=== PATIENT | female | born 1940 | race Caucasian/White ===

== ENCOUNTER 2022-12-22 11:40 | Emergency (ER) | payer OTHER, SELFPAY ==
[2022-12-22 11:42] VITALS: BP 141/76; PULSE 95; RESP 18; TEMP 36.3; O2SAT 96; BMI 25.8
[2022-12-22 12:19] LABS: Appearance Urine Clear (Clear); Bilirubin Urine Negative (Negative); Blood Urine 3+ (Negative); Color Urine Yellow (Yellow); Glucose Urine Negative (Negative); Ketones Urine Negative (Negative); Leukocyte Esterase Urine 1+ (Negative); Nitrite Urine Negative (Negative); Protein Urine 2+ (Negative); Specific Gravity Urine >= 1.030 (1.000-1.030); Urobilinogen Urine 0.2 (0.2-1.0); pH Urine 5.5 (5.0-8.5)
--- NOTE | 2022-12-22 12:20 | ED_ITS ---
HPI - General Adult General Chief complaint: Urogenital Problems, Female Stated complaint: Possible UTI Time Seen by Provider: 12/22/22 11:54 Source: patient Mode of arrival: ambulatory Limitations: no limitations History of Present Illness HPI narrative: 82-year-old female coming in today complaining of blood in her urine, feeling the need to urinate more often throughout the day and suprapubic pressure. She denies any fevers, chills, nausea or vomiting. No diarrhea or constipation. No dysuria. She states that she has had a UTI before and has felt very similar. Related Data Home Medications Medication Instructions Recorded Confirmed gabapentin 300 mg capsule mg 12/22/22 metoprolol tartrate 50 mg tablet mg 12/22/22 omeprazole 20 mg capsule,delayed mg 12/22/22 release pravastatin 20 mg tablet mg 12/22/22 Previous Rx's Medication Instructions Recorded cephalexin 500 mg capsule 500 mg PO TID 5 days #15 caps 12/22/22 Allergies Allergy/AdvReac Type Severity Reaction Status Date / Time morphine Allergy Intermediate Verified 12/22/22 11:47 Review of Systems Status of ROS: Reports: 6 or more systems reviewed and unremarkable except as noted in History and below Exam Narrative: Exam Narrative: Well-nourished well-developed patient in no acute distress. Alert and oriented. Answers questions appropriately. Mood and affect are appropriate. Thoughts are goal oriented and rational. No tangential or magical thinking noted. Patient speaks in full sentences without needing to catch their breath. HEENT: Normocephalic atraumatic. Pupils are equally round reactive to light. Extraocular muscles are intact. Conjunctivae are moist without any icterus noted. Cardiovascular: Heart is regular rate and rhythm S1 and S2 are present without any murmurs. Lungs: Clear to auscultation bilaterally no wheezes rhonchi or rales are appreciated. Patient takes deep breaths without any discomfort. Abdomen: Soft and nontender nondistended with normal bowel sounds. Const: Vital Signs, click to edit/add: Vital Signs - 24 hr 12/22/22 11:42 Temperature 97.4 F L Pulse Rate [Pulse Oximeter] 95 Respiratory Rate 18 Blood Pressure [Ri ght Upper Arm] 141/76 H Pulse Oximetry 96 Oxygen Delivery Me thod Room Air Course Course Hospital Course: UA is grossly positive for signs of infection. Vital Signs Vital signs: Initial Vital Signs Temperature 97.4 F L 12/22/22 11:42 Temperature Source Temporal Artery Scan 12/22/22 11:42 Pulse Rate 95 12/22/22 11:42 Respiratory Rate 18 12/22/22 11:42 Blood Pressure 141/76 H 12/22/22 11:42 Blood Pressure Mean 97 12/22/22 11:42 Blood Pressure Position Supine 12/22/22 11:42 Pulse Oximetry 96 12/22/22 11:42 Oxygen Delivery Method 12/22/22 11:42 Vital Signs Temperature 97.4 F L 12/22/22 11:42 Pulse Rate 95 12/22/22 11:42 Respiratory Rate 18 12/22/22 11:42 Blood Pressure 141/76 H 12/22/22 11:42 Pulse Oximetry 96 12/22/22 11:42 Oxygen Delivery Method 12/22/22 11:42 Temperature 97.4 F L 12/22/22 11:42 Pulse Rate 95 12/22/22 11:42 Respiratory Rate 18 12/22/22 11:42 Blood Pressure 141/76 H 12/22/22 11:42 Pulse Oximetry 96 12/22/22 11:42 Oxygen Delivery Method 12/22/22 11:42 Medical Decision Making MDM Narrative Medical decision making narrative: 82-year-old female with UTI. Will treat with Keflex. Lab Data Lab results reviewed: Yes I reviewed the patient's lab results Labs: Lab Results 12/22/22 Range/Units 11:55 Urine Color Yellow (Yellow) Urine Appearance Clear (Clear) Urine pH 5.5 (5.0-8.5) Ur Specific [place] >= 1.030 (1.000-1.030) Urine Protein 2+ A (Negative) Urine Glucose (UA) Negative (Negative) Urine Ketones Negative (Negative) Urine Blood 3+ A (Negative) Urine Nitrite Negative (Negative) Urine Bilirubin Negative (Negative) Urine Urobilinogen 0.2 (0.2-1.0) Ur Leukocyte Esterase 1+ A (Negative) Urine RBC 50-100 A (0-2) Urine WBC 25-50 A (0-5) Ur Squamous Epith Cells Moderate A (None-Few) Urine Bacteria None (None) Discharge Plan Discharge Clinical Impression: Urinary tract infection Patient Disposition: Home, Self-Care Condition: Stable Additional Instructions: Increase your water intake, take all antibiotics as prescribed. Return to the ER if you are getting worse instead of better over the next 48 hours. Prescriptions: New cephalexin 500 mg capsule 500 mg PO TID 5 Days Qty: 15 0RF No Action metoprolol tartrate 50 mg tablet gabapentin 300 mg capsule omeprazole 20 mg capsule,delayed release(DR/EC) pravastatin 20 mg tablet Follow Up/Referrals: Valeria Canela V [employer]ER [Primary Care Provider] - Stand Alone Forms: [facility] Info Instructions
[2022-12-22 12:29] LABS: RBC Urine 50-100 (0-2); Squamous Epithelial Cell Urine Moderate (None-Few); WBC Urine 25-50 (0-5)
== END 2022-12-22 12:50 | disposition home or self-care (01) ==
PROVIDERS: Emergency Provider Family Medicine; PCP Nurse Practitioner Family
DX: N39.0 Urinary tract infection, site not specified (principal)
CPT/HCPCS: 81001; 87086; 87186; 99282; 99283

== ENCOUNTER 2023-09-05 11:46 | Outpatient (CLI) | payer OTHER, SELFPAY | END 2023-09-05 11:47 | disposition home or self-care (01) | LOC: AMB 09-07 17:27 | PROVIDERS: PCP Nurse Practitioner Family; Visit Provider Emergency Medicine Emergency Medical Services | DX: R42 Dizziness and giddiness (principal); R10.9 Unspecified abdominal pain; R30.0 Dysuria | CPT/HCPCS: A0425; A0427 ==

== ENCOUNTER 2023-09-05 12:12 | Emergency (ER) | payer OTHER, SELFPAY ==
[2023-09-05 12:17] VITALS: BP 151/83; PULSE 77; RESP 20; TEMP 36.7; O2SAT 94; BMI 26.6
--- NOTE | 2023-09-05 12:32 | ED_ITS ---
HPI - General Adult General Time Seen by Provider: 12:32 Date Seen: 09/05/23 Chief complaint: Urogenital Problems, Female Stated complaint: Dizziness Time Seen by Provider: 09/05/23 12:30 History of Present Illness HPI narrative: This is a pleasant 83-year-old female with a history of urinary tract infections who [facility] Review of medical record in indicates that she was seen in the ER in [place] last December for UTI. Urinalysis was abnormal. She was prescribed cephalexin. Culture grew Citrobacter koseri, pansensitive. Patient reports that last night she did develop urinary tract infection symptoms including a vaguely odd feeling in her abdomen, dysuria and urgency. She had visible hematuria with red stain urine and a few small clots. She says the urine was dark red, but not frankly bloody. No flank pain. No fevers. She is mildly nauseous but not vomiting. She had some leftover antibiotics from her previous UTI so took 1 of those but has not bee n feeling better. She had trouble sleeping last night due to her symptoms. She tried to sleep and this morning so did not get up until about 10:00 a.m. she had to roque out the door to get to her occupational therapy appointment, so she did not eat much for breakfast. She had kind of a poor appetite any way. No fevers. No chest pain. No recent cough. No shortness of breath. No swelling in her legs.. She went to the occupational therapy rehab center this morning. While there, she was sitting in a chair and talking with her therapist. She began to feel dizzy, somewhat spinae, and the lights began did go dark. She did not black out but she became lightheaded and dizzy. She was so dizzy she relates having trouble standing up. Her rehab staff call the ambulance and had her transported here to the ER. Now that she is here in the ER she is feeling better. No ongoing dizziness or lightheadedness. Related Data Home Medications Medication Instructions Recorded Confirmed gabapentin 300 mg capsule mg 12/22/22 metoprolol tartrate 50 mg tablet mg 12/22/22 omeprazole 20 mg capsule,delayed mg 12/22/22 release pravastatin 20 mg tablet mg 12/22/22 escitalopram oxalate 10 mg tablet 10 mg PO DAILY 09/05/23 09/05/23 (Lexapro) Previous Rx's Medication Instructions Recorded cephalexin 500 mg capsule 500 mg PO BID #14 caps 09/05/23 Allergies Allergy/AdvReac Type Severity Reaction Status Date / Time morphine Allergy Intermediate Verified 12/22/22 11:47 latex AdvReac Intermediate Verified 09/05/23 12:25 [facility] Social History Smoking Status: Never smoker Do you use any of these nicotine containing products: None How often do you have a drink containing alcohol: never AUDIT-C Alcohol total score: 0 Non-prescribed substance use: denies use Exam Narrative: Exam Narrative: Constitutional: Appears well-developed and well-nourished. Alert. Conversant. Non toxic. to tentatively at her side. HENT: Head: Atraumatic. Nose: Nose normal. Mouth/Throat: Oral mucosa is clear and moist. no trismus. Pharynx normal. Tonsils symmetric. No tonsillar enlargement, erythema, or exudate. Eyes: Conjunctivae normal. EOM normal. Pupils equal, round, and reactive to light. No scleral icterus. Neck: Normal range of motion. Neck supple. No tracheal deviation present. No JVD Cardiovascular: Normal rate, regular rhythm. No gallop. No friction rub. No murmur heard. Symmetric radial artery pulses Pulmonary/Chest: Effort normal. No stridor. No respiratory distress. No wheezes. No rales. No rhonchi . No tenderness. Abdominal: Soft. Bowel sounds normal. No distension. No mass. Suprapubic tenderness. No CVA tenderness. No rebound. No guarding. Musculoskeletal: RUE: Normal range of motion. No tenderness. No deformity LUE: Normal range of motion. No tenderness. No deformity RLE: Normal range of motion. No edema. No tenderness. No deformity LLE: Normal range of motion. No edema. No tenderness. No deformity Neurological: Alert and oriented to person, place, and time. Normal strength. CN II-VII intact. No sensory deficit. GCS eye subscore is 4. GCS verbal subscore is 5. GCS motor subscore is 6. Normal coordination Skin: Skin is warm and dry. No rash noted. No pallor. Normal capillary refill. Psychiatric: Normal mood. Normal affect. Const: Vital Signs, click to edit/add: Vital Signs - 24 hr 09/05/23 12:17 09/05/23 13:54 Temperature 98.1 F Pulse Rate [Right Pulse Oximeter] 77 74 Respiratory Rate 20 14 Blood Pressure [Ri ght Upper Arm] 151/83 H 133/68 Pulse Oximetry 94 93 Oxygen Delivery Me thod Room Air Room Air Course Course ED Course: Recheck-feeling even better after IV fluids. Ambulatory in the hallway without dizziness. Blood pressure stable. Reevaluation(s) Reevaluation #1: Recheck-Rocephin infusing. Doing well. Discussed findings and plan of care with the patient and her . Vital Signs Vital signs: Initial Vital Signs Temperature 98.1 F 09/05/23 12:17 Temperature Source Temporal Artery Scan 09/05/23 12:17 Pulse Rate 77 09/05/23 12:17 Pulse Rhythm Regular 09/05/23 12:17 Respiratory Rate 20 09/05/23 12:17 Blood Pressure 151/83 H 09/05/23 12:17 Blood Pressure Mean 105 09/05/23 12:17 Blood Pressure Position Semi-Fowlers 09/05/23 12:17 Pulse Oximetry 94 09/05/23 12:17 Oxygen Delivery Method Room Air 09/05/23 12:17 Vital Signs Temperature 98.1 F 09/05/23 12:17 Pulse Rate 77 09/05/23 12:17 Respiratory Rate 20 09/05/23 12:17 Blood Pressure 151/83 H 09/05/23 12:17 Pulse Oximetry 94 09/05/23 12:17 Oxygen Delivery Method Room Air 09/05/23 12:17 Temperature 98.1 F 09/05/23 12:17 Pulse Rate 74 09/05/23 13:54 Respiratory Rate 14 09/05/23 13:54 Blood Pressure 133/68 09/05/23 13:54 Pulse Oximetry 93 09/05/23 13:54 Oxygen Delivery Method Room Air 09/05/23 13:54 Medical Decision Making MDM Narrative Medical decision making narrative: This patient presents for evaluation of UTI symptoms and visible hematuria that began overnight last night, leading into an episode of near-syncope and dizziness that occurred this morning when she was at her outpatient occupational therapy. Differential for her near syncopal than his broad. At this point EKG shows sinus rhythm and she is not having any chest pain or other symptoms of cardiac ischemia or arrhythmia. Screening troponin is normal. She is not anemic. No symptoms of GI bleeding. Where clinically more concerned that this evidence of dizziness was probably related to her urinary tract infection. She felt like she might have been dehydrated this morning because she did not eat much for breakfast before appointment. Upon arrival here in the ER she is already feeling better and feels even better After fluids symptoms and urinalysis are consistent with urinary tract infection. Culture from 8 months ago grew is pansensitive Citrobacter. She started on Rocephin here in the ER. She does have leukocytosis but is not febrile, tachycardic, hypotensive. Lactic acid is normal. She is not having any flank pain to suggest associated kidney stone or pyelonephritis. With her lightheadedness concern would be possible early/evolving urosepsis. However clinically she is quite alert, pleasant, nontoxic. In discussing the whole picture, we decided it would be reasonable to start her on IV antibiotics here, and have her continue oral antibiotics at home. She feels confident that she will be able to stay hydrated. Her will be able to help monitor her condition. We discussed the risk of worsening infection or recurrent dizziness and precautions for return to the ER. Return if increasing dizziness, fever, abdominal or flank pain, vomiting, fever, or inability to tolerate the oral antibiotic. Follow up with primary physician is indicated if not improving in 2-3 days. We discussed the urine culture will result in a few days and if necessary will contact her to change antibiotic therapy. Suspect that her visible hematuria is probably a symptom of her urinary tract infection but recommend follow-up with primary care in the next 1-2 weeks for repeat urinalysis when she is asymptomatic to make sure there is no ongoing occult hematuria that might suggest urinary tract malignancy. Questions answered. Lab Data Labs: Lab Results 09/05/23 09/05/23 Range/Units 12:46 13:04 WBC 18.25 H (4.50-11.00) K/uL RBC 4.95 (4.00-5.20) m/uL Hgb 13.4 (12.0-16.0) gm/dL Hct 43.3 (33.0-51.0) % MCV 88 (80-100) fL MCH 27 (26-34) pg MCHC 31 L (32-36) gm/dL RDW Coeff of Jocelin 12.8 (11.5-15.5) % Plt Count 278 (140-440) K/uL Neut % (Auto) 83.3 H (42.0-72.0) % Lymph % (Auto) 7.9 L (20-44) % [place] % (Auto) 7.7 (0.0-11.0) % Eos % (Auto) 0.8 (0.0-7.0) % Baso % (Auto) 0.1 (0.0-3.0) % Neut # (Auto) 15.20 H (1.7-7.0) K/uL Lymph # (Auto) 1.40 (0.90-2.90) K/uL [place] # (Auto) 1.40 H (0.00-0.90) K/UL Eos # (Auto) 0.10 (0.00-0.50) K/uL Baso # (Auto) 0.00 (0.00-0.30) K/uL Abs Immat Gran (auto) 0.00 (0.00-0.30) K/uL Imm/Tot Granulo (auto) 0.2 % Sodium 139 (135-149) mmol/L Potassium 4.2 (3.6-5.1) mmol/L Chloride 102 (96-114) mmol/L Carbon Dioxide 28 (20-32) mmol/L Anion Gap 9 (7-15) mEq/L BUN 15 (7-30) mg/dL Creatinine 0.6 (0.5-1.5) mg/dL Estimated Creat Clear 41.45 Estimated GFR 89 ml/min Glucose 85 (60-115) mg/dL Lactate 1.0 (0.5-1.9) mmol/L Calcium 9.2 (8.4-10.6) mg/dL Troponin I < 0.01 L (0.01-0.04) ng/mL Urine Color Red A (Yellow) Urine Appearance Cloudy A (Clear) Urine pH 7.0 (5.0-8.5) Ur Specific [place] 1.020 (1.000-1.030) Urine Protein 3+ A (Negative) Urine Glucose (UA) Negative (Negative) Urine Ketones Negative (Negative) Urine Blood 3+ A (Negative) Urine Nitrite Negative (Negative) Urine Bilirubin Negative (Negative) Urine Urobilinogen 0.2 (0.2-1.0) Ur Leukocyte Esterase 3+ A (Negative) Urine RBC >100 A (0-2) Urine WBC >100 A (0-5) Ur Squamous Epith Cells None (None-Few) Urine Bacteria Few A (None) ECG Data Attestation: I personally reviewed and interpreted this ECG as follows: Interpretation: Normal sinus rhythm rate 79 MT 170 QRS axis normal axis. Low voltage QRS ST segment/T wave: No ST segment elevation or depression. QTc: 458 Discharge Plan Discharge Clinical Impression: Urinary tract infection Patient Disposition: Home, Self-Care Condition: Stable Instructions: Urinary Tract Infection in Older Adults (ED) Additional Instructions: As we discussed, you have a urinary tract infection-an infection in your bladder. The antibiotics we gave you here in the ER will treat this infection for the 1st 24 hours. Please start your oral antibiotics at home tomorrow morning. Take antibiotic twice a day for 7 days. If you have any worsening symptoms especially fever, vomiting, pain in your back or in your kidneys, weakness, dizziness, confusion, worsening blood in your urine, please come back to the ER right away. Even if your infection gets better, please schedule a recheck with your regular doctor within the next 2 weeks. They can recheck you and repeat urine sample to make sure all the blood is gone. Prescriptions: New cephalexin 500 mg capsule 500 mg PO BID Qty: 14 0RF No Action metoprolol tartrate 50 mg tablet gabapentin 300 mg capsule omeprazole 20 mg capsule,delayed release(DR/EC) pravastatin 20 mg tablet escitalopram oxalate [Lexapro] 10 mg tablet 10 mg PO DAILY Follow Up/Referrals: Valeria Canela V TECHNICAL ANALYST [Primary Care Provider] - Stand Alone Forms: [employer] [facility] [employer] Info Instructions
[2023-09-05 13:05] LABS: Appearance Urine Cloudy (Clear); Bilirubin Urine Negative (Negative); Blood Urine 3+ (Negative); Color Urine Red (Yellow); Glucose Urine Negative (Negative); Ketones Urine Negative (Negative); Leukocyte Esterase Urine 3+ (Negative); Nitrite Urine Negative (Negative); Protein Urine 3+ (Negative); Urobilinogen Urine 0.2 (0.2-1.0)
[2023-09-05 13:13] LABS: Basophils Percent Auto 0.1 % (0.0-3.0); Eosinophils Percent Auto 0.8 % (0.0-7.0); Hematocrit 43.3 % (33.0-51.0); Hemoglobin* 13.4 gm/dL (12.0-16.0); Immature Granulocytes Pct Auto 0.2 %; Lymphocytes Percent Auto 7.9 % (20-44); Mean Corpuscular HGB Conc 31 gm/dL (32-36); Mean Corpuscular Hemoglobin 27 pg (26-34); Mean Corpuscular Volume 88 fL (80-100); Monocytes Percent Auto 7.7 % (0.0-11.0); Neutrophils Percent Auto 83.3 % (42.0-72.0); Platelet Count* 278 K/uL (140-440); RDW Coefficient of Variation % 12.8 % (11.5-15.5); Red Blood Count 4.95 m/uL (4.00-5.20); White Blood Count* 18.25 K/uL (4.50-11.00)
[2023-09-05] MEDS: 0.9 % SODIUM CHLORIDE 1000 ml 1,000 ML IV (13:15)
[2023-09-05 13:17] LABS: Slide Review Reflex No
[2023-09-05] MEDS: ONDANSETRON 2 MG/ML inj 4 MG IVP (13:19)
[2023-09-05 13:32] LABS: Chloride* 102 mmol/L (96-114); Potassium* 4.2 mmol/L (3.6-5.1); Sodium* 139 mmol/L (135-149)
[2023-09-05 13:35] LABS: Blood Urea Nitrogen* 15 mg/dL (7-30); Creatinine* 0.6 mg/dL (0.5-1.5); Est. Creatinine Clearance* 41.45; Estimated Glomerular Filt Rate 89 ml/min
[2023-09-05 13:36] LABS: Calcium* 9.2 mg/dL (8.4-10.6); Glucose* 85 mg/dL (60-115)
[2023-09-05 13:37] LABS: Anion Gap 9 mEq/L (7-15); Carbon Dioxide* 28 mmol/L (20-32)
[2023-09-05 13:45] LABS: Bacteria Urine Few; RBC Urine >100 (0-2); WBC Urine >100 (0-5)
[2023-09-05 13:50] LABS: Troponin I* < 0.01 ng/mL (0.01-0.04)
[2023-09-05 13:54] VITALS: BP 133/68; PULSE 74; RESP 14; O2SAT 93
[2023-09-05] MEDS: cefTRIAXone 1 GM in 0.9 % SODIUM CHLORIDE Mini-bag 100 ML IVPB (14:44)
== END 2023-09-05 15:38 | disposition home or self-care (01) ==
PROVIDERS: Emergency Provider Emergency Medicine; PCP Nurse Practitioner Family
DX: N39.0 Urinary tract infection, site not specified (principal)
CPT/HCPCS: 36415; 80048; 81001; 83605; 84484; 85025; 87086; 93005; 96365; 96375; 99283; 99284; J0696; J2405; J7030

== ENCOUNTER 2023-09-12 10:00 | Outpatient (RCR) | payer OTHER, SELFPAY | END 2023-09-12 13:44 | disposition home or self-care (01) | PROVIDERS: PCP Nurse Practitioner Family; Visit Provider Nurse Practitioner Family | DX: M12.9 Arthropathy, unspecified (principal); M79.641 Pain in right hand; R53.1 Weakness; Z51.89 Encounter for other specified aftercare | CPT/HCPCS: 97035; 97110; 97140; 97165; 97535; L3913; X5282 ==

== ENCOUNTER 2024-03-03 08:30 | Outpatient (RCR) | payer OTHER, SELFPAY | END 2024-05-14 08:05 | disposition home or self-care (01) | PROVIDERS: PCP Nurse Practitioner Family; Visit Provider Nurse Practitioner Family | DX: N39.41 Urge incontinence (principal); Z51.89 Encounter for other specified aftercare | CPT/HCPCS: 97110; 97112; 97162; 97535 ==

== ENCOUNTER 2024-08-11 15:51 | Outpatient (CLI) | payer OTHER, SELFPAY ==
--- OUTSIDE RECORDS SUMMARY | 2024-08-15 01:21 | XMS_ITS | Encounter Summary ---
Author Organization [facility] Address [address] [place] [id number] Care Team Providers Care Leather Novelty Parts Cutter Name Role Phone Cheyanne Head M.D. Primary Care Provider Reason for Referral * Outpatient (Routine) - Authorized Specialty Diagnoses / Procedures Referred By Tong gates Referred To Contact Devin Mcnair D.C. [address] [place] [address] [facility] Referral ID Status Reason Start Date Expiration Date V isits Requested Visits Authorized [id number] Authorized 07/27/2024 01/26/2026 1 1 Reason for Visit * Outpatient (Routine) - Closed Specialty Diagnoses / Procedures Referred By Tong gates Referred To Contact Devin Mcnair D.C. [address] [place] [address] [facility] Referral ID Status Reason Start Date Expiration Date Visits Re quested Visits Authorized [id number] Closed 06/08/2024 12/08/2025 1 1 Encounter Details Date Type Department Care Team (Late st Contact Info) Description 07/27/2024 11:00 AM CDT Office Visit Department of Spine in [place], [place] [address] [place] [phone] Devin Mccormack D.C. [address] [place] [address] Dysfunction Somatic Pelvic Region (Primary Dx); Dysfunction Somatic Thoracic Region; Dysfunction Somatic Lumbar Region; Pain Low Back Mechanical; Pain Myofascial Social History Tobacco Use Types Packs/Day Years Used Date Smoking Tobacco: Never Passive Smoke Exposure: Past Smokeless Tobacco: Never Alcohol Use Standard Drinks/Week Comments Yes 0 (1 standard drink = 0.6 oz pur e alcohol) occasionally has a drink [facility] Eduoraities Answer Date Recorded In the past 12 months has th e electric, gas, oil, or water [email or web address] threatened to shut off services in your home? No 05/29/2024 Humiliation, Afraid, Rape, and Kick questionnair e Answer Date Recorded Within the last year, have y ou been afraid of your partner or ex-partner? No 02/05/2023 Within the last year, have y ou been humiliated or emotionally abused in other ways by your partner or ex-partner? No Within the last year, have y ou been kicked, hit, slapped, or otherwise physically hurt by your partner or ex-partner? No 02/05/2023 Within the last year, have y ou been raped or forced to have any kind of sexual activity by your partner or ex-partner? No 02/05/2023 Social Connection and Isolat ion Panel [NHANES] Answer Date Recorded In a typical week, how many times do you talk on the phone with family, friends, or neighbors? Three times a week 02/05/2023 How often do you get togethe r with friends or relatives? Patient declined 02/05/2023 How often do you attend chur or mandaeism services? More than 4 times per year 02/05/2023 Do you belong to any clubs o r organizations such as anabaptist groups, unions, fraternal or athletic groups, or school groups? Yes 02/05/2023 How often do you attend meet ings of the clubs or organizations you belong to? More than 4 times per year 02/05/2023 Are you , , di vorced, , never , or living with a partner? 02/05/2023 AUDIT-C Answer Date Recorded Q1: How often do you have a drink containing alc ohol? 2-4 times a month 02/05/2023 Q2: How many drinks containi ng alcohol do you have on a typical day when you are drinking? 1 or 2 02/05/2023 Q3: How often do you have si x or more drinks on one occasion? Never 02/05/2023 Overall Financial Resource Strain (CARDIA) Answe r Date Recorded How hard is it for you to pa y for the very basics like food, housing, medical care, and heating? Not hard at all 02/05/2023 PHQ-2 Answer Date Recorded PHQ-2 Score 0 07/27/2024 [facility] [place] of Occupat ional [facility] - Occupational Stress Questionnaire Answer Date Recorded Do you feel stress - tense, restless, nervous, or anxious, or unable to sleep at night because your mind is troubled all the time - these days? To some extent 02/05/2023 Exercise Vital Sign Answer Date Recorde d On average, how many days pe r week do you engage in moderate to strenuous exercise (like a brisk walk)? 3 days 05/29/2024 On average, how many minutes do you engage in exercise at this level? 30 min 05/29/2024 Hunger Vital Sign Answer Date Recorded Within the past 12 months, y ou worried that your food would run out before you got the money to buy more. Never true 05/29/20 24 Within the past 12 months, t he food you bought just didn't last and you didn't have money to get more. Never true 05/29/2024 PRAPARE - Transportation Answer Date Re corded In the past 12 months, has l ack of transportation kept you from medical appointments or from getting medications? No 05/18 In the past 12 months, has l ack of transportation kept you from meetings, work, or from getting things needed for daily living? No 05/29/2024 Depression Answer Date Recor ded PHQ-9 Total Score (max 27) 2 07/27 Nutrition Answer Date Recorded On average, how many serving s of fruits and vegetables do you eat per day (serving size is equal to 1 cup or approximately the size of a tennis ball)? 0-2 05/29/2024 Dental Answer Date Recorded Dental: Regular Dentist Yes 05/23/20 Employment Answer Date Recorded Employment status Retired 05/29/2024 Housing Stability Answer Date Recorded What is your living situation today? I have a [facility] place to live 05/29/2024 Education Answer Date Recorded What is the highest level of school you have completed or the highest degree you have received? Master's degree (e.g., MA, MS, Col[place], MEd, DUAL RATE SUPERVISOR, JUAN A) 05/22/2019 Sex and Gender Information Value Date Recorded Sex Assigned at Female 09/14/2021 5:55 PM CDT Gender Identity Female 08/18/2020 9:16 AM CDT Sexual Orientation Straight 08/18/2020 9: 16 AM CDT documented as of this encounter Progress Notes * Devin Mccormack D.C. - 07/27/2024 11:00 AM CDT SUBJECTIVE HISTORY OF PRESENT ILLNESS Janie is a 84 y.o. female who presents today for primary complaints of left-sided low back pain. Shereports this began about a week ago. She has been doing a lot of sewing recently and thinks that this may be a factor in the onset of her symptoms. She denies any radiation of pain to leg. She notes that it does radiate upward towards the lower thoracic and upper lumbar region. No pain associated with coughing or sneezing. No pain with deep inspiration. She denies groin pain. She has not had any recent fevers or chills. She denies any recent changes in bowel or bladder function. She finds transitions from sit to stand are provocative of pain. She notes an after she walks for about 20 ft the [email or web address] lessen. OBJECTIVE PHYSICAL EXAM GENERAL: 84 y.o. female in no acute distress. MUSCULOSKELETAL EXAM: Slump test is negative bilaterally. HEN[place] is provocative of symptoms on the left. Diminished right side bending and right trunk rotation with left back pain noted. Myofascial restriction is noted to the latissimus dorsi at the ninth and tenth intercostal space on the left, theproximal and distal aspects of the thoracolumbar fascia, the left gluteus medius and left gluteus breanne along the inferior aspect of the iliac crest extending toward the left dorsal sacroiliac ligament. Joint restriction is noted thoracolumbar junction and left sacroiliac joint. NEUROLOGICAL EXAM: Gross neurological function is normal in the extremities. Gait and balance are normal. 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 Fascial manipulation was performed to the involved connective tissues as indicated in the physical examination. No complications associated with today's visit. She reports an absence of pain post treatment. We reviewed self mobilization techniques for the areas of involvement. Althe[place]ill continue with frequency of regular exercise as she has very disciplined program. Recommended chiropractic recheck as needed for pain control. documented in this encounter Plan of Treatment Upcoming Encounters Date Type Department Care Team (Late st Contact Info) Description 09/04/2024 2:00 PM CDT Office Visit Department of Spine in [place], [place] [address] [place] [address] Devin Mccormack D.C. [address] [place] [address] Scheduled Referrals Name Type Priority Associated Diagnoses Orde r Schedule Spine office visit (clinic) Outpatient Referral Routine Expected: 08/26/2024 (Approximate), Expires: 10/26/2025 documented as of this encounter Visit Diagnoses Diagnosis Dysfunction Somatic Pelvic Region- Primary Dysfunction Somatic Thoracic Region Dysfunction Somatic Lumbar Region Pain Low Back Mechanical Pain Myofascial documented in this encounter Additional Health Concerns Assessment Noted Time PHQ-9 Depression Total Score: 2 07/27/20 24 12:45 PM CDT documented as of this encounter Care Teams Leather Novelty Parts Cutter Relationship Specialty Start Date End Date Cheyanne Head M.D. [address] [place] [phone] PCP - General 12/29/20 documented as of this encounter
--- OUTSIDE RECORDS SUMMARY | 2024-08-15 01:21 | XMS_ITS | Encounter Summary ---
Author Organization [facility] Address [address] [place] [address] Care Team Providers Care Global Marketing Intern Name Role Phone Cheyanne Head M.D. Primary Care Provider Encounter Details Date Type Department Care Team (Late st Contact Info) Description 06/11/2024 CPAP Download Remote Patient Monitoring [facility] [address] [place] [address] [facility], Provider, M.B., Ph.D. Social History Tobacco Use Types Packs/Day Years Used Date Smoking Tobacco: Never Passive Smoke Exposure: Past Smokeless Tobacco: Never Alcohol Use Standard Drinks/Week Comments Yes 0 (1 standard drink = 0.6 oz pur e alcohol) occasionally has a drink [facility] [employer] Answer Date Recorded In the past 12 months has [employer], gas, oil, or water [employer] threatened to shut off services in your [...] 02/05/2023 How often do you attend chur ch or worship services? More than 4 times per year 02/05/2023 Do you belong to any clubs o r organizations such as anabaptism groups, unions, fraternal or athletic groups, or [...] PHQ-2 Answer Date Recorded PHQ-2 Score 0 07/13/2024 [facility] of Occupat ional [facility] - Occupational Stress Questionnaire Answer Date [...] Recor ded PHQ-9 Total Score (max 27) 3 07/13 Nutrition Answer Date Recorded On average, how [...] your living situation today? I have a [facility] place to live 05/29/2024 Education Answer Date Recorded What is the highest level of school you have completed or the highest degree you have received? Master's degree (e.g., MA, MS, Colby, MEd, PARK LANDSCAPE ARCHITECT, JUAN A) 05/22/2019 Sex and Gender Information Value Date Recorded Sex Assigned at Female 09/14/2021 5:55 PM CDT Gender Identity Female 08/18/2020 9:16 AM CDT Sexual Orientation Straight 08/18/2020 9: 16 AM CDT documented as of this encounter Plan of Treatment Upcoming Encounters Date Type Department Care Team (Late st Contact Info) Description 09/04/2024 2:00 PM CDT Office Visit Department of Spine in [place], [place] [address] [place] [address] Devin Mccormack D.C. [address] [place] [address] documented as of this encounter Visit Diagnoses Not on filedocumented in this encounter Additional Health Concerns Assessment Noted Time PHQ-9 Depression Total Score: 5 06/08/20 24 1:50 PM CDT documented as of this encounter Care Teams Global Marketing Intern Relationship Specialty Start Date End Date Cheyanne Head M.D. [address] [place] [address] [place] [phone] PCP - General 12/29/20 documented as of this encounter
--- OUTSIDE RECORDS SUMMARY | 2024-08-15 01:21 | XMS_ITS | Referral Summary ---
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 caliber retrocecal appendix. Abdominal aorta is normal in course and caliber. Mild aortobiiliac atherosclerotic vascular calcifications. Visceral arterial venous branches are patent. Scattered subcentimeter mesenteric and retroperitoneal lymph nodes. No evidence of abdominal or pelvic adenopathy. Osseous demineralization. Multilevel spondylosis and lower lumbar predominant facet arthropathy. Bilateral hip joint arthrosis. No acute or aggressive appearing skeletal abnormality. T12 vertebral body hemangioma. Procedure Note Elmo Cabrera M.D. - 06/05/2024 EXAM: CT ABDOMEN PELVIS WITH IV CONTRAST COMPARISON: Correlation with CT urogram 09/19/2023. FINDINGS: The lung bases are clear. No consolidation or pleural abnormality. Cardiacsize normal. No pericardial effusion. Uniform hepatic enhancement. Small probable hepatic cysts or hemangiomatato within the left hepatic lobe are unchanged. No worrisome hepatic lesionor biliary ductal dilatation. Cholecystectomy. The spleen, pancreas, and adrenal glands are stable from prior. Renalenhancement is symmetric. There is no hydronephrosis. No nephrolithiasis.Several simple appearing renal cysts. Decompressed urinary bladder. Priorhysterectomy. Small hiatal hernia. No morphology of bowel obstruction or freeintraperitoneal gas. There is a somewhat thick-walled appearance to theproximal portion of the ascending colon which may in part be accentuatedby relative under distention. No discrete abnormality in this location on preceding CT of 09/19/2023. Remaining smalland large bowel are normal in course/caliber. Scattered colonicdiverticula without evidence of diverticulitis. Moderate burden of formedstool throughout the large intestine. Normal caliber retrocecal appendix. Abdominal aorta is normal in course and caliber. Mild aortobiiliacatherosclerotic vascular calcifications. Visceral arterial venous branchesare patent. Scattered subcentimeter mesenteric and retroperitoneal lymphnodes. No evidence of abdominal or pelvic adenopathy. Osseous demineralization. Multilevel spondylosis and lower lumbarpredominant facet arthropathy. Bilateral hip joint arthrosis. No acute oraggressive appearing skeletal abnormality. T12 vertebral bodyhemangioma. IMPRESSION: 1. Somewhat thick-walled appearance of the proximal portion of theascending colon. This is favored to reflect a combination ofunderdistention/focal peristalsis. No discrete abnormality in thislocation noted on CT of 09/19/2023. If persistent symptoms, could consider repeat CT imaging and/or GI consultation. 2. No acute intra-abdominal or pelvic abnormality present. Junie Olmedo P.A.-C. IMG CT PROCEDURES * hand-wrist: R thumb CMC joint (05/29/2024 3:15 PM CDT) Narrative Murphy Jesus M.D. - 05/29/2024 3:15 PM CDT Murphy Jesus M.D. ? 06/02/2024 ??4:05 PM R thumb CMC joint joint injection, : injection only Hand-wrist: R thumb CMC joint Performed by: Murphy Jesus M.D. Authorized by: Murphy Jesus M.D. ?? PROCEDURE DETAILS Procedure performed: injection only Hand-Wrist procedure site: ?? R thumb CMC joint joint injection, PROCEDURE MEDICATIONS Local anesthetics: 3 mL lidocaine 10 mg/mL (1 %) Corticosteroid: 20 mg triamcinolone acetonide 10 mg/mL CONSENT Consent obtained: written (Risks, benefits and alternatives were discussed and a written Informed Consent was obtained. Please see Informed Consent form for further details.) UNIVERSAL PROTOCOL All relevant documentation and testing were reviewed and available. All required blood products, implants, devices and or special equipment were made available as applicable. Pre-procedure verification was conducted and the correct site was marked if required. A fire risk assessment was done as applicable. The procedural time-out to verify correct patient, correct side/site, and procedure was conducted prior to performing the procedure and confirmed in a procedural pause. PRE-PROCEDURE DETAILS Procedure purpose: therapeutic Appropriate hand hygiene, gown, cap, mask, protective eyewear, sterile gloves, skin preparation, sterile drape, and strict aseptic technique were utilized as applicable for the procedure. Site preparation: chlorhexidine SEDATION / ANESTHESIA Anesthesia method: none POST-PROCEDURE DETAILS Procedure outcome: ??successful procedure Complications: no apparent complications Post-procedure instructions: post-procedure activity instructions provided Discharge instruction provided: ice area as needed for comfort, follow-up with ordering provider and medications and side effects Comments The procedure site was marked by the proceduralist and verified with the patient. A time out/final pause was completed with verification of patient identity using two identifiers, confirmation of the site and side(s), agreement on the procedure to be performed. The hand was prepped and draped by the clinic nurse. The joint was identified and injected using a 25 gauge needle. The patient tolerated the procedure well with no complications. A bandaid was placed over the injection site. Murphy Jesus M.D. 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 [address] [place] [address] ABDIEL Arango [id number] PCP - General 12/29/20
--- OUTSIDE RECORDS SUMMARY | 2024-08-15 01:21 | XMS_ITS ---
Author Organization [facility] Address [address] [place] [address] Care Team Providers Care Retail Representative Name Role Phone Unavailable Unavailable Unavailable Surgery Details Not on file Complications Check Surgery Details section. Procedure Estimated Blood Loss Check Surgery Details section. Procedure Findings Check Surgery Details section. Procedure Specimens Taken Check Surgery Details section.
--- OUTSIDE RECORDS SUMMARY | 2024-08-15 01:21 | XMS_ITS | Continuity of Care Document ---
Author Organization [facility] Address [address] [place] [address] Care Team Providers Care Broke Beater Name Role Phone Cheyanne Head M.D. Primary Care Provider [phone] Source Comments Patient records contain information from all sites at [facility]. For routine questions regarding patient records, call [phone] during business hours, M-F 8:00 AM - 5:00 PM Central Time. Record requests for emergency care only can be directed to [phone] at any time.[facility] Encounters Date Type Department Care Team Description 4 CPAP Download Remote Patient Monitoring [facility] 5 [address] [place] [address] [facility], Benny Galvan, Ph.D. 4 11:00 AM CDT Office Visit Department of Spine in [place], [place] [address] [place] [address] Devin Mccormack D.C. Dysfunction Somatic Pelvic Region (Primary Dx); Dysfunction Somatic Thoracic Region; Dysfunction Somatic Lumbar Region; Pain Low Back Mechanical; Pain Myofascial 4 CPAP Download Remote Patient Monitoring [facility] 5 [address] [place] [address] [facility], Benny Galvan, Ph.D. 4 CPAP Download Remote Patient Monitoring [facility] 5 [address] [place] [address] [facility], Benny Galvan, Ph.D. 4 3:00 PM CDT Office Visit Department of Spine in [place], [place] [address] [place] [address] Devin Mccormack D.C. Dysfunction Somatic Lumbar Region (Primary Dx); Pain Low Back Mechanical; Pain Myofascial 4 9:11 AM CDT - 4 11:59 PM CDT Hospital Encounter Department of Radiology in [place], [place] [address] [place] [address] Junie Olmedo P.A.-CReina Pain Generalized Abdominal Discharge Disposition: Home or Self Care 4 4:00 PM CDT Comprehensive Visit Department of Physical Medicine and Rehabilitation in [place], [place] [address] [place] [address] Obi Renee M.D. Hilker, Jamie J, C.H.T., O.T. Pain Thumb Right 4 3:15 PM CDT Comprehensive Visit Department of Orthopedic Surgery in [place], [place] [address] [place] [address] Murphy Jesus M.D. Pain Thumb Right 4 CPAP Download Remote Patient Monitoring [place] [address] [address] [place] [address] [facility], Benny Galvan, Ph.D. 4 9:14 AM CDT - 4 11:59 PM CDT Hospital Encounter Department of Radiology in [address] [address] Junie Olmedo P.A.-C. Pain Thumb Right Discharge Disposition: Home or Self Care 4 9:04 AM CDT - 4 9:13 AM CDT Hospital Encounter Department of Laboratory Medicine in [address] [address] Junie Olmedo P.A.-C. Pain Generalized Abdominal Discharge Disposition: Home or Self Care 4 9:03 AM CDT Hospital Encounter Department of Laboratory Medicine in [address] [place] [address] Junie Olmedo P.A.-C. Pain Generalized Abdominal Discharge Disposition: Home or Self Care 4 8:30 AM CDT Office Visit Department of Family Medicine, [facility], in [place], [place] [address] [place] [address] Junie Olmedo P.A.-C. Pain Generalized Abdominal (Primary Dx); Pain Thumb Right 4 Clinical Communication Department of Otorhinolaryngology in [place], [place] [address], [place] [address] Dease, HERI Rivera Au.D. Return Call Request 4 Refill Department of Family Medicine, [facility], in [place], [place] 300 [place] [phone] Cheyanne Head M.D. Med Refill 4 10:00 AM CDT Office Visit Department of Spine in [place], [place] [address] [place] [address] Devin Mccormack D.C. Dysfunction Somatic Thoracic Region (Primary Dx); Dysfunction Somatic Lumbar Region; Dysfunction Somatic Sacral Region; Pain Low Back Mechanical; Pain Myofascial 4 CPAP Download Remote [facility] [address] [place] [address] [facility], Mandy, M.BReina, Ph.D. 4 1:30 PM CDT Office Visit Department of Ophthalmology in [place], [place] [address], [place] [address] Roberto Jara Jr., M.D. Intraocular Lens Implant Status Post (Primary Dx); Detachment Vitreous Posterior Bilateral; Floater Vitreous Bilateral 4 1:30 PM CDT Office Visit Department of Spine in [place], [place] [address] [place] [address] Devin Mccormack D.C. Dysfunction Somatic Thoracic Region (Primary Dx); Dysfunction Somatic Lumbar Region; Dysfunction Somatic Sacral Region; Strain Of Muscle And Tendon Of Back Wall Of Thorax Initial; Strain Of Muscle Fascia And Tendon Of Lower Back Initial 4 Clinical Communication Department of Family Medicine, [facility], in [address] [phone] Cheyanne Head M.D. 4 CPAP Download Remote Patient Monitoring [facility] 5 [address] [place] [address] [facility], Provider, Benny, Ph.D. 4 11:30 AM CDT Office Visit Department of Orthopedic Surgery in [address] [address] Kayla García M.D. Primary Osteoarthritis Hand Right (Primary Dx) Discharge Disposition: Home or Self Care 4 8:30 AM CDT Office Visit Department of Spine in [place], [place] [address] [place] [address] Devin Mccormack D.C. Dysfunction Somatic Thoracic Region (Primary Dx); Dysfunction Somatic Lumbar Region; Dysfunction Somatic Sacral Region; Strain Of Muscle And Tendon Of Back Wall Of Thorax Initial; Strain Of Muscle Fascia And Tendon Of Lower Back Initial 4 CPAP Download Remote Patient Monitoring [facility] 5 [address] [place] [address] [facility], Benny Galvan, Ph.D. 4 Refill Department of Community Internal Medicine in [address] [phone] Valeria Canela APRN, C.N.P. Med Refill 4 9:30 AM CDT Office Visit Department of Family Medicine, [facility], in [address] [phone] Harry Butt M.B.B.S., M.D. Other Acute Sinusitis (Primary Dx) 4 Nurse Triage Department of Family Medicine, [facility], in [address] [place] [address] [address] Jamia Cedeño R.N. 4 1:00 PM CDT Office Visit Center for Sleep Medicine in [place], [place] [address] [place] [address] Rivka Valentin P.A.-C. Apnea Sleep Obstructive 4 2:00 PM CDT Office Visit Department of Spine in [place], [place] [address] [place] [address] Devin Mccormack D.C. Dysfunction Somatic Lumbar Region (Primary Dx); Dysfunction Somatic Thoracic Region; Dysfunction Somatic Sacral Region; Pain Low Back Mechanical 4 Orders Only [facility] Cheyanne Vázquez M.D. 4 CPAP Download Remote Patient Monitoring [facility] 5 [address] [place] [address] [facility], ProviderBenny, Ph.D. 4 2:30 PM BOX LINER Procedure visit Department of Orthopedic Surgery in [address] [address] Suraj Franklin D.O. Primary Osteoarthritis Hand Right Discharge Disposition: Home or Self Care 4 8:00 AM BOX LINER Office Visit Department of Spine in [place], [place] [address] [place] [address] Devin Mccormack D.C. Dysfunction Somatic Lumbar Region (Primary Dx); Dysfunction Somatic Sacral Region; Dysfunction Somatic Thoracic Region; Pain Low Back Mechanical 4 CPAP Download Remote Patient Monitoring [facility] 5 [address] [place] [address] [facility], ProviderBenny, Ph.D. 4 8:30 AM BOX LINER Office Visit Department of Spine in [place], [place] [address] [place] [address] Devin Mccormack D.C. Dysfunction Somatic Lumbar Region (Primary Dx); Pain Low Back Mechanical 4 1:45 PM BOX LINER Office Visit Department of Orthopedic Surgery in [address] [place] [address] Kayla García M.D. Primary Osteoarthritis Hand Left (Primary Dx); Primary Osteoarthritis Hand Right Discharge Disposition: Home or Self Care 4 10:45 AM BOX LINER Comprehensive Visit Department of Ophthalmology in [place], [place] [address], [place] [address] Roberto Jara Jr., M.D. Intraocular Lens Implant Status Post (Primary Dx); Dry Eye Syndrome Bilateral 3 Refill Department of Family Medicine, [facility], in [place], [place] 300 [place] [address] Cheyanne Head M.D. Med Refill 3 Refill Department of Community Internal Medicine in [address] [phone] Valeria Canela APRN C.N.PReina Med Refill 3 CPAP Download Remote Patient Monitoring [place] [address] [address] [place] [address] [facility] M.B., Ph.D. 3 3:00 PM BOX LINER Office Visit Department of Spine in [place], [place] [address] [place] [address] Devin Mccormack D.C. Dysfunction Somatic Pelvic Region (Primary Dx); Pain Low Back Mechanical 3 1:30 PM BOX LINER Comprehensive Visit Department of Orthopedic Surgery in [place], [place] 300 [place] [address] Markie Murillo M.D. Primary Osteoarthritis Knee Left (Primary Dx); Pain Knee Left 3 1:00 PM BOX LINER Office Visit Department of Spine in [place], [place] [address] [place] [address] Devin Mccormack D.C. Dysfunction Somatic Pelvic Region (Primary Dx); Pain Low Back Mechanical 3 9:00 AM BOX LINER Comprehensive Visit Department of Urology in [address] [place] [address] Ute Lyles APRN, C.N.P. Urinary Urge Incontinence (Primary Dx); Infection Urinary Tract Personal History; Dysuria 3 12:38 PM CDT - 3 11:59 PM CDT Hospital Encounter Department of Radiology in [place] [address] [place] [phone] Valeria Canela APRN, C.N.P. Hematuria Discharge Disposition: Home or Self Care 3 3:38 PM CDT - 3 11:59 PM CDT Hospital Encounter Department of Laboratory Medicine in [address] [address] Valeria Canela APRN, C.N.P. Hematuria Discharge Disposition: Home or Self Care 3 3:30 PM CDT - 3 3:37 PM CDT Hospital Encounter Department of Laboratory Medicine in [address] [address] Valeria Canela APRN, C.N.P. Dysuria Discharge Disposition: Home or Self Care 3 3:20 PM CDT - 3 3:29 PM CDT Hospital Encounter Department of Laboratory Medicine in [address] [address] Valeria Canela APRN, C.N.P. Infection Urinary Tract Personal History; Dysuria; Hematuria Discharge Disposition: Home or Self Care 3 3:00 PM CDT - 3 3:19 PM CDT Hospital Encounter Department of Radiology in [address] [address] Valeria Canela APRN, C.N.P. Pain Knee Left Discharge Disposition: Home or Self Care 3 2:20 PM CDT Office Visit Department of Community Internal Medicine in [address] [place] [address] Valeria Canela APRN, C.N.P. Infection Urinary Tract Personal History (Primary Dx); Dysuria; Hematuria; Pain Knee Left; Aftercare Orthopedic Postoperative Non-Injury 3 9:00 AM CDT Office Visit Department of Spine in [place], [place] [address] [place] [address] Devin Mccormack D.C. Dysfunction Somatic Pelvic Region (Primary Dx); Pain Low Back Mechanical 3 10:00 AM CDT Comprehensive Visit Department of Spine in [place], [place] [address] [place] [address] Cira Hernandes APRN, C.N.P., M.S.N. Devin Mccormack D.C. Dysfunction Somatic Pelvic Region (Primary Dx); Pain Low Back Mechanical 3 Clinical Communication Department of Community Internal Medicine in [place], [place] [address] [place] [address] Valeria Canela APRN, C.N.P. 3 Orders Only Department of Community Internal Medicine in [place], [place] [address] [place] [address] Valeria Canela APRN, C.N.P. Arthritis (Primary Dx) 3 12:00 PM CDT - 3 11:59 PM CDT Hospital Encounter Division of Pain Medicine in [place], [place] [address] [place] [address] Cira Hernandes APRN, C.N.P., M.S.N. Pain Low Back Chronic Discharge Disposition: Home or Self Care 3 2:15 PM CDT Office Visit Department of Orthopedic Surgery in [address] [phone] Ari Mabry P.A.-C., M.S. Kamille Berman, P.A.-C., M.S. Primary Osteoarthritis First Carpometacarpal Joint Right Unilateral (Primary Dx) Discharge Disposition: Home or Self Care 3 Clinical Communication Department of Family Medicine, [facility], in [place], [place] [address] [place] [address] Cheyanne Head M.D. Forms ([facility] - OT eval 06/27/23) 3 1:00 PM CDT Virtual Visit Division of Pain Medicine in [place], [place] [address] [place] [address] Deirdre Estrada APRN, C.N.P., M.S.N. 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 Pain Low Back Chronic (Primary Dx); Radiculopathy Lumbar 3 9:20 AM CDT Office Visit Department of Community Internal Medicine in [place], [place] 300 [place] [address] Valeria Canela APRN, C.N.P. Pain Hand Right (Primary Dx); Aftercare Orthopedic Postoperative Non-Injury; Reaction Stress 3 Clinical Communication Department of Orthopedic Surgery in [address] [address] Farhana Cuba, R.N. 3 Clinical Communication Department of Orthopedic Surgery in [address] [address] Farhana Cuba, R.N. 3 Clinical Communication Department of Orthopedic Surgery in [address] [address] Farhana Cuba, R.N. 3 2:35 PM CDT - 3 4:17 PM CDT Surgery Outpatient Procedure Center in [address] [address] Kayla García M.D. IRRIGATION AND CULTURES OF RIGHT HAND 3 2:10 PM CDT Anesthesia Event Outpatient Procedure Center in [address] [address] French Diaz M.D. Quale, Mackenzie G, M.D. 3 12:25 PM CDT - 3 4:30 PM CDT Hospital Encounter Outpatient Procedure Center in [address] [address] Kayla García M.D. Pain Hand Right Discharge Disposition: Home or Self Care 3 3:00 PM CDT Virtual Visit Department of Orthopedic Surgery in [address] [address] Kayla García M.D. Winning, Kaitlyn D, R.N. Education Need [Z71.9 (ICD-10-CM)] (Primary Dx) Discharge Disposition: Home or Self Care 3 Orders Only Department of Orthopedic Surgery in [address] [address] Kayla García M.D. Pain Hand Right (Primary Dx) 3 Orders Only Department of Orthopedic Surgery in [place], [place] [address] [place] [address] Tanner Coulter D.O., M.S. Pain Hand Right (Primary Dx) 3 Orders Only Department of Family Medicine, [facility] [place] [facility], in [place], [place] [address] [place] [address] uJnie Olmedo, PReinaAOwen 3 8:50 AM CDT - 3 11:59 PM CDT Hospital Encounter Department of Laboratory Medicine in [place], [place] [address] [place] [address], [place] [address] Junie Olmedo P.A.-C. Abnormal Computed Tomography; Pain Hand Right Discharge Disposition: Home or Self Care 3 7:18 AM CDT - 3 8:49 AM CDT Hospital Encounter Department of Radiology in [address] [place] [address] Junie Olmedo P.A.-C. Abnormal Computed Tomography; Pain Hand Right Discharge Disposition: Home or Self Care 3 Orders Only Department of Family Medicine, [facility] [place] [facility], in [address] [place] [address] Junie Olmedo P.A.-C. Abnormal Computed Tomography (Primary Dx); Pain Hand Right 3 Clinical Communication Department of Family Medicine, [facility] [place] [facility], in [place], [place] [address] [place] [address], [place] [address] Junie Olmedo P.A.-Meaghan Blood Pressure Check 3 Clinical Communication Department of Family Medicine, [facility] [place] [facility], in [place], [place] [address] [place] [address], [place] [address] Junie Olmedo P.AReina-CReina Order Request 3 9:00 AM CDT Nurse Only Department of Family Medicine, [facility] [place] [facility], in [place], [place] [address] [place] [address], [place] [address] Shalini Menjivar L.P.N. Blood Pressure Check 3 7:41 AM CDT - 3 11:59 PM CDT Hospital Encounter Department of Radiology in [address] [place] [address] Honorio, Junie K, P.A.-C. Pain Hand Right Discharge Disposition: Home or Self Care 3 11:24 AM CDT - 3 11:59 PM CDT Hospital Encounter Department of Radiology in [place], [place] [address] [place] [address] Cristiane King MPAS, P.A.-C. Screening Mammogram Breast Cancer Discharge Disposition: Home or Self Care 3 2:41 PM CDT - 3 11:59 PM CDT Hospital Encounter Department of Radiology in [place], [place] [address] [place] [address] Junie Olmedo P.A.-C. Pain Hand Right Discharge Disposition: Home or Self Care 3 2:30 PM CDT Office Visit Department of Family Medicine, [facility], in [place], [place] [address] [place] [address] Junie Olmedo P.A.-C. Pain Hand Right (Primary Dx) 3 Nurse Triage Department of Family [facility], [facility], in [place], [place] [address] [place] [phone] Mamie Husain R.N. Hand Pain 3 9:20 AM CDT Office Visit Department of Community Internal Medicine in [place], [place] [address] [place] [address] Cristiane King MPAS, P.A.-C. Screening Mammogram Breast Cancer (Primary Dx) 3 2:00 PM CDT Clinical Communication Virtual Review in [address] [address] Pre-visit Intake 3 Refill Department of Community Internal Medicine in [place], [place] [address] [place] [address] Cristiane King MPAS, P.A.-C. Med Refill 3 Clinical Communication Department of Community Internal Medicine in [place], [place] [address] [place] [address] Valeria Canela APRN, C.N.P. 3 9:00 AM CDT Nurse Only Department of Family Medicine, [facility], in [place], [place] [address] [place] [address] Valeria Canela APRN, C.N.P. Gisela Bonner L.P.N. Nurse Visit (BP Check ) 3 9:00 AM CDT Office Visit Center for Sleep Medicine in [place], [place] [address] [place] [address] Daniella Devreis M.D., M.P.H. Apnea Sleep Obstructive (Primary Dx) 3 9:00 AM CDT Office Visit Department of Community Internal Medicine in [address] [phone] Valeria Canela APRN, C.N.P. Radiculopathy Lumbar (Primary Dx); Reaction Stress; Insomnia; Nevus Atypical 3 9:15 AM CDT Clinical Communication Virtual Review in [place], [place] [address] [place] [address] 3 11:00 AM CDT Office Visit Department of Ophthalmology in [place], [place] [address] [place] [address] Roberto Jara Jr., M.D. Dry Eye Syndrome Bilateral (Primary Dx); Intraocular Lens Implant Status Post 3 Clinical Communication Department of Community Internal Medicine in [place], [place] [address] [place] [address] Valeria Canela APRN, C.N.P. Results (Left message for CT results.); Return Call Request 3 9:01 AM CDT - 3 11:59 PM CDT Hospital Encounter Department of Radiology in [place], [place] [address], [place] [address] Valeria Canela APRN, C.N.P. Headache Daily Persistent New Discharge Disposition: Home or Self Care 3 Clinical Communication Department of [facility], [facility], in [address] [phone] Cheyanne Head M.D. Results 3 10:00 AM CDT Comprehensive Visit Department of Orthopedic Surgery in [address] [phone] Gilda Borges P.A.-C., P.A. Primary Osteoarthritis Knee Left (Primary Dx); Pain Knee Left; Pain Hip Left 3 4:55 PM CDT - 3 11:59 PM CDT Hospital Encounter Department of Laboratory Medicine in [address] [phone] Valeria Canela APRN, C.N.P. Hypertension Essential Primary; Screening Examination Diabetes Mellitus Discharge Disposition: Home or Self Care 3 4:50 PM CDT - 3 4:54 PM CDT Hospital Encounter Department of Laboratory Medicine in [address] [phone] Valeria Canela APRN, C.N.P. Infection Urinary Tract Personal History Discharge Disposition: Home or Self Care 3 4:24 PM CDT - 3 4:49 PM CDT Hospital Encounter Department of Radiology in [address] [address] Valeria Canela APRN, C.N.P. Pain Knee Left; Pain Hip Left Discharge Disposition: Home or Self Care 3 4:00 PM CDT Office Visit Department of [facility], [facility], in [address] [phone] Hilton, Valeria, ADJUNCT FACULTY INSTRUCTORCorry Singh Keri J, R.N. Annual Medicare Examination Return (Primary Dx) 3 3:30 PM CDT Office Visit Department of Community Internal Medicine in [address] [address] Valeria Canela APRN, C.N.P. Hypertension Essential Primary (Primary Dx); Screening Examination Diabetes Mellitus; Headache Daily Persistent New; Reaction Stress; Infection Urinary Tract Personal History; Pain Knee Left; Pain Hip Left; Nevus Atypical 3 Clinical Communication Department of Family Medicine, [facility], in [address] [phone] Cheyanne Head M.D. Form Review ([facility] (PAP Order) 3 10:00 AM BOX LINER Comprehensive Visit Department of Ophthalmology in [address] [phone] Roberto Jara Jr., M.D. Dry Eye Syndrome Bilateral (Primary Dx); Intraocular Lens Implant Status Post 3 5:49 PM BOX LINER - 3 11:59 PM BOX LINER Hospital Encounter Center for Sleep Medicine in [address] [address] Daniella Devries M.D., M.P.H. Apnea Sleep Obstructive Discharge Disposition: Home or Self Care 3 9:00 AM BOX LINER Office Visit Center for Sleep Medicine in [place], [place] [address] [place] [address] Daniella Devries M.D., M.P.H. Apnea Sleep Obstructive (Primary Dx); Hypertension Essential Primary 3 Nurse Triage Department of Family Medicine, [facility], in [address] [phone] Justyna Shah R.N. Blood in Urine 3 3:00 PM BOX LINER Comprehensive Visit Department of Family Medicine, [facility] [place] [facility], in [place], [place] [address] [place] [address] Demario Devries M.D. Dermatitis Eyelid Left (Primary Dx); Dermatitis Eyelid Right; Keratosis Seborrheic Inflamed 3 9:46 AM BOX LINER - 3 11:59 PM BOX LINER Hospital Encounter Division of Pain Medicine in [place], [place] [address] [place] [address] Gunner Jewell P.A.-C., D.Sc. Pain Neck Mechanical; Spondylosis Cervical Without Myelopathy Discharge Disposition: Home or Self Care 3 3:30 PM BOX LINER Clinical Communication Division of Pain Medicine in [place], [place] [address] [place] [address] 3 10:24 AM BOX LINER - 3 11:59 PM BOX LINER Hospital Encounter Division of Pain Medicine in [place], [place] [address] [place] [address] Gunner Jewell P.AReina-Meaghan, D.Sc. Pain Neck Mechanical; Spondylosis Cervical Without Myelopathy Discharge Disposition: Home or Self Care 3 2:30 PM BOX LINER Comprehensive Visit Department of Neurology in [place], [place] [address] [place] [phone] Daniella Devries M.D., M.P.H. Insomnia (Primary Dx); Apnea Sleep Obstructive 3 1:30 PM BOX LINER Clinical Communication Division of Pain Medicine in [place], [place] [address] [place] [address] 3 7:18 AM BOX LINER - 3 11:59 PM BOX LINER Hospital Encounter Division of Pain Medicine in [place], [place] [address] [place] [address] Gunner Jewell P.A.D[employer], D.Sc. Pain Neck Mechanical; Spondylosis Cervical Without Myelopathy Discharge Disposition: Home or Self Care 3 Orders Only Department of Community Internal Medicine in [place], [place] [address] [place] [phone] Valeria Canela APRN, C.N.P. Lesion Scalp (Primary Dx) 3 10:30 AM BOX LINER Virtual Visit Division of Pain Medicine in [place], [place] [address] [place] [address] Baldo Hightower P.A.-C., M.S. 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 Loss Hearing Sensorineural Bilateral (Primary Dx) 2 11:30 AM BOX LINER Office Visit Department of Spine in [place], [place] [address] [place] [address] Gunner Jewell P.A.-C., D.Sc. Pain Neck Mechanical (Primary Dx); Spondylosis Cervical Without Myelopathy 2 Refill Department of Family Medicine, [facility], in [place], [place] [address] [place] [address] Cheyanne Head M.D. Med Refill 2 Clinical Communication Department of Family [facility], [facility], in [place], [place] [address] [place] [address] Cristiane King MPAS P.A.-C. 2 1:00 PM BOX LINER Nurse Only Department of Family [facility], [facility], in [place], [place] [address] [place] [address] Cristiane King MPAS, P.A.-C. Gisela Bonner L.P.N. Nurse Visit 2 11:15 AM BOX LINER Office Visit Department of [facility], [facility], in [place], [place] [address] [place] [address] Cheyanne Head M.D. Procedure And Treatment Not Carried Out Due To Patient Leaving Prior To Being Seen By Health Care Provider (Primary Dx) 2 11:00 AM BOX LINER Office Visit Department of Community Internal Medicine in [address] [phone] Cristiane King MPAS PReinaA.-C. Neuropathy (Primary Dx); Hypertension Essential Primary; Hyperlipidemia Mixed; Lesion Scalp; Radiculopathy Lumbar 2 8:00 AM BOX LINER Diagnostic Department of Sleep Medicine in [place], [place] [address] [place] [phone] Valeria Canela APRN, C.N.P. Apnea Sleep Obstructive 2 8:30 AM BOX LINER Clinical Communication Virtual Review in [place], [place] [address] [place] [address] Pre-visit Intake 2 Orders Only Department of Spine in [place], [place] [address] [place] [address] Gunner Jewell P.A.-CReina, D.Sc. 2 9:30 AM BOX LINER Office Visit Department of Community Internal Medicine in [address] [phone] Valeria Canela APRN, C.N.P. Hypertension Essential Primary (Primary Dx); Apnea Sleep Obstructive; Neuropathy 2 Clinical Communication Department of Spine in [place], [place] [address] [place] [address] Gunner Jewell P.A.-C., D.Sc. 2 10:00 AM BOX LINER Nurse Only Department of Family Medicine, [facility], in [address] [phone] Cheyanne Head M.D. Erichsen, Dwyn E LReinaP.NReina Nurse Visit (B/P check.) 2 Clinical Communication Department of Family Medicine, [address] in [address] [place] [address] Leda Galarza R.N. COVID Treatment Review 2 Nurse Triage Department of Family [facility], [facility], in [address] [phone] Diane Lazo R.N. COVID Nurse Line 2 Clinical Communication Department of Spine in [place], [place] [address] [place] [address] Sophia Arzola Follow-up (Patient called to complete 3-month follow-up PROMIS-CAT questionnaires to collect Spine PROs. ) 2 Clinical Communication Department of Family [facility], [facility], in [address] [phone] Martha Castano R.N. 2 Clinical Communication Department of Family [facility], [facility], in [place], [place] [address] [place] [phone] Martha Castano R.N. 2 9:12 AM CDT - 2 11:59 PM CDT Hospital Encounter Department of Laboratory Medicine in [place], [place] [address], [place] [address] Balwinder Bess P.A.-C., P.A. Fatigue Discharge Disposition: Home or Self Care 2 11:00 AM CDT Office Visit Department of Family Medicine, [facility] [place] [facility], in [place], [place] [address], [place] [address] Balwinder Bess P.A.-C., P.A. Fatigue (Primary Dx); Myalgia; Diarrhea; Dermatitis Eyelid Left 2 Nurse Triage Department of Family [facility], [facility], in [place], [place] [address] [place] [address] Gege Bernal RGuevara Fatigue; Diarrhea 09/20/202 2 Clinical Communication Department of [facility], [facility], in [place], [place] [address] [place] [phone] Cheyanne Head M.D. Form Review ([facility] CPAP supplies Order ) 2 Clinical Communication Department of [facility], [facility], in [place], [place] [address] [place] [phone] Cheyanne Head M.D. Form Review ([facility] - CPAP Supplies) 2 8:30 AM CDT Office Visit Department of Ophthalmology in [place], [place] [address] [place] [phone] Murphy Clark M.D. Dry Eye Syndrome Bilateral (Primary Dx); Keratitis Superficial Bilateral; Intraocular Lens Implant Status Post 2 9:26 AM CDT - 2 11:59 PM CDT Hospital Encounter Division of Pain Medicine in [place], [place] [address] [place] [phone] Aysha Washington M.D. Radiculopathy Lumbar (Primary Dx); Pain Back Discharge Disposition: Home or Self Care 2 Orders Only Outpatient Procedure Center in [place], [place] [address] [place] [phone] Aysha Washington M.D. Pain Back (Primary Dx) 2 Orders Only Division of Pain Medicine in [place], [place] [address] [place] [phone] Aysha Washington M.D. Mobility Limited (Primary Dx) 2 8:00 AM CDT Comprehensive Visit Department of Physical Medicine and Rehabilitation in [place], [place] [address] [place] [phone] Aysha Washington M.D. Smars, Helga I. P.T. Pain Back 2 3:30 PM CDT Clinical Communication Division of Pain Medicine in [place], [place] [address] [place] [phone] 2 9:28 AM CDT - 2 11:59 PM CDT Hospital Encounter Division of Pain Medicine in [place], [place] [address] [place] [address] Aysha Washington M.D. Pain Back Discharge Disposition: Home or Self Care 2 2:30 PM CDT Clinical Communication Division of Pain Medicine in [place], [place] [address] [place] [address] 2 8:48 AM CDT - 2 11:59 PM CDT Hospital Encounter Division of Pain Medicine in [place], [place] [address] [place] [address] Aysha Washington M.D. Pain Back Discharge Disposition: Home or Self Care 2 8:00 AM CDT Comprehensive Visit Division of Pain Medicine in [place], [place] [address] [place] [address] Aysha Washington M.D. Pain Back 2 Orders Only [facility] Cheyanne Head M.D. 2 Clinical Communication Department of Family Medicine, [facility], in [place], [place] [address] [place] [phone] Cheyanne Head M.D. Form Review ([facility] (PAP order ) 2 11:00 AM CDT Office Visit Department of Neurology in [place], [place] [address] [place] [address] Daniella Devries M.D., M.P.H. Neuropathy (Primary Dx); Cramp Fasciculation Syndrome; Radiculopathy Lumbar 2 3:45 PM CDT Diagnostic Department of Neurology in [place], [place] [address] [place] [address] Markie Cervantes M.D. Neuropathy 2 12:30 PM CDT Diagnostic Department of Otorhinolaryngology in [place], [place] [address] [phone] Missy Rivera AUD, Au.D. Loss Hearing Sensorineural Bilateral 2 11:21 AM BOX LINER - 2 11:59 PM BOX LINER Hospital Encounter Department of Radiology, [facility], in [place], [place] [address] [place] [phone] Gunner Jewell P.A.-Meaghan, D.Sc. Spinal Stenosis Lumbosacral Region Discharge Disposition: Home or Self Care 2 1:00 PM BOX LINER Comprehensive Visit Department of Orthopedic Surgery in [place], [place] [address] [place] [phone] Reggie Petersen M.D. Pain Back (Primary Dx); Spinal Stenosis Lumbosacral Region 2 4:15 PM BOX LINER - 2 11:59 PM BOX LINER Hospital Encounter Department of Laboratory Medicine in [place], [place] [address] [place] [phone] Daniella Devries M.D., M.P.H. Neuropathy Discharge Disposition: Home or Self Care 2 3:45 PM BOX LINER Comprehensive Visit Department of Neurology in [address] [phone] Daniella Devries M.D., M.P.H. Neuropathy (Primary Dx); Pain Back Lumbar; Cramp Fasciculation Syndrome 2 11:30 AM BOX LINER Diagnostic Department of Otorhinolaryngology in [place], [place] [address] [phone] Missy Rivera AUD, Au.D. Loss Hearing Sensorineural Bilateral 2 Clinical Communication Department of Spine in [place], [place] [address] [place] [address] Gunner Jewell P.A.-C., D.Sc. Communication 2 Orders Only Department of Spine in [place], [place] [address] [place] [address] Gunner Jewell P.A.-C., D.Sc. Spinal Stenosis Lumbosacral Region (Primary Dx) 2 8:00 AM BOX LINER Office Visit Department of Community [facility] in [place], [place] [address] [place] [address] Valeria Canela APRN CReinaNReinaP. Pain Back Lumbar (Primary Dx); Neuropathy; Thrombosis Deep Vein Personal History; Apnea Sleep Obstructive; Lesion Skin Finger 2 Refill Department of Family Medicine, [facility], in [place], [place] [address] [place] [address] Cheyanne Head M.D. Med Refill 2 9:45 AM BOX LINER Comprehensive Visit Department of Ophthalmology in [place], [place] [address] [place] [address] Roberto Jara Jr., M.D. Dry Eye Syndrome Bilateral (Primary Dx); Intraocular Lens Implant Status Post 2 7:46 AM BOX LINER - 2 11:59 PM BOX LINER [facility] [place], [place] [address] [place] [address] Gunner Jewell P.A.-C., D.Sc. Lehman, Vance T, M.D. Stenosis Spinal Lumbar With Neurogenic Claudication Discharge Disposition: Home or Self Care 2 4:00 PM BOX LINER Office Visit Department of Spine in [place], [place] [address] [place] [address] Gunner Jewell P.A.-C., D.Sc. Stenosis Spinal Lumbar With Neurogenic Claudication (Primary Dx) 2 11:18 AM BOX LINER - 2 11:59 PM BOX LINER [facility] [place], [place] [address] [place] [address] Gunner Jewell P.A.-C., D.Sc. Pain Low Back Unspecified Discharge Disposition: Home or Self Care 2 Clinical Communication Department of Spine in [place], [place] [address] [place] [address] Gunner Jewell P.A.-C., D.Sc. 1 External Outreach Department of Family Medicine, [address] [phone] Christiano Tran D.O. Contact With And (Suspected) Exposure To COVID-19; Infection Upper Respiratory Discharge Disposition: Home or Self Care 1 4:00 PM BOX LINER Office Visit Department of Family Medicine, [facility] [place] [facility], [place], [place] [address], [place] [phone] Sandra Peres APRN, C.N.P., D.N.P. Silvana Dumont M.D. Pharyngitis Streptococcal (Primary Dx) 1 3:10 PM BOX LINER Admin Visit Department of Family [facility], [address] [phone] 1 Nurse Triage Department of [facility], [facility], in [place], [place] [address] [place] [phone] Jesse Novoa, RMary Ellen. Upper Respiratory Infection 1 Clinical Communication Department of Spine in [place], [place] [address] [place] [address] Gunner Jewell P.A.-C., D.Sc. 1 8:33 AM BOX LINER - 1 11:59 PM BOX LINER Hospital Encounter Department of Radiology, [facility], in [place], [place] [address] [place] [address] Gunner Jewell P.A.-C., D.ScZuleima Quinones M.D. Pain Sacroiliac Discharge Disposition: Home or Self Care 1 9:30 AM CDT Comprehensive Visit Department of Spine in [place], [place] [address] [place] [address] Gunner Jewell P.A.-C., D.Sc. Pain Sacroiliac (Primary Dx); Pain Back Lumbar 1 10:22 AM CDT - 1 11:59 PM CDT Hospital Encounter Department of Radiology in [place], [place] [facility] [address], [place] [phone] Valeria Canela APRN, Ambrose.N.P. Osteoporosis Discharge Disposition: Home or Self Care 1 Orders Only Department of Otorhinolaryngology in [place], [place] [address] [place] [phone] Missy Rivera AUD, Au.D. Loss Hearing Sensorineural Bilateral (Primary Dx) 1 9:00 AM CDT Diagnostic Department of Otorhinolaryngology in [place], [place] [address] [place] [phone] Missy Rivera AUD, Au.D. Loss Hearing Sensorineural Bilateral 1 Orders Only [facility] Mable Hernadez M.D. 1 10:00 AM CDT Office Visit Department of Community Internal Medicine in [address] [address] Valeria Canela APRN, C.N.PReina Pain Back Lumbar (Primary Dx); Osteoporosis 1 1:30 PM CDT Diagnostic Department of Otorhinolaryngology in [place], [place] [address] [place] [phone] Missy Rivera AUD, Au.D. Loss Hearing Sensorineural Bilateral 1 9:44 AM CDT - 1 11:59 PM CDT Hospital Encounter Department of Radiology in [address] [address] Valeria Canela APRN, C.N.P. Pain Hip Bilateral Discharge Disposition: Home or Self Care 1 1:30 PM CDT Comprehensive Visit Department of Cardiovascular Diseases in [address] [address] Andrea Crowder APRN C.N.P. Pain Chest Atypical (Primary Dx); Abnormal Electrocardiogram; Cough; Pain Chest 1 Orders Only Department of Community Internal Medicine in [address] [address] Valeria Canela APRN C.N.P. 1 Orders Only Department of Community Internal Medicine in [address] [address] Valeria Canela APRN, C.N.P. 1 Clinical Communication Department of Community Internal Medicine in [address] [address] Valeria Canela APRN, C.N.P. Results 1 Clinical Communication Department of Cardiovascular Diseases in [address] [phone] Zuleima Burciaga, RMary Ellen. 1 1:00 PM CDT Admin Visit Urgent Care in [place], [place] [address] [place] [phone] 1 External Outreach Urgent Care in [place], [place] [address] [place] [phone] Christiano Tran D.O. Contact With And (Suspected) Exposure To COVID-19 (Primary Dx) Discharge Disposition: Home or Self Care 1 9:39 AM CDT - 1 11:59 PM CDT Hospital Encounter Department of Laboratory Medicine in [address] [address] Valeria Canela APRN, C.N.P. Cough Discharge Disposition: Home or Self Care 1 9:30 AM CDT - 1 9:38 AM CDT Hospital Encounter Department of Radiology in [address] [address] Valeria Canela APRN, C.N.P. Cough Discharge Disposition: Home or Self Care 1 9:30 AM CDT Office Visit Department of [facility] in [address] [phone] Valeria Canela APRN, C.N.P. Cough (Primary Dx); Pain Hip Bilateral; Pain Chest; Hearing Disorder Bilateral; Insomnia 1 10:30 AM CDT Diagnostic Department of Otorhinolaryngology in [address] [address] Missy Rivera AUD, Au.D. Presence Of External Hearing Aid (Primary Dx) 1 Orders Only Department of Otorhinolaryngology in [address] [phone] Missy Rivera AUD, Au.D. Loss Hearing Sensorineural Bilateral (Primary Dx) 1 9:40 AM CDT - 1 11:59 PM CDT Hospital Encounter Department of Radiology, [facility], in [place], [place] [address] [place] [address] Alex Paula M.D., M.S. 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 Insufficiency Venous; Varicose Vein Lower Extremity With Pain Bilateral; Restless Leg Syndrome 1 3:15 PM CDT Admin Visit [facility] [address] [place] [address] 1 Orders Only Department of Dermatology in [place], [place] [address] [place] [address] Alex Paula M.D., M.S. 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 Presyncope 1 Clinical Communication Department of Community Internal Medicine in [place], [place] [address] [place] [address] Valeria Canela APRN, C.N.P. 1 11:55 AM CDT - 1 11:59 PM CDT Hospital Encounter Department of Cardiovascular Diseases in [place], [place] [address], [place] [address] Valeria Canela APRN, C.N.P. Presyncope Discharge Disposition: Home or Self Care 1 9:05 AM CDT Lab Department of Family Medicine, [facility], in [place], [place] [address] [place] [address] Valeria Canela APRN, C.N.P. Encounter For Preprocedural Laboratory Examination (COVID-19) 1 7:55 AM CDT - 1 11:59 PM CDT Hospital Encounter Department of Radiology, [place], [place] [address] [place] [address] Gunner Jewell P.A.-C., D.Sc. Waqas Booker M.D. Pain Neck; Spondylosis Cervical Without Myelopathy Discharge Disposition: Home or Self Care 1 3:00 PM BOX LINER Comprehensive Visit Department of Spine in [place], [place] [address] [place] [address] Gunner Jewell P.A.-C., D.Sc. Spondylosis Cervical Without Myelopathy (Primary Dx); Pain Neck; Cervical Spine Disorder 1 Orders Only Department of Community Internal Medicine in [address] [address] Valeria Canela APRN, C.N.P. 1 9:58 AM BOX LINER - 1 11:59 PM BOX LINER Hospital Encounter Department of Radiology in [address] [address] Barbara Ordonez M.D. Screening Mammogram Breast Cancer Discharge Disposition: Home or Self Care 1 7:27 AM BOX LINER - 1 11:59 PM BOX LINER Hospital Encounter Department of Radiology, [facility] in [place], [place] [address] [place] [address] Valeria Canela APRN, C.N.P. 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 Hyperlipidemia Mixed; Screening Examination Diabetes Mellitus Discharge Disposition: Home or Self Care 1 Orders Only Department of Community Internal Medicine in [address] [phone] Valeria Canela APRN, C.N.P. 1 Clinical Communication Department of Vascular Medicine in [place], [place] [address] [place] [address] Alex Paula M.D., M.S. COVID Inquiry 1 Clinical Communication Department of Spine in [place], [place] [address] [place] [address] Gunner Jewell P.A.-C., D.Sc. 1 10:19 AM BOX LINER - 1 11:59 PM BOX LINER Hospital Encounter Department of Radiology in [address] [phone] Valeria Canela APRN, C.N.P. Pain Neck Discharge Disposition: Home or Self Care 1 9:21 AM BOX LINER - 1 10:18 AM BOX LINER Hospital Encounter Department of Laboratory Medicine in [address] [phone] Valeria Canela APRN, C.N.P. Presyncope Discharge Disposition: Home or Self Care 1 8:30 AM BOX LINER Office Visit Department of Community Internal Medicine in [address] [phone] Valeria Canela APRN, C.N.P. Hyperlipidemia Mixed (Primary Dx); Screening Examination Diabetes Mellitus; 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; Presyncope; Pain Neck; Encounter For Preprocedural Laboratory Examination (COVID-19); Cervical Spine Disorder; Apnea Sleep Obstructive; Gastroesophageal Reflux Disease; Hypertension Essential Primary 1 Orders Only Department of Community Internal Medicine in [address] [address] Valeria Canela APRN, C.N.P. 1 10:46 AM BOX LINER - 1 11:59 PM BOX LINER Hospital Encounter Department of Laboratory Medicine in [address] [address] Valeria Canela APRN, C.N.P. Leukocytosis Discharge Disposition: Home or Self Care 1 10:40 AM BOX LINER - 1 10:45 AM BOX LINER Hospital Encounter Department of Laboratory Medicine in [address] [address] Valeria Canela APRN, C.N.P. Leukocytosis Discharge Disposition: Home or Self Care 1 Orders Only Department of Community Internal Medicine in [address] [address] Valeria Canela APRN, C.N.P. Leukocytosis (Primary Dx) 1 Clinical Communication Department of Ophthalmology in [address] [address] Roberto Jara Jr., M.D. 1 11:00 AM BOX LINER Office Visit Department of Ophthalmology in [address] [address] Roberto Jara Jr., M.D. Dermatitis Allergic Contact (Primary Dx) 1 9:30 AM BOX LINER Office Visit Department of Community Internal Medicine in [address] [address] Valeria Canela APRN, C.N.P. Cellulitis Periorbital (Primary Dx) 1 Nurse Triage Department of Family Medicine, [facility], in [place], [place] [address] [place] [address] Vira Jones R.N. COVID Nurse Line; Medical Information 1 Orders Only [facility] Mable Hernadez M.D. 1 1:30 PM BOX LINER Telemedicine Department of [facility], [facility], in [place], [place] [address] [place] [phone] Cheyanne Head M.D. Cellulitis Periorbital (Primary Dx) 1 Nurse Triage Department of [facility], in [place], [place] [address] [place] [phone] Addis Flowers R.N. Eye Problem 0 7:34 AM CDT - 0 11:59 PM CDT [facility] [place], [place] [address] [place] [address] Gunner Jewell P.A.-C., D.Sc. Evens Garcia M.D. Radiculopathy Lumbar Discharge Disposition: Home or Self Care 0 8:30 AM CDT Comprehensive Visit Department of Spine in [place], [place] [address] [place] [address] Gunner Jewell P.A.-Ambrose., D.Sc. Radiculopathy Lumbar 0 Clinical Communication Department of Spine in [place], [place] [address] [place] [address] Gunner Jewell P.A.-C., D.Sc. COVID Nurse Line 0 Clinical Communication Department of Spine in [place], [place] [address] [place] [address] Prescheduling, Provider 0 Orders Only Department of Family Medicine, [facility] [place] [facility], in [place], [place] [address] [place] [address] Zac Pizarro M.D. Radiculopathy Lumbar (Primary Dx) 0 8:56 AM CDT - 0 11:59 PM CDT Hospital Encounter Department of Radiology in [address] [address] Zac Pizarro M.D. Pain Low Back Discharge Disposition: Home or Self Care 0 2:29 PM CDT - 0 11:59 PM CDT Hospital Encounter Department of Radiology in [address] [address] Zac Pizarro M.D. Radiculopathy Lumbar Discharge Disposition: Home or Self Care 0 2:00 PM CDT Office Visit Department of Family Medicine, [facility] [place] [facility], in [address] [address] Zac Pizarro M.D. Radiculopathy Lumbar (Primary Dx); Pain Low Back 0 Clinical Communication Department of Orthopedic Surgery in [address] [address] Markie Murillo M.D. 0 Clinical Communication Department of Family Medicine, [facility] [place] [facility], in [address] [address] Obi Dean M.D. COVID Inquiry 0 2:15 PM CDT Office Visit Department of Family Medicine, [facility], in [address] [place] [phone] Obi Dean M.D. Sciatica Left (Primary Dx) 0 2:30 PM CDT Office Visit Department of Family Medicine, [facility] [place] [facility], in [place], [place] [address] [place] [phone] Joel Salinas M.D. Dermatitis Contact Eyelid Right (Primary Dx); Insomnia 0 Nurse Triage Department of Family [facility], [facility], in [address] [phone] Alecia Ring R.N. COVID Nurse Line 0 11:00 AM CDT Diagnostic Department of Otorhinolaryngology in [address] [phone] Shalini Villalba AUD, Au.D. Presence Of External Hearing Aid (Primary Dx); Loss Hearing Sensorineural Bilateral 0 11:30 AM CDT Diagnostic Department of Otorhinolaryngology in [address] [address] Shalini Villalba AUD, Au.D. Loss Hearing Sensorineural Bilateral 0 10:30 AM CDT Virtual Visit Department of [facility], [facility], in [address] [phone] Keyon Ernst P.A.-C. Rash Face (Primary Dx) 0 Nurse Triage Department of Family Medicine, [facility], in [place], [place] [address] [place] [address] Aurea Gimenez R.N. COVID Nurse Line 0 8:00 AM BOX LINER Diagnostic Department of Otorhinolaryngology in [address] [address] Missy Rivera, Jani LIRIANO Loss Hearing Sensorineural Bilateral 0 8:52 AM BOX LINER - 0 11:59 PM BOX LINER Hospital Encounter Department of Radiology in [address] [address] Barbara Ordonez M.D. Screening Mammogram Breast Cancer Discharge Disposition: Home or Self Care 0 2:00 PM BOX LINER Diagnostic Department of Otorhinolaryngology in [address] [address] Missy Rivera AUD, Au.D. Loss Hearing Sensorineural Bilateral (Primary Dx) 0 9:30 AM BOX LINER Office Visit Department of Ophthalmology in [address] [address] Roberto Jara Jr., M.D. Myopia Bilateral (Primary Dx) 0 Clinical Communication Department of Otorhinolaryngology in [address] [address] Missy Rivera AUD, Au.D. hearing aid issues 0 Clinical Communication Department of Ophthalmology in [address] [place] [address] Roberto Jara Jr., M.D. 0 Clinical Communication Department of Ophthalmology in [address] [address] Roberto Jara Jr., M.D. 9 Clinical Communication Department of Family Medicine, [facility], in [address] [place] [address] Barbara Ordonez M.D. 9 10:00 AM BOX LINER Office Visit Department of Family Medicine, [facility], in [address] [place] [address] Barbara Ordonez M.D. Preoperative Exam (Primary Dx); Hypertension Essential Primary 9 9:45 AM BOX LINER Comprehensive Visit Department of Ophthalmology in [address] [address] Roberto Jara Jr., M.D. Dystrophy Corneal Map Dot Fingerprint (Primary Dx); Intraocular Lens Implant Status Post 9 8:30 AM CDT Diagnostic Department of Otorhinolaryngology in [address] [phone] Presence Of External Hearing Aid (Primary Dx) 9 11:00 AM CDT Diagnostic Department of Otorhinolaryngology in [address] [phone] Rosa Diaz AUD, Au.D. 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 9 Clinical Communication Department of Family Medicine, [facility] [place] [facility], in [address] [address] Jyoti Baer M.D. 9 4:36 PM CDT - 9 11:59 PM CDT Hospital Encounter Department of Radiology in [address] [address] Jyoti Baer M.D. Primary Osteoarthritis Multiple Sites; Pain Knee Right Discharge Disposition: Home or Self Care 9 4:30 PM CDT Office Visit Department of Family Medicine, [facility], in [address] [address] Hurtt, Jyoti J, M.D. Primary Osteoarthritis Multiple Sites (Primary Dx); Pain Knee Right 9 8:30 AM CDT Diagnostic Department of Otorhinolaryngology in [place], [place] [address] [place] [phone] Rosa Diaz AUD, Au.D. 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 9 Orders Only Department of [facility], [facility], in [address] [address] Jyoti Baer M.D. 9 11:11 AM CDT - 9 11:59 PM CDT Hospital Encounter Department of Radiology in [address] [address] Jyoti Baer M.D. Primary Osteoarthritis Multiple Sites; Pain Hip Bilateral Discharge Disposition: Home or Self Care 9 7:30 AM CDT Diagnostic Department of Otorhinolaryngology in [place], [place] [facility] [place] [address] Rosa Diaz AUD, Au.D. 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 Apnea Sleep Obstructive (Primary Dx); Hernia Hiatal; Primary Osteoarthritis Multiple Sites; Hypertension Essential Primary; Gastroesophageal Reflux Disease; Hyperlipidemia Mixed; Thrombosis Deep Vein Personal History; Pain Hip Bilateral; Hemorrhoids Internal Bleeding; Paresthesias Feet; Overweight Body Mass Index 25-29.9 Adult; Lesion Scalp; Sun Damaged Skin; Loss Hearing Mixed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 Answer Date Recorded PHQ-2 Score 2 08/10/2024 [facility] Occupat ional [facility] - Occupational Stress Questionnaire Answer Date [...] your living situation today? I have a [facility] place to live 05/29/2024 Education Answer Date Recorded What is the highest level of school you have completed or the highest degree you have received? 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 [address] [place] [address] Procedures Procedure Name Priority Date/Time Associated Diagnosis Comments CT ABDOMEN PELVIS WITH IV CONTRAST RAD - Routine (most inpatients and all outpatients) 06/05/2024 9:47 AM CDT Pain Generalized Abdominal SMALL JOINT INJECTION HAND/WRIST Routine 05/29/2024 3:15 PM CDT Pain Thumb Right DX THUMB RIGHT RAD - Routine (most inpatients and all outpatients) 05/11/2024 9:34 AM CDT Pain Thumb Right THYROID FUNCTION CASCADE, S Routine 05/11/2024 9:13 AM CDT Pain Generalized Abdominal C-REACTIVE PROTEIN (CRP), S/P Routine 05/11/2024 9:13 AM CDT Pain Generalized Abdominal COMPREHENSIVE METABOLIC PANEL, S/P Routine 05/11/2024 9:13 AM CDT Pain Generalized Abdominal CBC WITH DIFFERENTIAL, B Routine 05/11/2024 9:13 AM CDT Pain Generalized Abdominal URINALYSIS WITH MICROSCOPIC Routine 05/11/2024 9:09 AM CDT Pain Generalized Abdominal SMALL JOINT INJECTION HAND/WRIST Routine 01/07/2024 2:30 PM BOX LINER Primary Osteoarthritis Hand Right TX ARTHCS ASP/INJ MJR JT WO US Routine 10/02/2023 1:30 PM BOX LINER Primary Osteoarthritis Knee Left CT UROGRAM WITHOUT AND WITH IV CONTRAST RAD - Routine (most inpatients and all outpatients) 09/19/2023 1:22 PM CDT Hematuria COMPREHENSIVE METABOLIC PANEL, S/P Routine 09/17/2023 3:51 PM CDT Infection Urinary Tract Personal History Dysuria Hematuria CBC WITH DIFFERENTIAL, B Routine 09/17/2023 3:51 PM CDT Infection Urinary Tract Personal History Dysuria Hematuria CYTOLOGY 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-STRIP CUTTER (SCHEDULED) Routine 09/17/2023 3:46 PM CDT Hematuria TX URINALYSIS AUTO W MICRO Routine 09/17/2023 3:46 PM CDT URINALYSIS WITH MICROSCOPIC IF INDICATED, U Routine 09/17/2023 3:46 PM CDT Dysuria BACTERIAL CULTURE, AEROBIC + SUSC, URINE Routine 09/17/2023 3:46 PM CDT Dysuria DX KNEE BILATERAL WITH FLEXION AND PATELLA 4 VIEWS RAD - Routine (most inpatients and all outpatients) 09/17/2023 3:30 PM CDT Pain Knee Left FL LUMBAR SPINE RADIOFREQUENCY DENERVATION Routine 07/19/2023 2:36 PM CDT Pain Low Back Chronic SMALL JOINT INJECTION HAND/WRIST Routine 07/18/2023 2:15 PM CDT Primary Osteoarthritis First Carpometacarpal Joint Right Unilateral TX RMVL SUTURES WO ANES Routine 06/19/2023 9:20 AM CDT Pain Hand Right BACTERIAL CULTURE, AEROBIC + SUSC Routine 06/05/2023 2:42 PM CDT Pain Hand Right GRAM STAIN Routine 06/05/2023 2:42 PM CDT Pain Hand Right BACTERIAL CULTURE, ANAEROBIC + SUSC Routine 06/05/2023 2:42 PM CDT Pain Hand Right BACTERIAL CULTURE, AEROBIC + SUSC Routine 06/05/2023 2:36 PM CDT Pain Hand Right GRAM STAIN Routine 06/05/2023 2:36 PM CDT Pain Hand Right BACTERIAL CULTURE, ANAEROBIC + SUSC Routine 06/05/2023 2:36 PM CDT Pain Hand Right BACTERIAL CULTURE, AEROBIC + SUSC Routine 06/05/2023 2:36 PM CDT Pain Hand Right GRAM STAIN Routine 06/05/2023 2:36 PM CDT Pain Hand Right BACTERIAL CULTURE, ANAEROBIC + SUSC Routine 06/05/2023 2:36 PM CDT Pain Hand Right BACTERIAL CULTURE, AEROBIC + SUSC Routine 06/05/2023 2:35 PM CDT Pain Hand Right GRAM STAIN Routine 06/05/2023 2:35 PM CDT Pain Hand Right BACTERIAL CULTURE, ANAEROBIC + SUSC Routine 06/05/2023 2:35 PM CDT Pain Hand Right LDA ANE NON-SURGICAL AIRWAY Routine 06/05/2023 2:17 PM CDT DEBRIDEMENT AND IRRIGATION 06/05/2023 2:09 PM CDT Pain Hand Right Case Notes Dakotah(#2)/Maddy(11)Added 06/04 C-REACTIVE PROTEIN (CRP), S/P Routine 06/04/2023 9:01 AM CDT Abnormal Computed Tomography Pain Hand Right SEDIMENTATION RATE, B Routine 06/04/2023 9:01 AM CDT Abnormal Computed Tomography Pain Hand Right CBC WITH DIFFERENTIAL, B Routine 06/04/2023 9:01 AM CDT Abnormal Computed Tomography Pain Hand Right MR HAND RIGHT WITHOUT AND WITH IV CONTRAST RAD - Routine (most inpatients and all outpatients) 06/04/2023 8:32 AM CDT Abnormal Computed Tomography Pain Hand Right CT HAND RIGHT WITHOUT IV CONTRAST RAD - Routine (most inpatients and all outpatients) 05/28/2023 7:59 AM CDT Pain Hand Right BI BREAST SCREENING BILATERAL WITH TOMOSYNTHESIS RAD - Routine (most inpatients and all outpatients) 05/24/2023 11:45 AM CDT Screening Mammogram Breast Cancer DX HAND RIGHT 3+ VIEWS RAD - Routine (most inpatients and all outpatients) 05/16/2023 2:49 PM CDT Pain Hand Right CT HEAD WITHOUT IV CONTRAST RAD - Routine (most inpatients and all outpatients) 02/19/2023 9:28 AM CDT Headache Daily Persistent New TX ARTHCS ASP/INJ MJR JT WO US Routine 02/06/2023 10:00 AM CDT Pain Hip Left HEMOGLOBIN A1C, B Routine 02/05/2023 5:02 PM CDT Screening Examination Diabetes Mellitus COMPREHENSIVE METABOLIC PANEL, S/P Routine 02/05/2023 5:02 PM CDT Hypertension Essential Primary CBC WITH DIFFERENTIAL, B Routine 02/05/2023 5:02 PM CDT Hypertension Essential Primary TX URINALYSIS AUTO W MICRO Routine 02/05/2023 5:00 PM CDT URINALYSIS WITH MICROSCOPIC IF INDICATED, U Routine 02/05/2023 5:00 PM CDT Infection Urinary Tract Personal History BACTERIAL CULTURE, AEROBIC + SUSC, URINE Routine 02/05/2023 5:00 PM CDT Infection Urinary Tract Personal History DX HIP AND PELVIS LEFT 2-3 VIEWS RAD - Routine (most inpatients and all outpatients) 02/05/2023 4:45 PM CDT Pain Hip Left DX KNEE LEFT FLEXION AND PATELLA 4 VIEWS RAD - Routine (most inpatients and all outpatients) 02/05/2023 4:35 PM CDT Pain Knee Left POLYSOMNOGRAPHY Routine 12/27/2022 3:08 AM BOX LINER Apnea Sleep Obstructive FL CERVICAL SPINE RADIOFREQUENCY DENERVATION Routine 12/20/2022 11:14 AM BOX LINER 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 FL CERVICAL SPINE MEDIAL BRANCH NERVE BLOCK INJECTION Routine 12/18/2022 11:26 AM BOX LINER 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 FL CERVICAL SPINE MEDIAL BRANCH NERVE BLOCK INJECTION Routine 12/04/2022 9:01 AM BOX LINER 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 TX HOME SLEEP TEST TYPE MUARICE 4 Routine 10/26/2022 9:27 AM BOX LINER Apnea Sleep Obstructive EXTM HOME SARS CORONAVIRUS-2 (COVID-19) ANTIGEN, V Routine 09/21/2022 C-REACTIVE PROTEIN (CRP), S/P Routine 08/21/2022 9:19 AM CDT Fatigue Myalgia VITAMIN B12 ASSAY, S Routine 08/21/2022 9:19 AM CDT Fatigue CREATINE KINASE (CK), S Routine 08/21/2022 9:19 AM CDT Fatigue COMPREHENSIVE METABOLIC PANEL, S/P Routine 08/21/2022 9:19 AM CDT Fatigue CBC WITH DIFFERENTIAL, B Routine 08/21/2022 9:19 AM CDT Fatigue THYROID FUNCTION CASCADE, S Routine 08/21/2022 9:19 AM CDT Fatigue FL LUMBAR SPINE RADIOFREQUENCY DENERVATION Routine 05/16/2022 10:37 AM CDT Pain Back FL LUMBAR SPINE MEDIAL BRANCH NERVE BLOCK INJECTION Routine 05/10/2022 10:01 AM CDT Pain Back FL LUMBAR SPINE MEDIAL BRANCH NERVE BLOCK INJECTION Routine 04/24/2022 9:58 AM CDT Pain Back EMG Routine 02/21/2022 3:24 PM CDT Neuropathy AUDIOLOGY EVALUATION Routine 02/21/2022 12:00 AM CDT Loss Hearing Sensorineural Bilateral DX LUMBAR SPINE 4+ VIEWS RAD - Routine (most inpatients and all outpatients) 01/26/2022 11:53 AM BOX LINER Spinal Stenosis Lumbosacral Region PERNICIOUS ANEMIA CASCADE, S Routine 01/24/2022 4:26 PM BOX LINER Neuropathy HEAVY METALS SCRN, B Routine 01/24/2022 4:26 PM BOX LINER Neuropathy ELECTROPHORESIS, PROTEIN, S Routine 01/24/2022 4:26 PM BOX LINER Neuropathy FL LUMBAR SPINE INTERLAMINAR EPIDURAL INJECTION RAD - Routine (most inpatients and all outpatients) 12/18/2021 8:46 AM BOX LINER Stenosis Spinal Lumbar With Neurogenic Claudication MR LUMBAR SPINE WITHOUT IV CONTRAST RAD - Routine (most inpatients and all outpatients) 12/15/2021 12:40 PM BOX LINER Pain Low Back Unspecified INFLUENZA A/B AND RSV, PCR, VARIES Routine 10/25/2021 2:57 PM BOX LINER Infection Upper Respiratory SARS CORONAVIRUS-2 RNA, V Routine 10/25/2021 2:57 PM BOX LINER Contact With And (Suspected) Exposure To COVID-19 FL SACROILIAC JOINT INJECTION BILATERAL RAD - Routine (most inpatients and all outpatients) 10/02/2021 9:35 AM BOX LINER Pain Sacroiliac BMD BONE DENSITY SPINE HIPS RAD - Routine (most inpatients and all outpatients) 09/05/2021 10:32 AM CDT Osteoporosis AUDIOLOGY EVALUATION Routine 08/25/2021 12:00 AM CDT Loss Hearing Sensorineural Bilateral DX HIPS AND PELVIS BILATERAL 3-4 VIEWS RAD - Routine (most inpatients and all outpatients) 07/11/2021 9:58 AM CDT Pain Hip Bilateral SARS CORONAVIRUS-2 RNA, V STAT 06/28/2021 1:03 PM CDT Contact With And (Suspected) Exposure To COVID-19 ECG Routine 06/28/2021 11:22 AM CDT Cough Pain Chest BASIC METABOLIC PANEL, S/P Routine 06/28/2021 9:55 AM CDT Cough CBC WITH DIFFERENTIAL, B Routine 06/28/2021 9:55 AM CDT Cough DX CHEST AP OR PA AND LATERAL 2 VIEWS RAD - Routine (most inpatients and all outpatients) 06/28/2021 9:44 AM CDT Cough US LOWER EXTREMITY VEINS BILATERAL LIMITED POST SOREN CLOSE RAD - Routine (most inpatients and all outpatients) 05/10/2021 10:43 AM CDT 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 DERMATOLOGY IMAGE EXAM Routine 05/09/2021 12:00 AM CDT ECHO STRESS 2D WITH COLOR, LIMITED DOPPLER AND CONTRAST Routine 02/09/2021 3:01 PM CDT Presyncope SARS CORONAVIRUS-2 RNA, V Routine 02/06/2021 8:38 AM CDT Encounter For Preprocedural Laboratory Examination (COVID-19) FL CERVICAL SPINE FACET INJECTION BILATERAL RAD - Routine (most inpatients and all outpatients) 02/01/2021 9:21 AM CDT Pain Neck Spondylosis Cervical Without Myelopathy BI BREAST SCREENING BILATERAL RAD - Routine (most inpatients and all outpatients) 01/17/2021 10:33 AM BOX LINER Screening Mammogram Breast Cancer US LOWER EXTREMITY VENOUS INSUFFICIENCY BILATERAL RAD - Routine (most inpatients and all outpatients) 01/16/2021 9:14 AM BOX LINER 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 HEMOGLOBIN A1C, B Routine 01/12/2021 8:14 AM BOX LINER Screening Examination Diabetes Mellitus ASPARTATE AMINOTRANSFERASE (AST), S/P Routine 01/12/2021 8:14 AM BOX LINER Hyperlipidemia Mixed LIPID PANEL, S Routine 01/12/2021 8:14 AM BOX LINER Hyperlipidemia Mixed DX CERVICAL SPINE 2-3 VIEWS RAD - Routine (most inpatients and all outpatients) 01/04/2021 10:37 AM BOX LINER Pain Neck ECG Routine 01/04/2021 9:37 AM BOX LINER Presyncope TX URINALYSIS AUTO WO MICRO Routine 12/27/2020 10:58 AM BOX LINER URINALYSIS WITH MICROSCOPIC IF INDICATED, U Routine 12/27/2020 10:58 AM BOX LINER Leukocytosis BACTERIAL CULTURE, AEROBIC + SUSC, URINE Routine 12/27/2020 10:57 AM BOX LINER Leukocytosis CBC WITH DIFFERENTIAL, B Routine 12/27/2020 10:53 AM BOX LINER Leukocytosis BASIC METABOLIC PANEL, S/P Routine 12/20/2020 10:23 AM BOX LINER Cellulitis Periorbital CBC WITH DIFFERENTIAL, B Routine 12/20/2020 10:23 AM BOX LINER Cellulitis Periorbital FL LUMBAR SPINE TRANSFORAMINAL EPIDURAL INJECTION LEFT RAD - Routine (most inpatients and all outpatients) 08/23/2020 9:06 AM CDT Radiculopathy Lumbar MR LUMBAR SPINE WITHOUT IV CONTRAST RAD - Routine (most inpatients and all outpatients) 08/02/2020 9:44 AM CDT Pain Low Back DX LUMBAR SPINE 2-3 VIEWS RAD - Routine (most inpatients and all outpatients) 07/28/2020 2:41 PM CDT Radiculopathy Lumbar BI BREAST SCREENING BILATERAL RAD - Routine (most inpatients and all outpatients) 01/14/2020 9:24 AM BOX LINER Screening Mammogram Breast Cancer BASIC METABOLIC PANEL, S/P Routine 11/05/2019 11:26 AM BOX LINER Preoperative Exam CBC WITH DIFFERENTIAL, B Routine 11/05/2019 11:26 AM BOX LINER Preoperative Exam DX KNEE RIGHT 3 VIEWS RAD - Routine (most inpatients and all outpatients) 05/22/2019 4:48 PM CDT Primary Osteoarthritis Multiple Sites Pain Knee Right DX HIPS BILATERAL WITH ANTERIOR POSTERIOR PELVIS 2+ VIEWS RAD - Routine (most inpatients and all outpatients) 04/22/2019 11:45 AM CDT Primary Osteoarthritis Multiple Sites Pain Hip Bilateral LIPID PANEL, S Routine 04/22/2019 11:29 AM CDT Hyperlipidemia Mixed ASPARTATE AMINOTRANSFERASE (AST), S/P Routine 04/22/2019 11:29 AM CDT Hernia Hiatal Primary Osteoarthritis Multiple Sites Gastroesophageal Reflux Disease Hyperlipidemia Mixed BASIC METABOLIC PANEL, S/P Routine 04/22/2019 11:29 AM CDT Hernia Hiatal Primary Osteoarthritis Multiple Sites Gastroesophageal Reflux Disease Pain Hip Bilateral CBC WITH DIFFERENTIAL, B Routine 04/22/2019 11:29 AM CDT Apnea Sleep Obstructive Hernia Hiatal Primary Osteoarthritis Multiple Sites Hypertension Essential Primary Gastroesophageal Reflux Disease Thrombosis Deep Vein Personal History Pain Hip Bilateral BI BREAST SCREENING BILATERAL RAD - Routine (most inpatients and all outpatients) 12/18/2018 2:18 PM BOX LINER Screening Mammogram Breast Cancer AUDIOLOGY EVALUATION 09/02/2018 12:00 AM CDT DX KNEE RIGHT 3 VIEWS RAD - Routine (most inpatients and all outpatients) 05/19/2018 5:45 PM CDT Primary Osteoarthritis Multiple Sites Pain Knee Right ECG Routine 09/30/2017 11:09 AM BOX LINER Preoperative Examination Cardiovascular Preoperative Examination Respiratory Hyperlipidemia Mixed Hypertension Essential Primary ASPARTATE AMINOTRANSFERASE (AST), S/P Routine 09/30/2017 11:02 AM BOX LINER Hyperlipidemia Mixed LIPID PANEL, S Routine 09/30/2017 11:02 AM BOX LINER Hyperlipidemia Mixed BASIC METABOLIC PANEL, S/P Routine 09/30/2017 11:02 AM BOX LINER Preoperative Examination Cardiovascular Preoperative Examination Respiratory Hernia Hiatal Apnea Sleep Obstructive Reflux Esophageal Hypertension Essential Primary CBC WITH DIFFERENTIAL, B Routine 09/30/2017 11:02 AM BOX LINER Preoperative Examination Cardiovascular Preoperative Examination Respiratory Hernia Hiatal Apnea Sleep Obstructive Reflux Esophageal Primary Osteoarthritis Multiple Sites Hypertension Essential Primary OPHTHALMOLOGY IMAGE EXAM Routine 09/16/2017 12:05 PM CDT OPHTHALMOLOGY IMAGE EXAM Routine 09/16/2017 12:00 PM CDT BI BREAST SCREENING BILATERAL Routine 11/22/2016 3:20 PM BOX LINER DIPSTICK, U Routine 10/31/2016 12:14 PM BOX LINER AUTOMATED DIFFERENTIAL, B Routine 10/31/2016 11:59 AM BOX LINER CBC WITH DIFFERENTIAL, B Routine 10/31/2016 11:59 AM BOX LINER ASPARTATE AMINOTRANSFERASE (AST), S/P Routine 10/31/2016 11:59 AM BOX LINER BASIC METABOLIC PANEL, S/P Routine 10/31/2016 11:59 AM BOX LINER AUTOMATED DIFFERENTIAL, B Routine 06/06/2016 9:21 AM CDT CBC WITH DIFFERENTIAL, B Routine 06/06/2016 9:21 AM CDT LIPID PANEL, S Routine 06/06/2016 9:21 AM CDT ASPARTATE AMINOTRANSFERASE (AST), S/P Routine 06/06/2016 9:21 AM CDT BASIC METABOLIC PANEL, S/P Routine 06/06/2016 9:21 AM CDT BI BREAST SCREENING BILATERAL Routine 10/26/2015 9:40 AM BOX LINER LIPID PANEL, S Routine 02/24/2015 8:11 AM CDT SEDIMENTATION RATE, B Routine 02/14/2015 10:39 AM CDT RHEUMATOID FACTOR, S/P Routine 02/14/2015 10:39 AM CDT ANTINUCLEAR ABS (SABINO), S Routine 02/14/2015 10:39 AM CDT DX FINGERS RIGHT 2 VIEWS Routine 02/14/2015 10:13 AM CDT DIPSTICK, U Routine 02/04/2015 2:51 PM CDT AUTOMATED DIFFERENTIAL, B Routine 02/04/2015 2:45 PM CDT CBC WITH DIFFERENTIAL, B Routine 02/04/2015 2:45 PM CDT ASPARTATE AMINOTRANSFERASE (AST), S/P Routine 02/04/2015 2:45 PM CDT BASIC METABOLIC PANEL, S/P Routine 02/04/2015 2:45 PM CDT THYROID-STIMULATING HORMONE-SENSITIVE (S-TSH) Routine 02/04/2015 2:45 PM CDT BI BREAST SCREENING BILATERAL Routine 10/06/2014 3:50 PM BOX LINER DIPSTICK, U Routine 01/21/2014 12:12 PM BOX LINER AUTOMATED DIFFERENTIAL, B Routine 01/21/2014 11:58 AM BOX LINER CBC WITH DIFFERENTIAL, B Routine 01/21/2014 11:58 AM BOX LINER ECG HEART RHYTHM MONITOR (HOLTER) Routine 01/05/2014 10:00 AM BOX LINER ECHOCARDIOLOGY IMAGE EXAM Routine 12/31/2013 12:24 PM BOX LINER ECHO TRANSTHORACIC (TTE) Routine 12/31/2013 12:18 PM BOX LINER US CAROTID BILATERAL Routine 12/28/2013 8:30 AM BOX LINER 1,25-DIHYDROXYVITAMIN D, S Routine 12/25/2013 2:51 PM BOX LINER DX CHEST AP OR PA AND LATERAL 2 VIEWS Routine 12/25/2013 2:29 PM BOX LINER BI ULTRASOUND BREAST FOCUSED LEFT Routine 09/15/2013 12:32 PM CDT BI BREAST SCREENING BILATERAL Routine 09/14/2013 11:30 AM CDT AUTOMATED DIFFERENTIAL, B Routine 09/14/2013 10:58 AM CDT CBC WITH DIFFERENTIAL, B Routine 09/14/2013 10:58 AM CDT LIPID PANEL, S Routine 09/14/2013 10:58 AM CDT ASPARTATE AMINOTRANSFERASE (AST), S/P Routine 09/14/2013 10:58 AM CDT THYROID-STIMULATING HORMONE-SENSITIVE (S-TSH) Routine 09/14/2013 10:58 AM CDT BASIC METABOLIC PANEL, S/P Routine 09/14/2013 10:58 AM CDT DIPSTICK, U Routine 09/23/2012 11:36 AM BOX LINER DX LUMBAR SPINE 2-3 VIEWS Routine 07/14/2012 11:53 AM CDT DIPSTICK, U Routine 07/14/2012 9:29 AM CDT BACTERIAL CULTURE, AEROBIC, URINE Routine 07/14/2012 9:29 AM CDT AUTOMATED DIFFERENTIAL, B Routine 07/14/2012 9:23 AM CDT CBC WITH DIFFERENTIAL, B Routine 07/14/2012 9:23 AM CDT AMYLASE, TOT, S Routine 07/14/2012 9:23 AM CDT COMPREHENSIVE METABOLIC PANEL, S/P Routine 07/14/2012 9:23 AM CDT BI BREAST SCREENING BILATERAL Routine 07/07/2012 9:43 AM CDT LIPID PANEL, S Routine 07/07/2012 9:37 AM CDT ASPARTATE AMINOTRANSFERASE (AST), S/P Routine 07/07/2012 9:37 AM CDT DX KNEE LEFT 1 VIEW Routine 06/26/2012 3:30 PM CDT DX CERVICAL SPINE 2-3 VIEWS Routine 06/26/2012 3:30 PM CDT LIPID PANEL, S Routine 02/11/2012 8:26 AM CDT ALANINE AMINOTRANSFERASE (ALT), S/P Routine 02/11/2012 8:26 AM CDT SURGICAL PATHOLOGY Routine 10/03/2011 12:00 AM BOX LINER DX CHEST AP OR PA AND LATERAL 2 VIEWS Routine 09/27/2011 10:18 AM BOX LINER SURGICAL PATHOLOGY Routine 08/21/2011 12:00 AM CDT BI BREAST SCREENING BILATERAL Routine 06/26/2011 11:10 AM CDT US EXTREMITY VEINS Routine 07/04/2010 10:09 AM CDT DX FOOT ANKLE UNILATERAL 3 VIEWS Routine 05/11/2010 11:01 AM CDT US EXTREMITY VEINS Routine 04/03/2010 1:51 PM CDT DENTAL IMAGE EXAM Routine 03/22/2010 9:39 AM CDT POLYSOMNOGRAPHY Routine 03/13/2010 10:[address] ABDOMEN PELVIS WITHOUT IV CONTRAST Routine 03/06/2010 6:42 PM CDT BI BREAST SCREENING UNILATERAL Routine 02/06/2010 2:24 PM CDT MR BRAIN WITHOUT AND WITH IV CONTRAST Routine 02/06/2010 1:[address] MAXILLOFACIAL WITHOUT IV CONTRAST Routine 01/23/2010 11:44 AM BOX LINER ECG Routine 01/23/2010 7:41 AM BOX LINER Results * CT Abdomen Pelvis with IV [...] or pelvic abnormality present. Junie Olmedo P.A.-C. G CT PROCEDURES * hand-wrist: R thumb CMC [...] Murphy Jesus M.D. PROCEDURE/MINOR SURG ICAL ORDERABLES * DX Thumb Right (05/11/2024 9:34 AM CDT) Anatomical Region Laterality Modality Upper Extremity, Fingers, Mu sculoskeletal RST LOS, Musculoskeletal ARZ LOS, Muskuloskeletal FLA LOS Right Digit al Radiography Impressions 05/11/2024 10:08 AM CDT Correlation with prior right hand MRI 06/04/2023. Similar magnitude of slight radial subluxation of the first metacarpal the first CMC articulation with moderately severe osteoarthritis of the thumb CMC articulation. Mild to moderate second CMC arthrosis. Minimal STT and mild thumb MCP/IP joint osteoarthritis. Negative for fracture or acute traumatic malalignment. No retained radiopaque foreign object. Narrative 05/11/2024 10:08 AM CDT EXAM: DX THUMB RIGHT Procedure Note Elmo Cabrera M.D. - 05/11/2024 EXAM: DX THUMB RIGHT IMPRESSION: Correlation with prior right hand MRI 06/04/2023. Similar magnitude ofslight radial subluxation of the first metacarpal the first CMCarticulation with moderately severe osteoarthritis of the thumb CMCarticulation. Mild to moderate second CMC arthrosis. Minimal STT and mild thumb MCP/IP joint osteoarthritis.Negative for fracture or acute traumatic malalignment. No retainedradiopaque foreign object. Junie Olmedo P.A.-C. IMG DIAGNOSTIC BENNY GING PROCEDURES * Thyroid Function [place] (05/11/2024 9:13 AM CDT) Only the most recent of2 resultswithin the time period is included. TSH, Sensitive 2.8 0.3 - 4.2 mIU/L 05/11/2024 2:16 PM CDT OWAT Blood (Blood, Venous) 05/11/2024 9:13 AM CDT 05/11/2024 1:14 PM CDT Junie Olmedo P.A.-C. LAB BLOOD ADD-ON [facility] [address] [place] [address], [facility] OW[address] [facility] [place] [address] [place] [address] * CBC with Differential, Blood (05/11/2024 9:13 AM CDT) Only the most recent of17 resultswithin the time period is included. Hemoglobin 13.0 11.6 - 15.0 g/dL 05/11/2024 9:17 AM CDT FB60 Hematocrit 41.5 35.5 - 44.9 % 05/11/2024 9:17 AM CDT FB60 Erythrocytes 4.79 3.92 - 5.13 x10(12)/L 05/11/2024 9:17 AM CDT FB60 MCV 86.6 78.2 - 97.9 fL 05/11/2024 9:17 AM CDT FB60 RBC Distrib Width 13.0 12.2 - 16.1 % 05/11/2024 9:17 AM CDT FB60 Platelet Count 229 157 - 371 x10(9)/L 05/11/2024 9:17 AM CDT FB60 Leukocytes 6.5 3.4 - 9.6 x10(9)/L 05/11/2024 9:17 AM CDT FB60 Neutrophils 3.69 1.56 - 6.45 x10(9)/L 05/11/2024 9:17 AM CDT FB60 Lymphocytes 2.01 0.95 - 3.07 x10(9)/L 05/11/2024 9:17 AM CDT FB60 Monocytes 0.56 0.26 - 0.81 x10(9)/L 05/11/2024 9:17 AM CDT FB60 Eosinophils 0.19 0.03 - 0.48 x10(9)/L 05/11/2024 9:17 AM CDT FB60 Basophils <0.04 0.01 - 0.08 x10(9)/L 05/11/2024 9:17 AM CDT FB60 Blood (Blood, Venous) 05/11/2024 9:13 AM CDT 05/11/2024 9:13 AM CDT Junie Olmedo P.A.-C. LAB BLOOD ADD-ON Performing Organization Address City/[facility]/ZIP Co de Phone Number [facility] [address] [place] [address], [facility] FB60 [facility] [place] [address] [place] [address] * CRP (C-Reactive Protein) (05/11/2024 9:13 AM CDT) Only the most recent of3 resultswithin the time period is included. Pathologist [facility] C-Reactive Protein (CRP), P <3.0 <5.0 mg/L 05/11/2024 2:12 PM CDT OWAT Blood (Blood, Venous) 05/11/2024 9:13 AM CDT 05/11/2024 1:14 PM CDT Junie Fernandez-C. LAB BLOOD ADD-ON [facility] [address] [place] [address], [place] [address] [facility] [place] [address] [place] [address] * Comprehensive Metabolic Panel (05/11/2024 9:13 AM CDT) Only the most recent of5 resultswithin the time period is included. Potassium, P 4.4 3.6 - 5.2 mmol/L 05/11/2024 2:12 PM CDT OWAT Sodium, P 140 135 - 145 mmol/L 05/11/2024 2:12 PM CDT OWAT Chloride, P 104 98 - 107 mmol/L 05/11/2024 2:12 PM CDT OWAT Bicarbonate, P 28 22 - 29 mmol/L 05/11/2024 2:12 PM CDT OWAT Anion Gap, P 8 7 - 15 05/11/2024 2:12 PM CDT OWAT BUN (Blood Urea Nitrogen), P 13 6 - 21 mg/dL 05/11/2024 2:12 PM CDT OWAT Creatinine 0.62 0.59 - 1.04 mg/dL 05/11/2024 2:12 PM CDT OWAT Estimated GFR (eGFR) 88 >=60 mL/min/BS A 05/11/2024 2:12 PM CDT OWAT Comment: Estimated GFR calculated using the 2020 CKD_EPI creatinine equation. Calcium, Total, P 8.9 8.8 - 10.2 mg/dL 05/11/2024 2:12 PM CDT OWAT Glucose, P 91 70 - 140 mg/dL 05/11/2024 2:12 PM CDT OWAT Protein, Total, P 7.2 6.3 - 7.9 g/dL 05/11/2024 2:12 PM CDT OWAT Albumin, P 4.1 3.5 - 5.0 g/dL 05/11/2024 2:12 PM CDT OWAT Aspartate Aminotransferase (AST), P 24 8 - 43 U/L 05/11/2024 2:12 PM CDT OWAT Alkaline Phosphatase, P 51 35 - 104 U/L 05/11/2024 2:12 PM CDT OWAT Alanine Aminotransferase (ALT), P 20 7 - 45 U/L 05/11/2024 2:12 PM CDT OWAT Bilirubin, Total, P 0.3 0.0 - 1.2 mg/dL 05/11/2024 2:12 PM CDT OWAT Blood (Blood, Venous) 05/11/2024 9:13 AM CDT 05/11/2024 1:14 PM CDT Junie Olmedo P.A.-C. LAB BLOOD ADD-ON [facility] [address] [place] [address], [place] OW[place] [facility] [place] [address] [place] [address] * (ABNORMAL) Urinalysis, with Microscopic: Urine, Midstream (05/11/2024 9:09 AM CDT) Source Urine, Urine, Midstream 05/11/2024 9:20 AM CDT FB60 Clarity Clear Clear 05/11/2024 9:22 AM CDT FB60 Color Yellow 05/11/2024 9:22 AM CDT FB60 Comment: ----REFERENCE VALUE---- Colorless Yellow Maira Blood Negative Negative 05/11/2024 9:22 AM CDT FB60 Nitrite Negative Negative 05/11/2024 9:22 AM CDT FB60 Leukocyte Esterase Negative Negative 05/11/2024 9:22 AM CDT FB60 Protein Negative mg/dL 05/11/2024 9:22 AM CDT FB60 Comment: ----REFERENCE VALUE---- Negative Trace Glucose Negative Negative mg/dL 05/11/2024 9:22 AM CDT FB60 Ketones, QI(U) Negative Negative mg/dL 05/11/2024 9:22 AM CDT FB60 Bilirubin Negative Negative 05/11/2024 9:22 AM CDT FB60 pH 7.0 5.0 - 8.0 05/11/2024 9:22 AM CDT FB60 Specific [place] 1.020 1.001 - 1.035 05/11/2024 9:22 AM CDT FB60 Urobilinogen 0.2 0.2 - 1.0 mg/dL 05/11/2024 9:22 AM CDT FB60 White Blood Cells Occ-3 /hpf 05/11/2024 9:38 AM CDT FB60 Comment: ----REFERENCE VALUE---- Males: 0-3 Females: 0-10 Unknown: 0-10 Red Blood Cells Occ-2 0 - 2 /hpf 9:38 AM CDT FB60 Squamous Cells Occ-3 /hpf 05/11/2024 9:38 AM CDT FB60 Bacteria Present(A) None Seen 05/11/2024 9:38 AM CDT FB60 Urine (Urine, Midstream) 05/11/2024 9:09 AM CDT 05/11/2024 9:19 AM CDT Junie Olmedo P.A.-C. LAB URINE ORDERABL ES [facility] [address] [facility] [place] [address], [facility] FB60 [facility] [place] [address] [facility] [place] [address] * Small Joint Injection Hand/Wrist (01/07/2024 2:30 PM BOX LINER) Narrative Suraj Franklin D.O. - 01/07/2024 2:30 PM BOX LINER Suraj Franklin D.O. ? 01/07/2024 ??2:59 PM : injection only Small Joint Injection Hand/Wrist Performed by: Suraj Franklin D.O. Authorized by: Suraj Franklin D.O. ?? PROCEDURE DETAILS Procedure performed: injection only ??Ultrasound image guidance used to localize target, identify at risk structures, and dynamically used to direct therapy to the target. Image(s) acquired and saved. PROCEDURE MEDICATIONS Local anesthetics: 1.5 mL lidocaine (PF) 10 mg/mL (1 %) Corticosteroid: 5 mg dexAMETHasone 10 mg/mL CONSENT Consent obtained: written (Risks, benefits and alternatives were discussed and a written Informed Consent was obtained. Please see Informed Consent form for further details.) PRE-PROCEDURE DETAILS Procedure purpose: therapeutic SEDATION / ANESTHESIA Anesthesia method: local infiltration POST-PROCEDURE DETAILS Procedure outcome: ??successful procedure Complications: no apparent complications Post-procedure instructions: avoid submersion of procedure site for 48 hours Suraj Franklin D.O. PROCEDURE/MINOR SURG ICAL ORDERABLES * TX ARTHCS ASP/INJ MJR JT WO US (10/02/2023 1:30 PM BOX LINER) Narrative MMODAL - 10/02/2023 1:30 PM BOX LINER Ben Whitaker P.A.-C. ? 10/02/2023 ??1:33 PM Knee site- L knee joint : injection only Performed by: Ben Whitaker P.A.-C. Authorized by: Ben Whitaker P.A.-C. ?? PROCEDURE DETAILS Indications: Pain Procedure Location knee Knee site: L knee joint Site prep: patient was prepped and draped in usual sterile fashion ?? Patient position: seated Procedural approach: anterolateral Procedure performed: injection only Needle gauge: 21 G, length: 2 in Procedural Medication The following medications were administered at the target site(s) Local anesthetic: 8 mL lidocaine (PF) 10 mg/mL (1 %) Corticosteroid: 9 mg betamethasone acetate & sodium phosphate 6 mg/mL CONSENT Consent obtained: written (Risks, benefits [...] procedural pause. PRE-PROCEDURE DETAILS Procedure purpose: therapeutic Indications: Pain Appropriate hand hygiene, gown, cap, mask, protective eyewear, sterile gloves, skin preparation, sterile drape, and strict aseptic technique were utilized as applicable for the procedure. Site preparation: chlorhexidine SEDATION / ANESTHESIA Anesthesia method: none POST-PROCEDURE DETAILS Procedure completed successfully: yes Complications: no apparent complications ?? Post-procedure instructions: avoid strenuous activity for 2 days Discharge instructions: ice area as needed for comfort Ben Whitaker P.A.-C. PROCEDURE/MINOR SURGICAL ORDERABLES MMODAL NA * CT Urogram without and with IV Contrast (09/19/2023 1:22 PM CDT) Anatomical Region Laterality Modality Abdomen, Pelvis, Abdominal R ST LOS, Abdominal ARZ LOS, Abdominal FLA LOS N/A Computed Tomography 09/19/2023 1:17 PM CDT Impressions 09/19/2023 1:[address] urogram. No etiology identified for hematuria. Narrative 09/19/2023 1:53 PM CDT EXAM: CT UROGRAM WITHOUT AND WITH IV CONTRAST COMPARISON: CT abdomen and pelvis 03/06/2010 FINDINGS: Right kidney and ureter: No evidence of renal or ureteral calculi. No hydronephrosis. No hydroureter. ?? No significant renal mass or urothelial lesion. Left kidney and ureter: No evidence of renal or ureteral calculi. No hydronephrosis. No hydroureter. Few cortical cysts No significant renal mass or urothelial lesion. Urinary bladder: Normally distended. No abnormality. Visualized lower thorax: Normal. Liver: No focal lesions seen. Status post cholecystectomy. Spleen: Normal. Pancreas: Normal. Adrenals: Normal. GI tract: Normal. Abdominal aorta: Normal. Peritoneum: Normal. Retroperitoneum: Normal. Pelvic structures: Normal. Bones and abdominal wall: Normal. Procedure Note Elmo Franklin M.D. - 09/19/2023 EXAM: CT UROGRAM WITHOUT AND WITH IV CONTRAST COMPARISON: CT abdomen and pelvis 03/06/2010 FINDINGS: Right kidney and ureter: No evidence of renal or ureteral calculi. No hydronephrosis. Nohydroureter. No significant renal mass or urothelial lesion. Left kidney and ureter: No evidence of renal or ureteral calculi. No hydronephrosis. Nohydroureter. Few cortical cysts No significant renal mass or urothelial lesion. Urinary bladder: Normally distended. No abnormality. Visualized lower thorax: Normal. Liver: No focal lesions seen. Status post cholecystectomy. Spleen: Normal. Pancreas: Normal. Adrenals: Normal. GI tract: Normal. Abdominal aorta: Normal. Peritoneum: Normal. Retroperitoneum: Normal. Pelvic structures: Normal. Bones and abdominal wall: Normal. IMPRESSION: Negative CT urogram. No etiology identified for hematuria. Valeria Canela APRN C.N.P. VAZQUEZ CT PROCEDU RES * Cytology Non-STRIP CUTTER (Scheduled) (09/17/2023 3:46 PM CDT) 09/18/2023 9:45 AM CDT [facility] Fixative 50% alcohol 09/18/2023 9:45 AM CDT [facility] Report electronically signed by Anny Tatum MD I verify that I have examined all relevant slides/materi als for the specimen(s) and rendered or confirmed the diagnosis. 09/18/2023 9:45 AM CDT [facility] Gross Description Received 75 ml of clear, yellow alcohol fixed fluid. 09/18/2023 9:45 AM CDT [facility] Collection Procedure urine void 09/18/2023 9:45 AM CDT [facility] Source A. Urine, Midstream, voided 09/18/2023 9:45 AM CDT [facility] Clinical History unknown 09/18/20 9:45 AM CDT [facility] Interpretation A. Urine, Midstream, voided (cytospin): Negative for High-Grade Urothelial Carcinoma. 09/18/2023 9:45 AM CDT [facility] Urine 09/17/2023 3:46 PM CDT 09/18/2023 6:39 AM CDT Valeria Canela APRN, C.N.P. LAB SURG PATH ORDERABLES [facility] [address] [place] [address], [facility] [address] [address] * (ABNORMAL) Urinalysis with Microscopic if Indicated (09/17/2023 3:46 PM CDT) Only the most recent of3 resultswithin the time period is included. Source Urine, Urine, Midstream 09/17/2023 4:26 PM CDT FB60 Clarity Clear Clear 09/17/2023 4:29 PM CDT FB60 Color Yellow 09/17/2023 4:29 PM CDT FB60 Comment: ----REFERENCE VALUE---- Colorless Yellow Maira Blood Trace(A) Negative 09/17/2023 4:29 PM CDT FB60 Nitrite Negative Negative 09/17/2023 4:29 PM CDT FB60 Leukocyte Esterase Negative Negative 09/17/2023 4:29 PM CDT FB60 Protein Negative mg/dL 09/17/2023 4:29 PM CDT FB60 Comment: ----REFERENCE VALUE---- Negative Trace Glucose Negative Negative mg/dL 09/17/2023 4:29 PM CDT FB60 Ketones, QI(U) Negative Negative mg/dL 09/17/2023 4:29 PM CDT FB60 Bilirubin Negative Negative 09/17/2023 4:29 PM CDT FB60 pH 6.5 5.0 - 8.0 09/17/2023 4:29 PM CDT FB60 Specific [place] <=1.005 1.001 - 1.035 09/17/2023 4:29 PM CDT FB60 Urobilinogen 0.2 0.2 - 1.0 mg/dL 09/17/2023 4:29 PM CDT FB60 Urine (Urine, Midstream) 09/17/2023 3:46 PM CDT 09/17/2023 4:26 PM CDT Valeria Canela APRN C.N.P. LAB URINE ORDE CHARLEEN Performing Organization Address [facility] Co de Phone Number [facility] [address] [place] [address], [facility] FB60 [facility] [address] [address] * Microscopic Manual (09/17/2023 3:46 PM CDT) Only the most recent of3 resultswithin the time period is included. White Blood Cells None Seen /hpf 09/17/2023 4:42 PM CDT FB60 Comment: ----REFERENCE VALUE---- Males: 0-3 Females: 0-10 Unknown: 0-10 Red Blood Cells None Seen 0 - 2 /hpf 09/17/2023 4:42 PM CDT FB60 Urine 09/17/2023 3:46 PM CDT 09/17/2023 4:26 PM CDT Ambrose Richardson APRN.N.P. LAB URINE ORDE RABPRANEETH Performing Organization Address City/[facility]/ZIP Co de Phone Number [facility] [address] [place] [address], [facility] FB60 [facility] [place] [address] [place] [address] * (ABNORMAL) Bacterial Culture, Aerobic + Susceptibility, Urine (09/17/2023 3:46 PM CDT) Only the most recent of3 resultswithin the time period is included. Urine Culture Mixed microbiota (A) 09/18/2023 11:55 AM CDT [facility] Urine (Urine, Midstream) 09/17/2023 3:46 PM CDT 09/17/2023 7:01 PM CDT Comment:Specimen Source Site : Urine Valeria Canela APRN C.N.PReina LAB MICROBIOLO GY - GENERAL ORDERABLES Performing Organization Address City/[facility]/ZIP Co de Phone Number [facility] [address] [place] [address], [facility] MKTO [facility] [place] [address] [place] [address] * DX Knee Bilateral with Flexion and Patella 4 Views (09/17/2023 3:30 PM CDT) Anatomical Region Laterality Modality Lower Extremity, Knee, Muscu loskeletal RST LOS, Musculoskeletal ARZ LOS, Muskuloskeletal FLA LOS Bilateral Digit al Radiography 09/17/2023 4:10 PM CDT Impressions 09/17/2023 4:14 PM CDT Moderate bilateral knee tricompartment degeneration with narrowing of the lateral compartment joint spaces and tricompartment marginal osteophyte formation. No dislocation. Negative for acute fracture. Small left and moderate right knee joint effusions. Comparison February 05, 2023. Narrative 09/17/2023 4:14 PM CDT EXAM: DX KNEE BILATERAL WITH FLEXION AND PATELLA 4 VIEWS Procedure Note Andrea Tolentino M.D. - 09/17/2023 EXAM: DX KNEE BILATERAL WITH FLEXION AND PATELLA 4 VIEWS IMPRESSION: Moderate bilateral knee tricompartment degeneration with narrowing of thelateral compartment joint spaces and tricompartment marginal osteophyte formation.No dislocation. Negative for acute fracture. Small left and moderate right knee joint effusions.Comparison February 05, 2023. Valeria Hilton CAICEDO C.N.P. [facility] DIAGNOSTIC IMAGING PROCEDURES * FL Lumbar Spine Radiofrequency Denervation (07/19/2023 2:36 PM CDT) Only the most recent of2 resultswithin the time period is included. Narrative MMODAL - 07/19/2023 1:30 PM CDT Kiley Hayward M.D. ? 07/19/2023 ??4:38 PM FL Lumbar Spine Radiofrequency Denervation Performed by: Kiley Hayward M.D. Authorized by: Cira Hernandes APRN C.N.PReina, M.S.N. ?? Care team members present 1. Sigifredo Hairston M.D. 2. 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 Image(s) acquired and saved. SEDATION MEDICATIONS Midazolam (mg): 1 Fentanyl (mcg): 50 INJECTED MEDICATIONS The injected medication(s) listed was divided equally between the identified injection location(s) Total volume of injectate (mL): 12 Total steroid in injectate (mg): 0 ?? 6 mL BUPivacaine 0.5 % (5 mg/mL) 6 mL lidocaine 20 mg/mL PROCEDURE DETAILS ?? Radiofrequency ablation - lumbar: Using fluoroscopy, the junction of the transverse process and superior articulating process of the appropriate levels were identified and marked. Using fluoroscopic guidance, the RF cannula was advanced to each target. This was confirmed using PA, lateral and oblique fluoroscopic views. Motor testing was performed at 2Hz up 3.0 volts, and the measured tissue impedances were satisfactory. With final needle positioning, there was no evidence of radicular stimulation. Prior to lesioning, 1 ml of local anesthetic was injected at each site. Lesioning was performed at 80 degrees Celsius for 90 seconds. After RF treatment, each site received local anesthetic and the needles were withdrawn from the skin. The patient tolerated the procedure well and there were no apparent complications. After appropriate observation, the patient was dismissed from the clinic in good condition under their own power. ? ADDITIONAL PROCEDURE COMMENTS Based on advanced spondylosis, the right L4 TP/SAP target was approached in a completely different angle than the other targets. CONSENT Consent obtained: written (Risks, benefits and [...] technique were utilized as applicable for the procedure: yes ?? Site preparation: chlorhexidine SEDATION / ANESTHESIA Anesthesia method: local infiltration and moderate sedation Local infiltrate type: lidocaine I completed the presedation assessment form and supervised the sedation. Planned sedation level achieved: yes ?? Present during sedation (intra-service time). A trained independent observer (e.g. RN) assisted with monitoring the patient's level of consciousness and physiological status throughout the procedure (see nursing documentation). ATTESTATION STATEMENT A resident or fellow participated in the procedure, and the retail consultant was present for the entire procedure. OPERATIVE NOTE INFORMATION Specimens: 0 Drains: 0 Estimated blood loss: 0 Implants: 0 Cira Hernandes APRN, C.N.P., M.S.N. FLU INOCENCIA GUIDED PAIN PROCEDURES MMODAL NA * Hand/Wrist: R thumb CMC joint (07/18/2023 2:15 PM CDT) Narrative Kamille Berman P.A.-C., M.S. - 07/18/2023 2:15 PM CDT Kamille Berman P.A.-C., M.S. ? 07/18/2023 ??4:05 PM R thumb CMC joint joint injection, : injection only Hand/Wrist: R thumb CMC joint Performed by: Kamille Berman P.A.-C., M.SReina Authorized by: Kamille Berman P.A.-C., M.S. ?? PROCEDURE DETAILS Procedure performed: injection only Needle gauge: 25 G Hand-Wrist procedure site: ?? R thumb CMC joint joint injection, PROCEDURE MEDICATIONS Local anesthetics: 2 mL lidocaine 10 mg/mL (1 %) Corticosteroid: 10 mg triamcinolone acetonide 10 mg/mL CONSENT Consent obtained: verbal Consent given by: patient [employer] All relevant documentation and testing [...] preparation: chlorhexidine SEDATION / ANESTHESIA Anesthesia method: topical application Topical application type: aerosol cold spray POST-PROCEDURE DETAILS Procedure outcome: ??successful procedure Complications: no apparent complications Post-procedure instructions: avoid strenuous activity for 2 days Discharge instruction provided: ice area as needed for comfort, pain management instructions, follow-up with ordering provider and medications and side effects Kamille Berman P.A.-C. M.SReina PROCEDUR E/MINOR SURGICAL ORDERABLES * TX RMVL SUTURES WO ANES (06/19/2023 9:20 AM CDT) Narrative MMODAL - 06/19/2023 9:20 AM CDT Cierra Franklin R.N. ? 06/19/2023 11:56 AM Suture Removal Performed by: Cierra Franklin R.N. Authorized by: Valeria Canela APRN C.N.PReina ?? Care team members present 1. Martha Castano R.N. 2. Shalini Mayers L.P.N. PROCEDURE DETAILS Wound appearance: good wound healing Number of sutures removed: 7 CONSENT Consent obtained: verbal Consent given by: patient PRE PROCEDURE DETAILS Sutures were placed at [place] facility: yes ?? Indication: scheduled suture removal ?? Location: upper extremity Upper extremity location: hand Hand location: right hand SEDATION / ANESTHESIA Anesthesia method: none POST PROCEDURE DETAILS Procedure completed successfully: yes ?? Complications: no immediate complications ?? Post-removal: Band-Aid applied and Steri-Strips applied COMMENTS Patient was seen with provider and provider gave order for sutures to be removed - 2 surgical sites with mattress sutures. Lateral incision has 4 sutures. Medial incision with 3 sutures present. Slight separation of wound edges on medial incision towards patient thumb - provider aware of this at time of removal and request for steri strips to be applied. Incisions were cleaned throughout procedure, steri strips applied, and Band-Aid in place. Patient has no further concerns at this time. Valeria Canela APRN, C.N.P. PROCEDURE/NIRAJ R SURGICAL ORDERABLES Performing Organization Address City/[facility]/ZIP Co de Phone Number MMODAL NA * Bacterial Culture, Aerobic + Susceptibility (06/05/2023 2:42 PM CDT) Only the most recent of4 resultswithin the time period is included. Bacterial Culture, Aerobic + Susc No growth after 5 days of incubation. 06/10/2023 7:05 AM CDT MKTO Swab (Hand, Right) 06/05/2023 2:42 PM CDT Kayla García M.D. LAB MICROBIOLOGY - GENERAL ORDERABLES [facility] [address] [place] [address], [facility] [address] [place] [id number] * Gram Stain (06/05/2023 2:42 PM CDT) Only the most recent of4 resultswithin the time period is included. Gram Stain No organisms seen. White blood cells, Few. 06/05/2023 5:24 PM CDT MKTO Swab (Hand, Right) 06/05/2023 2:42 PM CDT Kayla García M.D. LAB MICROBIOLOGY - GENERAL ORDERABLES [facility] [address] [place] [address], [place] [address] * Bacterial Culture, Anaerobic + Susceptibility (06/05/2023 2:42 PM CDT) Only the most recent of4 resultswithin the time period is included. Bacterial Culture, Anaerobic No growth after 7 days of incubation. 06/12/2023 6:47 AM CDT MKTO Swab (Hand, Right) 06/05/2023 2:42 PM CDT Kayla García M.D. LAB MICROBIOLOGY - GENERAL ORDERABLES [facility] [address] [place] [address], [place] [address] * LDA ANE NON-SURGICAL AIRWAY (06/05/2023 2:17 PM CDT) Narrative Gunner Bernal APRN, CRNA - 06/05/2023 2:17 PM CDT Gunner Bernal APRN, CRNA ? 06/05/2023 ??2:20 PM Airway Date/Time: 06/05/2023 2:17 PM Performed by: Gunner Bernal APRN, CRNA Authorized by: Halderman, Francisco M, D.O. ?? Patient location during procedure: OR / Procedure Area PROCEDURE DETAILS: Mask difficulty assessment: not attempted Final airway type: supraglottic airway Laryngeal Manipulation: no ?? Supraglottic device: igel ?? Supraglottic device size: 4 ?? Adult device size: 4 Number of attempt to successful placement: 1 Airway confirmation: bilateral breath sounds, positive ETCO2 and bilateral chest rise Other previous techniques attempted: none PRE PROCEDURE DETAILS: Pre evaluation for airway management: procedure Urgency: elective Preop assessment of probable difficulty: no difficulty anticipated Preoxygenation: bag valve mask SEDATION / ANESTHESIA Anesthesia method: anesthesia POST PROCEDURE DETAILS: ? Procedure outcome: successful ?? Airway event: no complications Francisco Tyler D.O. ANESTHESIA ORDVirgen VILLASEÑOR * Sedimentation Rate (06/04/2023 9:01 AM CDT) Only the most recent of2 resultswithin the time period is included. Sedimentation Rate, B 10 0 - 29 mm/1 h 06/04/2023 3:20 PM CDT TO Blood (Blood, Venous) 06/04/2023 9:01 AM CDT 06/04/2023 2:46 PM CDT Junie Olmedo P.A.-C. LAB BLOOD ADD-ON [facility] [address] [place] [address], [facility] [place] [address] * MR Hand Right without and with IV Contrast (06/04/2023 8:32 AM CDT) Anatomical Region Laterality Modality Upper Extremity, Hand, Muscu loskeletal RST LOS, Musculoskeletal ARZ LOS, Muskuloskeletal FLA LOS Right Magne tic Resonance 06/04/2023 8:47 AM CDT Impressions 06/04/2023 9:12 AM CDT 1. Findings most consistent with osteomyelitis of the right second metacarpal base and trapezoid with associated right second carpometacarpal joint septic arthritis. There is adjacent cellulitis and myositis involving the dorsal interosseous muscles with 2 adjacent 3 mm nonenhancing collections adjacent to the radial aspect of the proximal right second metacarpal shaft which may reflect early abscess formation. There are findings consistent with early second extensor compartment tenosynovitis. 2. Severe right first carpometacarpal joint osteoarthritis with associated marrow edema and joint effusion favored to be degenerative in etiology, though coexisting infection cannot be completely excluded given the concern for adjacent bone and soft tissue infection. Narrative 06/04/2023 9:12 AM CDT EXAM: MR HAND RIGHT WITHOUT AND WITH IV CONTRAST COMPARISON:Right hand radiographs 05/16/2023 FINDINGS: MRI compatible markers demarcate the area of concern along the dorsal right hand and wrist. Subjacent the markers, there is skin and subcutaneous edema and enhancement extending into the dorsal base of the right second metacarpal extending across the second carpometacarpal joint to involve the dorsal trapezoid. There is a small right second carpometacarpal joint effusion. There is edema and enhancement in the surrounding dorsal interosseous muscles. There are 2 adjacent small nonenhancing T2 hyperintense collections within the dorsal interosseous muscle along the proximal radial aspect of the base of the right second metacarpal measuring 3 mm on series 9 image 14 and 3 mm on series 9 image 15. There is edema and enhancement throughout the second extensor compartment. There is severe right first carpal metacarpal joint chondrosis with a moderate- sized effusion and subchondral cysts. Edema within the trapezium is favored to be degenerative in etiology. Nonspecific cystic lesions in the capitate are likely related to intercarpal joint osteoarthritis. The carpal tunnel is normal. Flexor and extensor tendons are normal without evidence of tear or tenosynovitis. Procedure Note Miki De Luna M.D. - 06/04/2023 EXAM: MR HAND RIGHT WITHOUT AND WITH IV CONTRAST COMPARISON:Right hand radiographs 05/16/2023 FINDINGS: MRI compatible markers demarcate the area of concern along the dorsalright hand and wrist. Subjacent the markers, there is skin and subcutaneous edema andenhancement extending into the dorsal base of the right second metacarpal extending across the secondcarpometacarpal joint to involve the dorsal trapezoid. There is a small right secondcarpometacarpal joint effusion. There is edema and enhancement in the surrounding dorsal interosseous muscles.There are 2 adjacent small nonenhancing T2 hyperintense collections within the dorsal interosseousmuscle along the proximal radial aspect of the base of the right second metacarpal measuring 3 mm onseries 9 image 14 and 3 mm on series 9 image 15. There is edema and enhancement throughout thesecond extensor compartment. There is severe right first carpal metacarpal joint chondrosis with amoderate- sized effusion and subchondral cysts. Edema within the trapezium is favored to bedegenerative in etiology. Nonspecific cystic lesions in the capitate are likely related to intercarpal jointosteoarthritis. The carpal tunnel is normal. Flexor and extensor tendons are normalwithout evidence of tear or tenosynovitis. IMPRESSION: 1. Findings most consistent with osteomyelitis of the right secondmetacarpal base and trapezoid with associated right second carpometacarpal joint septic arthritis. Thereis adjacent cellulitis and myositis involving the dorsal interosseous muscles with 2 adjacent 3mm nonenhancing collections adjacent to the radial aspect of the proximal right second metacarpalshaft which may reflect early abscess formation. There are findings consistent with early secondextensor compartment tenosynovitis. 2. Severe right first carpometacarpal joint osteoarthritis with associatedmarrow edema and joint effusion favored to be degenerative in etiology, though coexistinginfection cannot be completely excluded given the concern for adjacent bone and soft tissue infection. Junie Olmedo P.A.-C. IMG MRI PROCEDURES * CT Hand Right without IV Contrast (05/28/2023 7:59 AM CDT) Anatomical Region Laterality Modality Upper Extremity, Hand, Muscu loskeletal RST LOS, Musculoskeletal ARZ LOS, Muskuloskeletal FLA LOS Right Compu quinn Tomography 05/28/2023 8:31 AM CDT Impressions 05/28/2023 8:50 AM CDT 1. Bone erosions at the second CMC joint dorsally, nonspecific by CT. Leading differential considerations include inflammatory arthropathies and septic arthritis\osteomyelitis. 2. Severe degenerative arthritis of the first CMC joint. Narrative 05/28/2023 8:50 AM CDT EXAM: ??CT HAND RIGHT WITHOUT IV CONTRAST No 3D post-processing performed. COMPARISON: ??05/16/2023 radiographs FINDINGS: ?? Cortical irregularity and erosive change involving the second CMC joint dorsally, example series 8 image 125 series 3 image 566. Erosive change involves both the second metacarpal and trapezoid dorsally, example series 6 image 25. No soft tissue emphysema. No acute displaced fracture. Severe degenerative arthritis of the first CMC joint. Moderate degenerative arthritis of the IP joints. Procedure Note Kody Valdez M.D. - 05/28/2023 EXAM: CT HAND RIGHT WITHOUT IV CONTRAST No 3D post-processing performed. COMPARISON: 05/16/2023 radiographs FINDINGS: Cortical irregularity and erosive change involving the second CMC jointdorsally, example series 8 image 125 series 3 image 566. Erosive change involves both the secondmetacarpal and trapezoid dorsally, example series 6 image 25. No soft tissue emphysema. No acute displaced fracture. Severe degenerative arthritis of the firstCMC joint. Moderate degenerative arthritis of the IP joints. IMPRESSION: 1. Bone erosions at the second CMC joint dorsally, nonspecific by CT.Leading differential considerations include inflammatory arthropathies and septicarthritis\osteomyelitis. 2. Severe degenerative arthritis of the first CMC joint. Junie Olmedo P.A.-C. IMG CT PROCEDURES * BI Breast Screening Bilateral with Tomosynthesis (05/24/2023 11:45 AM CDT) Anatomical Region Laterality Modality Breast, Breast Imaging RST L OS, Breast Imaging ARZ LOS, Breast Imaging FLA LOS Bilateral Mammography 05/24/2023 4:23 PM CDT Impressions 05/24/2023 4:25 PM CDT Negative. RECOMMENDATION: ??Annual Screening Mammogram ASSESSMENT: ??BI-RADS: 1: Negative. Narrative 05/24/2023 4:25 PM CDT EXAM: ??BI BREAST SCREENING BILATERAL WITH TOMOSYNTHESIS Current study was evaluated with a Computer Aided Detection (CAD) system. INDICATION: ??Screening mammogram. COMPARISON: ??Prior exam(s) were available and reviewed for comparison. DENSITY: ??b. There are scattered areas of fibroglandular density. FINDINGS: ??No mammographic findings of malignancy. Procedure Note Elmo Arreaga M.D. - 05/24/2023 EXAM: BI BREAST SCREENING BILATERAL WITH TOMOSYNTHESIS Current study was evaluated with a Computer Aided Detection (CAD) system. INDICATION: Screening mammogram. COMPARISON: Prior exam(s) were available and reviewed for comparison. DENSITY: b. There are scattered areas of fibroglandular density. FINDINGS: No mammographic findings of malignancy. IMPRESSION: Negative. RECOMMENDATION: Annual Screening Mammogram ASSESSMENT: BI-RADS: 1: Negative. Cristiane VAZQUEZ PReinaA.-C. IMG BI TX OCEDURES * DX Hand Right 3+ Views (05/16/2023 2:49 PM CDT) Anatomical Region Laterality Modality Upper Extremity, Hand, Muscu loskeletal RST LOS, Musculoskeletal ARZ LOS, Muskuloskeletal FLA LOS Right Digit al Radiography 05/16/2023 4:52 PM CDT Impressions 05/16/2023 4:53 PM CDT No evidence of acute fracture or malalignment. Mild to moderate polyarticular degenerative changes most pronounced at the first carpometacarpal joint. Narrative 05/16/2023 4:53 PM CDT EXAM: DX HAND RIGHT 3+ VIEWS Procedure Note Christiano Castro M.D. - 05/16/2023 EXAM: DX HAND RIGHT 3+ VIEWS IMPRESSION: No evidence of acute fracture or malalignment. Mild to moderatepolyarticular degenerative changes most pronounced at the first carpometacarpal joint. Junie Guzman.PatienceC. IMG DIAGNOSTIC B[facility] GING PROCEDURES * CT Head without IV Contrast (02/19/2023 9:28 AM CDT) Anatomical Region Laterality Modality Head, Neuroradiology RST LOS , Neuroradiology ARZ LOS, Neuroradiology FLA LOS N/A Computed Tomography 02/19/2023 9:33 AM CDT Impressions 02/19/2023 10:48 AM CDT Brain is within expected limits for patient's age. Narrative 02/19/2023 10:48 AM CDT EXAM: CT HEAD WITHOUT IV CONTRAST COMPARISON: None FINDINGS: There is mild chronic microangiopathy within cerebral white matter, which is within expected limits for patient's age. There is mild generalized cerebral and cerebellar volume loss, which is within expected limits for patient's age. Negative for acute intracranial hemorrhage, herniation, mass, or acute infarct. 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 Procedure Note Elmo Arreaga M.D. - 02/19/2023 EXAM: CT HEAD WITHOUT IV CONTRAST COMPARISON: None FINDINGS: There is mild chronic microangiopathy within cerebral whitematter, which is within expected limits for patient's age. There is mild generalized cerebral andcerebellar volume loss, which is within expected limits for patient's age. Negative for acuteintracranial hemorrhage, herniation, mass, or acute infarct. 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 IMPRESSION: Brain is within expected limits for patient's age. Valeria Canela APRN, C.N.P. [facility] CT PROCEDU RES * TX ARTHCS ASP/INJ MJR JT WO US (02/06/2023 10:00 AM CDT) Narrative MMODAL - 02/06/2023 10:00 AM CDT Gilda Borges P.A.-C. ? 02/06/2023 12:21 PM Hip site - L greater troch bursa : injection only Performed by: Gilda Borges P.A.-C. Authorized by: Gilda Borges P.A.-C. PROCEDURE DETAILS Procedure Location hip Hip site: L greater troch bursa Patient position: side-lying Procedural approach: lateral Procedure performed: injection only Procedural Medication The following medications were administered at the target site(s) Local anesthetic: 8 mL lidocaine 10 mg/mL (1 %) Corticosteroid: 9 mg betamethasone acetate & sodium phosphate 6 mg/mL CONSENT Consent obtained: written (Risks, benefits [...] procedural pause. PRE-PROCEDURE DETAILS Procedure purpose: therapeutic Site preparation: chlorhexidine SEDATION / ANESTHESIA Anesthesia method: topical application Topical application type: aerosol cold spray POST-PROCEDURE DETAILS Complications: no apparent complications ?? Discharge instructions: ice area as needed for comfort Gilda Borges P.A.-C., P.A. PROCEDU RE/MINOR SURGICAL ORDERABLES Performing Organization Address City/[facility]/ZIP Co de Phone Number MMODAL NA * Hemoglobin A1c (02/05/2023 5:02 PM CDT) Only the most recent of2 resultswithin the time period is included. Hemoglobin A1c, B 5.6 4.2 - 5.6 % 02/05/2023 6:30 PM CDT OWAT Blood (Blood, Venous) 02/05/2023 5:02 PM CDT 02/05/2023 6:03 PM CDT Meaghan Richardson APRNNEleuterio LAB BLOOD ADD- ON Performing Organization Address City/[facility] Co de Phone Number [facility] [address] [place] [address], [facility] [address] 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 Narrative 02/06/2023 7:12 AM CDT EXAM: DX HIP AND PELVIS LEFT 2-3 VIEWS COMPARISON: None FINDINGS: Soft tissues are unremarkable. Bones show some osteopenia. No pelvic or hip fracture is identified with attention to the left. There is symmetric mild degenerative osteoarthritis of the hips bilaterally. Sacroiliac joints are unremarkable. 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 Procedure Note Marin Rosario Jr., M.D. - 02/06/2023 EXAM: DX HIP AND PELVIS LEFT 2-3 VIEWS COMPARISON: None FINDINGS: Soft tissues are unremarkable. Bones show some osteopenia. Nopelvic or hip fracture is identified with attention to the left. There is symmetric milddegenerative osteoarthritis of the hips bilaterally. Sacroiliac joints are unremarkable. There is multileveldegenerative disc disease in the lower lumbar spine. 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 Valeria Canela APRN C.N.P. [facility] DIAGNOSTIC IMAGING PROCEDURES * DX Knee Left with Flexion and Patella 4 Views (02/05/2023 4:35 PM CDT) Anatomical Region Laterality Modality Lower Extremity, Knee, Muscu loskeletal RST LOS, Musculoskeletal ARZ LOS, Muskuloskeletal FLA LOS Left Digit al Radiography 02/06/2023 8:13 AM CDT Impressions 02/06/2023 8:16 AM CDT Moderate degenerative osteoarthritis of the left knee primarily involving the lateral compartment. Narrative 02/06/2023 8:16 AM CDT EXAM: DX KNEE LEFT FLEXION AND PATELLA 4 VIEWS COMPARISON: 06/26/2012. FINDINGS: Soft tissues are unremarkable. No fracture or destructive lesion is identified. There is moderate degenerative narrowing of the lateral compartment and mild degenerative change of patellofemoral joint. Medial compartment is preserved. Incidentally visualized right knee on the AP, PA, and sunrise views shows mild narrowing of the lateral compartment. Degenerative change of the left knee is new compared with 06/26/2012. Procedure Note Marin Rosario Jr., M.D. - 02/06/2023 EXAM: DX KNEE LEFT FLEXION AND PATELLA 4 VIEWS COMPARISON: 06/26/2012. FINDINGS: Soft tissues are unremarkable. No fracture or destructive lesionis identified. There is moderate degenerative narrowing of the lateral compartment and milddegenerative change of patellofemoral joint. Medial compartment is preserved. Incidentallyvisualized right knee on the AP, PA, and sunrise views shows mild narrowing of the lateral compartment.Degenerative change of the left knee is new compared with 06/26/2012. IMPRESSION: Moderate degenerative osteoarthritis of the left knee primarily involvingthe lateral compartment. Valeria Canela APRN, C.N.P. IMG DIAGNOSTIC IMAGING PROCEDURES * Polysomnography (PSG): Split Night; CPAP, Bilevel S Mode, Bilevel S-T Mode (12/27/2022 3:08 AM BOX LINER) Narrative ONBASE - 01/02/2023 6:56 AM BOX LINER SLEEP STUDY REPORT This routine split night polysomnogram was performed ??using the standard diagnostic protocol outlined by the [employer] [employer] . This included 6 channels of EEG, 2 channels of EOG, chin EMG, bilateral anterior tibialis EMG, nasal/oral thermister, PTAF (nasal pressure transducer), chest and abdominal wall movements, EKG rhythm strip, and pulse oximetry. The study was scored based upon recommended [place] [employer] scoring guidelines in accordance with Medicare guidelines. ??All of the raw data was reviewed. ??The study started at 10:05 p.m. the night of 12/26/2022 and ended at 6:00 a.m. of the following morning. Please see technical data from same date for more details. SLEEP ARCHITECTURE The diagnostic portion of the study showed a sleep efficiency of 65.9 %. ?? The total recording time was 218.5 minutes with a total sleep time of 144.0 minutes. ?? Initial sleep onset latency was 24.5 minutes with an initial sleep onset REM latency of 81.5 minutes. ??Wake after sleep onset was 40.0 minutes in total. Distribution of sleep stages was as follows: Stage N1 21.9 %, stage N2 43.8 %, Stage N3 29.2 % and REM Sleep 5.2 %. ?? Arousal index was 27.9. Sleep architecture demonstrated decreased amount of stage REM sleep an increased amount of stage 1 sleep. RESPIRATORY PATTERN Grade 2 snoring was recorded. Apnea/hypopnea index was ??7.1, respiratory disturbance index was 12.9, average oxygen saturation was 93.9 with minimal oxygen saturation of 89. ELECTROCARDIOGRAM Rhythm strip EKG showed normal sinus rhythm. BODY MOVEMENTS Periodic limb movement index was 0 with periodic limb movement arousal index of 0. TITRATION CPAP therapy was initiated at 1:44 a.m. after criteria was met for initiation. Initial CPAP pressure was 5 cm of water pressure. ??The patient was titrated up to 14 cm of water pressure using a full face mask. ??In her case it was a [employer] of [place] small to medium. ??Patient did not sleep well towards the end of the evening and she slept supine her pressures were increased up to 14 cm of water pressure. ??During titration the patient had the development of central sleep apnea and there was not time to try bilevel ventilation. 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 If the patient? s body mass index is elevated, weight loss is recommended. she should avoid activities that require a high level of alertness like driving, if she feels drowsy. Automated voice recognition by [email or web address] software was used to dictate part of this document. ??While this note has been reviewed, some errors may still persist. ??Please contact the author with any questions. Daniella Devries M.D., M.P.H[facility] ORDERABLES ONBASE NA * FL Cervical Spine Radiofrequency Denervation (12/20/2022 11:14 AM BOX LINER) Narrative Cameron Rodriguez M.D. - 12/20/2022 11:00 AM BOX LINER Cameron Rodriguez M.D. ? 12/20/2022 11:29 AM FL Cervical Spine Radiofrequency Denervation Performed by: Cameron Rodriguez M.D. Authorized by: Gunner Jewell PJuan.Benita., M.S. Care team members present 1. Marilou Robbins M.D., M.S. 2. Irais Moe L.P.N. 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 Double burn: Yes ?? RFA needles were rotated 90 degrees Needle or RF cannula: RF cannula RF cannula size: 18 G RF cannula length: 100 mm Flow: not applicable Patient position: prone IMAGING Fluoroscopic image guidance used to localize target, identify at risk structures, and dynamically used to direct therapy to the target. Image(s) acquired and saved. SEDATION MEDICATIONS Midazolam (mg): 1 Fentanyl (mcg): 50 INJECTED MEDICATIONS The injected medication(s) listed was divided equally between the identified injection location(s) Total volume of injectate (mL): 12 Total steroid in injectate (mg): 0 ?? 6 mL bupivacaine 0.5 % (5 mg/mL) 5 mL lidocaine 20 mg/mL PROCEDURE DETAILS ?? Radiofrequency ablation - cervical: Using fluoroscopy, the mid-body of the articular pillar at the appropriate levels were identified and marked. ?? Using fluoroscopic guidance, the curved RF cannula was advanced to each target. This was confirmed using PA, lateral and oblique fluoroscopic views. ??Motor testing was performed at 2Hz up to 2.5 volts, and measured tissue impedances were satisfactory. With final needle positioning, there was no evidence of radicular stimulation. Prior to lesioning, 1 ml of 2% lidocaine was injected at each site. ??Lesioning was performed at 80 degrees Celsius for 75 seconds. After RF treatment, each site received bupivacaine and the needles were withdrawn from the skin. ??The patient tolerated the procedure well and there were no apparent complications. After appropriate observation, the patient was dismissed in good condition under their own power. ?? ADDITIONAL PROCEDURE COMMENTS Tolerated well. No complications. CONSENT Consent obtained: written UNIVERSAL PROTOCOL All relevant documentation and testing [...] technique were utilized as applicable for the procedure: yes ?? Site preparation: chlorhexidine SEDATION / ANESTHESIA Anesthesia method: local infiltration and moderate sedation Local infiltrate type: lidocaine I completed the presedation assessment form and supervised the sedation. Planned sedation level achieved: yes ?? Present during sedation (intra-service time). A trained independent observer (e.g. RN) assisted with monitoring the patient's level of consciousness and physiological status throughout the procedure (see nursing documentation). ATTESTATION STATEMENT A resident or fellow participated in the procedure, and the retail consultant was present for the entire procedure. OPERATIVE NOTE INFORMATION Specimens: 0 Drains: 0 Estimated blood loss: 0 Implants: 0 Gunner Jewell P.A.-C., Karoline FLUORO G UIDED PAIN PROCEDURES * Cervical Spine Medial Branch Nerve (12/18/2022 11:26 AM BOX LINER) Only the most recent of2 resultswithin the time period is included. Narrative Fausto Mckeon M.D. - 12/18/2022 11:00 AM BOX LINER Fausto Mckeon M.D. ? 12/18/2022 12:43 PM Cervical Spine Medial Branch Nerve Performed by: Fausto Mckeon M.D. Authorized by: Gunner Jewell P.A.-C., M.S. Care team members present 1. Gail Sullivan L.P.N. 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 Needle or RF cannula: Spinal Needle size: 25 G Needle length: 2.5 in Patient position: side-laying with affected side up IMAGING Fluoroscopic image guidance used to localize target, identify at risk structures, and dynamically used to direct therapy to the target. Image(s) acquired and saved. INJECTED MEDICATIONS The injected medication(s) listed was divided equally between the identified injection location(s) Total volume of injectate (mL): 3 Total steroid in injectate (mg): 0 ?? 3 mL bupivacaine 0.5 % (5 mg/mL) 1 mL iohexoL 300 mg iodine/mL PROCEDURE DETAILS ?? Medial branch block - cervical: Using fluoroscopy, the mid-body of the articular pillar at the appropriate levels were identified and marked. Using fluoroscopic guidance, a spinal needle was advanced to each target. After negative aspiration, the contrast was injected at each site. Spread of contrast approximated the region of the medial branches/dorsal ramus and there was no evidence of intravascular uptake. The patient tolerated the procedure well and there were no apparent complications. After appropriate observation, the patient was dismissed in good condition under their own power. The patient was instructed to keep a pain diary and report the results of the injection. ?? CONSENT Consent obtained: written UNIVERSAL PROTOCOL All relevant documentation and testing [...] a procedural pause. PRE-PROCEDURE DETAILS Procedure purpose: diagnostic Appropriate hand hygiene, gown, cap, mask, protective eyewear, sterile gloves, skin preparation, sterile drape, and strict aseptic technique were utilized as applicable for the procedure: yes ?? Site preparation: chlorhexidine SEDATION / ANESTHESIA Anesthesia method: local infiltration Local infiltrate type: lidocaine ATTESTATION STATEMENT The teaching physician rule is not applicable. OPERATIVE NOTE INFORMATION Specimens: 0 Drains: 0 Estimated blood loss: 0 Implants: 0 Karoline Cortés P.A.-C. UIEMI PAIN PROCEDURES * Home sleep apnea test (HSAT) (10/26/2022 9:27 AM BOX LINER) Narrative ONBASE - 11/14/2022 3:09 PM BOX LINER SUMMARY Home sleep apnea testing (WatchPaT) demonstrated a probable apnea hypopnea index (pAHI) of 0.9 per hour, with probable respiratory disturbance index (pRDI) of 102 per hour, ??and with 0.0 central apneas per hour. Oxyhemoglobin saturation yudi was 87 %, mean was 94 %, and T88 (recording time percentage below ideal) was 0.1 minutes). Total recording time was 496 minutes, with estimated total sleep time of 403.0 minutes. CLINICAL INTERPRETATION These parameters are within the range of normal limits. ?? Valeria Canela APRN, C.N.P. SLEEP CENTER O RDERABLES ONBASE NA * (ABNORMAL) EXT Home SARS Coronavirus-2 (COVID-19) Antigen, Varies (09/21/2022) Pathologist [facility] EXT Home SARS-CoV-2 Antigen Presumptive Positive(A) Presumptive Negative OTHER (SPECIFY IN GEODESIST) Swab 09/21/2022 Historical Provider LAB MICROBIOLOGY - G ENERAL ORDERABLES Performing Organization Address [facility] de Phone Number OTHER (SPECIFY IN GEODESIST) N/A * (ABNORMAL) Vitamin B12 Assay (08/21/2022 9:19 AM CDT) Vitamin B12 Assay, S 1565(H) 232 - 1245 ng/L 08/21/2022 4:51 PM CDT AUST Comment: Biotin has been identified by the manager of business as a potential interfering substance. Higher concentrations of biotin may be found in multivitamins, hair/nail supplements, and workout supplements. If the result does not match clinical observations, repeat testing after patient refrains from the use of supplements for at least 12 hours. Blood (Blood, Venous) 08/21/2022 9:19 AM CDT 08/21/2022 4:15 PM CDT Balwinder Bess P.A.-C., P.A. LAB BLOOD ADD-ON Performing Organization Address City/[facility]/ZIP Co de Phone Number [facility] [address] [place] [address], [facility] AUST [facility] [address] [place] [address] * CK (Creatine Kinase) (08/21/2022 9:19 AM CDT) Creatine Kinase, P 129 26 - 192 U/L 08/21/2022 4:31 PM CDT AUST Blood (Blood, Venous) 08/21/2022 9:19 AM CDT 08/21/2022 4:16 PM CDT Balwinder Bess P.A.-C., P.A. LAB BLOOD ADD-ON [facility] [address] [place] [address], [facility] [address] [place] [address] * FL Lumbar Spine Medial Branch Nerve Block (05/10/2022 10:01 AM CDT) Only the most recent of2 resultswithin the time period is included. Narrative Candida Velez M.D. - 05/10/2022 9:48 AM CDT Candida Velez M.D. ? 05/10/2022 10:04 AM FL Lumbar Spine Medial Branch Nerve Block Date/Time: 05/10/2022 9:48 AM Performed by: Candida Velez M.D. Authorized by: Aysha Washington M.D. Care team members present 1. Merari Cruz LReinaPReinaN. 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 Image(s) acquired and saved. INJECTED MEDICATIONS The injected medication(s) listed was divided equally between the identified injection location(s) Total volume of injectate (mL): 3 Total steroid in injectate (mg): 0 ?? 3 mL bupivacaine 0.5 % (5 mg/mL) 1 mL iohexoL 300 mg iodine/mL PROCEDURE DETAILS ?? Medial branch block - lumbar: Using fluoroscopy, the junction of the transverse process and superior articulating process of the appropriate levels were identified and marked. Using fluoroscopic guidance, a spinal needle was advanced to each target. ??After negative aspiration, the contrast was injected at each site. Spread of contrast approximated the region of the medial branches/dorsal ramus and there was no evidence of intravascular uptake. ??The patient tolerated the procedure well and there were no apparent complications. After appropriate observation, the patient was dismissed in good condition under their own power. The patient was instructed to keep a pain diary and report the results of the injection. ?? CONSENT Consent obtained: written UNIVERSAL PROTOCOL All relevant documentation and testing [...] a procedural pause. PRE-PROCEDURE DETAILS Procedure purpose: diagnostic Appropriate hand hygiene, gown, cap, mask, protective eyewear, sterile gloves, skin preparation, sterile drape, and strict aseptic technique were utilized as applicable for the procedure: yes ?? Site preparation: chlorhexidine SEDATION / ANESTHESIA Anesthesia method: local infiltration Local infiltrate type: lidocaine ATTESTATION STATEMENT The teaching physician rule is not applicable. OPERATIVE NOTE INFORMATION Specimens: 0 Drains: 0 Estimated blood loss: 0 Implants: 0 Aysha Washington M.D. FLUORO GUIDED P AIN PROCEDURES * EMG (02/21/2022 3:24 PM CDT) 02/21/2022 3:45 PM CDT Narrative [facility] EMG - 02/21/2022 3:55 PM CDT 21-Feb-2022 ? Electromyography ? Final Report Study Number: 1 EMG Briquette Molder: Markie Cervantes Referred by: Daniella DEVRIES ([phone] or [phone]) Referred for: paresthesias feet Referral Code: ?200 RX: [id number] SUMMARY: Prior to starting the procedure, the patient's identity was verified, pertinent available records were reviewed, the nature of the procedure was explained, the appropriate sites of the exam were confirmed directly with the patient, and a pre-procedure pause was performed for final verification of all of the above. ?? Nerve conduction studies in the left lower extremity revealed normal peroneal and tibial motor responses. ??Sural sensory response was normal. ??Needle EMG of the left lower extremity revealed high amplitude long duration complex motor unit potentials in distal and proximal L5 innervated muscles. ??Limited needle EMG of right tibialis anterior revealed high amplitude long duration motor unit potentials. ??No fibrillation potentials were seen. ??There is no evidence of cramp or fasciculation potentials in the left medial gastrocnemius. CLINICAL INTERPRETATION: Abnormal study. ??The electrodiagnostic evidence is most consistent with chronic bilateral L5 radiculopathies without evidence of ongoing denervation on this study. ??There is no electrodiagnostic evidence of a large fiber peripheral neuropathy on this study. Shahrzad Cervantes () NERVE CONDUCTIONS ??Record Rep ?? Normal ??Normal Distal Normal F-Wave F-Wave Temp Nerve Type Site Stim Side Amp Amp CV CV Lat Lat Lat Est (??C) Fibular Motor EDB ??L 4.1 (> 2.0) 44 (> 41) 4.6 (< 6.6) ?? 33.6 Tibial Motor AH ??L 6.1 (> 4.0) 50 (> 40) 4.6 (< 6.1) 55.4 50.6 33.2 Sural Sensory Ankle ??L 6 (> 0.0) 45 (> 40) 3.6 (< 4.5) ?? 33.5 NEEDLE EMG ??Ins Spont MUP ??Recruitment Duration Amplitude Phases Muscle Side Act Fib Fasc Normal Activ Reduced Rapid Long Short High Low % Turns Gluteus medius L NL 0 0 ----- ?+ ??+ ?? + Vastus medialis L NL 0 0 NL ? Gastrocnemius (medial head) L NL 0 0 NL ?+/- ? Tibialis anterior L NL 0 0 ----- ?+ ??+ ?? ++ Peroneus tertius L NL 0 0 ----- ??+ ??+ ??++ ?? + Tibialis anterior R NL 0 0 ----- ?+ ??+ ?? + This interpretation has been electronically signed: Markie Cervantes MD at 02/21/2022 3:54:30 PM CDT Daniella Devries M.D., M.P.H. NEUROLOGY OR DERABLES Performing Organization Address [facility] Co de Phone Number EMG * Audiology evaluation (02/21/2022 12:00 AM CDT) 02/21/2022 Jani Moore AUDIOLOGY SERVI MOI ORDERABLES Performing Organization Address [facility] Co de Phone Number AUDIOLOGY AND AHD * DX Lumbar Spine 4+ Views (01/26/2022 11:53 AM BOX LINER) Anatomical Region Laterality Modality Lumbar Spine, Musculoskeleta l RST LOS, Neuroradiology ARZ LOS, Muskuloskeletal FLA LOS N/A Digital Radiography 01/26/2022 11:5 5 AM BOX LINER Impressions 01/26/2022 12:03 PM BOX LINER Demineralization. Lumbar curvature. Mild to moderate scattered degenerative disc disease with low-grade subluxations. Advanced lower lumbar facet arthritis. No gross instability with flexion and extension. 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 Arterial calcifications. Surgical clips RUQ. Narrative 01/26/2022 12:03 PM BOX LINER EXAM: ??DX LUMBAR SPINE 4+ VIEWS Procedure Note Waqas Booker M.D. - 01/26/2022 EXAM: DX LUMBAR SPINE 4+ VIEWS IMPRESSION: Demineralization. Lumbar curvature. Mild to moderate scattereddegenerative disc disease with low-grade subluxations. Advanced lower lumbar facetarthritis. No gross instability with flexion and extension. 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 Arterialcalcifications. Surgical clips RUQ. Celeste Cortés P.A.-C.Sc. IMG DIAG NOSTIC IMAGING PROCEDURES * Pernicious Anemia [place] (01/24/2022 4:26 PM BOX LINER) [facility] Vitamin B12 Assay, S 655 180 - 914 ng/L 01/24/2022 10:05 PM BOX LINER [facility] Blood (Blood, Venous) 01/24/2022 4:26 PM BOX LINER 01/24/2022 9:02 PM BOX LINER Daniella Devries M.D., M.P.H. LAB BLOOD NO N ADD-ON [facility] [address] [address] [facility] Dept. of Laboratory Medicine and Pathology [address] [place] [address] [place] [address] * Heavy Metals Screen (01/24/2022 4:26 PM BOX LINER) [facility] Arsenic, B <1 <13 ng/mL 01/26/2022 8:26 PM BOX LINER [facility] Comment: ----ADDITIONAL INFORMATION---- This test was developed and its performance characteristics determined by [facility] in a manner consistent with CLIA requirements. This test has not been cleared or approved by the U.S. Food and Drug Administration. Cadmium, B 0.3 <5.0 ng/mL 01/26/2022 8:26 PM BOX LINER [facility] Comment: ----ADDITIONAL INFORMATION---- This test was developed and its performance characteristics determined by [facility] in a manner consistent with CLIA requirements. This test has not been cleared or approved by the U.S. Food and Drug Administration. Mercury, B 1 <10 ng/mL 01/26/2022 8:26 PM BOX LINER [facility] Comment: ----ADDITIONAL INFORMATION---- This test was developed and its performance characteristics determined by [facility] in a manner consistent with CLIA requirements. This test has not been cleared or approved by the U.S. Food and Drug Administration. Lead, B <1.0 <5.0 mcg/dL 01/26/2022 8:26 PM BOX LINER SDS Comment: ----ADDITIONAL INFORMATION---- Testing performed by Inductively Coupled Plasma-Mass Spectrometry (ICP-MS). This test was developed and its performance characteristics determined by [facility] in a manner consistent with CLIA requirements. This test has not been cleared or approved by the U.S. Food and Drug Administration. Blood (Blood, Venous) 01/24/2022 4:26 PM BOX LINER 01/24/2022 9:37 PM BOX LINER Daniella Devries M.D., M.P.H. LAB BLOOD NO N ADD-ON [facility] [address] [place] [address] [facility] Dept. of Laboratory Medicine and Pathology [address] [place] [address] * (ABNORMAL) Electrophoresis, Protein (01/24/2022 4:26 PM BOX LINER) Total Protein, S 6.7 6.3 - 7.9 g/dL 01/25/2022 7:37 AM BOX LINER [facility] Albumin 3.2(L) 3.4 - 4.7 g/dL 01/25/2022 10:57 AM BOX LINER [facility] Alpha-1 Globulin 0.2 0.1 - 0.3 g/dL 01/25/2022 10:57 AM BOX LINER [facility] Alpha-2 Globulin 1.0 0.6 - 1.0 g/dL 01/25/2022 10:57 AM BOX LINER [facility] Beta-Globulin 1.0 0.7 - 1.2 g/dL 01/25/2022 10:57 AM BOX LINER [facility] Gamma-Globulin 1.4 0.6 - 1.6 g/dL 01/25/2022 10:57 AM BOX LINER [facility] A/G Ratio 0.91 01/25/2022 10:57 AM BOX LINER [facility]SC Impression No apparent monoclonal protein on serum electrophoresi s. 01/25/2022 10:57 AM BOX LINER [facility] Blood (Blood, Venous) 01/24/2022 4:26 PM BOX LINER 01/25/2022 7:11 AM BOX LINER Daniella Devries M.D., M.P.H. LAB BLOOD AD D-ON [facility] [address] [place] [address] [facility] Dept. of Laboratory Medicine and Pathology [address] [address] * FL Lumbar Spine Interlaminar Epidural Injection (12/18/2021 8:46 AM BOX LINER) 12/18/2021 8:48 AM BOX LINER Impressions [id number] - 12/18/2021 8:59 AM BOX LINER Fluoroscopically-guided interlaminar epidural steroid injection. EP Narrative [id number] - 12/18/2021 8:59 AM BOX LINER EXAM: FL LUMBAR SPINE INTERLAMINAR EPIDURAL INJECTION PROCEDURE: Fluoroscopically-guided L5-S1 Interlaminar Epidural Steroid Injection Pain Score: Pre-procedural pain was rated: ??3/10 ?? Post-procedural pain was rated: ??0/10 ?? Medications: Steroid: ??10 mg dexamethasone Local anesthetic: ??20 mg 2% lidocaine INDICATION: ??The patient reports the current pain syndrome to be of >1 year duration and presents today for a new injection. TECHNIQUE: Mrs. Silverman ??has a long-standing history of low back and bilateral lower extremity symptoms, potentially multifactorial. Last fall, she underwent SI joint injections with pain relief. She also has multilevel spinal canal stenosis. Today, an interlaminar epidural injection was requested and performed to assess and possibly treat a neurogenic component. Given the severe stenosis at L4-L5, we elected to access via the L5-S1 level today. Using usual sterile technique, fluoroscopic guidance, and local anesthesia, a 4.5 inch 20-gauge Tuohy needle was advanced to the dorsal epidural space using loss of resistance technique. With final needle tip position, a small amount of iodinated contrast confirmed epidural flow without intrathecal uptake. Transient vascular uptake was not observed with final needle position. 1 cc of lidocaine 2% was administered without central neurologic change. Corticosteroid was deposited in this location followed by 2 cc of preservative free normal saline. The needle was withdrawn, restyletted, and removed. The patient experienced no complication. PREPROCEDURE: ??Patient seen and evaluated. Allergies, pertinent medications, and history reviewed. Discussed risks (including, but not limited to, bleeding, infection, nerve injury, and paralysis), benefits, alternatives for procedure, and obtained informed consent. The side and site of the procedure were marked, when applicable, at the time of consent. Patient understands information and questions answered. Immediately prior to starting the procedure, in the presence of the assisting personnel, procedural pause was conducted to verify correct patient identity and verification of procedure to be performed, and as applicable, correct side and site, correct patient position, availability of implants, special equipment, or special requirements, and all image and specimen identification data. The roles and responsibilities of care team members, residents, and fellows were discussed. Procedure Note Evens Garcia M.D. - 12/18/2021 EXAM: FL LUMBAR SPINE INTERLAMINAR EPIDURAL INJECTION PROCEDURE: Fluoroscopically-guided L5-S1 Interlaminar Epidural SteroidInjection Pain Score: Pre-procedural pain was rated: 3/10 Post-procedural pain was rated: 0/10 Medications: Steroid: 10 mg dexamethasone Local anesthetic: 20 mg 2% lidocaine INDICATION: The patient reports the current pain syndrome to be of >1year duration and presents today for a new injection. TECHNIQUE: Mrs. Silverman has a long-standing history of low back and bilaterallower extremity symptoms, potentially multifactorial. Last fall, she underwentSI joint injections with pain relief. She also has multilevel spinal canal stenosis. Today, an interlaminar epidural injection was requested andperformed to assess and possibly treat a neurogenic component. Given the severestenosis at L4-L5, we elected to access via the L5-S1 level today. Using usual sterile technique, fluoroscopic guidance, and localanesthesia, a 4.5 inch 20-gauge Tuohy needle was advanced to the dorsal epidural spaceusing loss of resistance technique. With final needle tip position, a smallamount of iodinated contrast confirmed epidural flow without intrathecal uptake.Transient vascular uptake was not observed with final needle position. 1 cc oflidocaine 2% was administered without central neurologic change. Corticosteroidwas deposited in this location followed by 2 cc of preservative free normalsaline. The needle was withdrawn, restyletted, and removed. The patientexperienced no complication. PREPROCEDURE: Patient seen and evaluated. Allergies, pertinentmedications, and history reviewed. Discussed risks (including, but not limited to,bleeding, infection, nerve injury, and paralysis), benefits, alternatives forprocedure, and obtained informed consent. The side and site of the procedure weremarked, when applicable, at the time of consent. Patient understands informationand questions answered. Immediately prior to starting the procedure, in thepresence of the assisting personnel, procedural pause was conducted to verifycorrect patient identity and verification of procedure to be performed, and as applicable, correct side and site, correct patient position, availabilityof implants, special equipment, or special requirements, and all image andspecimen identification data. The roles and responsibilities of care teammembers, residents, and fellows were discussed. IMPRESSION: Fluoroscopically-guided interlaminar epidural steroid injection. EP Gunner Jewell P.A.-C. D.Sc. IMG FLUO ROSCOPY PROCEDURES [id number] NA * MR Lumbar Spine without IV Contrast (12/15/2021 12:40 PM BOX LINER) Only the most recent of2 resultswithin the time period is included. Anatomical Region Laterality Modality Lumbar Spine, Neuroradiology RST [facility], Neuroradiology ARZ [facility], Neuroradiology FLA [facility] N/A Magnetic Resonance 12/15/2021 1:35 PM BOX LINER Impressions 12/15/2021 1:58 PM BOX LINER 1. Advanced lumbar spondylosis including multilevel degenerative central canal stenosis that is moderate at L2-L3, moderate to severe at L3-L4, and severe at L4-L5, unchanged. 2. Severe left and moderate right degenerative neural foraminal stenoses at L4-L5 with interval progression. 3. Multifocal lumbar facet degeneration is severe on the right at both L2-L3 and L3-L4. Moderate periarticular facet edema is noted bilaterally at L2-L3 and on the right at L3-L4. Narrative 12/15/2021 1:58 PM BOX LINER EXAM: MR LUMBAR SPINE WITHOUT IV CONTRAST COMPARISON: Lumbar spine MRI 08/02/2020. FINDINGS: Advanced multilevel lumbar spondylosis with secondary central canal stenosis. Multilevel degenerative endplate changes and Schmorl nodes. Lumbar spine degenerative changes will be described on a level by level basis: T11-T12: A disc bulge mildly narrows the central canal. No foraminal stenoses. T12-L1: A disc bulge mildly narrows the central canal. No foraminal stenoses. L1-L2: ??A disc bulge combines with facet hypertrophy to create mild to moderate central canal narrowing. The disc bulge creates minimal bilateral foraminal narrowing. L2-L3: ??Grade 1 facetogenic anterolisthesis. A disc bulge combines with facet hypertrophy and ligamentum flavum thickening to create moderate central canal stenosis, unchanged. The disc bulge and facet degeneration create [id number] bilateral neural foraminal stenoses, unchanged. L3-L4: ??A disc bulge combines with facet hypertrophy and dorsal epidural fat to create moderate to severe central canal stenosis, unchanged. The disc bulge and facet degeneration create [id number] bilateral neural foraminal stenoses, unchanged. L4-L5: ??A broad-based left subarticular and foraminal disc protrusion creates severe central canal stenosis and severe stenosis of the left lateral recess, unchanged. Moderate right lateral recess narrowing, unchanged. They disc abnormality and facet degeneration create moderate right and severe left neural foraminal stenoses with progression bilaterally. L5-S1: A disc bulge and facet degeneration create mild right and [id number]-eu-jbmbbbsi left neural foraminal stenoses. Facets: ??Lumbar facet degeneration is severe on the right at both L2-L3 and L3-L4 and moderate to severe elsewhere. Moderate periarticular facet edema associated with the L2-L3 facets, left greater than right, as well as the right L3-L4 facet. There are multifocal benign vertebral hemangiomas. 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 Bilateral renal cysts. The conus medullaris is normal and terminates appropriately at the L2 level. Procedure Note Héctor Lindsey M.D. - 12/15/2021 EXAM: MR LUMBAR SPINE WITHOUT IV CONTRAST COMPARISON: Lumbar spine MRI 08/02/2020. FINDINGS: Advanced multilevel lumbar spondylosis with secondary centralcanal stenosis. Multilevel degenerative endplate changes and Schmorl nodes.Lumbar spine degenerative changes will be described on a level by level basis: T11-T12: A disc bulge mildly narrows the central canal. No foraminalstenoses. T12-L1: A disc bulge mildly narrows the central canal. No foraminalstenoses. L1-L2: A disc bulge combines with facet hypertrophy to create mild tomoderate central canal narrowing. The disc bulge creates minimal bilateralforaminal narrowing. L2-L3: Grade 1 facetogenic anterolisthesis. A disc bulge combines withfacet hypertrophy and ligamentum flavum thickening to create moderate centralcanal stenosis, unchanged. The disc bulge and facet degeneration create [id number] bilateral neural foraminal stenoses, unchanged. L3-L4: A disc bulge combines with facet hypertrophy and dorsal epiduralfat to create moderate to severe central canal stenosis, unchanged. The discbulge and facet degeneration create [id number] bilateral neural foraminalstenoses, unchanged. L4-L5: A broad-based left subarticular and foraminal disc protrusioncreates severe central canal stenosis and severe stenosis of the left lateralrecess, unchanged. Moderate right lateral recess narrowing, unchanged. They disc abnormality and facet degeneration create moderate right and severe leftneural foraminal stenoses with progression bilaterally. L5-S1: A disc bulge and facet degeneration create mild right and kexo-ex-fuicsbdb left neural foraminal stenoses. Facets: Lumbar facet degeneration is severe on the right at both L2-L3and L3-L4 and moderate to severe elsewhere. Moderate periarticular facetedema associated with the L2-L3 facets, left greater than right, as well as theright L3-L4 facet. There are multifocal benign vertebral hemangiomas. Hypertrophy of the lumbar spinous processes with pseudoarticulations atL2-L3 and L3-L4 is consistent with Baastrup disease. Bilateral renal cysts. The conus medullaris is normal and terminates appropriately at the Y0pedna. IMPRESSION: 1. Advanced lumbar spondylosis including multilevel degenerative centralcanal stenosis that is moderate at L2-L3, moderate to severe at L3-L4, andsevere at L4-L5, unchanged. 2. Severe left and moderate right degenerative neural foraminal stenosesat L4-L5 with interval progression. 3. Multifocal lumbar facet degeneration is severe on the right at bothL2-L3 and L3-L4. Moderate periarticular facet edema is noted bilaterally at L2-L3and on the right at L3-L4. Gunner Jewell P.A.-C., D.Sc. IMG MRI PROCEDURES * Influenza A/B and RSV, PCR, Varies (10/25/2021 2:57 PM BOX LINER) Influenza A/B and RSV, Source Swab, Nasopharynx 11/02/2021 2:40 PM BOX LINER DTL Influenza A, PCR Undetected Undetected 11/02/20 21 2:40 PM BOX LINER DTL Comment:Influenza A RNA abse nt. Influenza B, PCR Undetected Undetected 11/02/20 21 2:40 PM BOX LINER DTL Comment:Influenza B RNA abse nt. Respiratory Syncytial Virus, PCR Undetected Undetected 11/02/2021 2:40 PM BOX LINER DTL Comment: RSV RNA absent. ----ADDITIONAL INFORMATION---- This test has been modified from the manager of business's instructions. Its performance characteristics were determined by [facility] in a manner consistent with CLIA requirements. This test has not been cleared or approved by the U.S. Food and Drug Administration. Varies (Nasopharynx) 10/25/2021 2:57 PM BOX LINER 10/26/2021 9:35 AM BOX LINER Christiano Tran D.O. LAB MICROBIOLOGY - GENERAL ORDERABLES [facility] [address] [place] [address], [facility] [place] [address] [place] [address] * SARS Coronavirus-2 RNA, V Symptomatic (10/25/2021 2:57 PM BOX LINER) Only the most recent of3 resultswithin the time period is included. SARS-CoV-2 Specimen Source Swab, Nasopharynx 10/26/2021 4:17 AM BOX LINER MKTO SARS CoV-2 RNA, TMA Undetected Undetected 10/26/2021 4:17 AM BOX LINER MKTO Comment: SARS-CoV-2 RNA absent. This result does not rule out COVID-19 in the patient, as the sensitivity of the test depends on the timing of the specimen collection and the quality of the specimen. Result should be correlated with patient's history and clinical presentation. ----ADDITIONAL INFORMATION---- This molecular amplification test was performed using the Aptima SARS-CoV-2 assay ([employer] on the [employer] System under emergency use authorization (EUA) by the U.S. Food and Drug Administration. Fact sheets for this EUA assay can be found at the following links: For Healthcare Providers: https://www.fda.gov/media/892004/download For Patients: https://www.fda.gov/media/861298/download Varies (Nasopharynx) 10/25/2021 2:57 PM BOX LINER 10/25/2021 7:34 PM BOX LINER Christiano Tran D.O. LAB MICROBIOLOGY - GENERAL ORDERABLES Performing Organization Address City/State/[facility] Co de Phone Number [facility] [address] [place] [address], [facility] MKTO [facility] [place] [address] * FL Sacroiliac Joint Injection Bilateral (10/02/2021 9:35 AM BOX LINER) 10/02/2021 9:39 AM BOX LINER Impressions [id number] - 10/02/2021 9:46 AM BOX LINER Fluoroscopically-guided bilateral sacroiliac joint and PSIS trigger point injections. NR Narrative [id number] - 10/02/2021 9:46 AM BOX LINER EXAM: FL SACROILIAC JOINT INJECTION BILATERAL PROCEDURE: Bilateral sacroiliac joint and PSIS trigger point injections. Pain Score: Pre-procedural pain was rated: ??5/10 ?? Post-procedural pain was rated: ??0/10 ?? Medications: Steroid: ??9 mg betamethasone Local anesthetic: 22.5 mg 0.5% ropivacaine INDICATION: ??The patient reports the current pain syndrome to be of >1 year duration and presents today for a new injection. TECHNIQUE: The patient's pain pattern and imaging findings were reviewed. She has a history of left greater than right low back and left buttock pain. Transforaminal epidural steroid injection in 2019 provided good relief of prior radicular pain. Bilateral sacroiliac joint and PSIS trigger point injections were requested and performed today for diagnostic and potentially therapeutic purposes. Using usual sterile technique, fluoroscopic guidance, and local anesthesia, 3.5 inch 25-gauge spinal needles were advanced to the posterior inferior aspect of both sacroiliac joints. With final needle tip positions, a small amount of iodinated contrast was used to confirm each location. Transient vascular uptake was not observed with final needle positions. Both injections were intra-articular. 2 cc of 3:1 mixture of anesthetic:steroid was administered at each joint. Each needle was withdrawn, restyletted, and removed. Using usual sterile technique, fluoroscopic guidance, and local anesthesia, 3.5 inch 25-gauge spinal needles were advanced to the posterior aspect of both PSIS trigger points. With final needle tip positions, a small amount of iodinated contrast was used to confirm each location. Transient vascular uptake was not observed with final needle positions. 1 cc of 3:1 mixture of anesthetic:steroid was administered at each joint. Each needle was withdrawn, restyletted, and removed. The patient experienced no complication. PREPROCEDURE: ??Patient seen and evaluated. Allergies, pertinent medications, and history reviewed. Discussed risks (including, but not limited to, bleeding and infection); benefits; and alternatives for procedure and obtained informed consent. The side and site of the procedure were marked, when applicable, at the time of consent. The patient understood the information and questions answered. Immediately prior to starting the procedure in the presence of the assisting personnel, a procedural pause was conducted to verify correct patient identity and verification of procedure to be performed and as applicable, correct side and site, correct patient position, availability of implants, special equipment, or special requirements, and all image and specimen identification data. The roles and responsibilities of care team members, residents, and fellows were discussed. Procedure Note Zuleima Davey M.D. - 10/02/2021 EXAM: FL SACROILIAC JOINT INJECTION BILATERAL PROCEDURE: Bilateral sacroiliac joint and PSIS trigger point injections. Pain Score: Pre-procedural pain was rated: 5/10 Post-procedural pain was rated: 0/10 Medications: Steroid: 9 mg betamethasone Local anesthetic: 22.5 mg 0.5% ropivacaine INDICATION: The patient reports the current pain syndrome to be of >1year duration and presents today for a new injection. TECHNIQUE: The patient's pain pattern and imaging findings were reviewed. She has ahistory of left greater than right low back and left buttock pain.Transforaminal epidural steroid injection in 2019 provided good relief of prior radicularpain. Bilateral sacroiliac joint and PSIS trigger point injections wererequested and performed today for diagnostic and potentially therapeutic purposes. Using usual sterile technique, fluoroscopic guidance, and localanesthesia, 3.5 inch 25-gauge spinal needles were advanced to the posterior inferioraspect of both sacroiliac joints. With final needle tip positions, a small amountof iodinated contrast was used to confirm each location. Transient vascularuptake was not observed with final needle positions. Both injections were intra-articular. 2 cc of 3:1 mixture of anesthetic:steroid wasadministered at each joint. Each needle was withdrawn, restyletted, and removed. Usingusual sterile technique, fluoroscopic guidance, and local anesthesia, 3.5 inch 25-gauge spinal needles were advanced to the posterior aspect of bothPSIS trigger points. With final needle tip positions, a small amount ofiodinated contrast was used to confirm each location. Transient vascular uptake wasnot observed with final needle positions. 1 cc of 3:1 mixture ofanesthetic:steroid was administered at each joint. Each needle was withdrawn, restyletted,and removed. The patient experienced no complication. PREPROCEDURE: Patient seen and evaluated. Allergies, pertinentmedications, and history reviewed. Discussed risks (including, but not limited to, bleedingand infection); benefits; and alternatives for procedure and obtainedinformed consent. The side and site of the procedure were marked, when applicable,at the time of consent. The patient understood the information and questionsanswered. Immediately prior to starting the procedure in the presence of theassisting personnel, a procedural pause was conducted to verify correct patientidentity and verification of procedure to be performed and as applicable, correctside and site, correct patient position, availability of implants, specialequipment, or special requirements, and all image and specimen identification data.The roles and responsibilities of care team members, residents, and fellowswere discussed. IMPRESSION: Fluoroscopically-guided bilateral sacroiliac joint and PSIS trigger point injections. NR Gunner Jewell P.A.-C., D.Sc. IMG FLUO ROSCOPY PROCEDURES [id number] NA * BMD Bone Density Spine Hips (09/05/2021 10:32 AM CDT) Anatomical Region Laterality Modality Hip, Lumbar Spine, Nuclear M edicine RST LOS, Musculoskeletal ARZ LOS, Muskuloskeletal FLA LOS N/A Radio graphic Imaging 09/05/2021 11:0 1 AM CDT Impressions 09/05/2021 11:01 AM CDT Low bone density (Osteopenia) DualFemur (region: Neck Left) Narrative 09/05/2021 11:01 AM CDT EXAM: ??BMD BONE DENSITY SPINE HIPS Bone Mineral Density (BMD) analysis performed on [employer] with serial number [id number]. ? FINDINGS: Left Hip: Femur Neck: BMD = 0.812 g/cm2 T-score = -1.6 ?Z-score = 0.6 Total Hip: BMD = 0.860 g/cm2 T-score = -1.2 ?Z-score = 0.9 Right Hip: Femur Neck: BMD = 0.828 g/cm2 T-score = -1.5 ?? Z-score = 0.7 Total Hip: BMD = 0.840 g/cm2 T-score = -1.3 ?Z-score = 0.8 Lumbar Spine: L1: BMD = 1.039 g/cm2 L2: BMD = 1.120 g/cm2 L3: BMD = 1.311 g/cm2 L4: BMD = 1.399 g/cm2 Total Lumbar Spine (L1-L4): BMD = 1.226 g/cm2 T-score = 0.3 ?Z-score = 2.1 ? Trabecular Bone Score: ??L1-L4: TBS = 1.272 Please note: A more comprehensive DXA report, including images and graphs, is available in QREADS. In the absence of other causes of low BMD or demonstrated skeletal fragility, osteoporosis may be diagnosed in post-menopausal women and men at or above age 50 when the T-score is at or below -2.5 as defined by the WHO. Low bone density is present at T-scores between -1 and -2.5. The diagnosis in pre-menopausal women and men < age 50 can be based on low bone density or evidence of skeletal fragility in the appropriate clinical setting. Based on the bone density results, and on the patient's answers to the Fracture Risk Assessment questionnaire (please refer to appropriate image stored in the BMD study in QREADS), the calculated ten year probability of fracture is: FRAX Risk Factors: None FRAX (10 yr probability) adjusted for TBS Major Osteoporotic Fracture: ??- Hip Fracture: ?- ? Procedure Note Gabriele Mathews M.D. - 09/05/2021 EXAM: BMD BONE DENSITY SPINE HIPS Bone Mineral Density (BMD) analysis performed on [employer] withserial number [id number]. FINDINGS: Left Hip: Femur Neck: BMD = 0.812 g/cm2 T-score = -1.6 Z-score = 0.6 Total Hip: BMD = 0.860 g/cm2 T-score = -1.2 Z-score = 0.9 Right Hip: Femur Neck: BMD = 0.828 g/cm2 T-score = -1.5 Z-score = 0.7 Total Hip: BMD = 0.840 g/cm2 T-score = -1.3 Z-score = 0.8 Lumbar Spine: L1: BMD = 1.039 g/cm2 L2: BMD = 1.120 g/cm2 L3: BMD = 1.311 g/cm2 L4: BMD = 1.399 g/cm2 Total Lumbar Spine (L1-L4): BMD = 1.226 g/cm2 T-score = 0.3 Z-score = 2.1 Trabecular Bone Score: L1-L4: TBS = 1.272 Please note: A more comprehensive DXA report, including images and graphs,is available in [employer]. In the absence of other causes of low BMD or demonstrated skeletalfragility, osteoporosis may be diagnosed in post-menopausal women and men at or aboveage 50 when the T-score is at or below -2.5 as defined by the WHO. Low bonedensity is present at T-scores between -1 and -2.5. The diagnosis inpre-menopausal women and men < age 50 can be based on low bone density or evidence ofskeletal fragility in the appropriate clinical setting. Based on the bone density results, and on the patient's answers to theFracture Risk Assessment questionnaire (please refer to appropriate image stored inthe BMD study in QREADS), the calculated ten year probability of fracture is: FRAX Risk Factors: None FRAX (10 yr probability) adjusted for TBS Major Osteoporotic Fracture: - Hip Fracture: - IMPRESSION: Low bone density (Osteopenia) DualFemur (region: Neck Left) Meaghan Richardson APRNNTabatha. IMG DXA PROCED URES * Audiology evaluation (08/25/2021 12:00 AM CDT) 08/25/2021 Ambrose Richardson APRN.N.P. AUDIOLOGY SERV ICES ORDERABLES AUDIOLOGY AND D * DX Hips and Pelvis Bilateral 3-4 Views (07/11/2021 9:58 AM CDT) Anatomical Region Laterality Modality Lower Extremity, Pelvis, Hip , Musculoskeletal RST LOS, Musculoskeletal ARZ LOS, Muskuloskeletal FLA LOS Bilateral Digit al Radiography 07/11/2021 10:3 0 AM CDT Impressions 07/11/2021 10:31 AM CDT Moderate scattered degenerative changes of the pelvis and both hips. No change since April 22, 2019. Narrative 07/11/2021 10:31 AM CDT EXAM: ??DX HIPS AND PELVIS BILATERAL 3-4 VIEWS Procedure Note Gunner Escobar M.D. - 07/11/2021 EXAM: DX HIPS AND PELVIS BILATERAL 3-4 VIEWS IMPRESSION: Moderate scattered degenerative changes of the pelvis and both hips. No change since April 22, 2019. Ambrose Richardson APRN.N.P. IMG DIAGNOSTIC IMAGING PROCEDURES * ECG 12 Lead (06/28/2021 11:22 AM CDT) Only the most recent of4 resultswithin the time period is included. Ventricular Rate ECG/Min 72 BPM MUSE TX Interval 164 ms MUSE QRSD Interval 88 ms MUSE QT Interval 410 ms MUSE QTC Interval 448 ms MUSE P [place] 55 degrees MUSE R [place] 9 degrees MUSE T Wave [place] 54 degrees MUSE 06/28/2021 11:2 2 AM CDT 06/28/2021 11:24 AM CDT Impressions MUSE - 06/28/2021 11:24 AM CDT Sinus rhythm Low voltage QRS Premature ventricular complexes Cannot rule out Anteroseptal infarct When compared with ECG of 04-JAN-2021 09:37, Premature ventricular complexes are now present Minimal criteria for Anteroseptal infarct are now present Reviewed by [employer] Narrative Procedure Note Tanner Pacheco M.D. - 06/28/2021 IMPRESSION: Sinus rhythm Low voltage QRS Premature ventricular complexes Cannot rule out Anteroseptal infarct When compared with ECG of 04-JAN-2021 09:37, Premature ventricular complexes are now present Minimal criteria for Anteroseptal infarct are now present Reviewed by [employer] [employer] Ambrose Richardson APRN.N.PReina ECG ORDERABLES MUSE NA * Basic Metabolic Panel (06/28/2021 9:55 AM CDT) Only the most recent of9 resultswithin the time period is included. Potassium, P 4.3 3.6 - 5.2 mmol/L 06/28/2021 2:16 PM CDT OWAT Sodium, P 140 135 - 145 mmol/L 06/28/2021 2:16 PM CDT OWAT Chloride, P 104 98 - 107 mmol/L 06/28/2021 2:16 PM CDT OWAT Bicarbonate, P 28 22 - 29 mmol/L 06/28/2021 2:16 PM CDT OWAT Anion Gap, P 8 7 - 15 06/28/2021 2:16 PM CDT OWAT BUN (Blood Urea Nitrogen), P 14 6 - 21 mg/dL 06/28/2021 2:16 PM CDT OWAT Creatinine 0.67 0.59 - 1.04 mg/dL 06/28/2021 2:16 PM CDT OWAT eGFR-Black/Afric an Samoan >90 >=60 mL/min/BSA 06/28/2021 2:16 PM CDT OWAT Comment: ----ADDITIONAL INFORMATION---- Estimated GFR calculated using the 2009 CKD_EPI creatinine equation. eGFR Non-Black/Arabella n Samoan 83 >=60 mL/min/BSA 06/28/2021 2:16 PM CDT OWAT Comment: ----ADDITIONAL INFORMATION---- Estimated GFR calculated using the 2009 CKD_EPI creatinine equation. Calcium, Total, P 9.5 8.8 - 10.2 mg/dL 06/28/2021 2:16 PM CDT OWAT Glucose, P 73 70 - 140 mg/dL 06/28/2021 2:16 PM CDT OWAT Blood (Blood, Venous) 06/28/2021 9:55 AM CDT 06/28/2021 1:27 PM CDT Meaghan Richardson APRNN.P. LAB BLOOD ADD- ON [facility] [address] [place] [id number], [facility] [address] [facility] [place] [address] [place] [id number] * DX Chest AP or PA and Lateral 2 Views (06/28/2021 9:44 AM CDT) Only the most recent of3 resultswithin the time period is included. Anatomical Region Laterality Modality Chest, Thoracic RST LOS, Tho racic ARZ LOS, Thoracic FLA LOS N/A Digital Radiography 06/28/2021 10:1 6 AM CDT Impressions 06/28/2021 10:17 AM CDT No evidence of acute cardiopulmonary abnormality. No focal pulmonary consolidation or pleural effusion. Normal heart size. No pneumothorax. Spondylosis. Right upper abdominal surgical clips, typically related to prior cholecystectomy. Aortic calcifications. Comparison December 25, 2013. Narrative 06/28/2021 10:17 AM CDT EXAM: DX CHEST AP OR PA AND LATERAL 2 VIEWS Procedure Note Andrea Tolentino M.D. - 06/28/2021 EXAM: DX CHEST AP OR PA AND LATERAL 2 VIEWS IMPRESSION: No evidence of acute cardiopulmonary abnormality. No focal pulmonary consolidation or pleural effusion. Normal heart size. No pneumothorax. Spondylosis. Right upper abdominal surgical clips, typically related toprior cholecystectomy. Aortic calcifications. Comparison December 25, 2013. 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 No thrombus extends into the deep system. Narrative 05/10/2021 11:03 AM CDT EXAM: US LOWER EXTREMITY VEINS BILATERAL LIMITED POST SOREN CLOSE Exam performed with color and spectral Doppler analysis. 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 On the right, thrombus starts 1.9 cm below the saphenofemoral junction extending to knee. On the left, thrombus starts 1.4 cm below the saphenofemoral junction extending to knee. ??The common femoral vein is patent and negative for thrombus bilaterally. Procedure Note Francisco Danielle M.D. - 05/10/2021 EXAM: US LOWER EXTREMITY VEINS BILATERAL LIMITED POST SOREN CLOSE Exam performed with color and spectral Doppler analysis. 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 Onthe right, thrombus starts 1.9 cm below the saphenofemoral junction extendingto knee. On the left, thrombus starts 1.4 cm below the saphenofemoraljunction extending to knee. The common femoral vein is patent and negative forthrombus bilaterally. 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 No thrombus extends into the deep system. Alex Paula M.D., M.S. IMG US PROCEDU RES * Lower Extremities 528 VNUS-Dermatology Image Exam (05/09/2021 12:00 AM CDT) Narrative IIMS - 05/09/2021 3:02 PM CDT This order has been created and auto-finalized to support the import of images acquired without order. The clinical documentation to support these images can be found on the encounter that produced images. Provider Not In System IMG NON RAD IMAGI NG PROCEDURES IIMS NA * ECHO STRESS 2D WITH COLOR, LIMITED DOPPLER AND CONTRAST (02/09/2021 3:01 PM CDT) Ejection Fraction 57 MC CV EIMS Mid-Ascending Aorta 32 MC CV EIMS Wall Motion Score Index 1.00 MC CV EIMS LV Mass Index 84 MC CV EIMS LV End-Diastolic Diameter 48 MC CV EIMS LV End-Systolic Diameter 33 MC CV EIMS MV E Velocity 0.7 MC CV EIMS MV A Velocity 1.0 MC CV EIMS MV E/A 0.70 MC CV EIMS MV e' Velocity Medial 0.07 MC CV EIMS MV E/e' Medial 10.0 MC CV EIMS LV Interventricular Septal Wall Thickness 9 MC CV EIMS LV Posterior Wall Thickness 10 MC CV EIMS LV Relative Wall Thickness 42 MC CV EIMS TR Vmax 2.50 MC CV EIMS RA Pressure 5 MC CV EIMS RV Systolic Pressure 30 MC CV EIMS LA Volume Index 23 MC CV EIMS WMSI At Rest 1.00 MC CV EIMS WMSI At Peak Stress 1.00 MC CV EIMS Anatomical Region Laterality Modality Echocardiography , Other 02/09/2021 12:0 1 PM CDT Impressions 02/09/2021 5:56 PM CDT Transthoracic outreach echo interpretation. ??STRESS TEST: ??Dobutamine was infused from 5 mcg/kg/min to 20.0 mcg/kg/min. ??A peak heart rate of 121 BPM was achieved (86 % age-predicted maximal HR). ??The test was terminated due to target heart rate achievement. ??The patient developed palpitations. ??The baseline ECG demonstrated sinus rhythm. ??The baseline ECG demonstrated APC's. ??With stress, the ECG demonstrated <1mm downsloping S-T depression. ??The stress ECG was negative for ischemia. ??Please see Nursing Notes for additional information. REST IMAGES: ??LEFT VENTRICLE: ??Normal left ventricular chamber size. ??Normal left ventricular wall thickness. ??Calculated 2-D linear left ventricular ejection fraction 57 %. ??No regional wall motion abnormalities. ??Grade 1/3 left ventricular diastolic dysfunction, consistent with low to normal left ventricular filling pressure at rest. ??RIGHT VENTRICLE: ??Normal right ventricular chamber size. ??Normal right ventricular systolic function. ??Estimated right ventricular systolic pressure 30 mmHg (systolic blood pressure 127 mmHg). ??ATRIA: ??Normal left atrial size. ??Left atrial volume index 23 ml/m^2. ??Normal right atrial size. ??CARDIAC VALVES: Trileaflet aortic valve. ??Thickened aortic valve. ??No aortic valve regurgitation. ??Thickened mitral valve. ??Trivial mitral valve regurgitation. ??Normal pulmonary valve. ??Trivial pulmonary valve regurgitation. ??Normal tricuspid valve. ??Trivial tricuspid valve regurgitation. ??OTHER ECHO FINDINGS: ??Normal inferior vena cava size with normal inspiratory collapse (>50%). ??Normal ascending aorta diameter. ??No atrial level shunt by color flow imaging. ??No intracardiac mass or thrombus, but the left atrial appendage cannot be visualized adequately with transthoracic echo to exclude thrombus in this location. ??No pericardial effusion. For the complete report, see the Order-Level Documents. Narrative 02/09/2021 5:56 PM CDT For the complete report, see the Order-Level Documents. Final Impressions 1. Dobutamine stress echocardiogram negative for myocardial ischemia. 2. Ejection fraction response from 57 % at rest to 70 % at peak stress. 3. Left ventricular end-systolic volume decreased with stress. 4. No regional wall motion abnormalities with stress. Procedure Note Twan Stanford M.D. - 02/09/2021 For the complete report, see the Order-Level Documents. Final Impressions 1. Dobutamine stress echocardiogram negative for myocardial ischemia. 2. Ejection fraction response from 57 % at rest to 70 % at peak stress. 3. Left ventricular end-systolic volume decreased with stress. 4. No regional wall motion abnormalities with stress. Findings Transthoracic outreach echo interpretation. STRESS TEST: Dobutamine wasinfused from 5 mcg/kg/min to 20.0 mcg/kg/min. A peak heart rate of 121 BPM was achieved(86 % age-predicted maximal HR). The test was terminated due to target heart rateachievement. The patient developed palpitations. The baseline ECG demonstrated sinus rhythm. Thebaseline ECG demonstrated APC's. With stress, the ECG demonstrated <1mm downslopingS-T depression. The stress ECG was negative for ischemia. Please see Nursing Notes foradditional information. REST IMAGES: LEFT VENTRICLE: Normal left ventricular chamber size.Normal left ventricular wall thickness. Calculated 2-D linear left ventricular ejection [id number] %. No regional wall motion abnormalities. Grade 1/3 left ventricular diastolicdysfunction, consistent with low to normal left ventricular filling pressure at rest. RIGHT VENTRICLE:Normal right ventricular chamber size. Normal right ventricular systolic function.Estimated right ventricular systolic pressure 30 mmHg (systolic blood pressure 127 mmHg).ATRIA: Normal left atrial size. Left atrial volume index 23 ml/m^2. Normal right atrialsize. CARDIAC VALVES: Trileaflet aortic valve. Thickened aortic valve. No aortic valveregurgitation. Thickened mitral valve. Trivial mitral valve regurgitation. Normal pulmonaryvalve. Trivial pulmonary valve regurgitation. Normal tricuspid valve. Trivial tricuspid valveregurgitation. OTHER ECHO FINDINGS: Normal inferior vena cava size with normal inspiratorycollapse (>50%). Normal ascending aorta diameter. No atrial level shunt by color flow imaging.No intracardiac mass or thrombus, but the left atrial appendage cannot be visualized adequatelywith transthoracic echo to exclude thrombus in this location. No pericardial effusion. For the complete report, see the Order-Level Documents. Valeria Canela APRN, C.N.P. CV ECHO PROCED URES * FL Cervical Spine Facet Injection Bilateral (02/01/2021 9:21 AM CDT) 02/01/2021 8:28 AM CDT Impressions [id number] - 02/01/2021 12:23 PM CDT Fluoroscopically-guided facet joint injections. NR Narrative [id number] - 02/01/2021 12:23 PM CDT EXAM: FL CERVICAL SPINE FACET INJECTION BILATERAL PROCEDURE: ??Fluoroscopically-guided Bilateral C5-6 C6-7 Facet Joint Injection Pain Score: Pre-procedural neck pain was rated: ??6/10 with head rotation Pre-procedural arm pain was rated: ??0/10 ?? Post-procedural neck pain was rated: ??4/10 with head rotation Post-procedural arm pain was rated: ??0/10 ?? Medications: Steroid: ??13.2 mg dexamethasone Local anesthetic: ??53.2 mg 2% lidocaine INDICATION: ??The patient reports the current pain syndrome to be of >1 year duration and presents today for a new injection. TECHNIQUE: The patient's pain pattern and images were reviewed as well as the clinical notes. She has been having chronic neck pain which has flared over the past several weeks. Review of her cervical spine radiographs demonstrates multilevel degenerative changes including fusions of the C2-3 and C4-5 facet joints. Diagnostic and potentially therapeutic bilateral C5-6 and C6-7 facet joint injections are requested. Using usual sterile technique, fluoroscopic guidance, and local anesthesia, 4.75 inch 25-gauge spinal needles were advanced to the posterior aspect of each facet joint. With final needle tip positions, a small amount of iodinated contrast was used to confirm each location. Transient vascular uptake with final needle positions. All but the right C5-6 facet joint injections were periarticular. 1 cc of 2:1 mixture of anesthetic:steroid was administered at each joint. Each needle was withdrawn, restyletted, and removed. The patient experienced no complication. PREPROCEDURE: ??Patient seen and evaluated. Allergies, pertinent medications, and history reviewed. Discussed risks (including, but not limited to, bleeding and infection); benefits; and alternatives for procedure and obtained informed consent. The side and site of the procedure were marked, when applicable, at the time of consent. The patient understood the information and questions answered. Immediately prior to starting the procedure in the presence of the assisting personnel, a procedural pause was conducted to verify correct patient identity and verification of procedure to be performed and as applicable, correct side and site, correct patient position, availability of implants, special equipment, or special requirements, and all image and specimen identification data. The roles and responsibilities of care team members, residents, and fellows were discussed. Procedure Note Waqas Booker M.D. - 02/01/2021 EXAM: FL CERVICAL SPINE FACET INJECTION BILATERAL PROCEDURE: Fluoroscopically-guided Bilateral C5-6 C6-7 Facet JointInjection Pain Score: Pre-procedural neck pain was rated: 6/10 with head rotation Pre-procedural arm pain was rated: 0/10 Post-procedural neck pain was rated: 4/10 with head rotation Post-procedural arm pain was rated: 0/10 Medications: Steroid: 13.2 mg dexamethasone Local anesthetic: 53.2 mg 2% lidocaine INDICATION: The patient reports the current pain syndrome to be of >1year duration and presents today for a new injection. TECHNIQUE: The patient's pain pattern and images were reviewed as well as theclinical notes. She has been having chronic neck pain which has flared over thepast several weeks. Review of her cervical spine radiographs demonstratesmultilevel degenerative changes including fusions of the C2-3 and C4-5 facetjoints. Diagnostic and potentially therapeutic bilateral C5-6 and C6-7 facetjoint injections are requested. Using usual sterile technique, fluoroscopic guidance, and localanesthesia, 4.75 inch 25-gauge spinal needles were advanced to the posterior aspect of eachfacet joint. With final needle tip positions, a small amount of iodinatedcontrast was used to confirm each location. Transient vascular uptake with finalneedle positions. All but the right C5-6 facet joint injections wereperiarticular. 1 cc of 2:1 mixture of anesthetic:steroid was administered at each joint.Each needle was withdrawn, restyletted, and removed. The patient experiencedno complication. PREPROCEDURE: Patient seen and evaluated. Allergies, pertinentmedications, and history reviewed. Discussed risks (including, but not limited to, bleedingand infection); benefits; and alternatives for procedure and obtainedinformed consent. The side and site of the procedure were marked, when applicable,at the time of consent. The patient understood the information and questionsanswered. Immediately prior to starting the procedure in the presence of theassisting personnel, a procedural pause was conducted to verify correct patientidentity and verification of procedure to be performed and as applicable, correctside and site, correct patient position, availability of implants, specialequipment, or special requirements, and all image and specimen identification data.The roles and responsibilities of care team members, residents, and fellowswere discussed. IMPRESSION: Fluoroscopically-guided facet joint injections. NR Gunner Jewell P.A.-C., D.Sc. IMG FLUO ROSCOPY PROCEDURES [id number] NA * BI Breast Screening Bilateral (01/17/2021 10:33 AM BOX LINER) Only the most recent of9 resultswithin the time period is included. Anatomical Region Laterality Modality Breast, Breast Imaging RST L OS, Breast Imaging ARZ LOS, Breast Imaging FLA LOS Bilateral Mammography 01/17/2021 1:09 PM BOX LINER Impressions 01/17/2021 1:11 PM BOX LINER Negative. RECOMMENDATION: ??Annual Screening Mammogram ASSESSMENT: ??BI-RADS: 1: Negative. Narrative 01/17/2021 1:11 PM BOX LINER EXAM: ??BI BREAST SCREENING BILATERAL Current study was evaluated with a Computer Aided Detection (CAD) system. INDICATION: ??Screening mammogram. COMPARISON: ??Prior exam(s) were available and reviewed for comparison. DENSITY: ??b. There are scattered areas of fibroglandular density. FINDINGS: ??No mammographic findings of malignancy. Procedure Note Andrea Tolentino M.D. - 01/17/2021 EXAM: BI BREAST SCREENING BILATERAL Current study was evaluated with a Computer Aided Detection (CAD) system. INDICATION: Screening mammogram. COMPARISON: Prior exam(s) were available and reviewed for comparison. DENSITY: b. There are scattered areas of fibroglandular density. FINDINGS: No mammographic findings of malignancy. IMPRESSION: Negative. RECOMMENDATION: Annual Screening Mammogram ASSESSMENT: BI-RADS: 1: Negative. 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 Full details below Narrative 01/16/2021 9:35 AM BOX LINER EXAM: ??US LOWER EXTREMITY VENOUS INSUFFICIENCY BILATERAL Exam performed with color and spectral Doppler analysis. COMPARISON: ??Prior ultrasound 07/04/2010 FINDINGS: RIGHT: The tested deep veins are competent. The great saphenous vein is incompetent from the upper thigh to the calf and gives rise to small varicosities. Mild incompetence of the right small saphenous vein with a small varicosity arising from it LEFT: The tested deep veins and small saphenous vein are competent. Incompetent great saphenous vein gives rise to small varices DVT SCREENING RIGHT: ??Negative for acute DVT LEFT: ??Negative for acute DVT Exam was performed with the patient standing and the leg being evaluated in a non weight-bearing position. Right CFV: Competent. Right FV: Competent. Right Pop: Competent. Right SFJ: Competent. Right AASV: Competent. Right GSV Upper: Severe Incompetence. 4.6 s Right GSV Knee: Severe Incompetence. 5.0 s Right GSV Calf : Moderate Incompetence. 1.3 s Right SPJ: Absent. Right SSV Calf: Mild Incompetence. 2.6 s Right SFJ: 8.1 mm Right AASV: Right GSV Upper: 5.5 mm Right GSV Knee: 5.4 mm Right SPJ: Right SSV: 3.6 mm Left ??CFV: Competent. Left ??FV: Competent. Left ??Pop: Competent. Left ??SFJ: Severe Incompetence. 4.8 s Left AASV: Competent. Left ??GSV Upper: Severe Incompetence. 5.4 s Left ??GSV Knee: Severe Incompetence. 5.8 s Left ??GSV Calf: Severe Incompetence. 5.6 s Left ??SPJ: Absent. Left ??SSV Calf: Competent. Left SFJ: 8.2 mm Left AASV: Left GSV Upper: 4.7 mm Left GSV Knee: 5.4 mm Left SPJ: Left SSV: 2.9 mm Absent= A Not Imaged= x Mild = 0.5 to 1 second Moderate= 1 to 3 seconds Severe = > 3 seconds * For the femoral and popliteal veins, significant reflux is greater than 1 second. May upgrade or downgrade depending on amplitude of reflux. Procedure Note Steven Leroy M.D. - 01/16/2021 EXAM: US LOWER EXTREMITY VENOUS INSUFFICIENCY BILATERAL Exam performed with color and spectral Doppler analysis. COMPARISON: Prior ultrasound 07/04/2010 FINDINGS: RIGHT: The tested deep veins are competent. The great saphenous vein is incompetent from the upper thigh to the calf and gives rise to small varicosities. Mild incompetence of the right small saphenous vein with asmall varicosity arising from it LEFT: The tested deep veins and small saphenous vein are competent.Incompetent great saphenous vein gives rise to small varices DVT SCREENING RIGHT: Negative for acute DVT LEFT: Negative for acute DVT Exam was performed with the patient standing and the leg being evaluatedin a non weight-bearing position. Right CFV: Competent. Right FV: Competent. Right Pop: Competent. Right SFJ: Competent. Right AASV: Competent. Right GSV Upper: Severe Incompetence. 4.6 s Right GSV Knee: Severe Incompetence. 5.0 s Right GSV Calf : Moderate Incompetence. 1.3 s Right SPJ: Absent. Right SSV Calf: Mild Incompetence. 2.6 s Right SFJ: 8.1 mm Right AASV: Right GSV Upper: 5.5 mm Right GSV Knee: 5.4 mm Right SPJ: Right SSV: 3.6 mm Left CFV: Competent. Left FV: Competent. Left Pop: Competent. Left SFJ: Severe Incompetence. 4.8 s Left AASV: Competent. Left GSV Upper: Severe Incompetence. 5.4 s Left GSV Knee: Severe Incompetence. 5.8 s Left GSV Calf: Severe Incompetence. 5.6 s Left SPJ: Absent. Left SSV Calf: Competent. Left SFJ: 8.2 mm Left AASV: Left GSV Upper: 4.7 mm Left GSV Knee: 5.4 mm Left SPJ: Left SSV: 2.9 mm Absent= A Not Imaged= x Mild = 0.5 to 1 second Moderate= 1 to 3 seconds Severe = > 3 seconds * For the femoral and popliteal veins, significant reflux is greater than1 second. May upgrade or downgrade depending on amplitude of reflux. 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 Full details below Meaghan Richardson APRNN.P. IMG US PROCEDU RES * Lipid Panel (01/12/2021 8:14 AM BOX LINER) Only the most recent of8 resultswithin the time period is included. [facility] Cholesterol, Total 187 mg/dL 2020 10:58 AM BOX LINER OWAT Comment: ----REFERENCE VALUE---- Desirable: < 200 Borderline high: 200 - 239 High: > or = 240 Triglycerides 92 mg/dL 01/12/2021 10:58 AM BOX LINER OWAT Comment: ----REFERENCE VALUE---- Normal: <150 Borderline high: 150-199 High: 200-499 Very high: > or =500 Cholesterol, HDL 60 >=50 mg/dL 01/12/20 10:58 AM BOX LINER OWAT Calculated LDL 109 mg/dL 01/12/2021 10:58 AM BOX LINER OWAT Comment: ----REFERENCE VALUE---- Desirable: <100 Above Desirable: 100-129 Borderline high: 130-159 High: 160-189 Very high: > or =190 Cholesterol, Non-HDL, Calculated 127 mg/dL 01/12/2021 10:58 AM BOX LINER OWAT Comment: ----REFERENCE VALUE---- Desirable: <130 Above Desirable: 130-159 Borderline high: 160-189 High: 190-219 Very high: > or =220 Blood (Blood, Venous) 01/12/2021 8:14 AM BOX LINER 01/12/2021 10:26 AM BOX LINER Meaghan Richardson APRNN.P. LAB BLOOD ADD- ON [facility] [address] [place] [address], [facility] [place] [address] [place] [address] * AST (Aspartate Aminotransferase) (01/12/2021 8:14 AM BOX LINER) Only the most recent of8 resultswithin the time period is included. Aspartate Aminotransferase (AST), P 29 8 - 43 U/L 01/12/2021 10:58 AM BOX LINER OWAT Blood (Blood, Venous) 01/12/2021 8:14 AM BOX LINER 01/12/2021 10:26 AM BOX LINER Meaghan Richardson APRNNReinaP. LAB BLOOD ADD- ON Performing Organization Address City/[facility]/ZIP Co de Phone Number [facility] [address] [place] [address], [facility] [place] [address] [place] [address] * DX Cervical Spine 2-3 Views (01/04/2021 10:37 AM BOX LINER) Only the most recent of2 resultswithin the time period is included. Anatomical Region Laterality Modality Cervical Spine, Musculoskele judie RST LOS, Neuroradiology ARZ LOS, Muskuloskeletal FLA LOS N/A Digita l Radiography 01/04/2021 10:5 3 AM BOX LINER Impressions 01/04/2021 10:54 AM BOX LINER Mild straightening of normal lordosis may be positional, degenerative, and/or related to spasm. Loss of disc height with associated degenerative endplate change at C6-C7. Mild multilevel anterior bony spurring. Multilevel uncovertebral and facet arthropathy stable mild presumed degenerative anterolisthesis of C4 on C5. No evidence for acute fracture or traumatic subluxation. No prevertebral soft tissue swelling. No suspicious lesion. Lung apices are clear. If there is ongoing concern, consider further evaluation by MRI. Narrative 01/04/2021 10:54 AM BOX LINER EXAM: DX CERVICAL SPINE 2-3 VIEWS COMPARISON: 06/26/2012 Procedure Note Gabriele Mathews M.D. - 01/04/2021 EXAM: DX CERVICAL SPINE 2-3 VIEWS COMPARISON: 06/26/2012 IMPRESSION: Mild straightening of normal lordosis may be positional, degenerative, and/or related to spasm. Loss of disc height withassociated degenerative endplate change at C6-C7. Mild multilevel anterior bonyspurring. Multilevel uncovertebral and facet arthropathy stable mild presumeddegenerative anterolisthesis of C4 on C5. No evidence for acute fracture or traumatic subluxation. No prevertebral soft tissue swelling. No suspicious lesion.Lung apices are clear. If there is ongoing concern, consider further evaluationby MRI. Valeria Canela APRN, C.N.P. IMG DIAGNOSTIC IMAGING PROCEDURES * FL Lumbar Spine Transforaminal Epidural Injection Left (08/23/2020 9:06 AM CDT) 08/23/2020 9:08 AM CDT Impressions [id number] - 08/23/2020 9:42 AM CDT Fluoroscopically-guided transforaminal epidural steroid injection. NR Narrative [id number] - 08/23/2020 9:42 AM CDT EXAM: FL LUMBAR SPINE TRANSFORAMINAL EPIDURAL INJECTION LEFT PROCEDURE: ??Fluoroscopically-guided Left L5 Transforaminal Epidural Steroid Injection Pain Score: Pre-procedural pain was rated: ??9/10 ?? Post-procedural pain was rated: ??5/10 ?? Medications: Steroid: 10 mg dexamethasone Local anesthetic: ??20 mg 2% lidocaine INDICATION: ??The patient reports the current pain syndrome to be of 0-3 months duration and presents today for a new injection. TECHNIQUE: Ms. Silverman is a very pleasant 80-year-old female with left lower extremity radicular pain since June this year. 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 A left L5 transforaminal epidural steroid injection was requested and performed. ?? Using usual sterile technique, fluoroscopic guidance, and local anesthesia, a 4.75 inch 25-gauge spinal needle was advanced into the neural foramen using an infraneural approach. With final needle tip position, a small amount of iodinated contrast confirmed equal peripheral and central epidural flow without intrathecal uptake and with anteroposterior distribution which was equally dorsal and ventral. Transient vascular uptake was not observed with final needle position. A test dose of preservative free lidocaine was administered. Following 2 minutes, there were no central neurologic changes. Dexamethasone was deposited in this location. The needle was cleared with lidocaine and removed. The patient experienced no complication. PREPROCEDURE: ??Patient seen and evaluated. Allergies, pertinent medications, and history reviewed. Discussed risks (including, but not limited to, bleeding, infection, nerve injury, and paralysis), benefits, alternatives for procedure, and obtained informed consent. The side and site of the procedure were marked, when applicable, at the time of consent. Patient understands information and questions answered. Immediately prior to starting the procedure, in the presence of the assisting personnel, procedural pause was conducted to verify correct patient identity and verification of procedure to be performed, and as applicable, correct side and site, correct patient position, availability of implants, special equipment, or special requirements, and all image and specimen identification data. The roles and responsibilities of care team members, residents, and fellows were discussed. Procedure Note Evens Garcia M.D. - 08/23/2020 EXAM: FL LUMBAR SPINE TRANSFORAMINAL EPIDURAL INJECTION LEFT PROCEDURE: Fluoroscopically-guided Left L5 Transforaminal EpiduralSteroid Injection Pain Score: Pre-procedural pain was rated: 9/10 Post-procedural pain was rated: 5/10 Medications: Steroid: 10 mg dexamethasone Local anesthetic: 20 mg 2% lidocaine INDICATION: The patient reports the current pain syndrome to be of 0-3months duration and presents today for a new injection. TECHNIQUE: Ms. Silverman is a very pleasant 80-year-old female with left lowerextremity radicular pain since June this year. MRI lumbar spine 08/02/2020demonstrates multilevel spondylotic change including spinal canal and left lateralrecess stenosis at L4-L5 about the traversing left L5 nerve root. A left L5 transforaminal epidural steroid injection was requested and performed. Using usual sterile technique, fluoroscopic guidance, and localanesthesia, a 4.75 inch 25-gauge spinal needle was advanced into the neural foramenusing an infraneural approach. With final needle tip position, a small amount of iodinated contrast confirmed equal peripheral and central epidural flowwithout intrathecal uptake and with anteroposterior distribution which wasequally dorsal and ventral. Transient vascular uptake was not observed with finalneedle position. A test dose of preservative free lidocaine was administered.Following 2 minutes, there were no central neurologic changes. Dexamethasone wasdeposited in this location. The needle was cleared with lidocaine and removed. Thepatient experienced no complication. PREPROCEDURE: Patient seen and evaluated. Allergies, pertinentmedications, and history reviewed. Discussed risks (including, but not limited to,bleeding, infection, nerve injury, and paralysis), benefits, alternatives forprocedure, and obtained informed consent. The side and site of the procedure weremarked, when applicable, at the time of consent. Patient understands informationand questions answered. Immediately prior to starting the procedure, in thepresence of the assisting personnel, procedural pause was conducted to verifycorrect patient identity and verification of procedure to be performed, and as applicable, correct side and site, correct patient position, availabilityof implants, special equipment, or special requirements, and all image andspecimen identification data. The roles and responsibilities of care teammembers, residents, and fellows were discussed. IMPRESSION: Fluoroscopically-guided transforaminal epidural steroid injection. NR Celeste Cortés P.A.-C.Sc. IMG FLUO ROSCOPY PROCEDURES [id number] NA * DX Lumbar Spine 2-3 Views (07/28/2020 2:41 PM CDT) Only the most recent of2 resultswithin the time period is included. Anatomical Region Laterality Modality Lumbar Spine, Musculoskeleta l RST LOS, Neuroradiology ARZ LOS, Muskuloskeletal FLA LOS N/A Digital Radiography 07/28/2020 2:50 PM CDT Impressions 07/28/2020 2:52 PM CDT 5 lumbar type vertebral bodies. Mild/moderate lower lumbar curve convex left. Mild/moderate facet arthropathy mid, lower lumbar spine. Slight retrolisthesis L4 on L5. Disc desiccation L4, L5 disc space levels. Degenerative changes have progressed since prior evaluation 2011. Postop changes prior cholecystectomy. Narrative 07/28/2020 2:52 PM CDT EXAM: DX LUMBAR SPINE 2-3 VIEWS COMPARISON: July 14, 2012 Procedure Note Antoine Carpio M.D. - 07/28/2020 EXAM: DX LUMBAR SPINE 2-3 VIEWS COMPARISON: July 14, 2012 IMPRESSION: 5 lumbar type vertebral bodies. Mild/moderate lower lumbar curve convex left. Mild/moderate facet arthropathy mid, lower lumbar spine. Slight retrolisthesis L4 on L5. Disc desiccation L4, L5 disc spacelevels. Degenerative changes have progressed since prior evaluation 2011. Postop changes prior cholecystectomy. Zac Pizarro M.D. IMG DIAGNOSTIC IMAGI NG PROCEDURES * DX Knee Right 3 Views (05/22/2019 4:48 PM CDT) Only the most recent of2 resultswithin the time period is included. Anatomical Region Laterality Modality Lower Extremity, Knee, Muscu loskeletal RST LOS, Musculoskeletal ARZ LOS, Muskuloskeletal FLA LOS Right Digit al Radiography 05/22/2019 5:04 PM CDT Impressions 05/22/2019 5:05 PM CDT Comparison 05/19/18. Right knee 3 views are negative for fracture, subluxation, or degenerative disease. Small knee joint effusion. There is unchanged 7 mm osteochondroma projecting medially from the proximal medial tibial metaphysis. Left knee 2 views for comparison purposes show tricompartmental mild joint space loss and small osteophytes from degenerative joint disease. Narrative 05/22/2019 5:05 PM CDT EXAM: DX KNEE RIGHT 3 VIEWS Procedure Note Elmo Arreaga M.D. - 05/22/2019 EXAM: DX KNEE RIGHT 3 VIEWS IMPRESSION: Comparison 05/19/18. Right knee 3 views are negative for fracture, subluxation, ordegenerative disease. Small knee joint effusion. There is unchanged 7 mmosteochondroma projecting medially from the proximal medial tibial metaphysis. Left knee 2 views for comparison purposes show tricompartmental mild jointspace loss and small osteophytes from degenerative joint disease. Jyoti Baer M.D. [facility] [place] DIAGNOSTIC IMAGI NG PROCEDURES * DX Hip Bilateral with Anteroposterior Pelvis 2+ Views (04/22/2019 11:45 AM CDT) Anatomical Region Laterality Modality Lower Extremity, Pelvis, Hip , Musculoskeletal RST LOS, Musculoskeletal ARZ LOS, Muskuloskeletal FLA LOS Bilateral Digit al Radiography 04/22/2019 12:0 6 PM CDT Impressions 04/22/2019 12:07 PM CDT Moderately prominent scattered degenerative changes of the bilateral hips. Narrative 04/22/2019 12:07 PM CDT EXAM: DX HIPS BILATERAL WITH ANTERIOR POSTERIOR PELVIS 2+ VIEWS COMPARISON: None FINDINGS: Moderately prominent scattered degenerative changes of the bilateral hips. No appreciable acute osseous injury of the bilateral hips. Scattered degenerative changes mid, lower lumbar spine. If pain persists consider follow-up imaging. Procedure Note Antoine Carpio M.D. - 04/22/2019 EXAM: DX HIPS BILATERAL WITH ANTERIOR POSTERIOR PELVIS 2+ VIEWS COMPARISON: None FINDINGS: Moderately prominent scattered degenerative changes of thebilateral hips. No appreciable acute osseous injury of the bilateral hips.Scattered degenerative changes mid, lower lumbar spine. If pain persists consider follow-up imaging. IMPRESSION: Moderately prominent scattered degenerative changes of the bilateral hips. Jyoti Baer M.D. [facility] NG PROCEDURES * AUDIOLOGY EVALUATION (09/02/2018 12:00 AM CDT) 09/02/2018 Jani Blanco AUDIOLOGY SERVICES ORDERABLES * OPHTHALMOLOGY IMAGE EXAM (09/16/2017 12:05 PM CDT) Only the most recent of2 resultswithin the time period is included. Narrative IIMS - 09/19/2017 8:40 AM CDT This order has been created and auto-finalized to support the import of images acquired without order. The clinical documentation to support these images can be found on the encounter that produced images. Provider Not In System IMG NON RAD IMAGI NG PROCEDURES Performing Organization Address City/State/[facility] Co de Phone Number IIMS NA * (ABNORMAL) Dipstick, Urine (10/31/2016 12:14 PM BOX LINER) Only the most recent of5 resultswithin the time period is included. Clarity Clear Clear POWERCHART HXUr Color Yellow Colorless POWERCHART Specific [place], POCT, U 1.025 POWERCHART Comment: Reference Range Specific [place]: 1.000-1.035 pH, POCT, Urine 6.5 <5.0 POWERCHART Comment: Reference Range pH: 5.0-8.0 Protein, Ur, Dip Negative Negative MGDL POWERCHA RT Glucose Negative Negative MGDL POWERCHART Ketones, QL(U) Negative Negative MGDL POWERCHART HXBILIRUBIN Negative Negative POWERCHART HXBLOOD Small(A) Negative POWERCHART Leukocyte Esterase Trace(A) Negative POWERCHART HXNITRITE Negative Negative POWERCHART Urobilinogen 0.2 0.2 MGDL POWERCHART Comment: Reference Range Urobilinogen: 0.2-1.0 mg/dL Urine, First Voided 10/31/2016 12:14 PM BOX LINER Jyoti Baer M.D. LAB URINE ORDERABLES Performing Organization Address City/[facility] Co de Phone Number POWERCHART * Automated Differential (10/31/2016 11:59 AM BOX LINER) Only the most recent of6 resultswithin the time period is included. Absolute Neutrophils 4.90 1.70 - 7.00 109L POWERCHART Lymphocytes 2.36 0.90 - 2.90 X109L POWERCHART Monocytes 0.57 0.30 - 0.90 X109L POWERCHART Eosinophils 0.16 0.05 - 0.50 X109L POWERCHART Absolute Basophil 0.01 0.00 - 0.30 X109L POWERCHART Blood 10/31/2016 11:5 9 AM BOX LINER 10/31/2016 11:59 AM BOX LINER Jyoti Baer M.D. LAB BLOOD ADD-ON Performing Organization Address [facility] Co de Phone Number POWERCHART * Rheumatoid Factor (02/14/2015 10:39 AM CDT) Rheumatoid Factor, S 13 <=15 IUL POWERCHART Blood 02/14/2015 10:3 9 AM CDT Jyoti Baer M.D. LAB BLOOD ADD-ON Performing Organization Address [facility] de Phone Number POWERCHART * SABINO (Antinuclear Antibodies) (02/14/2015 10:39 AM CDT) Antinuclear Ab Screen by IFA, S 0.2 <=1.0 (Negative) UNITS POWERCHART Comment: Test Performed by: [place] [id number] Bi Manager: Jonathan Crespo II, M.D., Ph.D. Blood 02/14/2015 10:3 9 AM CDT Jyoti Baer M.D. LAB BLOOD ADD-ON Performing Organization Address [facility] de Phone Number POWERCHART * DX Fingers Right 2 Views (02/14/2015 10:13 AM CDT) Anatomical Region Laterality Modality Upper Extremity, Fingers Right Radiogr aphic Imaging 02/14/2015 10:1 3 AM CDT Narrative 02/14/2015 11:11 AM CDT COMPARISON: None HISTORY: 74 year old female with right hand first digit DIP joint cyst. Findings: There is no acute right hand first digit osseous abnormality. Along the dorsal surface of the right hand first digit distal phalangeal base there is a tiny 1 mm well corticated ossification, likely representing a tiny nonunited fracture at this location. Bone mineralization is within normal limits. The visualized joint spaces are otherwise preserved. Impression: 1. No acute right hand first digit osseous abnormality. 2. Tiny nonunited fracture along the dorsal surface of the right hand first digit distal phalangeal base. Procedure Note Tanner Craft M.D. / Brady Galvan M.D. - 03/27/2017 COMPARISON: None HISTORY: 74 year old female with right hand first digit DIP joint cyst. Findings: There is no acute right hand first digit osseous abnormality. Along the dorsal surface of the right hand first digit distal phalangeal base there is a tiny 1 mm well corticated ossification, likely representing a tiny nonunited fracture at this location. Bone mineralization is within normal limits. The visualized joint spaces are otherwise preserved. Impression: 1. No acute right hand first digit osseous abnormality. 2. Tiny nonunited fracture along the dorsal surface of the right hand first digit distal phalangeal base. Nancy Guerra(R), RLazaro(R)(M) IMG D IAGNOSTIC IMAGING PROCEDURES * Thyroid-Stimulating Hormone-Sensitive (s-TSH) (02/04/2015 2:45 PM CDT) Only the most recent of2 resultswithin the time period is included. TSH (Thyrotropin) 2.05 0.27 - 4.20 MIUL POWERCHART Blood 02/04/2015 2:45 PM CDT Jyoti Baer M.D. LAB BLOOD ADD-ON POWERCHART * ECG Heart rhythm monitor (Holter) (01/05/2014 10:00 AM BOX LINER) 01/05/2014 10:0 0 AM BOX LINER Historical Provider CV CARDIAC SERVICES PROCEDURES [facility] [place] [facility] [address] * ECHOCARDIOLOGY IMAGE EXAM (12/31/2013 12:24 PM BOX LINER) Anatomical Region Laterality Modality Other 12/31/2013 12:2 4 PM BOX LINER Addenda Addendum by Brady Galvan M.D. on 12/31/2013 12:24 PM BOX LINER ECHO^^^MCR Non-Radiology Image 12/31/2013 12:24:00 Historical Provider IMG NON RAD IMAGING PROCEDURES * Echo Transthoracic (TTE) (12/31/2013 12:18 PM BOX LINER) Anatomical Region Laterality Modality Echocardiography 12/31/2013 12:1 8 PM BOX LINER Historical Provider CV ECHO PROCEDURES * US Carotid Bilateral (12/28/2013 8:30 AM BOX LINER) Anatomical Region Laterality Modality Head and Neck Bilateral Ultrasound 12/28/2013 8:30 AM BOX LINER Narrative 12/28/2013 11:18 AM BOX LINER PROCEDURE: Multiple real-time grayscale echograms of the carotid arteries in the neck were obtained along with Doppler imaging. No prior studies are available for comparison. FINDINGS: Scattered echogenic plaques are seen in the distal right common carotid artery and left distal common carotid artery with extension into the left proximal internal and external carotid arteries. Velocities in centimeters per second (peak systolic velocity/end diastolic velocity): RCCA proximal 85.7/19.2, RCCA distal 91.2/26, ??RECA 105.1/14.7, BENIGNO proximal 83.7/20.2, BENIGNO mid 83.7/20.2, BENIGNO distal 87.4/25.7. BENIGNO/RCCA ratio 0.96. LCCA proximal 80.7/22, LCCA distal 99/29.9. LECA 84.3/10.4. LICA proximal 56.1/21.9, LICA mid 51.5/19.2, LICA distal 65.2/26. LICA/LCCA ratio 0.62. Vertebral artery flow is antegrade bilaterally. Impression: Mild distal common carotid atherosclerotic disease bilaterally extending into the proximal internal and external carotid arteries resulting in less than 50% stenoses. Procedure Note Aneudy Strong M.D. / Brady Galvan M.D. - 03/29/2017 PROCEDURE: Multiple real-time grayscale echograms of the carotid arteries in the neck were obtained along with Doppler imaging. No prior studies are available for comparison. FINDINGS: Scattered echogenic plaques are seen in the distal right common carotid artery and left distal common carotid artery with extension into the left proximal internal and external carotid arteries. Velocities in centimeters per second (peak systolic velocity/end diastolic velocity): RCCA proximal 85.7/19.2, RCCA distal 91.2/26, RECA 105.1/14.7, BENIGNO proximal 83.7/20.2, BENIGNO mid 83.7/20.2, BENIGNO distal 87.4/25.7. BENIGNO/RCCA ratio 0.96. LCCA proximal 80.7/22, LCCA distal 99/29.9. LECA 84.3/10.4. LICA proximal 56.1/21.9, LICA mid 51.5/19.2, LICA distal 65.2/26. LICA/LCCA ratio 0.62. Vertebral artery flow is antegrade bilaterally. Impression: Mild distal common carotid atherosclerotic disease bilaterally extending into the proximal internal and external carotid arteries resulting in less than 50% stenoses. Dequan Melgoza Jr., R.D.M.S. IMG US PROCEDURES * 1,25-Dihydroxyvitamin D (12/25/2013 2:51 PM BOX LINER) 1, 25 DIHYDROXYVITAMIN D, S 53 18 - 78 PGML POWERCHART Comment: Test Performed by: [place] [id number] Bi Manager: Jas Madrigal III, M.D. Blood 12/25/2013 2:51 PM BOX LINER Jyoti Baer M.D. LAB BLOOD ADD-ON POWERCHART * BI Ultrasound Breast Focused Left (09/15/2013 12:32 PM CDT) Anatomical Region Laterality Modality Breast Left Ultrasound 09/15/2013 12:3 2 PM CDT Narrative 09/15/2013 1:55 PM CDT Sonographic evaluation of the retroareolar left breast was obtained, and directly compared to the patient's mammogram performed yesterday. There are several dilated ducts in the retroareolar aspect of the breast which correspond in location and size to the previous mammographic finding, benign findings only. There are no internal nodules noted on this study, and the patient denies any nipple discharge when questioned. There are no suspicious masses. Impression: 1. Benign findings only, ACR category 2. 2. I recommend that this patient return to a normal yearly mammogram schedule. These findings were discussed with the patient immediately following her exam. Procedure Note Gunner Timmons M.D. / Brady Galvan M.D. - 04/05/2017 Sonographic evaluation of the retroareolar left breast was obtained, and directly compared to the patient's mammogram performed yesterday. There are several dilated ducts in the retroareolar aspect of the breast which correspond in location and size to the previous mammographic finding, benign findings only. There are no internal nodules noted on this study, and the patient denies any nipple discharge when questioned. There are no suspicious masses. Impression: 1. Benign findings only, ACR category 2. 2. I recommend that this patient return to a normal yearly mammogram schedule. These findings were discussed with the patient immediately following her exam. Dequan Melgoza Jr., R.D.M.S. IMG BI PROCEDURES * Bacterial Culture, Aerobic, Urine (07/14/2012 9:29 AM CDT) Bacterial Culture, Aerobic, Urine POWERCHART HXFinal SEE SCANNED REPORT POWERCHART Urine, Clean Catch 07/14/2012 9:29 AM CDT Teddy Renner M.D. LAB MICROBIOLOGY - G ENERAL ORDERABLES Performing Organization Address City/[facility] Co de Phone Number POWERCHART * Amylase, Total (07/14/2012 9:23 AM CDT) Amylase, Total, S 52 30 - 110 UNITL POWERCHART Blood 07/14/2012 9:23 AM CDT Teddy Renner M.D. LAB BLOOD ADD-ON Performing Organization Address City/[facility] Co de Phone Number POWERCHART * DX Knee Left 1 View (06/26/2012 3:30 PM CDT) Anatomical Region Laterality Modality Lower Extremity, Knee Left Radiograph ic Imaging 06/26/2012 3:30 PM CDT Narrative 06/26/2012 3:50 PM CDT COMPARISON: None. HISTORY: 72 year old female with left knee pain, no trauma. Findings: There is no acute left knee osseous abnormality. Bone mineralization is within normal limits. The visualized joint spaces are preserved. Impression: No acute left knee osseous abnormality. Procedure Note Tanner Craft M.D. / Brady Galvan M.D. - 04/10/2017 COMPARISON: None. HISTORY: 72 year old female with left knee pain, no trauma. Findings: There is no acute left knee osseous abnormality. Bone mineralization is within normal limits. The visualized joint spaces are preserved. Impression: No acute left knee osseous abnormality. Krysten Gee R.T.(R), R.T.(R)(M) IMG DIAGNOSTIC IMAGING PROCEDURES * ALT (Alanine Aminotransferase) (02/11/2012 8:26 AM CDT) Alanine Amniotransferas e, LD 35 9 - 52 UNITL POWERCHART Blood 02/11/2012 8:26 AM CDT Ambrose Fuentes APRN.N.P., R.N. LAB BL OOD ADD-ON POWERCHART * Pathology Surgical Pathology (10/03/2011 12:00 AM BOX LINER) Only the most recent of2 resultswithin the time period is included. 10/03/2011 Narrative [facility] - 10/15/2011 12:01 PM BOX LINER PATIENT IMAGES Choose the Image button to view related documents. Historical Provider LAB SURG PATH ORDERA BLES [facility] * US Extremity Veins (07/04/2010 10:09 AM CDT) Only the most recent of2 resultswithin the time period is included. Anatomical Region Laterality Modality Vascular, Upper Extremity, Lower Extremity Ultrasound 07/04/2010 10:0 9 AM CDT Narrative 07/04/2010 11:00 AM CDT 04-Jul-2010 10:09:00 ??Exam: L US Extremity Veins Limited Indications: deep vein thrombosis lower extremity nos ORIGINAL REPORT - 04-Jul-2010 11:00:00 Left US Extremity Duplex Scan Veins Limited with color and spectral Doppler analysis: LEFT: The localized thrombus in the common femoral vein noted on 04/03/2010 has resolved. The common femoral, proximal deep femoral, femoral and popliteal veins are compressible and widely patent today, with no evidence for thrombus. A thin linear density was seen in the mid femoral vein which is felt to represent an imaging artifact. The posterior tibial and peroneal veins are patent and negative for thrombus. The great saphenous vein where seen is normal. Incidentally noted is a small Aguilar's cyst. Electronically signed by: ?? Stefany Alvarado MD. ??[phone] 04-Jul-2010 11:00 Procedure Note Virgen Alvarado M.D. - 02/16/2018 04-Jul-2010 10:09:00 Exam: L US Extremity Veins Limited Indications: deep vein thrombosis lower extremity nos ORIGINAL REPORT - 04-Jul-2010 11:00:00 Left US Extremity Duplex Scan Veins Limited with color and spectralDoppler analysis: LEFT: The localized thrombus in the common femoral vein noted on 04/03/2010has resolved. The common femoral, proximal deep femoral, femoral andpopliteal veins are compressible and widely patent today, with no evidencefor thrombus. A thin linear density was seen in the mid femoral vein whichis felt to represent an imaging artifact. The posterior tibial andperoneal veins are patent and negative for thrombus. The great saphenousvein where seen is normal. Incidentally noted is a small Aguilar's cyst. Electronically signed by: Stefany Alvarado MD. [phone] 04-Jul-2010 11:00 Cira SHUKLA US PROCEDUR ES * DX Foot Ankle 3 Views (05/11/2010 11:01 AM CDT) Anatomical Region Laterality Modality Lower Extremity, Foot, Ankle N/A Rad iographic Imaging 05/11/2010 11:0 1 AM CDT Narrative 05/11/2010 11:06 AM CDT 11-May-2010 11:01:00 ??Exam: R Foot 3vw/STDG & Ankle 3vw/ST Indications: pain ankle ORIGINAL REPORT - 11-May-2010 11:06:00 Right Foot 3vw/STDG & Ankle 3vw/STDG: Plate and screw fixation of the distal right fibula with two screws extending into the distal tibia. Minimal degenerative change of the right ankle. Bunion deformity. Mild degenerative changes of the right foot. Electronically signed by: ?? Daniella Fox M.D. [phone] 11-May-2010 11:06 Procedure Note Larry Fox M.D. - 02/16/2018 11-May-2010 11:01:00 Exam: R Foot 3vw/STDG & Ankle 3vw/ST Indications: pain ankle ORIGINAL REPORT - 11-May-2010 11:06:00 Right Foot 3vw/STDG & Ankle 3vw/STDG: Plate and screw fixation of the distal right fibula with two screwsextending into the distal tibia. Minimal degenerative change of the rightankle. Bunion deformity. Mild degenerative changes of the right foot. Electronically signed by: Daniella Fox M.D. [phone] 11-May-2010 11:06 Guillermo Carrero M.D., M.S. IMRoyal DIAGNOST IC IMAGING PROCEDURES * DENTAL IMAGE EXAM (03/22/2010 9:39 AM CDT) Anatomical Region Laterality Modality Other 03/22/2010 9:39 AM CDT Addenda Addendum by Provider, Willie Abreu on 03/22/2010 9:39 AM CDT DENT^^^MCR dent butt 03/22/2010 09:39:00 Historical Provider IMG NON RAD IMAGING PROCEDURES * Polysomnography (PSG) (03/13/2010 10:06 PM CDT) 03/13/2010 10:0 6 PM CDT Madelin Sawant M.D. [facility] ORDERAB LES Performing Organization Address City/State/[facility] Co de Phone Number [facility] [address] [place], [place] [address] * CT Abdomen Pelvis without IV Contrast (03/06/2010 6:42 PM CDT) Anatomical Region Laterality Modality Abdomen, Pelvis N/A Computed Tomogra phy 03/06/2010 6:42 PM CDT Narrative 03/06/2010 7:26 PM CDT 06-Mar-2010 18:42:00 ??Exam: CT ABDOMEN wo & PELVIS wo Indications: abd pain. ??s/p colonoscopy. ORIGINAL REPORT - 06-Mar-2010 19:26:00 CT scan of the Abdomen and Pelvis without IV contrast: Stomach is distended by food contents. No free intraperitoneal air. Sigmoid diverticulosis. Small focus of high attenuation in the right mid kidney may be due to stone material. No ureterolithiasis. Low-density cystic structure arising from the left kidney upper pole may be due to a simple cyst, but is poorly evaluated on this noncontrast CT. ??Tiny area of scarring in the left lower lobe. Electronically signed by: ?? [place] [id number] 06-Mar-2010 19:26 ?Daniella Fox M.D. [phone] 06-Mar-2010 19:26 Procedure Note Larry Fox M.D. - 02/16/2018 06-Mar-2010 18:42:00 Exam: CT ABDOMEN wo & PELVIS wo Indications: abd pain. s/p colonoscopy. ORIGINAL REPORT - 06-Mar-2010 19:26:00 CT scan of the Abdomen and Pelvis without IV contrast: Stomach is distended by food contents. No free intraperitoneal air.Sigmoid diverticulosis. Small focus of high attenuation in the right midkidney may be due to stone material. No ureterolithiasis. Low-densitycystic structure arising from the left kidney upper pole may be due to asimple cyst, but is poorly evaluated on this noncontrast CT. Tiny area ofscarring in the left lower lobe. Electronically signed by: [place] [id number] 06-Mar-2010 19:26 Daniella Fox M.D.[phone] 06-Mar-2010 19:[address] PROCEDURES * BI Breast Screening (02/06/2010 2:24 PM CDT) Anatomical Region Laterality Modality Breast N/A Mammography 02/06/2010 2:24 PM CDT Narrative 02/06/2010 4:29 PM CDT 06-Feb-2010 14:24:00 ??Exam: MG /Screening Exam Indications: immunization only;mammogram screening breast ca ORIGINAL REPORT - 06-Feb-2010 16:29:00 EXAM: Bilateral digital screening mammogram. Computer-aided detection equipment was used during interpretation. COMPARISON: No prior mammograms available. DENSITY: Scattered fibroglandular densities. FINDINGS: No mammographic findings of malignancy. RECOMMENDATION: Annual screening mammography. ASSESSMENT: Negative. P1, D2, M1, L1S Electronically signed by: ?? Ricky Roland MD [phone] 06-Feb-2010 16:29 Procedure Note Elif Roland M.D. - 02/16/2018 06-Feb-2010 14:24:00 Exam: MG /Screening Exam Indications: immunization only;mammogram screening breast ca ORIGINAL REPORT - 06-Feb-2010 16:29:00 EXAM: Bilateral digital screening mammogram. Computer-aided detection equipment was used during interpretation. COMPARISON: No prior mammograms available. DENSITY: Scattered fibroglandular densities. FINDINGS: No mammographic findings of malignancy. RECOMMENDATION: Annual screening mammography. ASSESSMENT: Negative. P1, D2, M1, L1S Electronically signed by: Ricky Roland MD [phone] 06-Feb-2010 16:29 Guillermo Carrero M.D., M.S. IMG [facility]MM[facility]T [facility] * MR Brain without and with IV Contrast (02/06/2010 1:55 PM CDT) Anatomical Region Laterality Modality Head, Brain N/A Magnetic Resonan ce 02/06/2010 1:55 PM CDT Narrative 02/06/2010 2:20 PM CDT 06-Feb-2010 13:55:00 ??Exam: MRI Hd wo&w Indications: mri head - trigeminal nerve disorder con per rad R v23 abn, need thin cuts skull base, path of 5th nerve ORIGINAL REPORT - 06-Feb-2010 14:20:00 MRI of the face with and without IV gadolinium (trigeminal nerve protocol). No comparisons. The right trigeminal nerve along its course is normal. Specifically, no abnormal thickening, T2 signal, or enhancement associated with the nerve. Degenerative cystic change in the right TMJ. Prominence of the tonsils, but no discrete mass, inflammatory change, or associated adenopathy. ?? Otherwise negative. No foci of increased enhancement. Normal flow voids in the upper neck and inferior brain. The paranasal sinuses and mastoid air cells are clear. Normal appearance of the parotid and submandibular glands. No abnormal osseous signal. Electronically signed by: ?? Diane Reeves MD [phone] 06-Feb-2010 14:20 ?Nilo VARGAS [id number] ([id number]) 06-Feb-2010 14:20 Procedure Note Diane Reeves M.D. - 02/16/2018 06-Feb-2010 13:55:00 Exam: MRI Hd wo&w Indications: mri head - trigeminal nerve disorder con per rad R v23 abn,need thin cuts skull base, path of 5th nerve ORIGINAL REPORT - 06-Feb-2010 14:20:00 MRI of the face with and without IV gadolinium (trigeminal nerveprotocol). No comparisons. The right trigeminal nerve along its course is normal. Specifically, noabnormal thickening, T2 signal, or enhancement associated with the nerve. Degenerative cystic change in the right TMJ. Prominence of the tonsils,but no discrete mass, inflammatory change, or associated adenopathy. Otherwise negative. No foci of increased enhancement. Normal flow voids inthe upper neck and inferior brain. The paranasal sinuses and mastoid aircells are clear. Normal appearance of the parotid and submandibularglands. No abnormal osseous signal. Electronically signed by: Diane Reeves MD [phone] 06-Feb-2010 14:20 Nilo [id number] ([id number]) 06-Feb-2010 14:20 Brigitte Willams M.D. IMRoyal MRI PROCEDURES * CT Maxillofacial without IV Contrast (01/23/2010 11:44 AM BOX LINER) Anatomical Region Laterality Modality Jaw, Head N/A Computed Tomogra phy 01/23/2010 11:4 4 AM BOX LINER Narrative 01/23/2010 4:49 PM BOX LINER 23-Jan-2010 11:44:00 ??Exam: CT Maxillofacial wo Indications: sinuses - no contrast due to medical condition, pain facial chronic; temporomandibular joint pain, trigeminal neuralgia, patient with right sided facial pain that occurs in right nasal maxillary crease, also right cheek and in right ear, also has TMJ rig ORIGINAL REPORT - 23-Jan-2010 16:49:[address], noncontrast: No paranasal sinus fluid levels. No significant mucosal thickening. Ostiomeatal complex region is patent bilaterally. Minimal rightward nasal septal deviation with small spur. Several tiny radiopaque densities in extracalvarial soft tissues in frontal region bilaterally as well as soft tissues anterior to upper nose of uncertain etiology. ??Mild arterial calcifications. Otherwise unremarkable. Electronically signed by: ?? Tanner Messina M.D. [phone] 23-Jan-2010 16:49 Procedure Note Tanner Messina M.D., M.B.A. - 02/16/2018 23-Jan-2010 11:44:00 Exam: CT Maxillofacial wo Indications: sinuses - no contrast due to medical condition, pain facialchronic; temporomandibular joint pain, trigeminal neuralgia, patient withright sided facial pain that occurs in right nasal maxillary crease, alsoright cheek and in right ear, also has TMJ righ ORIGINAL REPORT - 23-Jan-2010 16:49:[address], noncontrast: No paranasal sinus fluid levels. No significant mucosal thickening.Ostiomeatal complex region is patent bilaterally. Minimal rightward nasalseptal deviation with small spur. Several tiny radiopaque densities inextracalvarial soft tissues in frontal region bilaterally as well as softtissues anterior to upper nose of uncertain etiology. Mild arterialcalcifications. Otherwise unremarkable. Electronically signed by: Tanner Messina M.D. [phone] 23-Jan-2010 16:49 Larry Maza M[address]D. IMG CT PROCEDURES Visit Diagnoses Diagnosis Start Date Preoperative Examination Cardiovascular 09/30/2017 Preoperative Examination Respiratory 09/30/2017 Hernia Hiatal 09/30/2017 Apnea Sleep Obstructive 09/30/2017 Reflux Esophageal 09/30/2017 Primary Osteoarthritis Multiple Sites 09/30/2017 Hypertension Essential Primary 09/30/2017 Hyperlipidemia Mixed 09/30/2017 Preoperative Examination Cardiovascular 09/30/2017 Preoperative Examination Respiratory 09/30/2017 Defect Visual Field 09/30/2017 Hyperlipidemia Mixed 09/30/2017 Loss Hearing Mixed Bilateral 09/30/2017 Hernia Hiatal 09/30/2017 Apnea Sleep Obstructive 09/30/2017 Reflux Esophageal 09/30/2017 Primary Osteoarthritis Multiple Sites 09/30/2017 Hypertension Essential Primary 09/30/2017 Overweight Body Mass Index 25-29.9 Adult 09/30/2017 Immunization Only 09/30/2017 Sun Damaged Skin 09/30/2017 Ptosis Brow 10/03/2017 Dermatochalasis Right Upper Eyelid 10/03/2017 Dermatochalasis Left Upper Eyelid 10/03/2017 Dermatochalasis Left Upper Eyelid 10/14/2017 Dermatochalasis Right Upper Eyelid 10/14/2017 Dermatochalasis Right Upper Eyelid 10/31/2017 Dermatochalasis Right Upper Eyelid 12/26/2017 Dermatochalasis Right Upper Eyelid 01/01/2018 Dermatochalasis Right Upper Eyelid 01/14/2018 Dermatochalasis Right Upper Eyelid 01/27/2018 Dermatochalasis Right Upper Eyelid 02/27/2018 Keratosis Seborrheic 05/05/2018 Dermatitis 05/05/2018 Scab 05/05/2018 Nevi Multiple 05/05/2018 Primary Osteoarthritis Multiple Sites 05/19/2018 Pain Knee Right 05/19/2018 Constipation Slow Transit 05/19/2018 Primary Osteoarthritis Multiple Sites 05/19/2018 Pain Knee Right 05/19/2018 Varicose Vein Lower Extremity Bilateral 05/19/2018 Stress 05/19/2018 Primary Osteoarthritis Multiple Sites 07/02/2018 Pain Low Back Unspecified 07/02/2018 Pain Hip Bilateral 07/02/2018 Pain Knee Bilateral 07/02/2018 Pain Back Thoracic 07/02/2018 Palpitations 07/02/2018 Other Specified Hearing Loss Bilateral 07/02/2018 Annual Medicare Examination Return 07/02/2018 Other Specified Hearing Loss Bilateral 09/02/2018 Sensorineural Hearing Loss Unilateral Left Ear With Restricted Hearing On The Contralateral Side 09/02/2018 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 Right Ear With Restricted Hearing On The Contralateral Side 09/02/2018 Tinnitus Bilateral 09/02/2018 Sensorineural Hearing Loss Unilateral Left Ear With Restricted Hearing On The Contralateral Side 09/19/2018 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 Right Ear With Restricted Hearing On The Contralateral Side 09/19/2018 Tinnitus Bilateral 09/19/2018 Sensorineural Hearing Loss Unilateral Left Ear With Restricted Hearing On The Contralateral Side 10/24/2018 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 Right Ear With Restricted Hearing On The Contralateral Side 10/24/2018 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 Right Ear With Restricted Hearing On The Contralateral Side 12/02/2018 Sensorineural Hearing Loss Unilateral Left Ear With Restricted Hearing On The Contralateral Side 12/02/2018 Screening Mammogram Breast Cancer 12/18/2018 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 Right Ear With Restricted Hearing On The Contralateral Side 12/22/2018 Sensorineural Hearing Loss Unilateral Left Ear With Restricted Hearing On The Contralateral Side 12/22/2018 Loss Hearing Sensorineural Bilateral 01/23/2019 Presence Of External Hearing Aid 01/30/2019 Loss Hearing Sensorineural Bilateral 02/13/2019 Loss Hearing Sensorineural Bilateral 03/06/2019 Loss Hearing Sensorineural Bilateral 03/27/2019 Primary Osteoarthritis Multiple Sites 04/22/2019 Pain Hip Bilateral 04/22/2019 Tinnitus Bilateral 04/22/2019 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 Right Ear With Restricted Hearing On The Contralateral Side 04/22/2019 Sensorineural Hearing Loss Unilateral Left Ear With Restricted Hearing On The Contralateral Side 04/22/2019 Apnea Sleep Obstructive 04/22/2019 Hernia Hiatal 04/22/2019 Primary Osteoarthritis Multiple Sites 04/22/2019 Hypertension Essential Primary 04/22/2019 Gastroesophageal Reflux Disease 04/22/2019 Hyperlipidemia Mixed 04/22/2019 Thrombosis Deep Vein Personal History 04/22/2019 Pain Hip Bilateral 04/22/2019 Hemorrhoids Internal Bleeding 04/22/2019 Paresthesias Feet 04/22/2019 Overweight Body Mass Index 25-29.9 Adult 04/22/2019 Lesion Scalp 04/22/2019 Sun Damaged Skin 04/22/2019 Loss Hearing Mixed Bilateral 04/22/2019 Tinnitus Bilateral 05/04/2019 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 Right Ear With Restricted Hearing On The Contralateral Side 05/04/2019 Sensorineural Hearing Loss Unilateral Left Ear With Restricted Hearing On The Contralateral Side 05/04/2019 Loss Hearing Mixed Bilateral 05/04/2019 Tinnitus Bilateral 05/13/2019 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 Right Ear With Restricted Hearing On The Contralateral Side 05/13/2019 Sensorineural Hearing Loss Unilateral Left Ear With Restricted Hearing On The Contralateral Side 05/13/2019 Loss Hearing Mixed Bilateral 05/13/2019 Primary Osteoarthritis Multiple Sites 05/22/2019 Pain Knee Right 05/22/2019 Primary Osteoarthritis Multiple Sites 05/22/2019 Pain Knee Right 05/22/2019 Loss Hearing Mixed Bilateral 09/09/2019 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 Right Ear With Restricted Hearing On The Contralateral Side 09/09/2019 Sensorineural Hearing Loss Unilateral Left Ear With Restricted Hearing On The Contralateral Side 09/09/2019 Presence Of External Hearing Aid 09/15/2019 Dystrophy Corneal Map Dot Fingerprint 10/22/2019 Intraocular Lens Implant Status Post 10/22/2019 Preoperative Exam 11/05/2019 Hypertension Essential Primary 11/05/2019 Myopia Bilateral 12/14/2019 Loss Hearing Sensorineural Bilateral 01/01/2020 Screening Mammogram Breast Cancer 01/14/2020 Loss Hearing Sensorineural Bilateral 01/22/2020 Rash Face 02/18/2020 Loss Hearing Sensorineural Bilateral 03/30/2020 Loss Hearing Sensorineural Bilateral 04/13/2020 Presence Of External Hearing Aid 04/13/2020 Dermatitis Contact Eyelid Right 06/09/2020 Insomnia 06/09/2020 Sciatica Left 07/19/2020 Radiculopathy Lumbar 07/28/2020 Radiculopathy Lumbar 07/28/2020 Pain Low Back Unspecified 07/28/2020 Pain Low Back Unspecified 08/02/2020 Radiculopathy Lumbar 08/03/2020 Radiculopathy Lumbar 08/22/2020 Radiculopathy Lumbar 08/23/2020 Cellulitis Periorbital 12/09/2020 Dermatitis Allergic Contact 12/20/2020 Cellulitis Periorbital 12/20/2020 Leukocytosis 12/22/2020 Leukocytosis 12/27/2020 Leukocytosis 12/27/2020 Pain Neck 01/04/2021 Presyncope 01/04/2021 Hyperlipidemia Mixed 01/04/2021 Screening Examination Diabetes Mellitus 01/04/2021 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 01/04/2021 Presyncope 01/04/2021 Pain Neck 01/04/2021 Encounter For Preprocedural Laboratory Examination (COVID-19) 01/04/2021 Cervical Spine Disorder 01/04/2021 Apnea Sleep Obstructive 01/04/2021 Gastroesophageal Reflux Disease 01/04/2021 Hypertension Essential Primary 01/04/2021 Hyperlipidemia Mixed 01/12/2021 Screening Examination Diabetes Mellitus 01/12/2021 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 01/16/2021 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 01/16/2021 Insufficiency Venous 01/16/2021 Varicose Vein Lower Extremity With Pain Bilateral 01/16/2021 Restless Leg Syndrome 01/16/2021 Screening Mammogram Breast Cancer 01/17/2021 Pain Neck 01/24/2021 Cervical Spine Disorder 01/24/2021 Spondylosis Cervical Without Myelopathy 01/24/2021 Pain Neck 02/01/2021 Spondylosis Cervical Without Myelopathy 02/01/2021 Encounter For Preprocedural Laboratory Examination (COVID-19) 02/06/2021 Presyncope 02/09/2021 Presyncope 2021 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 03/06/2021 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 05/09/2021 Insufficiency Venous 05/09/2021 Varicose Vein Lower Extremity With Pain Bilateral 05/09/2021 Restless Leg Syndrome 05/09/2021 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 05/10/2021 Loss Hearing Sensorineural Bilateral 05/29/2021 Presence Of External Hearing Aid 06/05/2021 Contact With And (Suspected) Exposure To COVID-19 06/28/2021 Cough Unspecified Type 06/28/2021 Cough Unspecified Type 06/28/2021 Cough Unspecified Type 06/28/2021 Pain Hip Bilateral 06/28/2021 Pain Chest 06/28/2021 Hearing Disorder Bilateral 06/28/2021 Insomnia 06/28/2021 Pain Chest Atypical 07/03/2021 Abnormal Electrocardiogram 07/03/2021 Cough Unspecified Type 07/03/2021 Pain Chest 07/03/2021 Pain Hip Bilateral 07/11/2021 Loss Hearing Sensorineural Bilateral 07/20/2021 Pain Back Lumbar 08/01/2021 Osteoporosis 08/01/2021 Loss Hearing Sensorineural Bilateral 08/25/2021 Loss Hearing Sensorineural Bilateral 08/25/2021 Osteoporosis 09/05/2021 Pain Back Lumbar 09/19/2021 Pain Sacroiliac 09/19/2021 Pain Sacroiliac 10/02/2021 Contact With And (Suspected) Exposure To COVID-19 10/25/2021 Infection Upper Respiratory 10/25/2021 Pharyngitis Streptococcal 10/25/2021 Pain Low Back Unspecified 11/27/2021 Stenosis Spinal Lumbar With Neurogenic Claudication 12/15/2021 Pain Low Back Unspecified 12/15/2021 Stenosis Spinal Lumbar With Neurogenic Claudication 12/18/2021 Dry Eye Syndrome Bilateral 01/02/2022 Intraocular Lens Implant Status Post 01/02/2022 Pain Back Lumbar 01/17/2022 Neuropathy 01/17/2022 Thrombosis Deep Vein Personal History 01/17/2022 Apnea Sleep Obstructive 01/17/2022 Lesion Skin Finger 01/17/2022 Spinal Stenosis Lumbosacral Region 01/19/2022 Spinal Stenosis Lumbosacral Region 01/19/2022 Neuropathy 01/24/2022 Pain Back Lumbar 01/24/2022 Neuropathy 01/24/2022 Cramp Fasciculation Syndrome 01/24/2022 Loss Hearing Sensorineural Bilateral 01/24/2022 Spinal Stenosis Lumbosacral Region 01/26/2022 Spinal Stenosis Lumbosacral Region 01/26/2022 Pain Back 01/26/2022 Neuropathy 02/21/2022 Loss Hearing Sensorineural Bilateral 02/21/2022 Neuropathy 02/27/2022 Cramp Fasciculation Syndrome 02/27/2022 Radiculopathy Lumbar 02/27/2022 Pain Back 04/23/2022 Pain Back 04/24/2022 Mobility Limited 05/10/2022 Pain Back 05/10/2022 Pain Back 05/10/2022 Pain Back 05/11/2022 Pain Back 05/16/2022 Radiculopathy Lumbar 05/16/2022 Dry Eye Syndrome Bilateral 05/28/2022 Keratitis Superficial Bilateral 05/28/2022 Intraocular Lens Implant Status Post 05/28/2022 Fatigue 08/21/2022 Fatigue 08/21/2022 Myalgia 08/21/2022 Diarrhea 08/21/2022 Dermatitis Eyelid Left 08/21/2022 Hypertension Essential Primary 10/03/2022 Apnea Sleep Obstructive 10/17/2022 Hypertension Essential Primary 10/17/2022 Neuropathy 10/17/2022 Apnea Sleep Obstructive 10/26/2022 Procedure And Treatment Not Carried Out Due To Patient Leaving Prior To Being Seen By Health Care Provider 10/31/2022 Hypertension Essential Primary 10/31/2022 Hyperlipidemia Mixed 10/31/2022 Lesion Scalp 10/31/2022 Radiculopathy Lumbar 10/31/2022 Neuropathy 10/31/2022 Hypertension Essential Primary 11/02/2022 Pain Neck Mechanical 11/15/2022 Spondylosis Cervical Without Myelopathy 11/15/2022 Loss Hearing Sensorineural Bilateral 11/22/2022 Spondylosis Cervical Without Myelopathy 11/27/2022 Pain Neck Mechanical 11/27/2022 Lesion Scalp 12/02/2022 Apnea Sleep Obstructive 12/04/2022 Insomnia 12/04/2022 Pain Neck Mechanical 12/04/2022 Spondylosis Cervical Without Myelopathy 12/04/2022 Pain Neck Mechanical 12/18/2022 Spondylosis Cervical Without Myelopathy 12/18/2022 Pain Neck Mechanical 12/20/2022 Spondylosis Cervical Without Myelopathy 12/20/2022 Dermatitis Eyelid Left 12/21/2022 Dermatitis Eyelid Right 12/21/2022 Keratosis Seborrheic Inflamed 12/21/2022 Apnea Sleep Obstructive 12/27/2022 Hypertension Essential Primary 12/27/2022 Apnea Sleep Obstructive 12/26/2022 Dry Eye Syndrome Bilateral 01/01/2023 Intraocular Lens Implant Status Post 01/01/2023 Hypertension Essential Primary 02/05/2023 Screening Examination Diabetes Mellitus 02/05/2023 Infection Urinary Tract Personal History 02/05/2023 Pain Knee Left 02/05/2023 Pain Hip Left 02/05/2023 Annual Medicare Examination Return 02/05/2023 Hypertension Essential Primary 02/05/2023 Screening Examination Diabetes Mellitus 02/05/2023 New Daily Persistent Headache (NDPH) 02/05/2023 Reaction Stress 02/05/2023 Infection Urinary Tract Personal History 02/05/2023 Pain Knee Left 02/05/2023 Pain Hip Left 02/05/2023 Nevus Atypical 02/05/2023 Primary Osteoarthritis Knee Left 02/06/2023 Pain Knee Left 02/06/2023 Pain Hip Left 02/06/2023 New Daily Persistent Headache (NDPH) 02/19/2023 Dry Eye Syndrome Bilateral 03/12/2023 Intraocular Lens Implant Status Post 03/12/2023 Reaction Stress 03/20/2023 Radiculopathy Lumbar 03/20/2023 Insomnia 03/20/2023 Nevus Atypical 03/20/2023 Apnea Sleep Obstructive 03/22/2023 Hypertension Essential Primary 04/03/2023 Screening Mammogram Breast Cancer 04/30/2023 Pain Hand Right 05/16/2023 Pain Hand Right 05/16/2023 Screening Mammogram Breast Cancer 05/24/2023 Abnormal Computed Tomography 05/28/2023 Pain Hand Right 05/28/2023 Hypertension Essential Primary 05/28/2023 Pain Hand Right 05/28/2023 Education Need [Z71.9 (ICD-10-CM)] 06/04/2023 Pain Hand Right 06/04/2023 Pain Hand Right 06/04/2023 Abnormal Computed Tomography 06/04/2023 Pain Hand Right 06/04/2023 Abnormal Computed Tomography 06/04/2023 Pain Hand Right 06/04/2023 Pain Hand Right 06/05/2023 Pain Hand Right 06/05/2023 Pain Hand Right 06/19/2023 Aftercare Orthopedic Postoperative Non-Injury 06/19/2023 Reaction Stress 06/19/2023 Radiculopathy Lumbar 06/28/2023 Pain Low Back Chronic 06/28/2023 Spondylosis Lumbar Without Myelopathy 07/01/2023 Primary Osteoarthritis First Carpometacarpal Joint Right Unilateral 07/18/2023 Pain Low Back Chronic 07/19/2023 Arthritis 07/29/2023 Dysfunction Somatic Pelvic Region 08/02/2023 Pain Low Back Mechanical 08/02/2023 Dysfunction Somatic Pelvic Region 08/27/2023 Pain Low Back Mechanical 08/27/2023 Hematuria 09/17/2023 Dysuria 09/17/2023 Infection Urinary Tract Personal History 09/17/2023 Dysuria 09/17/2023 Hematuria 09/17/2023 Pain Knee Left 09/17/2023 Infection Urinary Tract Personal History 09/17/2023 Dysuria 09/17/2023 Hematuria 09/17/2023 Pain Knee Left 09/17/2023 Aftercare Orthopedic Postoperative Non-Injury 09/17/2023 Hematuria 09/19/2023 Infection Urinary Tract Personal History 09/23/2023 Dysuria 09/23/2023 Urinary Urge Incontinence 09/23/2023 Dysfunction Somatic Pelvic Region 09/25/2023 Pain Low Back Mechanical 09/25/2023 Primary Osteoarthritis Knee Left 10/02/2023 Pain Knee Left 10/02/2023 Dysfunction Somatic Pelvic Region 10/29/2023 Pain Low Back Mechanical 10/29/2023 Intraocular Lens Implant Status Post 11/20/2023 Dry Eye Syndrome Bilateral 11/20/2023 Primary Osteoarthritis Hand Left 11/28/2023 Primary Osteoarthritis Hand Right 11/28/2023 Dysfunction Somatic Lumbar Region 12/06/2023 Pain Low Back Mechanical 12/06/2023 Dysfunction Somatic Lumbar Region 01/06/2024 Dysfunction Somatic Sacral Region 01/06/2024 Dysfunction Somatic Thoracic Region 01/06/2024 Pain Low Back Mechanical 01/06/2024 Primary Osteoarthritis Hand Right 01/07/2024 Apnea Sleep Obstructive 01/29/2024 Dysfunction Somatic Lumbar Region 01/29/2024 Dysfunction Somatic Thoracic Region 01/29/2024 Dysfunction Somatic Sacral Region 01/29/2024 Pain Low Back Mechanical 01/29/2024 Other Acute Sinusitis 02/04/2024 Dysfunction Somatic Thoracic Region 02/19/2024 Dysfunction Somatic Lumbar Region 02/19/2024 Dysfunction Somatic Sacral Region 02/19/2024 Strain Of Muscle And Tendon Of Back Wall Of Thorax Initial 02/19/2024 Strain Of Muscle Fascia And Tendon Of Lower Back Initial 02/19/2024 Primary Osteoarthritis Hand Right 02/20/2024 Dysfunction Somatic Thoracic Region 03/23/2024 Dysfunction Somatic Lumbar Region 03/23/2024 Dysfunction Somatic Sacral Region 03/23/2024 Strain Of Muscle And Tendon Of Back Wall Of Thorax Initial 03/23/2024 Strain Of Muscle Fascia And Tendon Of Lower Back Initial 03/23/2024 Intraocular Lens Implant Status Post 03/26/2024 Detachment Vitreous Posterior Bilateral 03/26/2024 Floater Vitreous Bilateral 03/26/2024 Dysfunction Somatic Thoracic Region 04/27/2024 Dysfunction Somatic Lumbar Region 04/27/2024 Dysfunction Somatic Sacral Region 04/27/2024 Pain Low Back Mechanical 04/27/2024 Pain Myofascial 04/27/2024 Pain Thumb Right 05/11/2024 Pain Generalized Abdominal 05/11/2024 Pain Generalized Abdominal 05/11/2024 Pain Generalized Abdominal 05/11/2024 Pain Thumb Right 05/11/2024 Pain Thumb Right 05/29/2024 Pain Thumb Right 05/29/2024 Pain Generalized Abdominal 06/05/2024 Dysfunction Somatic Lumbar Region 06/08/2024 Pain Low Back Mechanical 06/08/2024 Pain Myofascial 06/08/2024 Dysfunction Somatic Pelvic Region 07/27/2024 Dysfunction Somatic Thoracic Region 07/27/2024 Dysfunction Somatic Lumbar Region 07/27/2024 Pain Low Back Mechanical 07/27/2024 Pain Myofascial 07/27/2024 Care Teams Broke Beater Relationship Specialty Start Date End Date Cheyanne Head M.D. [address] [place] [phone] PCP - General 12/29/20
--- OUTSIDE RECORDS SUMMARY | 2024-08-15 01:21 | XMS_ITS | Encounter Summary ---
Author Organization [facility] Address [address] [place] [address] Care Team Providers Care Entry Level Buyer Name Role Phone Cheyanne Head M.D. Primary Care Provider [phone] Encounter Details Date Type Department Care Team (Late st Contact Info) Description 07/12/2024 CPAP Download Remote Patient Monitoring [facility] [address] [place] [address] [facility], Provider, M.B., Ph.D. Social History Tobacco Use Types Packs/Day Years Used Date Smoking Tobacco: Never Passive Smoke Exposure: Past Smokeless Tobacco: Never Alcohol Use Standard Drinks/Week Comments Yes 0 (1 standard drink = 0.6 oz pur e alcohol) occasionally has a drink [facility] [employer] Answer Date Recorded In the past 12 months has [place], gas, oil, or water [employer] threatened to shut off services in your [...] often do you attend chur ch or mandaen services? More than 4 times per year 02/05/2023 Do you belong to any clubs o r organizations such as rastafari groups, unions, fraternal or athletic groups, or [...] Answer Date Recorded PHQ-2 Score 2 08/10/2024 [facility] Occupat [facility] - Occupational Stress Questionnaire Answer [...] your living situation today? I have a [facility] place to live 05/29/2024 Education Answer Date Recorded What is the highest level of school you have completed or the highest degree you have received? Master's degree (e.g., MA, MS, [place], MEd, DIRECTOR DRUG, JUAN A) 05/22/2019 Sex and Gender Information Value Date Recorded Sex Assigned at Female 09/14/2021 5:55 PM CDT Gender Identity Female 08/18/2020 9:16 AM CDT Sexual Orientation Straight 08/18/2020 9: 16 AM CDT documented as of this encounter Plan of Treatment Upcoming Encounters Date Type Department Care Team (Late st Contact Info) Description 09/04/2024 2:00 PM CDT Office Visit Department of Spine in [place], [place] [address] [place] [address] Devin Mccormack D.C. [address] [place] [address] documented as of this encounter Visit Diagnoses Not on filedocumented in this encounter Additional Health Concerns Assessment Noted Time PHQ-9 Depression Total Score: 5 06/08/20 24 1:50 PM CDT documented as of this encounter Care Teams Entry Level Buyer Relationship Specialty Start Date End Date Cheyanne Head M.D. [address] [place] [address] [place] [phone] PCP - General 12/29/20 documented as of this encounter
--- OUTSIDE RECORDS SUMMARY | 2024-08-15 01:21 | XMS_ITS | Encounter Summary ---
Author Organization [facility] Address [address] [place] [address] Care Team Providers Care Medtronics Technician Name Role Phone Cheyanne Head M.D. Primary Care Provider Encounter Details Date Type Department Care Team (Late st Contact Info) Description 08/12/2024 CPAP Download Remote Patient Monitoring [facility] [address] [place] [address] [facility], Provider, M.B., Ph.D. Social History Tobacco Use Types Packs/Day Years Used Date Smoking Tobacco: Never Passive Smoke Exposure: Past Smokeless Tobacco: Never Alcohol Use Standard Drinks/Week Comments Yes 0 (1 standard drink = 0.6 oz pur e alcohol) occasionally has a drink [facility] [employer] Answer Date Recorded In the past 12 months has [employer], gas, oil, or water [employer] threatened to shut off services in your [...] often do you attend chur ch or orthodox services? More than 4 times per year 02/05/2023 Do you belong to any clubs o r organizations such as temple groups, unions, fraternal or athletic groups, or [...] Answer Date Recorded PHQ-2 Score 2 08/10/2024 [facility] of Occupat ional [facility] - Occupational Stress Questionnaire Answer Date [...] your living situation today? I have a [facility] place to live 05/29/2024 Education Answer Date Recorded What is the highest level of school you have completed or the highest degree you have received? Master's degree (e.g., MA, MS, [place], MEd, CAD DRAFTER, JUAN A) 05/22/2019 Sex and Gender Information Value Date Recorded Sex Assigned at Female 09/14/2021 5:55 PM CDT Gender Identity Female 08/18/2020 9:16 AM CDT Sexual Orientation Straight 08/18/2020 9: 16 AM CDT documented as of this encounter Plan of Treatment Upcoming Encounters Date Type Department Care Team (Late st Contact Info) Description 09/04/2024 2:00 PM CDT Office Visit Department of Spine in [place], [place] [address] [place] [address] Devin Mccormack D.C. [address] [place] [address] documented as of this encounter Visit Diagnoses Not on filedocumented in this encounter Additional Health Concerns Assessment Noted Time PHQ-9 Depression Total Score: 3 08/10/20 24 12:34 PM CDT documented as of this encounter Care Teams Medtronics Technician Relationship Specialty Start Date End Date Cheyanne Head M.D. [address] [place] [address] [place] [phone] PCP - General 12/29/20 documented as of this encounter
--- OUTSIDE RECORDS SUMMARY | 2024-08-15 01:22 | XMS_ITS | Encounter Summary ---
Author Organization [facility] Address [address] [place] [address] Care Team Providers Care Billing Associate Name Role Phone Cheyanne Head M.D. Primary Care Provider Reason for Referral * MRI/CAT/PET Scan (Routine) - Closed Specialty Diagnoses / Procedures Referred By Marivelac yajaira Referred To Contact Radiology Diagnoses Pain Generalized Abdominal Procedures CT Abdomen Pelvis with IV Contrast Junie Olmedo P.AReina-CReina [address] [place] [phone] [facility] Referral ID Status Reason Start Date Expiration Date Visits Re quested Visits Authorized [id number] Closed 05/12/2024 05/12/2025 1 1 Reason for Visit * MRI/CAT/PET Scan (Routine) - Closed Specialty Diagnoses / Procedures Referred By Tong gates Referred To Contact Radiology Diagnoses Pain Generalized Abdominal Procedures CT Abdomen Pelvis with IV Contrast Junie Olmedo P.ADorisCReina [address] [place] [phone] [facility] Region Referral ID Status Reason Start Date Expiration Date Visits Re quested Visits Authorized [id number] Closed 05/12/2024 05/12/2025 1 1 Encounter Details Date Type Department Care Team (Latest Contact Info) Description 06/05/2024 9:11 AM CDT - 06/05/2024 11:59 PM CDT Hospital Encounter Department of Radiology in [place], [place] [address] [place] [address] Junie Olmedo P.A.-C. [address] [place] [address] Pain Generalized Abdominal Discharge Disposition: Home or Self Care Social History Tobacco Use Types Packs/Day Years Used Date Smoking Tobacco: Never Passive Smoke Exposure: Past Smokeless Tobacco: Never Alcohol Use Standard Drinks/Week Comments Yes 0 (1 standard drink = 0.6 oz pur e alcohol) occasionally has a drink [facility] PVPower Answer Date Recorded In the past 12 months has th e electric, gas, oil, or water company threatened to shut off services in your [...] declined 02/05/2023 How often do you attend [facility] or congregation services? More than 4 times per year [...] 02/05/2023 PHQ-2 Answer Date Recorded PHQ-2 Score 1 04/24/2024 [facility] Questionnaire Answer Date [...] Recor ded PHQ-9 Total Score (max 27) 5 06/07 /2024 Nutrition Answer Date Recorded On average, how [...] your living situation today? I have a [facility] place to live 05/29/2024 Education Answer Date Recorded What is the highest level of school you have completed or the highest degree you have received? Master's degree (e.g., MA, MS, Colby, MEd, EXPERIMENTAL BOX TESTER, JUAN A) 05/22/2019 Sex and Gender Information Value Date Recorded Sex Assigned at Female 09/14/2021 5:55 PM CDT Gender Identity Female 08/18/2020 9:16 AM CDT Sexual Orientation Straight 08/18/2020 9: 16 AM CDT documented as of this encounter Medications at Time of Discharge Medication Sig Dispensed Refills Start Date End Date acetaminophen (TYLENOL) 500 mg tablet Take 2 tablets (1,000 mg total) by mouth every 6 (six) hours as needed for pain. 80 tablet 06/05/2023 artificial tears,hypromellose, (ISOPTO TEARS) 0.3 % ophthalmic solution 1 drop as needed. cholecalciferol (for_VITAMIN D3) 2,000 Unit capsule Take 2,000 Units by mouth daily. 04/18/2010 cycloSPORINE (Restasis) 0.05 % ophthalmic emulsion Administer 1 drop into both eyes 2 (two) times a day. 180 each 11 01/01/2023 diclofenac sodium (VOLTAREN) 1 % gel Apply 4 g topically 4 (four) times a day as needed (to areas of arthritic pain). Apply to right thumb 100 g 11 11/28/2023 DME CPAPIndications:Apnea Sleep Obstructive DME Order 1 each 01/29/2024 escitalopram (LEXAPRO) 10 mg tablet take 1 tablet every day 90 tablet 3 02/06/2024 estradioL (ESTRACE) 0.1 mg/g (0.01%) vaginal cream Insert 1 g into the vagina 3 (three) times a week. Use nightly for first 14 days 42 g 3 03/20/2024 fluorometholone (FML) 0.1 % ophthalmic suspension as needed. 02/26/2023 fluticasone propionate (FLONASE) 50 mcg/actuation nasal sprayIndications:Other Acute Sinusitis Administer 2 sprays into each nostril 2 (two) times a day. 48 g 02/04/2024 gabapentin (NEURONTIN) 300 mg capsule TAKE 1 CAPSULE TWICE DAILY 180 capsule 3 11/12/2023 GLUCOSAMINE/CHONDROITI N SULF A (GLUCOSAMINE-CHONDROIT IN ORAL) Take by mouth every morning. 02/04/2015 metoprolol succinate (TOPROL-XL) 25 mg 24 hr tablet TAKE 1 TABLET DAILY. DO NOT CRUSH OR CHEW. 90 tablet 3 05/04/2024 MULTIVITAMIN ORAL daily. 07/24/2017 omeprazole (PriLOSEC) [address] capsule Take 1 capsule (20 mg total) by mouth daily. 90 capsule 3 11/12/2023 pravastatin (PRAVACHOL) 20 mg tablet Take 1 tablet (20 mg total) by mouth daily. 90 tablet 3 11/12/2023 traMADoL (ULTRAM) 50 mg tabletIndications:Prol onged Acute Pain/Traumatic Injury Take 1 tablet (50 mg total) by mouth every 6 (six) hours as needed for pain or severe pain or score 7-10 of 10 Indications: Prolonged Acute Pain/Traumatic Injury. 8 tablet 06/05/2023 triamcinolone (Kenalog) 0.1 % cream 05/15/2024 documented as of this encounter Plan of Treatment Upcoming Encounters Date Type Department Care Team (Late st Contact Info) Description 09/04/2024 2:00 PM CDT Office Visit Department of Spine in [place], [place] [address] [place] [address] Devin Mccormack D.C. [address] [place] [address] documented as of this encounter Procedures Procedure Name Priority Date/Time Associated Diagnosis Comments CT ABDOMEN PELVIS WITH IV CONTRAST RAD - Routine (most inpatients and all outpatients) 06/05/2024 9:47 AM CDT Pain Generalized Abdominal documented in this encounter Results * CT Abdomen Pelvis with IV [...] acute intra-abdominal or pelvic abnormality present. Junie SHUKLA CT PROCEDURES documented in this encounter Visit Diagnoses Diagnosis Pain Generalized Abdominal documented in this encounter Administered Medications Inactive Administered Medications - up to 3 most recent administrations Medication Order MAR Action Action Date Dose Rate Site iohexoL 300 mg iodine/mL solution 132 mL (Omnipaque) 132 mL, intravenous, Once in imaging, contrast, Starting on Sat06/05/24 at 0947, For 1 dose Given 06/05/2024 9:43 AM CDT 132 mL sodium chloride 0.9 % flush 50 mL 50 mL, intravenous, Once, On Sat06/05/24 at 1015, For 1 dose Given 06/05/2024 9:43 AM CDT 83 mL sodium chloride 0.9 % injection 10 mL 10 mL, intravenous, Once, On Sat06/05/24 at 1015, For 1 dose Given 06/05/2024 9:43 AM CDT 10 mL documented in this encounter Additional Health Concerns Assessment Noted Time PHQ-9 Depression Total Score: 5 04/24/20 24 12:47 PM CDT documented as of this encounter Care Teams Billing Associate Relationship Specialty Start Date End Date Cheyanne Head M.D. [address] [place] [phone] PCP - General 12/29/20 documented as of this encounter
--- OUTSIDE RECORDS SUMMARY | 2024-08-15 01:22 | XMS_ITS | Encounter Summary ---
Author Organization [facility] Address [address] [place] [phone] Care Team Providers Care Basket Maker Name Role Phone Cheyanne Head M.D. Primary Care Provider [phone] Reason for Visit * Physical Therapy (Routine) - Closed Specialty Diagnoses / Procedures Referred By Tong gates Referred To Contact Diagnoses Pain Thumb Right Procedures PT or OT eval and treat (first available) Obi Renee M.D. [address] [place] [phone] [facility] Referral ID Status Reason Start Date Expiration Date Visits Re quested Visits Authorized [id number] Closed 05/29/2024 05/29/2025 1 1 Encounter Details Date Type Department Care Team (Latest Contact Info) Description 05/29/2024 4:00 PM CDT Comprehensive Visit Department of Physical Medicine and Rehabilitation in [place], [place] [address] [place] [phone] Obi Renee M.D. [address] [place] [phone] Karl Drake C.HCain., O.T. [address] [place] [phone] Pain Thumb Right Social History Tobacco Use Types Packs/Day Years Used Date Smoking Tobacco: Never Passive Smoke Exposure: Past Smokeless Tobacco: Never Alcohol Use Standard Drinks/Week Comments Yes 0 (1 standard drink = 0.6 oz pur e alcohol) occasionally has a drink [facility] Utilities Answer Date Recorded In the past [...] How often do you attend chur or jehovah's witness services? More than 4 times per year [...] Answer Date Recorded PHQ-2 Score 1 04/24/2024 [facility] - Occupational Stress Questionnaire Answer Date [...] ded PHQ-9 Total Score (max 27) 5 04/24 Nutrition Answer Date Recorded On average, how [...] Master's degree (e.g., MA, MS, Colby, MEd, BURR MACHINE OPERATOR, JUAN A) 05/22/2019 Sex and Gender Information Value Date Recorded Sex Assigned at Female 09/14/2021 5:55 PM CDT Gender Identity Female 08/18/2020 9:16 AM CDT Sexual Orientation Straight 08/18/2020 9: 16 AM CDT documented as of this encounter Progress Notes * Karl Drake C.H.T., O.T. - 05/29/2024 4:00 PM CDT Error documented in this encounter Plan of Treatment Upcoming Encounters Date Type Department Care Team (Late st Contact Info) Description 09/04/2024 2:00 PM CDT Office Visit Department of Spine in [place], [place] [address] [place] [address] Devin Mccormack D.C. [address] [place] [phone] documented as of this encounter Visit Diagnoses Diagnosis Pain Thumb Right documented in this encounter Additional Health Concerns Assessment Noted Time PHQ-9 Depression Total Score: 5 04/24/20 24 12:47 PM CDT documented as of this encounter Care Teams Basket Maker Relationship Specialty Start Date End Date Cheyanne Head M.D. [address] [place] [phone] PCP - General 12/29/20 documented as of this encounter
--- OUTSIDE RECORDS SUMMARY | 2024-08-15 01:22 | XMS_ITS | Encounter Summary ---
Author Organization [facility] Address [address] [place] [address] Care Team Providers Care Fire Equipment Operator Name Role Phone Cheyanne Head M.D. Primary Care Provider Reason for Referral * Outpatient (Routine) - Closed Specialty Diagnoses / Procedures Referred By Tong gates Referred To Contact Devin Mcnair D.C. [address] [place] [phone] [facility] Referral ID Status Reason Start Date Expiration Date Visits Re quested Visits Authorized [id number] Closed 06/08/2024 12/08/2025 1 1 Reason for Visit * Outpatient (Routine) - Closed Specialty Diagnoses / Procedures Referred By Tong gates Referred To Contact Devin Mcnair D.C. [address] [place] [address] [facility] Referral ID Status Reason Start Date Expiration Date Visits Re quested Visits Authorized [id number] Closed 04/27/2024 10/27/2025 1 1 Encounter Details Date Type Department Care Team (Late st Contact Info) Description 06/08/2024 3:00 PM CDT Office Visit Department of Spine in [place], [place] [address] [place] [phone] Devin Mccormack D.C. [address] [place] [address] Dysfunction Somatic Lumbar Region (Primary Dx); Pain Low Back Mechanical; Pain Myofascial Social History Tobacco Use Types Packs/Day Years Used Date Smoking Tobacco: Never Passive Smoke Exposure: Past Smokeless Tobacco: Never Alcohol Use Standard Drinks/Week Comments Yes 0 (1 standard drink = 0.6 oz pur e alcohol) occasionally has a drink [facility] fl3ur Answer Date Recorded In the past 12 months has th e [employer], gas, oil, or water [employer] threatened to shut off services in your [...] How often do you attend chur or advent services? More than 4 times per year 02/05/2023 Do you belong to any clubs o r organizations such as presybeterian groups, unions, fraternal or athletic groups, or [...] PHQ-2 Answer Date Recorded PHQ-2 Score 0 06/08/2024 [facility] - Occupational Stress Questionnaire Answer Date [...] money to buy more. Never true 05/29/20 Within the past 12 months, t he [...] ded PHQ-9 Total Score (max 27) 5 06/08 Nutrition Answer Date Recorded On average, how [...] Master's degree (e.g., MA, MS, Colby, MEd, BOAT MECHANIC, JUAN A) 05/22/2019 Sex and Gender Information Value Date Recorded Sex Assigned at Female 09/14/2021 5:55 PM CDT Gender Identity Female 08/18/2020 9:16 AM CDT Sexual Orientation Straight 08/18/2020 9: 16 AM CDT documented as of this encounter Progress Notes * Devin Mccormack D.C. - 06/08/2024 3:00 PM CDT Images from the original note were not included. SUBJECTIVE HISTORY OF PRESENT ILLNESS Janie is a 84 y.o. female who presents today for recheck of lower back pain. It has been about 6 weeks since her last visit. She thinks she continues to make improvement. She has been active with regular exercise. 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 She describes some residual back pain and stiffness and points to the lumbar region as the location of residual symptoms. REVIEW OF SYSTEMS Negative for numbness, tingling, or weakness. Negative for changes in bowel or bladder function. Negative for recent fever or chills. OBJECTIVE PHYSICAL EXAM GENERAL: 84 y.o. female in no acute distress. MUSCULOSKELETAL EXAM: Slump test is negative bilaterally. Side bending is provocative of contralateral pain in the lumbar region. Myofascial restriction lumbar paraspinal connective tissue bilaterally at the level of L3-5 and the medial aspect of the quadratus lumborum along the iliac crest. Soft tissue changes are consistent with reproduction of symptom complaint. There is restriction noted at the L3-L5 motion segments. NEUROLOGICAL EXAM: Gross neurological function is normal in the extremities. Observation of gait and balance is within normal limits. ASSESSMENT / PLAN #1 Dysfunction Somatic Lumbar Region #2 Pain Low Back Mechanical #3 Pain Myofascial Treatment today consisted of diversified manual manipulation to the L3-L5 motion segments utilizingmanual flexion distraction. Fascial manipulation was performed to the involved connective tissues as indicated in the physical examination. No complications associated with today's visit. She will continue with her regular exercise routine. Recheck in 6 weeks. PRO Scores: 01/29/2024 05/29/2024 06/08/2024 [facility] PROMIS-CAT: Anxiety 58 (mild) PROMIS-CAT: Depression 50 (within normal limits) PROMIS-CAT: Fatigue 59 (mild) PROMIS-CAT: Sleep disturbance 51 (within normal limits) PROMIS-CAT: Pain interference 54 (within normal limits) PROMIS-CAT: Ability to participate social roles 57 (within normal limits) PROMIS-CAT: Physical function 43 (mild dysfunction) PROMIS SHORT FORM (Pain Intensity): Pain rating (avg.) 5 documented in this encounter Plan of Treatment Upcoming Encounters Date Type Department Care Team (Late st Contact Info) Description 09/04/2024 2:00 PM CDT Office Visit Department of Spine in [place], [place] [address] [place] [address] Devin Mccormack D.C. [address] [place] [address] Scheduled Referrals Name Type Priority Associated Diagnoses Orde r Schedule Spine office visit (clinic) Outpatient Referral Routine Expected: 07/23/2024 (Approximate), Expires: 09/08/2025 documented as of this encounter Visit Diagnoses Diagnosis Dysfunction Somatic Lumbar Region- Primary Pain Low Back Mechanical Pain Myofascial documented in this encounter Additional Health Concerns Assessment Noted Time PHQ-9 Depression Total Score: 5 06/08/20 24 1:50 PM CDT documented as of this encounter Care Teams Fire Equipment Operator Relationship Specialty Start Date End Date Cheyanne Head M.D. [address] [place] [phone] PCP - General 12/29/20 documented as of this encounter
--- OUTSIDE RECORDS SUMMARY | 2024-08-15 01:22 | XMS_ITS | Encounter Summary ---
Author Organization [facility] Address [address] [place] [address] Care Team Providers Care Soil Scientist Name Role Phone Cheyanne Head M.D. Primary Care Provider Encounter Details Date Type Department Care Team (Latest Contact Info) Description 05/11/2024 9:04 AM CDT - 05/11/2024 9:13 AM CDT Hospital Encounter Department of Laboratory Medicine in [place] [address] [place] [address] Junie Olmedo, P.AReina-CReina [address] [phone] Pain Generalized Abdominal Discharge Disposition: Home or Self Care Social History Tobacco Use Types Packs/Day Years Used Date Smoking Tobacco: Never Passive Smoke Exposure: Past Smokeless Tobacco: Never Alcohol Use Standard Drinks/Week Comments Yes 0 (1 standard drink = 0.6 oz pur e alcohol) occasionally has a drink Humiliation, Afraid, Rape, and Kick questionnair e [...] How often do you attend chur or jew services? More than 4 times per year 02/05/2023 Do you belong to any clubs o r organizations such as mormon groups, unions, fraternal or athletic groups, or [...] Answer Date Recorded PHQ-2 Score 1 04/24/2024 [facility] - Occupational Stress Questionnaire Answer Date Recorded [...] to strenuous exercise (like a brisk walk)? 5 days 02/05/2023 On average, how many minutes do you engage in exercise at this level? 60 min 02/05/2023 Hunger Vital Sign Answer Date Recorded Within the past 12 months, y ou worried that your food would run out before you got the money to buy more. Never true 02/06/20 23 Within the past 12 months, t he food you bought just didn't last and you didn't have money to get more. Never true 02/05/2023 PRAPARE - Transportation Answer Date Re corded In the past 12 months, has l ack of transportation kept you from medical appointments or from getting medications? No 01/17 In the past 12 months, has l ack of transportation kept you from meetings, work, or from getting things needed for daily living? No 02/05/2023 Housing Stability Vital Sign Answer Skinny e Recorded In the last 12 months, was t here a time when you were not able to pay the mortgage or rent on time? No 02/05/2023 In the last 12 months, how many places have you lived? 1 02/05/2023 In the last 12 months, was t here a time when you did not have a steady place to sleep or slept in a half-way (including now)? No 02/05/2023 Depression Answer Date Recor ded PHQ-9 Total Score (max 27) 5 04/24 Nutrition Answer Date Recorded On average, how many serving s of fruits and vegetables do you eat per day (serving size is equal to 1 cup or approximately the size of a tennis ball)? 2-3 02/05/2023 Dental Answer Date Recorded Dental: Regular Dentist Yes 05/23/20 Employment Answer Date Recorded Employment status Retired 02/05/2023 Education Answer Date Recorded What is the highest level of school you have completed or the highest degree you have received? Master's degree (e.g., MA, MS, Colby, MEd, MOBILE MARKETING SPECIALIST, JUAN A) 05/22/2019 Sex and Gender Information [...] Prolonged Acute Pain/Traumatic Injury. 8 tablet 06/05/2023 Ventolin HFA 90 mcg/actuation inhaler Inhale 2 puffs every 4 (four) hours as needed for wheezing or shortness of breath. 18 g 3 08/01/2021 documented as of this encounter Plan of Treatment Upcoming Encounters Date Type Department Care Team (Late st Contact Info) Description 09/04/2024 2:00 PM CDT Office Visit Department of Spine in [place], [place] [address] [place] [address] Devin Mccormack D.C. [address] [place] [address] documented as of this encounter Procedures Procedure Name Priority Date/Time Associated Diagnosis Comments URINALYSIS WITH MICROSCOPIC Routine 05/11/2024 9:09 AM CDT Pain Generalized Abdominal documented in this encounter Results * (ABNORMAL) Urinalysis, with Microscopic: Urine, Midstream [...] 8.0 05/11/2024 9:22 AM CDT FB60 Specific Mather 1.020 1.001 - 1.035 05/11/2024 9:22 AM [...] Junie Olmedo P.A.-C. LAB URINE ORDERABL ES [facility] [address] [place] [address], [facility] FB60 [facility] [place] [address] [place] [address] documented in this encounter Visit Diagnoses Diagnosis Pain Generalized Abdominal documented in this encounter Additional Health Concerns Assessment Noted Time PHQ-9 Depression Total Score: 5 04/24/20 24 12:47 PM CDT documented as of this encounter Care Teams Soil Scientist Relationship Specialty Start Date End Date Cheyanne Head M.D. [address] [place] [phone] PCP - General 12/29/20 documented as of this encounter
--- OUTSIDE RECORDS SUMMARY | 2024-08-15 01:22 | XMS_ITS | Encounter Summary ---
Author Organization [facility] Address [address] [place] [address] Care Team Providers Care Income Tax Expert Name Role Phone Cheyanne Head M.D. Primary Care Provider Encounter Details Date Type Department Care Team (Late st Contact Info) Description 07/12/2016 Historical Ophthalmology [facility] Roberto Jara Jr., M.D. [address] [place] [phone] Social History Tobacco Use Types Packs/Day Years Used Date Smoking Tobacco: Never Assessed Sex and Gender Information Value Date Recorded Sex Assigned at Female 09/14/2021 5:55 PM CDT Gender Identity Female 08/18/2020 9:16 AM CDT Sexual Orientation Straight 08/18/2020 9: 16 AM CDT documented as of this encounter Progress Notes * Roberto Jara M.D. - 07/12/2016 10:50 AM CDT Eye General CHIEF COMPLAINT removal of lesions on left lids HISTORY OF PRESENT ILLNESS Here for removal of lesion on her left eyelids. Consent obtained. IMPRESSION / REPORT / PLAN #1 3 skin tags/cysts around left eye, superior lid margin cyst in visual axis Procedure: Informed consent was obtained. Skin around left eye was cleaned with alcohol. All 3 sites (medial upper eyelid, medial lower eyelid, and lateral lower eyelid, all left eye), were injected with 0.25 cc of Xylocaine 2%. Area was well anesthetized prior to starting procedure. At the slit lamp, using an 11 blade, the superior medial cyst/skin tag that was in visual axis was removed. Using Florinda scissors and 0.5 forceps, the two lower lid lesions were indvidually grasped and excised. There was no bleeding, so no cautery was used. Erythromycin oph ointment applied to all3 sites. Patient D/C'd to home in good condition. RTO 1 week/prn. There were no known complications. Maxitrol ointment (ophthalmic) to OS excision sites BID x 1 week DIAGNOSIS #1 3 skin tags/cysts around left eye, superior lid margin cyst in visual axis CDM Reports - EYEGEN Id: [id number] Status: Fnl documented in this encounter Plan of Treatment Upcoming Encounters Date Type Department Care Team (Late st Contact Info) Description 09/04/2024 2:00 PM CDT Office Visit Department of Spine in [place], [place] [address] [place] [address] Devin Mccormack D.C. [address] [place] [address] documented as of this encounter Visit Diagnoses Not on filedocumented in this encounter Additional Health Concerns Infection Onset Date Last Indicated Resolved Time COVID19 Pending 02/05/2021 02/06/2021 02/06/2021 8 :31 PM CDT COVID19 Pending 06/28/2021 06/28/2021 06/29/2021 1 :20 AM CDT COVID19 Pending 10/25/2021 10/25/2021 10/26/2021 4 :17 AM RESP THERAPIST COVID19 09/21/2022 09/21/2022 10/11/2022 4:51 AM RESP THERAPIST documented as of this encounter Care Teams Income Tax Expert Relationship Specialty Start Date End Date Cheyanne Head M.D. [address] [place] [phone] PCP - General 12/29/20 documented as of this encounter
--- OUTSIDE RECORDS SUMMARY | 2024-08-15 01:22 | XMS_ITS | Encounter Summary ---
Author Organization [facility] Address [address] [place] [address] Care Team Providers Care Relay Tester Name Role Phone Cheyanne Head M.D. Primary Care Provider Reason for Referral * Outpatient (Routine) - Closed Specialty Diagnoses / Procedures Referred By Tong gates Referred To Contact Diagnoses Pain Thumb Right Procedures DX Thumb Right Junie Olmedo P.A.-Meaghan [address] [place] [address] [facility] Referral ID Status Reason Start Date Expiration Date Visits Re quested Visits Authorized [id number] Closed 05/11/2024 05/11/2025 1 1 Reason for Visit * Outpatient (Routine) - Closed Specialty Diagnoses / Procedures Referred By Tong gates Referred To Contact Diagnoses Pain Thumb Right Procedures DX Thumb Right Junie Olmedo P.A.-C. [address], [place] [address] [facility] Referral ID Status Reason Start Date Expiration Date Visits Re quested Visits Authorized [id number] Closed 05/11/2024 05/11/2025 1 1 Encounter Details Date Type Department Care Team (Latest Contact Info) Description 05/11/2024 9:14 AM CDT - 05/11/2024 11:59 PM CDT Hospital Encounter Department of Radiology in [place], [place] [address] [facility] [place] [address] Junie Olmedo P.A.-C. [address] [place] [phone] Pain Thumb Right Discharge Disposition: Home or Self Care Social [...] often do you attend chur ch or faith services? More than 4 times per year 02/05/2023 Do you belong to any clubs o r organizations such as congregation groups, unions, fraternal or athletic groups, or [...] Answer Date Recorded PHQ-2 Score 1 04/24/2024 [facility] Occupat ional Health - Occupational [...] place to sleep or slept in a detention (including now)? No 02/05/2023 Depression Answer Date [...] Master's degree (e.g., MA, MS, Colby, MEd, ENGRAVER FLATWARE, JUAN A) 05/22/2019 Sex and Gender Information [...] Prolonged Acute Pain/Traumatic Injury. 8 tablet 06/05/2023 documented as of this encounter Plan of Treatment Upcoming Encounters Date Type Department Care Team (Late st Contact Info) Description 09/04/2024 2:00 PM CDT Office Visit Department of Spine in [place], [place] [address] [place] [address] Devin Mccormack D.C. [address] [place] [address] documented as of this encounter Procedures Procedure Name Priority Date/Time Associated Diagnosis Comments DX THUMB RIGHT RAD - Routine (most inpatients and all outpatients) 05/11/2024 9:34 AM CDT Pain Thumb Right documented in this encounter Results * DX Thumb Right (05/11/2024 9:34 AM [...] Olmedo P.A.-C. IMG DIAGNOSTIC [place] PROCEDURES documented in this encounter Visit Diagnoses Diagnosis Pain Thumb Right documented in this encounter Additional Health Concerns Assessment Noted Time PHQ-9 Depression Total Score: 5 04/24/20 24 12:47 PM CDT documented as of this encounter Care Teams Relay Tester Relationship Specialty Start Date End Date Cheyanne Head M.D. [address] [place] [phone] PCP - General 12/29/20 documented as of this encounter
--- OUTSIDE RECORDS SUMMARY | 2024-08-15 01:22 | XMS_ITS | Encounter Summary ---
Author Organization [facility] Address [address] [place] [address] Care Team Providers Care Newspaper Stuffer Name Role Phone Cheyanne Head M.D. Primary Care Provider Encounter Details Date Type Department Care Team (Late st Contact Info) Description 05/11/2024 CPAP Download Remote Patient Monitoring [facility] [address] [place] [address] [facility], Provider, M.B., Ph.D. Social History Tobacco Use Types Packs/Day Years Used Date Smoking Tobacco: Never Passive Smoke Exposure: Past Smokeless Tobacco: Never Alcohol Use Standard Drinks/Week Comments Yes 0 (1 standard drink = 0.6 oz pur e alcohol) occasionally has a drink [facility] [employer] Answer Date Recorded In the past 12 months has [employer], gas, oil, or water [employer] threatened to shut off services in your [...] often do you attend chur ch or denominational services? More than 4 times per year 02/05/2023 Do you belong to any clubs o r organizations such as sabianist groups, unions, fraternal or athletic groups, or [...] Answer Date Recorded PHQ-2 Score 0 06/08/2024 [facility] Occupat ional [facility] - Occupational Stress Questionnaire Answer Date [...] your living situation today? I have a [facility] place to live 05/29/2024 Education Answer Date Recorded What is the highest level of school you have completed or the highest degree you have received? Master's degree (e.g., MA, MS, Colby, MEd, COMMISSARY AGENT, JUAN A) 05/22/2019 Sex and Gender Information Value Date Recorded Sex Assigned at Female 09/14/2021 5:55 PM CDT Gender Identity Female 08/18/2020 9:16 AM CDT Sexual Orientation Straight 08/18/2020 9: 16 AM CDT documented as of this encounter Plan of Treatment Upcoming Encounters Date Type Department Care Team (Late st Contact Info) Description 09/04/2024 2:00 PM CDT Office Visit Department of Spine in [place], [place] [address] [place] [address] Devin Mccormack D.C. [address] [place] [address] documented as of this encounter Visit Diagnoses Not on filedocumented in this encounter Additional Health Concerns Assessment Noted Time PHQ-9 Depression Total Score: 5 04/24/20 24 12:47 PM CDT documented as of this encounter Care Teams Newspaper Stuffer Relationship Specialty Start Date End Date Cheyanne Head M.D. [address] [place] [address] [place] [phone] PCP - General 12/29/20 documented as of this encounter
--- OUTSIDE RECORDS SUMMARY | 2024-08-15 01:22 | XMS_ITS | Encounter Summary ---
Author Organization [facility] Address [address] [place] [address] Care Team Providers Care Improvement Intern Name Role Phone Cheyanne Head M.D. Primary Care Provider [phone] Reason for Referral * MRI/CAT/PET Scan (Routine) - Closed Specialty Diagnoses / Procedures Referred By Tong gates Referred To Contact Radiology Diagnoses Pain Generalized Abdominal Procedures CT Abdomen Pelvis with IV Contrast Karson Martinez P.A.-Meaghan [address] [place] [address] [facility] Referral ID Status Reason Start Date Expiration Date Visits Re quested Visits Authorized [id number] Closed 05/12/2024 05/12/2025 1 1 * Outpatient (Routine) - Closed Specialty Diagnoses / Procedures Referred By Tong gates Referred To Contact Diagnoses Pain Thumb Right Procedures DX Thumb Right Karson Martinez P.A.-Meaghan [address] [place] [address] [facility] Referral ID Status Reason Start Date Expiration Date Visits Re quested Visits Authorized [id number] Closed 05/11/2024 05/11/2025 1 1 * Outpatient (Routine) - Closed Specialty Diagnoses / Procedures Referred By Tong gates Referred To Contact Orthopedic Surgery Diagnoses Pain Thumb Right Karson Martinez P.A.-C. [address] [place] [phone] [facility] Referral ID Status Reason Start Date Expiration Date Visits Re quested Visits Authorized [id number] Closed 05/11/2024 11/10/2025 1 1 Scheduling Instructions Ortho internal referral panel order, imaging before Consult visit Reason for Visit * Reason Comments stomach concerns Arthritis right 1st finger, possible surgery would like to discuss other optionsStomach concerns started a month ago. * Appointment Request (Routine) - Closed Specialty Diagnoses / Procedures Referred By Tong gates Referred To Contact Family Medicine Referral ID Status Reason Start Date Expiration Date Visits Re quested Visits Authorized [id number] Closed 05/08/2024 05/08/2025 1 1 Encounter Details Date Type Department Care Team (Late st Contact Info) Description 05/11/2024 8:30 AM CDT Office Visit Department of Family Medicine, [facility], in [address] [address] Karson Martinez P.A.-C. [address] [place] [phone] Pain Generalized Abdominal (Primary Dx); Pain Thumb Right Social History Tobacco Use [...] declined 02/05/2023 How often do you attend [facility] or anglican services? More than 4 times per year 02/05/2023 Do you belong to any clubs o r organizations such as christianity groups, unions, fraternal or athletic groups, or [...] Answer Date Recorded PHQ-2 Score 1 04/24/2024 [facility] of Occupat ional Health - Occupational Stress [...] place to sleep or slept in a assisted (including now)? No 02/05/2023 Depression Answer Date [...] Master's degree (e.g., MA, MS, Colby, MEd, GLASS SMOOTHER, JUAN A) 05/22/2019 Sex and Gender Information Value Date Recorded Sex Assigned at Female 09/14/2021 5:55 PM CDT Gender Identity Female 08/18/2020 9:16 AM CDT Sexual Orientation Straight 08/18/2020 9: 16 AM CDT documented as of this encounter Last Filed Vital Signs Vital Sign Reading Time Taken Comments Blood Pressure 132/77 05/11/2024 8:19 AM CDT Pulse 70 05/11/2024 8:19 AM CDT Temperature 36.1 ??C (96.9 ??F) 05/11/2024 8:11 AM CD T Respiratory Rate 16 05/11/2024 8:11 AM CDT Oxygen Saturation - - Inhaled Oxygen Concentration - - Weight 79.6 kg (175 lb 9.5 oz) 05/11/2024 8:11 A M CDT Height 174.3 cm (5' 8.62) 05/11/2024 8:11 AM CD T Body Mass Index 26.22 05/11/2024 8:11 AM CDT documented in this encounter Progress Notes * Karson Martinez P.A.-C. - 05/11/2024 8:30 AM CDT SUBJECTIVE CHIEF COMPLAINT/REASON FOR VISIT Chief Complaint Patient presents with stomach concerns Arthritis right 1st finger, possible surgery would like to discuss other options Stomach concerns started a month ago. HISTORY OF PRESENT ILLNESS Janie Silverman is a pleasant 84 y.o. female who presents to the clinic today for evaluation of abdominal pain. Patient reports intermittent lower abdominal pain over the last month. Pain is intermittent and canbe severe at times, however other times it was not as bad. It occurs several times per week. Sometimes symptoms last for short period of time and other times last the afternoon/evening. Patient feelsthat symptoms seem to be worse when she gets up out of a chair, but not always. Seems to be worse after exercise, again but not always. Patient reports that she typically has about 3 bowel movements daily, 1st bowel movement is more firm, 2nd bowel movement is looser and 3rd bowel movement is loose. She does not have true diarrhea. No changes in bowel movements. She does note symptoms of GERD, these are not new symptoms. Patient denies fever, chills, dysuria, frequency or urgency with urination, no blood in urine, no vaginal bleeding. She does wonder if this could be related to vaginal cream,she has been using this for the last 3-5 months. Symptoms not seem to be impacted by eating. Patient with history of right thumb CMC joint arthritis, she did see a hand and underwent injectionfollowed by ultrasound-guided injection with lack of ongoing pain relief. Surgery was briefly discussed, patient is interested in a 2nd opinion. REVIEW OF SYSTEMS Pertinent positive ROS are listed above in HPI. Patient Active Problem List Diagnosis Hypertension Essential Primary Hernia Hiatal Apnea Sleep Obstructive Primary Osteoarthritis Multiple Sites Tinnitus Bilateral Gastroesophageal Reflux Disease Hyperlipidemia Mixed Thrombosis Deep Vein Personal History Presyncope Pain Hip Left Hearing Disorder Bilateral Insomnia Pain Back Lumbar Cramp Fasciculation Syndrome Neuropathy Radiculopathy Lumbar Reaction Stress Nevus Atypical Pain Knee Left Infection Urinary Tract Personal History Screening Examination Diabetes Mellitus Pain Hand Right Urinary Tract Infection Site Not Specified Aftercare Orthopedic Postoperative Non-Injury Depression ALLERGIES/CONTRAINDICATIONS Allergies Allergen Reactions Latex Rash Morphine Hallucinations CURRENT MEDICATIONS Current Outpatient Medications: acetaminophen (TYLENOL) 500 mg tablet, Take 2 tablets (1,000 mg total) by mouth every 6 (six) hoursas needed for pain., Disp: 80 tablet, Rfl: 0 artificial tears,hypromellose, (ISOPTO TEARS) 0.3 % ophthalmic solution, 1 drop as needed., Disp: ,Rfl: cholecalciferol (for_VITAMIN D3) 2,000 Unit capsule, Take 2,000 Units by mouth daily. , Disp: , Rfl: cycloSPORINE (Restasis) 0.05 % ophthalmic emulsion, Administer 1 drop into both eyes 2 (two) times a day. (Patient taking differently: Administer 1 drop into both eyes as needed.), Disp: 180 each, Rfl: 11 diclofenac sodium (VOLTAREN) 1 % gel, Apply 4 g topically 4 (four) times a day as needed (to areas of arthritic pain). Apply to right thumb, Disp: 100 g, Rfl: 11 DME CPAP, DME Order, Disp: 1 each, Rfl: 0 escitalopram (LEXAPRO) 10 mg tablet, take 1 tablet every day, Disp: 90 tablet, Rfl: 3 estradioL (ESTRACE) 0.1 mg/g (0.01%) vaginal cream, Insert 1 g into the vagina 3 (three) times a week. Use nightly for first 14 days, Disp: 42 g, Rfl: 3 fluorometholone (FML) 0.1 % ophthalmic suspension, as needed., Disp: , Rfl: gabapentin (NEURONTIN) 300 mg capsule, TAKE 1 CAPSULE TWICE DAILY, Disp: 180 capsule, Rfl: 3 GLUCOSAMINE/CHONDROITIN SULF A (GLUCOSAMINE-CHONDROITIN ORAL), Take by mouth every morning., Disp: , Rfl: metoprolol succinate (TOPROL-XL) 25 mg 24 hr tablet, TAKE 1 TABLET DAILY. DO NOT CRUSH OR CHEW., Disp: 90 tablet, Rfl: 3 MULTIVITAMIN ORAL, daily., Disp: , Rfl: omeprazole (PriLOSEC) [address] capsule, Take 1 capsule (20 mg total) by mouth daily., Disp: 90 capsule, Rfl: 3 pravastatin (PRAVACHOL) 20 mg tablet, Take 1 tablet (20 mg total) by mouth daily., Disp: 90 tablet,Rfl: 3 traMADoL (ULTRAM) 50 mg tablet, Take 1 tablet (50 mg total) by mouth every 6 (six) hours as needed for pain or severe pain or score 7-10 of 10 Indications: Prolonged Acute Pain/Traumatic Injury. (Patient taking differently: Take 50 mg by mouth every 6 (six) hours as needed for pain or severe pain or score 7-10 of 10.), Disp: 8 tablet, Rfl: 0 Ventolin HFA 90 mcg/actuation inhaler, Inhale 2 puffs every 4 (four) hours as needed for wheezing or shortness of breath., Disp: 18 g, Rfl: 3 fluticasone propionate (FLONASE) 50 mcg/actuation nasal spray, Administer 2 sprays into each nostril 2 (two) times a day. (Patient not taking: Reported on 05/11/2024), Disp: 48 g, Rfl: 0 Current Facility-Administered Medications: Lactated Ringer's, 20 mL/hr, intravenous, Continuous, Kiley Hayward M.D., Stopped at OBJECTIVE VITAL SIGNS Vitals: 05/11/24 0819 BP: 132/77 Pulse: 70 Resp: Temp: PHYSICAL EXAMINATION General: Well-nourished, well-developed 84 y.o. in no apparent distress. Awake, alert, age appropriate. HEENT: Head is normocephalic, atraumatic. Conjunctivae and sclerae are clear. TM's are normal bilaterally. Cardiovascular: Regular rate and rhythm without murmurs. Lungs: Clear to auscultation bilaterally with no adventitious sounds Abdomen: Bowel sounds present in all quadrants. Soft, non-tender with no palpable organomegaly. No guarding or rigidity. ASSESSMENT / PLAN IMPRESSION/REPORT/PLAN: #1 Pain Generalized Abdominal -History is somewhat vague, exam is unremarkable. Will further evaluate with CBC, CMP, CRP, thyroidfunction cascade, urinalysis. Patient has previously had celiac testing which was negative. Last colonoscopy was in 2009. If lab findings are unremarkable could consider further evaluation with abdominal CT, given patient was status post hysterectomy and bilateral oophorectomy. Could also consider trial of Bentyl. #2 Pain Thumb Right - Orthopedic Surgery - Wrist / hand surgical consult (clinic); Future; Expected date: 05/11/2024 (After tests) - DX Thumb Right; Future; Expected date: 05/11/2024 (Before next visit) All questions have been answered. Patient demonstrated understanding and verbalized agreement with the plan. Total time spent is 30 minutes. Karson Martinez P.A.-C. ADDENDUM -Lab workup including CBC, CMP, CRP and thyroid function cascade all returned normal. Would recommend further evaluation with CT scan of abdomen and pelvis. Recent Results (from the past 72 hour(s)) Urinalysis, with Microscopic: Urine, Midstream Collection Time: 05/11/24 9:09 AM Result Value Source Urine, Urine, Midstream Clarity Clear Color Yellow Blood Negative Nitrite Negative Leukocyte Esterase Negative Protein Negative Glucose Negative Ketones, QI(U) Negative Bilirubin Negative pH 7.0 Specific [place] 1.020 Urobilinogen 0.2 White Blood Cells Occ-3 Red Blood Cells Occ-2 Squamous Cells Occ-3 Bacteria Present (A) CBC with Differential, Blood Collection Time: 05/11/24 9:13 AM Result Value Hemoglobin 13.0 Hematocrit 41.5 Erythrocytes 4.79 MCV 86.6 RBC Distrib Width 13.0 Platelet Count 229 Leukocytes 6.5 Neutrophils 3.69 Lymphocytes 2.01 Monocytes 0.56 Eosinophils 0.19 Basophils <0.04 Comprehensive Metabolic Panel Collection Time: 05/11/24 9:13 AM Result Value Potassium, P 4.4 Sodium, P 140 Chloride, P 104 Bicarbonate, P 28 Anion Gap, P 8 BUN (Blood Urea Nitrogen), P 13 Creatinine 0.62 Estimated GFR (eGFR) 88 Calcium, Total, P 8.9 Glucose, P 91 Protein, Total, P 7.2 Albumin, P 4.1 Aspartate Aminotransferase (AST), P 24 Alkaline Phosphatase, P 51 Alanine Aminotransferase (ALT), P 20 Bilirubin, Total, P 0.3 CRP (C-Reactive Protein) Collection Time: 05/11/24 9:13 AM Result Value C-Reactive Protein (CRP), P <3.0 Thyroid Function [place] Collection Time: 05/11/24 9:13 AM Result Value TSH, Sensitive 2.8 documented in this encounter Miscellaneous Notes * Addendum Note - Karson Martinez P.A.-C. - 05/11/2024 8:30 AM CDTAddended by: KARSON MARTINEZ on: 05/12/2024 04:58 PM Modules accepted: Orders documented in this encounter Plan of Treatment Upcoming Encounters Date Type Department Care Team (Late st Contact Info) Description 09/04/2024 2:00 PM CDT Office Visit Department of Spine in [place], [place] [address] [place] [address] Devin Mccormack D.C. [address] [place] [address] Scheduled Referrals Name Type Priority Associated Diagnoses Order Schedule Orthopedic Surgery - Wrist / hand surgical consult (clinic) Outpatient Referral Routine Pain Thumb Right Expected: 05/11/2024 (Approximate), Expires: 08/11/2025 documented as of this encounter Results * CT Abdomen Pelvis [...] No acute intra-abdominal or pelvic abnormality present. Karson Martinez P.A.-C. IMG CT PROCEDURES * DX Thumb Right (05/11/2024 9:34 AM [...] acute traumatic malalignment. No retainedradiopaque foreign object. Karson Martinez P.A.-C. IMG DIAGNOSTIC BENNY GING PROCEDURES * Thyroid Function [place] (05/11/2024 9:13 AM CDT) TSH, Sensitive 2.8 0.3 - 4.2 mIU/L 05/11/2024 2:16 PM CDT OWAT Blood (Blood, Venous) 05/11/2024 9:13 AM CDT 05/11/2024 1:14 PM CDT Karson Martinez P.A.-C. LAB BLOOD ADD-ON [facility] [address] [place] [address], [facility] OWAT [facility] [place] [address] [place] [address] * CRP (C-Reactive Protein) (05/11/2024 9:13 AM CDT) C-Reactive Protein (CRP), P <3.0 <5.0 mg/L 05/11/2024 2:12 PM CDT OWAT Blood (Blood, Venous) 05/11/2024 9:13 AM CDT 05/11/2024 1:14 PM CDT Karson Martinez P.A.-C. LAB BLOOD ADD-ON [facility] [address] [place] [address], [facility] OWAT [facility] [place] [address] [place] [address] * Comprehensive Metabolic Panel (05/11/2024 9:13 AM CDT) Potassium, P 4.4 3.6 - 5.2 mmol/L [...] 9:13 AM CDT 05/11/2024 1:14 PM CDT Karson Martinez P.A.-C. LAB BLOOD ADD-ON [facility] [address] [place] [address], [facility] OWAT [facility] [place] [address] [place] [address] * CBC with Differential, Blood (05/11/2024 9:13 AM CDT) Hemoglobin 13.0 11.6 - 15.0 g/dL 05/11/2024 [...] 9:13 AM CDT 05/11/2024 9:13 AM CDT Karson Martinez P.A.-C. LAB BLOOD ADD-ON [facility] [address] [place] [address], [facility] FB60 [facility] in [address] [address] * (ABNORMAL) Urinalysis, with Microscopic: Urine, Midstream [...] 8.0 05/11/2024 9:22 AM CDT FB60 Specific [place] 1.020 1.001 - 1.035 05/11/2024 9:22 AM [...] 9:09 AM CDT 05/11/2024 9:19 AM CDT Karson Martinez P.A.-C. LAB URINE ORDERABL ES [facility] [address] [place] [address], [facility] [address] [facility] [place] [address] [place] [address] documented in this encounter Visit Diagnoses Diagnosis Pain Generalized Abdominal- Primary Pain Thumb Right Pain Thumb Right Pain Generalized Abdominal documented in this encounter Additional Health Concerns Assessment Noted Time PHQ-9 Depression Total Score: 5 04/24/20 24 12:47 PM CDT documented as of this encounter Care Teams Improvement Intern Relationship Specialty Start Date End Date Cheyanne Head M.D. [address] [place] [address] PCP - General 12/29/20 documented as of this encounter
--- OUTSIDE RECORDS SUMMARY | 2024-08-15 01:22 | XMS_ITS | Encounter Summary ---
Author Organization [facility] Address [address] [place] [address] Care Team Providers Care Math Interventionist Name Role Phone Cheyanne Head M.D. Primary Care Provider Encounter Details Date Type Department Care Team (Late st Contact Info) Description 06/18/2016 Historical Ophthalmology [facility] Roberto Jara Jr., M.D. [address] [place] [phone] Social History Tobacco Use Types Packs/Day Years Used Date Smoking Tobacco: Never Assessed Sex and Gender Information Value Date Recorded Sex Assigned at Female 09/14/2021 5:55 PM CDT Gender Identity Female 08/18/2020 9:16 AM CDT Sexual Orientation Straight 08/18/2020 9: 16 AM CDT documented as of this encounter Progress Notes * Roberto Jara M.D. - 06/18/2016 8:54 AM CDT Eye General CHIEF COMPLAINT CE HISTORY OF PRESENT ILLNESS Pt here today for annual routine eye exam. Pt states vision is fine but concerned about skin tags on LE{upper & lower}. The lower lid tags hurt some especially during make up application. Also lids are drooping more. ROS heart & lungs = within normal limits. IMPRESSION / REPORT / PLAN #1 Multiple lid lesions, left eye OK for excision Stop ASA 4 days before RTO 3 weeks DIAGNOSIS #1 Multiple lid lesions, left eye CDM Reports - EYEGEN Id: [id number] Status: Fnl documented in this encounter Plan of Treatment Upcoming Encounters Date Type Department Care Team (Late st Contact Info) Description 09/04/2024 2:00 PM CDT Office Visit Department of Spine in [place], [place] [address] [place] [address] Devin Mccormack D.C. [address] [place] [address] documented as of this encounter Visit Diagnoses Not on filedocumented in this encounter Additional Health Concerns Infection Onset Date Last Indicated Resolved Time COVID19 Pending 02/05/2021 02/06/2021 02/06/2021 8 :31 PM CDT COVID19 Pending 06/28/2021 06/28/2021 06/29/2021 1 :20 AM CDT COVID19 Pending 10/25/2021 10/25/2021 10/26/2021 4 :17 AM VOUCHER EXAMINER COVID19 09/21/2022 09/21/2022 10/11/2022 4:51 AM VOUCHER EXAMINER documented as of this encounter Care Teams Math Interventionist Relationship Specialty Start Date End Date Cheyanne Head M.D. [address] [place] [phone] PCP - General 12/29/20 documented as of this encounter
--- OUTSIDE RECORDS SUMMARY | 2024-08-15 01:22 | XMS_ITS | Encounter Summary ---
Author Organization [facility] Address [address] [place] [address] Care Team Providers Care Aligner Typewriter Name Role Phone Cheyanne Head M.D. Primary Care Provider Encounter Details Date Type Department Care Team (Latest Contact Info) Description 05/11/2024 9:03 AM CDT Hospital Encounter Department of Laboratory Medicine in [place] [address] [place] [address] Junie Olmedo, P.A.-CReina [address] [place] [phone] Pain Generalized Abdominal Discharge Disposition: Home or [...] declined 02/05/2023 How often do you attend [facility] or restorationist services? More than 4 times per year [...] Answer Date Recorded PHQ-2 Score 1 04/24/2024 [facility] - Occupational [...] money to buy more. Never true 02/06/20 Within the past 12 months, t he [...] place to sleep or slept in a correction (including now)? No 02/05/2023 Depression Answer Date [...] Master's degree (e.g., MA, MS, Colby, MEd, ENTERPRISE PROJECT MANAGER, JUAN A) 05/22/2019 Sex and Gender Information [...] CDT Office Visit Department of Spine in [place], [place] [address] [place] [address] Devin Mccormack D.C. [address] [place] [phone] documented as of this encounter Procedures Procedure Name Priority Date/Time Associated Diagnosis Comments THYROID FUNCTION CASCADE, S Routine 05/11/2024 9:13 AM CDT Pain Generalized Abdominal CBC WITH DIFFERENTIAL, B Routine 05/11/2024 9:13 AM CDT Pain Generalized Abdominal C-REACTIVE PROTEIN (CRP), S/P Routine 05/11/2024 9:13 AM CDT Pain Generalized Abdominal COMPREHENSIVE METABOLIC PANEL, S/P Routine 05/11/2024 9:13 AM CDT Pain Generalized Abdominal documented in this encounter Results * Thyroid Function Dixie (05/11/2024 9:13 AM CDT) TSH, Sensitive 2.8 0.3 - 4.2 mIU/L 05/11/2024 2:16 PM CDT OWAT Blood (Blood, Venous) 05/11/2024 9:13 AM CDT 05/11/2024 1:14 PM CDT Junie Olmedo P.A.-C. LAB BLOOD ADD-ON [facility] [address] [place] [address], [facility]AT [facility] [place] [address] [place] [address] * CRP (C-Reactive Protein) (05/11/2024 9:13 AM CDT) C-Reactive Protein (CRP), P <3.0 <5.0 mg/L 05/11/2024 2:12 PM CDT OWAT Blood (Blood, Venous) 05/11/2024 9:13 AM CDT 05/11/2024 1:14 PM CDT Junie Olmedo P.A.-C. LAB BLOOD ADD-ON [facility] [address] [place] [address], [facility] [place] [address] [place] [address] * Comprehensive Metabolic Panel (05/11/2024 9:13 AM [...] CDT Junie Olmedo P.A.-C. LAB BLOOD ADD-ON [facility] [address] [place] [address], [facility] [place] [address], [place] [address] * CBC with Differential, Blood (05/11/2024 9:13 [...] CDT Junie Olmedo P.A.-C. LAB BLOOD ADD-ON [facility] [address] [place] [address], [facility] FB60 [facility] [place] [address] [place] [address] documented in this encounter Visit Diagnoses Diagnosis Pain Generalized Abdominal documented in this encounter Additional Health Concerns Assessment Noted Time PHQ-9 Depression Total Score: 5 04/24/20 24 12:47 PM CDT documented as of this encounter Care Teams Aligner Typewriter Relationship Specialty Start Date End Date Cheyanne Head M.D. [address] [place] [address] PCP - General 12/29/20 documented as of this encounter
--- OUTSIDE RECORDS SUMMARY | 2024-08-15 01:22 | XMS_ITS | Encounter Summary ---
Author Organization [facility] Address [address] [place] [address] Care Team Providers Care Fishing Manager Name Role Phone Cheyanne Head M.D. Primary Care Provider Reason for Referral * Outpatient (Routine) - Authorized Specialty Diagnoses / Procedures Referred By Tong gates Referred To Contact Diagnoses Pain Thumb Right Procedures hand-wrist: R thumb CMC joint Murphy Jesus M.D. [address] [place] [address] [facility] Referral ID Status Reason Start Date Expiration Date V isits Requested Visits Authorized [id number] Authorized 05/29/2024 05/29/2025 1 1 * Physical Therapy (Routine) - Closed Specialty Diagnoses / Procedures Referred By Tong gates Referred To Contact Diagnoses Pain Thumb Right Procedures PT or OT eval and treat (first available) Obi Renee M.D. [address] [place] [address] [facility] Referral ID Status Reason Start Date Expiration Date Visits Re quested Visits Authorized [id number] Closed 05/29/2024 05/29/2025 1 1 Reason for Visit * Outpatient (Routine) - Closed Specialty Diagnoses / Procedures Referred By Tong gates Referred To Contact Orthopedic Surgery Diagnoses Pain Thumb Right Honorio, Junie Grace P.A.-C. [address] [place] [phone] [facility] Referral ID Status Reason Start Date Expiration Date Visits Re quested Visits Authorized [id number] Closed 05/11/2024 11/10/2025 1 1 Encounter Details Date Type Department Care Team (Latest Contact Info) Description 05/29/2024 3:15 PM CDT Comprehensive Visit Department of Orthopedic Surgery in [place], [place] [address] [place] [phone] Murphy Jesus M.D. [address] [place] [phone] Pain Thumb Right Social History Tobacco Use Types Packs/Day Years Used Date Smoking Tobacco: Never Passive Smoke Exposure: Past Smokeless Tobacco: Never Alcohol Use Standard Drinks/Week Comments Yes 0 (1 standard drink = 0.6 oz pur e alcohol) occasionally has a drink [facility] PAYMILL Answer Date Recorded In the past 12 months has [employer] electric, gas, oil, or water company threatened [...] often do you attend chur ch or samaritan services? More than 4 times per year [...] Answer Date Recorded PHQ-2 Score 1 04/24/2024 [facility] - Occupational [...] your living situation today? I have a [facility] place to live 05/29/2024 Education Answer Date Recorded What is the highest level of school you have completed or the highest degree you have received? Master's degree (e.g., MA, MS, Colby, MEd, FASHION SUPERVISOR, JUAN A) 05/22/2019 Sex and Gender Information Value Date Recorded Sex Assigned at Female 09/14/2021 5:55 PM CDT Gender Identity Female 08/18/2020 9:16 AM CDT Sexual Orientation Straight 08/18/2020 9: 16 AM CDT documented as of this encounter Procedure Notes * Murphy Jesus M.D. - 05/29/2024 3:15 PM CDTAssociated Order(s): hand-wrist: R thumb CMC joint Post-Procedure Diagnose(s): Pain Thumb Right R thumb CMC joint joint injection, : injection only Hand-wrist: R thumb CMC joint Performed by: Murphy Jesus M.D. Authorized by: Murphy Jesus M.D. PROCEDURE DETAILS Procedure performed: injection only Hand-Wrist procedure site: R thumb CMC joint joint injection, PROCEDURE [...] Anesthesia method: none POST-PROCEDURE DETAILS Procedure outcome: successful procedure Complications: no apparent complications Post-procedure instructions: post-procedure activity instructions provided Discharge instruction provided: ice area as needed for comfort, follow-up with ordering provider and medications and side effects Comments The procedure site was marked by the proceduralist and verified with the patient. A time out/final pause was completed with verification of patient identity using two identifiers, confirmation of thesite and side(s), agreement on the procedure to be performed. The hand was prepped and draped by the clinic nurse. The joint was identified and injected using a 25 gauge needle. The patient toleratedthe procedure well with no complications. A bandaid was placed over the injection site. documented in this encounter Consult Notes * Murphy Jesus M.D. 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 She had a history of a cystic lesion at the index finger carpometacarpal joint that was debrided and for culture and pathology by Dr. García in [place] 1 year ago. 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 Dr. Lazaro has suggested proceeding with surgery in the near future. She has had injections and has had a hand based thumb shell. She has not had a forearm based splint. Her physical exam demonstrates the following results: Right RANGE OF MOTION Left Passive Active JOINT Active Passive Shoulder Flexion Abduction Internal Rotation External Rotation Elbow Flexion Extension Pronation Supination Wrist Flexion Extension Radial Deviation Ulnar Deviation 25 Thumb Radial Abduction 22 Palmar Abduction Right UPPER EXTREMITY STRENGTH Left 20 18 22 Tram Operator (kg) 24 20 20 Opposition Pinch (kg) 6 6 5.5 Apposition Pinch (kg) 6 5.5 5 Right (Passive) Active Extension/Active Flexion (Passive) Thumb II III IV V MCP 0/55 PIP DIP +30/55 Flexion Lag Extension Lag 2-PD (R/U) Right SPECIAL TESTS Left Tinel Fist Phalen Carpal Tunnel Murphy's Radial Murphy's Ulnar Hx Cold Intolerance + CMC Compression Nora's Her radiographs show Eaton stage III degenerative changes at the right thumb. She has a positive CMC grind and pain to palpation over the joint. Range of motion is restricted without MP joint hyperextension. We did discuss treatment options. I suggested she might wish to consider a steroid injection and fabrication of a long forearm based thumb shell splint to wear while sleeping in addition to the hand based splint she is using. This would be an intermediate step before considering surgery if necessary at some point in the future. She was receptive to this. I will plan to inject the thumb CMC joint today and have therapists fabricate a splint for her. * Karl Drake, C.H.T., O.T. - 05/29/2024 3:15 PM CDT Hand Therapy Outpatient Evaluation and Treatment By co-signing this note, the provider certifies the therapy being provided to this patient is reasonable and necessary for the diagnosis or treatment of this patient. During this hand therapy session, these additional providers assisted: AKANKSHA Lima SUBJECTIVE Patient's Name: Janie Silverman Referring Provider: Junie Olmedo P.A.-C. Reason for referral: Right thumb pain; osteoarthritis History of Present Illness: Per Dr. 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 She had a history of a cystic lesion at the index finger carpometacarpal joint that was debrided and for culture and pathology by Dr. García in [place] 1 year ago. 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 Dr. Lazaro has suggested proceeding with surgery in the near future. She has had injections and has had a hand based thumb shell. She has not had a forearm based splint. Patient was referred to hand therapy for a forearm based thumb spica with IP free. Rehab Diagnosis: 1. Pain Thumb Right Payor: [employer] / Plan: [employer] CHOICE / Product Type: PPO / Pertinent Medical/Surgical History: Patient Active Problem List Diagnosis Hypertension Essential [...] Not Specified Aftercare Orthopedic Postoperative Non-Injury Depression Past Surgical History: Procedure Laterality Date BLEPHAROPLASTY Right 01/01/[address] Jara BLEPHAROPLASTY OF UPPER EYELID Bilateral 10/02/[address] Dre Jara CHOLECYSTECTOMY AND OPERATIVE CHOLANGIOGRAM 10/03/2011 COLONOSCOPY 03/06/2010 DEBRIDEMENT AND IRRIGATION Right 06/05/2023 Procedure: IRRIGATION AND CULTURES OF RIGHT HAND; Surgeon: Kayla García M.D.; Location: [facility] OR DILATATION AND CURETTAGE 1979 DILATION AND CURETTAGE OF UTERUS ENTEROCELE REPAIR 02/26/1992 Repair of enterocele. Posterior colpoperineorrhaphy. EXTRACTION OF CATARACT 02/22/2007 GALLBLADDER SURGERY 2010? HYSTERECTOMY 1989 LAPAROTOMY OOPHERECTOMY Right 1991 OOPHORECTOMY, PARTIAL OR TOTAL, UNILATERAL OR BILATERAL;.. ORIF ANKLE FRACTURE Left 05/02/2005 ORIF ANKLE FRACTURE Right 03/06/2010 VAGINAL DELIVERY 1973, 1975, and 1977 VAGINAL HYSTERECTOMY 1989 for uterine prolapse Precautions/Restrictions: No precautions/restrictions. Wear orthosis PRN Total Outpatient Visit Count in Hand Therapy: 1 OT Next Certification Date: 08/27/24 Subjective Comments from the Patient: Patient states her pain is not constant, but it hurts with certain activities. She is hopeful her injection today will be helpful. Occupational Profile: Hand Dominance: , Right hand dominant Patient lives with family and has assistance. The patient is driving. The patient is retired. Enjoys knitting and quilting Current functional limitations include: The patient has difficulties performing daily occupations due to limited use of the involved extremity. OBJECTIVE Review of Symptoms: History obtained from chart review and the patient Physical Exam: Pain did not limit this therapy session. Appearance: No change in appearance of the involved extremity. Sensation: Patient reports sensation is intact. Edema: No visible or palpable edema. Active Range of Motion: Finger range of motion is within normal limits. Wrist active range of motion is within normal limits. Fall Assessment: The patient did not report any falls to this therapist. Skilled Therapy Intervention Performed Today: In hand therapy today, the following interventions were performed: Orthosis Fabrication: The patient was appropriately assessed for the orthosis. This therapist fabricated a right forearm based thumb spica with IP free. The orthosis was fabricated from thermoplastics materials and secured with rivets and Velcro hook. The patient will wear the orthosis as needed. The patient was instructed in wear and care of the orthosis. The patient was provided the following handouts: , Splint Receipt [id number] Assessment Clinical Impression: The patient tolerated the session with no adverse reactions to this therapy session. The patient verbalized understanding to the self management program. Rehab Potential: Ms. Silverman has Good potential to achieve established therapy goals within the time frame outlined below, provided she actively participates in her therapy treatment plan and home program. Evaluation Considerations: L-Code billed only Hand Therapy Goals and Timeframes: The patient/caregiver will verbalize understanding of the orthotic wearing schedule and caring for the orthosis. Date 08/17/2024. Goal in progress The patient/caregiver will verbalize understanding of the self-management program following each therapy session. Goal in progress The severity of Ms. Silverman's functional limitation will be re-assessed within the next 10 visits. Plan Ms. Silverman was educated regarding evaluative findings, diagnosis, prognosis, potential risks and benefits of rehabilitation interventions. A collaborative effort was used to establish goals and planof care. She was informed of her right to make decisions regarding her care, including refusal of examination or treatment or selection of therapy services from another provider if desired. The treatment plan may be progressed or modified based upon her response to treatment. Treatment Plan: Start of Plan of Care: 05/29/2024 Number of Visits: up to 3 visits in hand therapy. Duration: through August 2024 Return Physician Appointment: PRN with Dr. Jesus Plan for Next Session: Patient will continue with a home management program. She has our contact information if questions or concerns arise. The patient may return as needed for orthotic adjustments. Treatment interventions may include: -Right forearm based thumb spica with IP free (wear PRN) Physical Therapy Time Spent with Patient Occupational Therapy Time Spent with Patient LCode: 21 (minutes). This is additional time spent with the patient that was not accounted in the total time spent with this patient. Karl Drake C.H.T., O.T. documented in this encounter Plan of Treatment Upcoming Encounters Date Type Department Care Team (Late st Contact Info) Description 09/04/2024 2:00 PM CDT Office Visit Department of Spine in [place], [place] [address] [place] [phone] Devin Mccormack D.C. [address] [place] [phone] documented as of this encounter Procedures Procedure Name Priority Date/Time Associated Diagnosis Comments SMALL JOINT INJECTION HAND/WRIST Routine 05/29/2024 3:15 PM CDT Pain Thumb Right documented in this encounter Results * hand-wrist: R thumb CMC joint (05/29/2024 [...] Murphy Jesus M.D. PROCEDURE/MINOR SURG ICAL ORDERABLES documented in this encounter Visit Diagnoses Diagnosis Pain Thumb Right documented in this encounter Administered Medications Inactive Administered Medications - up to 3 most recent administrations Medication Order MAR Action Action Date Dose Rate Site lidocaine 10 mg/mL (1 %) injection 3 mL (Xylocaine) 3 mL, injection, One-Time Injection, Starting on Sat05/29/24 at 1515, For 1 dose Given 05/29/2024 3:15 PM CDT 3 mL triamcinolone acetonide injection 20 mg (Kenalog) 20 mg, intra-articular, One-Time Injection, Starting on Sat05/29/24 at 1515, For 1 dose Given 05/29/2024 3:15 PM CDT 20 mg documented in this encounter Additional Health Concerns Assessment Noted Time PHQ-9 Depression Total Score: 5 04/24/20 24 12:47 PM CDT documented as of this encounter Care Teams Fishing Manager Relationship Specialty Start Date End Date Cheyanne Head M.D. [address] [place] [address] ABDIEL [place] [phone] PCP - General 12/29/20 documented as of this encounter
--- OUTSIDE RECORDS SUMMARY | 2024-08-15 01:22 | XMS_ITS | Encounter Summary ---
Author Organization [facility] Address [address] [place] [address] Care Team Providers Care Box Covering Machine Operator Name Role Phone Cheyanne Head M.D. Primary Care Provider Encounter Details Date Type Department Care Team (Late st Contact Info) Description 08/29/2017 Historical Ophthalmology [facility] Roberto Jara Jr., M.D. [address] [place] [phone] Social History Tobacco Use Types Packs/Day Years Used Date Smoking Tobacco: Never Sex and Gender Information Value Date Recorded Sex Assigned at Female 09/14/2021 5:55 PM CDT Gender Identity Female 08/18/2020 9:16 AM CDT Sexual Orientation Straight 08/18/2020 9: 16 AM CDT documented as of this encounter Progress Notes * Roberto Jara M.D. - 08/29/2017 10:26 AM CDT Eye General CHIEF COMPLAINT Complete Exam HISTORY OF PRESENT ILLNESS Floaters noted at times. Always sees the same shaped ones. No flashes. Right eye hurts when reading or doing near work. Pt has concerns with her upper lids being droopier. tells her that he cant hardly see her eyes anymore. IMPRESSION / REPORT / PLAN #1 Dermatochalasis and brow ptosis Consider blepharoplasty and brow ptosis repair OU Order bleph ochoa and photos #[address] Doing well Maybe some eyestrain due to rx change; new glasses RTO for testing. DIAGNOSIS #1 Dermatochalasis and brow ptosis #[address] CDM Reports - EYEGEN Id: [id number] Status: Fnl documented in this encounter Plan of Treatment Upcoming Encounters Date Type Department Care Team (Late st Contact Info) Description 09/04/2024 2:00 PM CDT Office Visit Department of Spine in [place], [place] [address] [place] [address] Devin Mccormack D.C. [address] [place] [address] documented as of this encounter Visit Diagnoses Not on filedocumented in this encounter Additional Health Concerns Infection Onset Date Last Indicated Resolved Time COVID19 Pending 02/05/2021 02/06/2021 02/06/2021 8 :31 PM CDT COVID19 Pending 06/28/2021 06/28/2021 06/29/2021 1 :20 AM CDT COVID19 Pending 10/25/2021 10/25/2021 10/26/2021 4 :17 AM DRY WALL APPLICATOR COVID19 09/21/2022 09/21/2022 10/11/2022 4:51 AM DRY WALL APPLICATOR documented as of this encounter Care Teams Box Covering Machine Operator Relationship Specialty Start Date End Date Cheyanne Head M.D. [address] [place] [phone] PCP - General 12/29/20 documented as of this encounter
--- OUTSIDE RECORDS SUMMARY | 2024-08-15 01:22 | XMS_ITS | Encounter Summary ---
Author Organization [facility] Address [address] [place] [address] Care Team Providers Care Ground Mixer Name Role Phone Cheyanne Head M.D. Primary Care Provider Reason for Visit * Reason Onset Date Comments Return Call Request 05/06/2024 Encounter Details Date Type Department Care Team (Latest Contact Info) Description 05/06/2024 Clinical Communication Department of Otorhinolaryngology in [place], [place] [address] [phone] DeaMissy jaquez AUD, [employer]Piotr [address] [phone] Return Call Request Social History Tobacco Use Types Packs/Day Years Used Date Smoking Tobacco: Never Passive Smoke Exposure: Past Smokeless Tobacco: Never Alcohol Use Standard Drinks/Week Comments Yes 0 (1 standard drink = 0.6 oz pur e alcohol) occasionally has a drink [facility] Utilities Answer Date Recorded In the past 12 months has [employer] electric, gas, oil, or water company threatened [...] declined 02/05/2023 How often do you attend [facility] or anabaptism services? More than 4 times per year 02/05/2023 Do you belong to any clubs o r organizations such as gnosticism groups, unions, fraternal or athletic groups, or [...] Answer Date Recorded PHQ-2 Score 1 04/24/2024 [facility] Occupat ional [facility] - Occupational Stress [...] your living situation today? I have a [facility] place to live 05/29/2024 Education Answer Date Recorded What is the highest level of school you have completed or the highest degree you have received? Master's degree (e.g., MA, MS, Colby, MEd, ROLLER INSPECTOR AND MENDER, JUAN A) 05/22/2019 Sex and Gender Information Value Date Recorded Sex Assigned at Female 09/14/2021 5:55 PM CDT Gender Identity Female 08/18/2020 9:16 AM CDT Sexual Orientation Straight 08/18/2020 9: 16 AM CDT documented as of this encounter Plan of Treatment Upcoming Encounters Date Type Department Care Team (Late st Contact Info) Description 09/04/2024 2:00 PM CDT Office Visit Department of Spine in [place], [place] [address] [place] [address] Devin Mccormack D.C. [address] [place] [phone] documented as of this encounter Visit Diagnoses Not on filedocumented in this encounter Additional Health Concerns Assessment Noted Time PHQ-9 Depression Total Score: 5 04/24/20 24 12:47 PM CDT documented as of this encounter Care Teams Ground Mixer Relationship Specialty Start Date End Date Cheyanne Head M.D. [address] [place] [phone] PCP - General 12/29/20 documented as of this encounter
--- OUTSIDE RECORDS SUMMARY | 2024-08-15 01:22 | XMS_ITS | Encounter Summary ---
Author Organization [facility] Address [address] [place] [address] Care Team Providers Care Electric [employer] Salesperson Name Role Phone Cheyanne Head M.D. Primary Care Provider [phone] Encounter Details Date Type Department Care Team (Late st Contact Info) Description 09/16/2017 Historical Ophthalmology [facility] Roberto Jara Jr., M.D. [address] [place] [phone] Social History Tobacco Use Types Packs/Day Years Used Date Smoking Tobacco: Never Sex and Gender Information Value Date Recorded Sex Assigned at Female 09/14/2021 5:55 PM CDT Gender Identity Female 08/18/2020 9:16 AM CDT Sexual Orientation Straight 08/18/2020 9: 16 AM CDT documented as of this encounter Progress Notes * Roberto Jara M.D. - 09/16/2017 3:04 PM CDT Eye General CHIEF COMPLAINT Bleph Field and Photos HISTORY OF PRESENT ILLNESS No new concerns noted. Field and photos completed. IMPRESSION / REPORT / PLAN #1 Dermatochalasis and brow ptosis Consider blepharoplasty and brow ptosis repair OU Order bleph ochoa and photos Bleph photos: Shows dermatochalasis hanging over visual ochoa superiorly, especially laterally andwith lid creases showing use of frontalis/brows to lift lids out of visual axis. Marginal reflex distance = 1mm right eye and 2 mm left eye Bleph visual ochoa: Good quality for interpretation. With lids relaxed, shows 60 % of superior visual field decreased due to droopy lids centrally, and with lids taped shows full 100% visual field superiorly. Left eye shows about 40% of visual field obscured superiorly, but with lid taped up showsfull visual field or minimal disruption of superior visual field. Good candidate for blepharoplasty +/- brow lift. R/B discussed, IC given. DIAGNOSIS #1 Dermatochalasis and brow ptosis CDM Reports - EYEGEN Id: [id number] Status: Fnl documented in this encounter Plan of Treatment Upcoming Encounters Date Type Department Care Team (Late st Contact Info) Description 09/04/2024 2:00 PM CDT Office Visit Department of Spine in [place], [place] [address] [place] [phone] Devin Mccormack D.C. [address] [place] [phone] documented as of this encounter Visit Diagnoses Not on filedocumented in this encounter Additional Health Concerns Infection Onset Date Last Indicated Resolved Time COVID19 Pending 02/05/2021 02/06/2021 02/06/2021 8 :31 PM CDT COVID19 Pending 06/28/2021 06/28/2021 06/29/2021 1 :20 AM CDT COVID19 Pending 10/25/2021 10/25/2021 10/26/2021 4 :17 AM CORRAL BOSS COVID19 09/21/2022 09/21/2022 10/11/2022 4:51 AM CORRAL BOSS documented as of this encounter Care Teams Electric [employer] Salesperson Relationship Specialty Start Date End Date Cheyanne Head M.D. [address] [place] [phone] PCP - General 12/29/20 documented as of this encounter
--- OUTSIDE RECORDS SUMMARY | 2024-08-15 01:23 | XMS_ITS | Encounter Summary ---
Author Organization [facility] Address [address] [place] [address] Care Team Providers Care Technical Sme Name Role Phone Cheyanne Head M.D. Primary Care Provider Encounter Details Date Type Department Care Team (Late st Contact Info) Description 04/22/2015 Historical Ophthalmology [facility] Roberto Jara Jr., M.D. [address] [place] [phone] Social History Tobacco Use Types Packs/Day Years Used Date Smoking Tobacco: Never Assessed Sex and Gender Information Value Date Recorded Sex Assigned at Female 09/14/2021 5:55 PM CDT Gender Identity Female 08/18/2020 9:16 AM CDT Sexual Orientation Straight 08/18/2020 9: 16 AM CDT documented as of this encounter Progress Notes * Roberto Jara M.D. - 04/22/2015 8:56 AM CDT Eye General CHIEF COMPLAINT CE HISTORY OF PRESENT ILLNESS Trouble with distance vision carlos at night Also notices eyes are very itchy IMPRESSION / REPORT / PLAN A) Pseudophakia, mild allergic conjunctivitis ou, P0 New MR, Danii or equivalent, rto 1 year CDM Reports - EYEGEN Id: [id number] Status: Fnl documented in this encounter Plan of Treatment Upcoming Encounters Date Type Department Care Team (Late st Contact Info) Description 09/04/2024 2:00 PM CDT Office Visit Department of Spine in [place], [place] [address] [place] [address] Devin Mccormack D.C. [address] [place] [address] documented as of this encounter Visit Diagnoses Not on filedocumented in this encounter Additional Health Concerns Infection Onset Date Last Indicated Resolved Time COVID19 Pending 02/05/2021 02/06/2021 02/06/2021 8 :31 PM CDT COVID19 Pending 06/28/2021 06/28/2021 06/29/2021 1 :20 AM CDT COVID19 Pending 10/25/2021 10/25/2021 10/26/2021 4 :17 AM RAIL TRANSPORTATION OPERATOR COVID19 09/21/2022 09/21/2022 10/11/2022 4:51 AM RAIL TRANSPORTATION OPERATOR documented as of this encounter Care Teams Technical Sme Relationship Specialty Start Date End Date Cheyanne Head M.D. [address] [place] [phone] PCP - General 12/29/20 documented as of this encounter
--- OUTSIDE RECORDS SUMMARY | 2024-08-15 01:23 | XMS_ITS | Clinical Summary ---
Author Organization [facility] Address [place], [place] [address] Care Team Providers Care Etl Software Engineer Name Role Phone Valeria Canela BUNCH [employer]IMMER MOLD Primary Care Provider Allergies Active Allergy Reactions Criticality Noted Date Comments Latex Contact Dermatitis 12/14/2010 Morphine Hallucinations 03/08/2009 Medications Medication Sig Dispensed Refills Start Date End Date Status mv-mn-iron [id number]-ZZ-ketau1,6,9#3 (WOMEN'S MULTI) 18-600 mg-mcg cap Take by mouth. 0 03/16/2015 Act lex omeprazole (PRILOSEC) 20 mg Delayed-Release capsule 08/18/2017 Active pravastatin (PRAVACHOL) 20 mg tablet Take 1 tablet by mouth. 08/21/2017 Active metoprolol tartrate (LOPRESSOR) 25 mg tablet Take 1 tablet by mouth. 06/11/2016 Active cholecalciferol (VITAMIN D3) 2,000 unit capsule Take 2,000 Units by mouth. 04/18/2010 Active polyethylene glycoL (MIRALAX) 17 gram/dose powder Take 17 g by mouth. 11/07/2016 Active COQ10, UBIQUINOL, ORAL Take by mouth. 02/04/2015 Active aspirin (ECOTRIN) 81 mg enteric coated tabletIndications:my ocardial infarction prevention Take 81 mg by mouth once daily with a meal. 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 Dermatochalasis of both upper eyelids 10/01/2017 DVT of proximal leg (deep vein thrombosis) 04/18 Other and unspecified hyperlipidemia 12/20/2009 Resolved Problems Problem Noted Date Diagnosed Date Resolved Date Meniscus tear 12/25/2013 03/16/2015 Chronic anticoagulation 04/18/201012/20 Encounters Date Type Department Care Team Description 06/05/2024 9:14 AM CDT - 06/05/2024 11:59 PM CDT Hospital Encounter [facility] [address] [place] [address] Junie Olmedo PA-C Abdominal pain, generalized 06/05/2024 Travel from Last 3 Months Immunizations Name Administration Dates Next Due Influenza, High-dose Inactivated 08/18/2014 Td (Age >=7 Years) 11/18/2004 Family History Medical History Relation Name Comments Hypertension Father Hypertension Mother Other Other neice from blood clot following broken leg Anesthesia Problem No Family History Blood Disease No Family History Relation Name Status Comments Father Mother Other Social History Tobacco Use Types Packs/Day Years Used Date Smoking Tobacco: Never Smokeless Tobacco: Never Tobacco Cessation:Counseling Given: Yes Alcohol Use Standard Drinks/Week Comments Yes 0 (1 standard drink = 0.6 oz pur e alcohol) infrequent Sex and Gender Information Value Date Recorded Sex Assigned at Not on file Gender Identity Not on file Sexual Orientation Not on file Obstetrics History Last Filed Vital Signs Vital Sign Reading Time Taken Comments Blood Pressure 132/75 10/07/2019 8:56 AM 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 Pulse 82 10/07/2019 8:56 AM HOTEL OR 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 SERVICE SUPERVISOR Temperature 35.6 ??C (96 ??F) 10/02/2017 11:55 AM HOTEL OR 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 ROOM SERVICE SUPERVISOR Respiratory Rate 20 10/02/2017 12:45 PM HOTEL OR 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 ROOM SERVICE 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 Oxygen Saturation 96% 10/07/2019 8:56 AM HOTEL OR MOTEL ROOM SERVICE SUPERVISOR Inhaled Oxygen Concentration - - Weight 83 kg (183 lb) 10/07/2019 8:56 AM HOTEL OR 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 SERVICE SUPERVISOR Height 172.7 cm (5' 8) 10/02/2017 9:08 AM HOTEL OR MOTEL ROOM SERVICE SUPERVISOR Body Mass Index 27.83 10/02/2017 9:08 AM HOTEL OR MOTEL ROOM SERVICE SUPERVISOR Plan of Treatment Health Maintenance Due Date Last Done Comments Tdap 02/22/1951 Depression screening for age 12+ 1952 BMI (ht and wt on same day) for age 18+ 02/22/1958 Zoster (shingles) series for age 50+ (1 of 2) 02/22/1990 DEXA/DXA scan for age 65+ 02/22/2005 Medicare Wellness for age 65+ 02/22/2005 Pneumococcal series for age 65+ (1 of 1 - PCV) 02/22/2005 Tetanus booster 11/18/2014 11/18/2004 RSV vaccine for adults or (1 - 1-dose 75+ series) 02/22/2015 COVID-19 vaccine series ( season) 2024 03/14/2023, 08/24/2022, 02/28/2022, Additional history exists Influenza for age 65+ 07/19/2024 08/18/2014 Procedures Procedure Name Priority Date/Time Associated Diagnosis Comments CT ABDOMEN PELVIS W Routine 06/05/2024 9 :53 AM CDT Abdominal pain, generalized from Last 3 Months Results * CT ABDOMEN PELVIS W (06/05/2024 9:53 AM CDT) Anatomical Region Laterality Modality Abdomen, Pelvis, AORTA, LIVER, SPLEEN Computed Tomography Junie Olmedo PA-C CT from Last 3 Months Advance Directives * Full Code (Latest Code Status on File) Date Activated Date Inactivated Comments 10/02/2017 6:13 AM 10/02/2017 3:27 PM Question Answer Comments Code Status Discussion: Not Discussed Care Teams Etl Software Engineer Relationship Specialty Start Date End Date Vaelria Canela NP [address] [place] [address] ABDIEL Arango [phone] PCP - General Nurse Practitioner 02/18/23
== END 2024-08-11 15:52 | disposition home or self-care (01) ==
LOC: AMB 08-15 01:17
PROVIDERS: PCP Nurse Practitioner Family; Visit Provider Family Medicine
DX: S89.92XA Unspecified injury of left lower leg, initial encounter (principal); V19.3XXA Pedal cyclist (driver) (passenger) injured in unspecified nontraffic accident, initial encounter
CPT/HCPCS: A0425; A0433

== ENCOUNTER 2024-08-11 16:26 | Inpatient (IN) | payer OTHER, SELFPAY ==
[2024-08-11 16:32] VITALS: BP 195/93; PULSE 74; RESP 22; TEMP 36.9; O2SAT 98; BMI 25.8
--- NOTE | 2024-08-11 16:49 | CRLHL7_ITS ---
For Patients: As a result of the Century Cures Act, medical imaging exams and procedure reports are released immediately into your electronic medical record. You may view this report before your referring provider. If you have questions, please contact your health care provider. Indication: Fall. Technique: AP view of the pelvis. Two views of the left hip. Comparison: None. Findings: Bones: Comminuted impacted fracture of the left proximal femur.. Joint spaces: Moderate degenerative changes of the bilateral hips and SI joints. Soft tissues: Unremarkable. Impression: Comminuted impacted fracture of the left proximal femur. Dictated by Lori Quintanilla MD @ 08/11/2024 7:15:02 PM (Electronically Signed)
[2024-08-11] MEDS: HYDROmorphone 0.5 mg/0.5 ml inj IVP ×5 (17:00→23:42)
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
[2024-08-11 17:45] LABS: Basophils Percent Auto 0.1 % (0.0-3.0); Eosinophils Percent Auto 0.8 % (0.0-7.0); Hematocrit 40.3 % (33.0-51.0); Hemoglobin* 12.5 gm/dL (12.0-16.0); Lymphocytes Percent Auto 14.9 % (20-44); Mean Corpuscular HGB Conc 31 gm/dL (32-36); Mean Corpuscular Hemoglobin 28 pg (26-34); Mean Corpuscular Volume 89 fL (80-100); Monocytes Percent Auto 6.9 % (0.0-11.0); Neutrophils Percent Auto 76.3 % (42.0-72.0); Platelet Count* 224 K/uL (140-440); Red Blood Count 4.55 m/uL (4.00-5.20); White Blood Count* 11.37 K/uL (4.50-11.00)
[2024-08-11 17:47] LABS: Slide Review Reflex No
[2024-08-11 18:01] LABS: Chloride* 104 mmol/L (96-114); Potassium* 4.5 mmol/L (3.6-5.1); Sodium* 138 mmol/L (135-149)
[2024-08-11 18:03] LABS: Creatinine* 0.9 mg/dL (0.5-1.5); Est. Creatinine Clearance* 42.25; Estimated Glomerular Filt Rate 63 ml/min
[2024-08-11 18:04] LABS: Anion Gap 6 mEq/L (7-15); Blood Urea Nitrogen* 16 mg/dL (7-30); Calcium* 9.2 mg/dL (8.4-10.6); Carbon Dioxide* 28 mmol/L (20-32); Glucose* 116 mg/dL (60-115)
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
[2024-08-11 19:01] VITALS: BP 196/95; PULSE 82; RESP 18; TEMP 36.9; O2SAT 91
--- NOTE | 2024-08-11 19:01 | CRLHL7_ITS ---
For Patients: As a result of the Century Cures Act, medical imaging exams and procedure reports are released immediately into your electronic medical record. You may view this report before your referring provider. If you have questions, please contact your health care provider. INDICATION: Pre operative chest evaluation TECHNIQUE: Chest radiograph 1 view COMPARISON: 02/26/2013 FINDINGS: The sensitivity and specificity of the exam are moderately limited by the patient`s body habitus. Mediastinum: The mediastinum is normal in appearance. The heart silhouette is normal in size and morphology. Lung: Both lungs are unremarkable in appearance with small lung volumes. No sign of pleural effusion seen. No pneumothorax is identified. Bone and Soft tissue: Mild dextroscoliosis is noted without change. IMPRESSION: 1. No acute cardiopulmonary disease is seen. Dictated by: Abdirizak Zapien MD @ 08/11/2024 19:48:49 (Electronically Signed)
[2024-08-11 19:02] VITALS: BP 196/95; PULSE 82; RESP 18; TEMP 36.9; O2SAT 91; BMI 26.4
[2024-08-11] MEDS: ONDANSETRON 2 MG/ML inj 4 MG IVP (20:00)
[2024-08-11] MEDS: SODIUM CHLORIDE 0.9 % (FLUSH) 10 ML SYRINGE 5 ML IVF (20:52)
[2024-08-11] MEDS: GABAPENTIN 100 MG CAPSULE PO (21:39)
[2024-08-11] MEDS: LIDOCAINE 5% PATCH 1 PATCH TRANSDERMA (21:39)
[2024-08-11 22:25] VITALS: O2SAT 82
[2024-08-11 23:00] VITALS: BP 154/88; PULSE 84; RESP 16; TEMP 36.6; O2SAT 93
[2024-08-11] MEDS: 0.9 % SODIUM CHLORIDE 1000 ml 1,000 ML 100 ML IV (23:43)
[2024-08-12] VITALS (20 sets, daily range): BP systolic 122–157; BP diastolic 59–79; PULSE 71–84; RESP 14–18; TEMP 36.5–37.5; O2SAT 87–98
[2024-08-12] MEDS: HYDROmorphone 0.5 mg/0.5 ml inj IVP ×8 (01:29→16:58)
[2024-08-12] MEDS: SODIUM CHLORIDE 0.9 % (FLUSH) 10 ML SYRINGE 5 ML IVF ×4 (03:34→21:31)
--- NOTE | 2024-08-12 06:36 | PC.NURSE ---
End of shift report [id number]: Pleasant and cooperative with cares. Pain to left hip that radiates down left leg well managed with current regimen. Indwelling castillo catheter inserted without difficulty, patent and draining clear, yellow urine. Lung sounds clear bilaterally, denies any shortness of breath or cough. Bowel sounds active x 4 quadrants. Nausea reported, patient states that when she has waves of sharp pain that she becomes nauseated, PRN zofran administered and effective. Patient NPO at 0000, patient verbalized understanding of NPO status. Patient reporting dry lips and mouth, mouth moisturizer given and mouth swabs bedside for patient to use as needed. Per patient she has a CPAP machine at home but does not use as the seal on the face mask is not sealing correctly, continuous pulse ox used per order. At 2230 patient O2 sats 82%, O2 applied at 1L and patient able to maintain sats >89% throughout the night. Tolerating repositioning after being premidicated with pain medication. Lidocaine patch intact to left lateral hip.
[2024-08-12 07:09] LABS: Basophils Percent Auto 0.1 % (0.0-3.0); Eosinophils Percent Auto 0.9 % (0.0-7.0); Hematocrit 37.2 % (33.0-51.0); Hemoglobin* 11.5 gm/dL (12.0-16.0); Immature Granulocytes Pct Auto 0.3 %; Lymphocytes Percent Auto 13.4 % (20-44); Mean Corpuscular HGB Conc 31 gm/dL (32-36); Mean Corpuscular Hemoglobin 28 pg (26-34); Mean Corpuscular Volume 89 fL (80-100); Monocytes Percent Auto 10.2 % (0.0-11.0); Neutrophils Percent Auto 75.1 % (42.0-72.0); Platelet Count* 208 K/uL (140-440); Red Blood Count 4.18 m/uL (4.00-5.20); White Blood Count* 13.27 K/uL (4.50-11.00)
[2024-08-12 07:14] LABS: Slide Review Reflex No
[2024-08-12 07:25] LABS: Chloride* 102 mmol/L (96-114)
[2024-08-12 07:26] LABS: Potassium* 4.2 mmol/L (3.6-5.1); Sodium* 136 mmol/L (135-149)
[2024-08-12 07:27] LABS: INR 1.04 (0.91-1.10); Prothrombin Time 14.2 Seconds
[2024-08-12 07:28] LABS: Creatinine* 0.6 mg/dL (0.5-1.5); Est. Creatinine Clearance* 42.25; Estimated Glomerular Filt Rate 88 ml/min
[2024-08-12 07:29] LABS: Anion Gap 5 mEq/L (7-15); Blood Urea Nitrogen* 17 mg/dL (7-30); Calcium* 8.3 mg/dL (8.4-10.6); Carbon Dioxide* 29 mmol/L (20-32); Glucose* 97 mg/dL (60-115)
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
[2024-08-12] MEDS: SENNOSIDES/DOCUSATE TABLET 1 TAB PO (09:04)
[2024-08-12] MEDS: GABAPENTIN 100 MG CAPSULE PO ×2 (09:04→21:27)
[2024-08-12] MEDS: 0.9 % SODIUM CHLORIDE 1000 ml 1,000 ML 100 ML IV (09:37)
--- NOTE | 2024-08-12 12:10 | W.ANESCHARGE ---
Anesthesia Charges Start Date/Time Anesthesia Start Date: 08/12/24 Anesthesia Start Time: 13:11 Stop Date/Time Anesthesia Stop Date: 08/12/24 Anesthesia Stop Time: 15:23 Summary Extremes of Age - Over 70 or under 1: MDA
[2024-08-12] MEDS: LACTATED RINGERS 1000 ML 1,000 ML 100 ML IV (13:11)
[2024-08-12] MEDS: CEFAZOLIN 2 GM in 0.9 % SODIUM CHLORIDE Mini-bag 100 ML IVPB ×2 (13:30→19:55)
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
--- NOTE | 2024-08-12 13:45 | CRLHL7_ITS ---
For Patients: As a result of the Century Cures Act, medical imaging exams and procedure reports are released immediately into your electronic medical record. You may view this report before your referring provider. If you have questions, please contact your health care provider. INDICATION: Post operative left hip, injury hip fracture, Left hip bipolar hemiarthroplasty TECHNIQUE: Pelvis radiograph, Hip radiograph 2 views left COMPARISON: 08/11/2024 FINDINGS: Bone: No acute fractures or aggressive bone lesions are identified. Moderate diffuse osteopenia is noted. Joint: A left hip arthroplasty is noted. The visualized sacroiliac joints are unremarkable in appearance. The pubic symphysis is normal in appearance. Soft tissue: Lateral skin, subcutaneous gas and joint gas are present from recent surgery. No radiopaque foreign bodies are seen. IMPRESSION: 1. There is an unremarkable postoperative appearance of the hip arthroplasty. Dictated by: Abdirizak Zapien MD @ 08/12/2024 19:50:43 (Electronically Signed)
--- NOTE | 2024-08-12 14:26 | P.NB_ITS ---
Nerve Block Nerve Block Time Seen by Provider: 12:26 Date Seen: 08/12/24 Type of block requested by surgeon for post-operative analgesia: EMILIE/LFCN Side: left Time out performed: Yes Verification of patient name: Yes Verification of date of : Yes Site marking: site marked Name of person performing procedure: Nate Continuous monitoring Was continuous monitoring of O2 sat, B/P, director of cardiac rehabilitation, recorded every 15 minutes?: Yes Procedure Checklist: sterile prep, needles and gloves Ultrasound guided. Images saved: Yes Medications given in 5ml increments after negative aspiration: Ropivicaine %: 0.5 mL: 30 Needle gauge: 20 Decadron (mg): 10 Precedex (mcg): 25 Patient tolerated procedure well: Yes Additional comments: Needle noted below psoas tendon needle noted adjacent to LFCN Block Charges Block Charge (with Pro Fee): Other Periph Nerve Block Use of Ultrasound Machine for Block: Yes- US Guidance/pain block
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
--- NOTE | 2024-08-12 15:25 | PC.SOCIAL ---
Discharge planning: As of 3:15pm the pt was not back from surgery yet. [employer] social worker will plan to meet with the pt tomorrow to discuss discharge planning. Social work to follow-up as needed.
--- NOTE | 2024-08-12 15:32 | P.ANES_ITS ---
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
--- NOTE | 2024-08-12 15:32 | W.ANESCHARGE ---
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
--- NOTE | 2024-08-12 18:31 | PC.NURSE ---
End of shift [id number]: Pt underwent Sx Left Hip Fx @ 1315?and arrived on the floor @ 1554. Pt is A&Ox4, pleasant, and cooperative. CMS intact of LLE. Reports pain 4-5/10 to incision site, newspaper writer utilized PRN medication, repositioning, and ice. Relief noted. Incision site CDI, active ice.?Pt tolerating advanced diet/fluids well, regular. Cannon in place, patent and draining. Pt denies H/N/SOB/CP. Pt appears resting with call light in reach.
[2024-08-12] MEDS: SENNOSIDES 1 TAB TABLET 2 TAB PO (21:27)
[2024-08-12] MEDS: LIDOCAINE 5% PATCH 1 PATCH TRANSDERMA (21:27)
[2024-08-12] MEDS: LACTATED RINGERS 1000 ML 1,000 ML 75 ML IV (22:38)
[2024-08-12] MEDS: OXYCODONE 5 MG TABLET PO (22:38)
[2024-08-13] VITALS (7 sets, daily range): BP systolic 140–159; BP diastolic 65–77; PULSE 59–89; RESP 14–18; TEMP 36.8–37.5; O2SAT 89–95
[2024-08-13] MEDS: CEFAZOLIN 2 GM in 0.9 % SODIUM CHLORIDE Mini-bag 100 ML IVPB (03:52)
[2024-08-13 06:31] LABS: Basophils Percent Auto 0.1 % (0.0-3.0); Eosinophils Percent Auto 0.1 % (0.0-7.0); Hematocrit 34.2 % (33.0-51.0); Hemoglobin* 10.7 gm/dL (12.0-16.0); Immature Granulocytes Pct Auto 0.9 %; Lymphocytes Percent Auto 4.8 % (20-44); Mean Corpuscular HGB Conc 31 gm/dL (32-36); Mean Corpuscular Hemoglobin 28 pg (26-34); Mean Corpuscular Volume 88 fL (80-100); Monocytes Percent Auto 7.8 % (0.0-11.0); Neutrophils Percent Auto 86.3 % (42.0-72.0); Platelet Count* 170 K/uL (140-440); RDW Coefficient of Variation % 12.9 % (11.5-15.5); Red Blood Count 3.87 m/uL (4.00-5.20); Slide Review Reflex No; White Blood Count* 18.88 K/uL (4.50-11.00)
[2024-08-13 06:56] LABS: Chloride* 104 mmol/L (96-114); Potassium* 3.8 mmol/L (3.6-5.1); Sodium* 137 mmol/L (135-149)
[2024-08-13 06:59] LABS: Creatinine* 0.5 mg/dL (0.5-1.5); Est. Creatinine Clearance* 42.25; Estimated Glomerular Filt Rate 92 ml/min
[2024-08-13 07:00] LABS: Anion Gap 5 mEq/L (7-15); Blood Urea Nitrogen* 15 mg/dL (7-30); Calcium* 8.7 mg/dL (8.4-10.6); Carbon Dioxide* 28 mmol/L (20-32); Glucose* 123 mg/dL (60-115)
--- NOTE | 2024-08-13 08:05 | PC.NURSE ---
END OF SHIFT NOTE: PT A&O. VSS ON 0.5L NC TO RA; AFEBRILE. LIDOCAINE PLACE ON LEFT HIP. PT RATES PAIN 4-5/10 WITH RELIEF FROM PRN OXYCODONE. ACTIVE ICE TO LEFT HIP. ONEILL IN PLACE AND PATENT.
[2024-08-13] MEDS: RIVAROXABAN 10 MG TABLET PO (09:15)
[2024-08-13] MEDS: SENNOSIDES/DOCUSATE TABLET 1 TAB PO (09:15)
[2024-08-13] MEDS: GABAPENTIN 100 MG CAPSULE PO ×2 (09:16→20:14)
--- NOTE | 2024-08-13 11:09 | PM.DS1 ---
DS: Providers Provider Date Seen: 08/13/24 Date of admission: 08/12/24 07:35 Primary care physician: Valeria Canela CNP Admitting Clinician: Sherry Tillman MD Consults: PT, OT, SW, Orthopedic Surgery Attending Physician on discharge: Sherry Tillman MD Date of Discharge: 08/13/24 DS: Diagnosis Discharge Diagnosis (1) Closed hip fracture: Status: Acute Problem details: - comminuted impacted fracture of the left proximal femur - s/p L hip Dr. Martinez of Orthopedic Surgery 08/12 - reassuring preoperative CXR and EKG - recommend postoperative prophylaxis given DVT history Left hip bipolar hemiarthroplasty for femoral neck fracture (2) DANIEL (obstructive sleep apnea): Status: Acute Problem details: - inconsistent CPAP use at home (3) History of DVT (deep vein thrombosis): Status: Acute Problem details: - 2010, unprovoked, treated with 3 months of Warfarin - will treat with 30 days of Xarelto postoperatively given this history DS: Summary Time Spent with Patient Time attestation: Total time spent providing and/or coordinating discharge services: Exam Const: Vital Signs, click to edit/add: Vital Signs - 24 hr 08/12/24 15:18 08/12/24 15:25 08/12/24 15:30 Temperature 99 F Pulse Rate 82 81 81 Pulse Rate [Pulse Oximeter] Respiratory Rate 14 16 16 Blood Pressure 132/61 149/73 H 153/77 H Blood Pressure [Ri ght Arm] Pulse Oximetry 87 L 97 98 Oxygen Delivery Me thod Nasal Cannula Nasal Cannula Nasal Cannula Oxygen Flow Rate 5 5 3 08/12/24 15:35 08/12/24 15:40 08/12/24 15:45 Temperature 98.4 F 98.6 F Pulse Rate 81 81 80 Pulse Rate [Pulse Oximeter] Respiratory Rate 16 14 16 Blood Pressure 151/72 H 157/63 H 157/66 H Blood Pressure [Ri ght Arm] Pulse Oximetry 94 94 96 Oxygen Delivery Me thod Nasal Cannula Nasal Cannula Nasal Cannula Oxygen Flow Rate 3 3 3 08/12/24 15:54 08/12/24 16:10 08/12/24 16:25 Temperature 97.7 F 98.4 F 98.6 F Pulse Rate 83 84 79 Pulse Rate [Pulse Oximeter] Respiratory Rate 14 16 16 Blood Pressure 146/68 H 141/62 H 144/73 H Blood Pressure [Ri ght Arm] Pulse Oximetry 95 92 91 Oxygen Delivery Me thod Nasal Cannula Nasal Cannula Nasal Cannula Oxygen Flow Rate 3 2 2 08/12/24 16:40 08/12/24 16:55 08/12/24 17:30 Temperature 97.8 F 99.5 F 98 F Pulse Rate 81 77 76 Pulse Rate [Pulse Oximeter] Respiratory Rate 16 16 18 Blood Pressure 154/59 H 145/73 H 122/67 Blood Pressure [Ri ght Arm] Pulse Oximetry 91 92 93 Oxygen Delivery Me thod Nasal Cannula Nasal Cannula Nasal Cannula Oxygen Flow Rate 2 2 2 08/12/24 18:00 08/12/24 20:00 08/12/24 20:00 Temperature 98.5 F 98.8 F Pulse Rate 77 Pulse Rate [Pulse Oximeter] 71 Respiratory Rate 16 16 Blood Pressure 135/70 Blood Pressure [Ri ght Arm] 134/79 Pulse Oximetry 96 92 92 Oxygen Delivery Me thod Nasal Cannula Nasal Cannula Oxygen Flow Rate 1 0.5 08/12/24 20:10 08/12/24 21:25 08/12/24 22:35 Temperature 98.8 F 98.7 F 98.8 F Pulse Rate 71 74 75 Pulse Rate [Pulse Oximeter] Respiratory Rate 16 16 16 Blood Pressure 134/79 137/63 153/62 H Blood Pressure [Ri ght Arm] Pulse Oximetry 92 93 90 Oxygen Delivery Me thod Nasal Cannula Nasal Cannula Nasal Cannula Oxygen Flow Rate 0.5 0.5 0.5 08/12/24 22:35 08/12/24 22:35 08/12/24 22:35 Temperature 98.8 F Pulse Rate Pulse Rate [Pulse Oximeter] 75 75 Respiratory Rate 16 16 16 Blood Pressure Blood Pressure [Ri ght Arm] 153/62 H Pulse Oximetry 90 90 Oxygen Delivery Me thod Nasal Cannula Nasal Cannula Oxygen Flow Rate 0.5 0.5 08/13/24 03:40 08/13/24 07:00 08/13/24 07:00 Temperature 98.3 F 98.8 F Pulse Rate Pulse Rate [Pulse Oximeter] 74 73 Respiratory Rate 16 14 18 Blood Pressure Blood Pressure [Ri ght Arm] 141/69 H 144/75 H Pulse Oximetry 93 95 95 Oxygen Delivery Me thod Room Air Room Air Room Air Oxygen Flow Rate DS: Data Data Completed and Pending Labs on day of discharge: Labs from last 24 hours 08/13/24 06:00 WBC 18.88 H RBC 3.87 L Hgb 10.7 L Hct 34.2 MCV 88 MCH 28 MCHC 31 L RDW Coeff of Jocelin 12.9 Plt Count 170 Neut % (Auto) 86.3 H Lymph % (Auto) 4.8 L [place] % (Auto) 7.8 Eos % (Auto) 0.1 Baso % (Auto) 0.1 Neut # (Auto) 16.30 H Lymph # (Auto) 0.90 [place] # (Auto) 1.50 H Eos # (Auto) 0.00 Baso # (Auto) 0.00 Abs Immat Gran (auto) 0.20 Imm/Tot Granulo (auto) 0.9 Sodium 137 Potassium 3.8 Chloride 104 Carbon Dioxide 28 Anion Gap 5 L BUN 15 Creatinine 0.5 Estimated Creat Clear 42.25 Estimated GFR 92 Glucose 123 H Calcium 8.7 Discharge Plan Discharge Disposition: Home, Self-Care Date of Admission: 08/12/24 07:35 Attending Provider on Discharge: Sherry Tillman Primary Care Provider: Valeria Canela V Condition: Improved Discharge Medications: New sennosides-docusate sodium [Stool Softener-Laxative] 8.6-50 mg Tablet 1 tab PO DAILY Qty: 30 0RF lidocaine 5 % Adhesive Patch,Medicated 1 patch transdermal Q24H Qty: 30 0RF gabapentin 100 mg Capsule 100 mg PO BID Qty: 60 0RF oxycodone 5 mg Tablet 5 mg PO Q4H PRN (Reason: Pain) Qty: 20 0RF Xarelto 10 mg Tablet 10 mg PO DAILY Qty: 28 0RF Continued omeprazole 20 mg capsule,delayed release(DR/EC) 20 mg PO DAILY pravastatin 20 mg tablet 20 mg PO HS escitalopram oxalate [Lexapro] 10 mg tablet 10 mg PO DAILY metoprolol succinate 25 mg tablet extended release 24 hr 25 mg PO DAILY Discontinued gabapentin 300 mg capsule 300 mg PO BID Activity Level: Activity as Tolerated and Use Walker Discharge Diet: Regular Follow Up Appointments: Valeria Canela V, PRODUCTION ASSEMBLY SUPERVISOR [Primary Care Provider] - [facility] Inst[facility]
[2024-08-13] MEDS: OXYCODONE 5 MG TABLET PO ×3 (11:35→18:19)
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
--- NOTE | 2024-08-13 14:23 | PM.ORPN ---
Subjective Subjective Date Seen: 08/13/24 Principal diagnosis: s/p ORIF hemiarthroplasty for displaced femoral neck fracture Interval history: Patient reports doing well. Feels a little bit worn out after PT/OT. No acute events over night. Reports some lightheadedness as she felt she had to stop ambulating due to fear of fainting. Mild nausea. Pain managed with scheduled and PRN medications, ice. DVT prophylaxis: Rivaroxaban due to history of blood clot right lower extremity that she feels was due to ankle surgery after ankle ORIF and hardware removal, SCDs, and walking. Denies fevers, chills, aches, vomiting CP, SOB/RICARDO. Per patient and staff, patient did not pass OT thus no acute for SNF placement. Ortho Exam Narrative Exam Narrative: -Patient appears comfortable in bed; no apparent acute distress. Daughter and present. -Alert and oriented times 3 -Operative hip swollen; soft tissues supple; no obvious erythema. Ecchymosis minimal. Warmth appropriate -Surgical dressing clean, dry, intact; no obvious drainage, no erythematous streaking peripheral to the bandage -Bilateral calves soft and supple; no significant swelling, edema, tenderness, erythema, discoloration, warmth, or palpable cords -2+ DP/PT pulses, intact dermatomes and myotomes distally (5/5 strength). Const Vital Signs, click to edit/add: Vital Signs - 24 hr 08/12/24 15:18 08/12/24 15:25 08/12/24 15:30 Temperature 99 F Pulse Rate 82 81 81 Pulse Rate [Pulse Oximeter] Respiratory Rate 14 16 16 Blood Pressure 132/61 149/73 H 153/77 H Blood Pressure [Right Arm] Pulse Oximetry 87 L 97 98 Oxygen Delivery Method Nasal Cannula Nasal Cannula Nasal Cannula Oxygen Flow Rate 5 5 3 08/12/24 15:35 08/12/24 15:40 08/12/24 15:45 Temperature 98.4 F 98.6 F Pulse Rate 81 81 80 Pulse Rate [Pulse Oximeter] Respiratory Rate 16 14 16 Blood Pressure 151/72 H 157/63 H 157/66 H Blood Pressure [Right Arm] Pulse Oximetry 94 94 96 Oxygen Delivery Method Nasal Cannula Nasal Cannula Nasal Cannula Oxygen Flow Rate 3 3 3 08/12/24 15:54 08/12/24 16:10 08/12/24 16:25 Temperature 97.7 F 98.4 F 98.6 F Pulse Rate 83 84 79 Pulse Rate [Pulse Oximeter] Respiratory Rate 14 16 16 Blood Pressure 146/68 H 141/62 H 144/73 H Blood Pressure [Right Arm] Pulse Oximetry 95 92 91 Oxygen Delivery Method Nasal Cannula Nasal Cannula Nasal Cannula Oxygen Flow Rate 3 2 2 08/12/24 16:40 08/12/24 16:55 08/12/24 17:30 Temperature 97.8 F 99.5 F 98 F Pulse Rate 81 77 76 Pulse Rate [Pulse Oximeter] Respiratory Rate 16 16 18 Blood Pressure 154/59 H 145/73 H 122/67 Blood Pressure [Right Arm] Pulse Oximetry 91 92 93 Oxygen Delivery Method Nasal Cannula Nasal Cannula Nasal Cannula Oxygen Flow Rate 2 2 2 08/12/24 18:00 08/12/24 20:00 08/12/24 20:00 Temperature 98.5 F 98.8 F Pulse Rate 77 Pulse Rate [Pulse Oximeter] 71 Respiratory Rate 16 16 Blood Pressure 135/70 Blood Pressure [Right Arm] 134/79 Pulse Oximetry 96 92 92 Oxygen Delivery Method Nasal Cannula Nasal Cannula Oxygen Flow Rate 1 0.5 08/12/24 20:10 08/12/24 21:25 08/12/24 22:35 Temperature 98.8 F 98.7 F 98.8 F Pulse Rate 71 74 75 Pulse Rate [Pulse Oximeter] Respiratory Rate 16 16 16 Blood Pressure 134/79 137/63 153/62 H Blood Pressure [Right Arm] Pulse Oximetry 92 93 90 Oxygen Delivery Method Nasal Cannula Nasal Cannula Nasal Cannula Oxygen Flow Rate 0.5 0.5 0.5 08/12/24 22:35 08/12/24 22:35 08/12/24 22:35 Temperature 98.8 F Pulse Rate Pulse Rate [Pulse Oximeter] 75 75 Respiratory Rate 16 16 16 Blood Pressure Blood Pressure [Right Arm] 153/62 H Pulse Oximetry 90 90 Oxygen Delivery Method Nasal Cannula Nasal Cannula Oxygen Flow Rate 0.5 0.5 08/13/24 03:40 08/13/24 07:00 08/13/24 07:00 Temperature 98.3 F 98.8 F Pulse Rate Pulse Rate [Pulse Oximeter] 74 73 Respiratory Rate 16 14 18 Blood Pressure Blood Pressure [Right Arm] 141/69 H 144/75 H Pulse Oximetry 93 95 95 Oxygen Delivery Method Room Air Room Air Room Air Oxygen Flow Rate 08/13/24 11:00 Temperature 98.3 F Pulse Rate Pulse Rate [Pulse Oximeter] 82 Respiratory Rate 18 Blood Pressure Blood Pressure [Right Arm] 158/70 H Pulse Oximetry 93 Oxygen Delivery Method Room Air Oxygen Flow Rate Assessment and Plan Assessment and plan (1) Closed hip fracture: Problem details: - comminuted impacted fracture of the left proximal femur - s/p L hip bipolar hemiarthroplasty with Dr. Martinez of Orthopedic Surgery 08/12 - 30 days of Xarelto for postoperative prophylaxis given DVT history Status: Acute (2) DANIEL (obstructive sleep apnea): Problem details: - inconsistent CPAP use at home Status: Acute (3) History of DVT (deep vein thrombosis): Problem details: - 2010, unprovoked, treated with 3 months of Warfarin - will treat with 30 days of Xarelto postoperatively given this history Status: Acute Plan - Complete 23 hour perioperative antibiotics. - PT/OT consult for education and assistance. - Social work consult for discharge planning - will need SNF - Prescribed analgesics as needed - DVT prophylaxis: Rivaroxaban, SCDs, walking - Anticipation is for discharge to SNF once bed is found and if the patient remains medically stable, pain is controlled, and they are safe with mobilization.
--- NOTE | 2024-08-13 15:33 | PC.NURSE ---
End of shift [id number]:Pt is A&Ox4, pleasant, and cooperative. CMS intact of LLE. SL. VSS on RA. Reports pain to incision site, lyric writer utilized PRN medication, repositioning, and ice. Relief noted. Incision site CDI, active ice.?Pt tolerating reg diet/fluids well. Cannon removed. Pt voided in toilet. A1 GB and W. Pt passing gas, bowel sounds active. No BM. Pt denies H/N/SOB/CP. Pt appears resting with call light in reach, family at bedside.
--- NOTE | 2024-08-13 15:59 | PC.SOCIAL ---
Discharge Planning: Pt. is open to a SNF for short-term rehab and has [employer] insurance. Pt. gave a list on [employer] accepting facilities to call. 1. [facility]-[phone], fax# [phone]. Has openings and can asses. 2. [facility]-[phone], fax#[phone]. Has one TCU bed and can assess. 3. [facility] [phone]. Message left on availability. 4. [facility]-[phone], Message left on availability. 5. [facility]-[phone], fax# [phone]. Has an opening and can assess. 6. [facility]-[phone], . Voicemail states referrals can be sent.
--- NOTE | 2024-08-13 16:25 | PC.SOCIAL ---
Discharge Planning: Pt. is open to a SNF for short-term rehab and has [employer] insurance. Followed up with facilities regarding bed availability. As [facility] was pt's top choice with bed availability, faxed information to them at [phone] and awaiting call back with decision on admit. If this facility is unable to accept pt, referral witll be sent to the following other facilities: [phone], fax#[phone]. 2. [facility]-[phone], fax [phone]. 3. [facility]-[phone], . grout worker to follow up as needed.
--- NOTE | 2024-08-13 18:42 | PC.NURSE ---
End of Shift: Patient pleasant and cooperative. Patient vitally stable, lungs clear, BS WNL, IV SL and intact. Patient rates left hip pain 7/10, 5mg of oxy given once. Patient 1 assist/walker. Patient took a nap this afternoon and is now up in chair after dinner. Patient urinating well and tolerating regular diet. Left hip dressing C/D/I.
[2024-08-13] MEDS: SENNOSIDES 1 TAB TABLET 2 TAB PO (20:14)
[2024-08-13] MEDS: LIDOCAINE 5% PATCH 1 PATCH TRANSDERMA (20:14)
[2024-08-13] MEDS: SODIUM CHLORIDE 0.9 % (FLUSH) 10 ML SYRINGE 5 ML IVF (20:15)
[2024-08-14] VITALS (8 sets, daily range): BP systolic 117–152; BP diastolic 57–76; PULSE 87–97; RESP 16–18; TEMP 36.8–37.1; O2SAT 89–91
--- NOTE | 2024-08-14 06:35 | PC.NURSE ---
END OF SHIFT NOTE: PT PLEASANT AND COOPERATIVE WITH CARES. VSS ON RA; TMAX 99.5 TEMPORAL. PT RATES LEFT HIP PAIN 4/10 WITH RELIEF FROM SCHEDULED MED AND ACTIVE ICE. LIDOCAINE PATCH PLACED ON LEFT HIP. AMBULATES WITH A1/WALKER. ABDUCTOR PILLOW IN PLACE. DRESSING TO LEFT HIP CDI. DENIES CP, SOB, N/V. AWAITING CALLBACK FOR SNF PLACEMENT FOR REHAB.?
[2024-08-14] MEDS: SENNOSIDES 1 TAB TABLET 2 TAB PO (09:03)
[2024-08-14] MEDS: SODIUM CHLORIDE 0.9 % (FLUSH) 10 ML SYRINGE 5 ML IVF ×2 (09:04→21:15)
[2024-08-14] MEDS: SENNOSIDES/DOCUSATE TABLET 1 TAB PO (09:04)
[2024-08-14] MEDS: RIVAROXABAN 10 MG TABLET PO (09:04)
[2024-08-14] MEDS: GABAPENTIN 100 MG CAPSULE PO ×2 (09:04→21:01)
--- NOTE | 2024-08-14 09:52 | PC.NURSE ---
shift note: pt dizzy with ambulating to bathroom. BP 104/59 P=94 after returning from bathroom. pt laid flat to assist with dizziness and nausea. rechecked pt in 30 mins with pt stating relief in dizziness and nausea.
[2024-08-14 10:40] LABS: Basophils Percent Auto 0.1 % (0.0-3.0); Eosinophils Percent Auto 1.8 % (0.0-7.0); Hematocrit 33.6 % (33.0-51.0); Hemoglobin* 10.5 gm/dL (12.0-16.0); Immature Granulocytes Pct Auto 0.3 %; Lymphocytes Percent Auto 8.1 % (20-44); Mean Corpuscular HGB Conc 31 gm/dL (32-36); Mean Corpuscular Hemoglobin 27 pg (26-34); Mean Corpuscular Volume 88 fL (80-100); Monocytes Percent Auto 8.8 % (0.0-11.0); Neutrophils Percent Auto 80.9 % (42.0-72.0); Platelet Count* 180 K/uL (140-440); Red Blood Count 3.84 m/uL (4.00-5.20); White Blood Count* 14.07 K/uL (4.50-11.00)
[2024-08-14 10:51] LABS: Chloride* 100 mmol/L (96-114); Sodium* 135 mmol/L (135-149)
[2024-08-14 10:52] LABS: Potassium* 3.4 mmol/L (3.6-5.1)
[2024-08-14 10:54] LABS: Anion Gap 5 mEq/L (7-15); Carbon Dioxide* 30 mmol/L (20-32); Creatinine* 0.6 mg/dL (0.5-1.5); Est. Creatinine Clearance* 42.25; Estimated Glomerular Filt Rate 88 ml/min; Slide Review Reflex No
[2024-08-14 10:55] LABS: Blood Urea Nitrogen* 12 mg/dL (7-30); Calcium* 8.6 mg/dL (8.4-10.6); Glucose* 125 mg/dL (60-115)
--- NOTE | 2024-08-14 11:27 | P.ORPN_ITS ---
Subjective Subjective Date Seen: 08/14/24 Principal diagnosis: POD 2 left bipolar hemiarthroplasty for displaced femoral neck fracture Interval history: Patient reports doing okay. No acute events over night. Today, reporting feelings of lightheadedness, dizziness, feeling of faint while walking from the bathroom to her bed. She did not have a syncopal episode. Pain managed with scheduled and PRN medications, ice. DVT prophylaxis: Rivaroxaban due to histo ry of DVT, SCDs, walking. Denies fevers, chills, aches, N/V, CP, SOB/RICARDO. She reports that she classically feels faint in certain circumstances, and that the symptoms she has now are not new. Ortho Exam Narrative Exam Narrative: -Patient appears comfortable in bathroom, walking back to her bed; no apparent acute distress -Alert and oriented times 3 -Operative hip swollen; soft tissues supple; no obvious erythema. No significant ecchymosis or evidence of hematoma. Warmth appropriate -Surgical dressing clean, dry, intact; no obvious drainage, no erythematous streaking peripheral to the bandage. Lidocaine patch in place next to the surgical bandage. -Bilateral calves soft and supple; no significant swelling, edema, tenderness, erythema, discoloration, warmth, or palpable cords -2+ DP/PT pulses, intact dermatomes and myotomes distally (5/5 strength). Const Vital Signs, click to edit/add: Vital Signs - 24 hr 08/13/24 15:12 08/13/24 15:14 08/13/24 15:14 Temperature 99 F Pulse Rate [Pulse Oximeter] 59 L 89 Respiratory Rate 16 16 16 Blood Pressure [Right Arm] 159/70 H Pulse Oximetry 93 93 Oxygen Delivery Method Room Air Room Air 08/13/24 20:00 08/13/24 20:00 08/13/24 20:00 Temperature 98.3 F Pulse Rate [Pulse Oximeter] 85 85 Respiratory Rate 16 16 16 Blood Pressure [Right Arm] 145/65 H Pulse Oximetry 91 91 Oxygen Delivery Method Room Air Room Air 08/13/24 20:00 08/13/24 22:35 08/14/24 03:20 Temperature 99.5 F 98.3 F Pulse Rate [Pulse Oximeter] 89 87 Respiratory Rate 18 18 Blood Pressure [Right Arm] 140/77 H 148/66 H Pulse Oximetry 91 89 89 Oxygen Delivery Method Room Air Room Air 08/14/24 07:00 08/14/24 07:00 Temperature 98.7 F Pulse Rate [Pulse Oximeter] 94 Respiratory Rate 18 Blood Pressure [Right Arm] 149/75 H Pulse Oximetry 91 91 Oxygen Delivery Method Room Air Room Air Assessment and Plan Assessment and plan (1) Closed hip fracture: Problem details: - comminuted impacted fracture of the left proximal femur - s/p L hip bipolar hemiarthroplasty with Dr. Martinez of Orthopedic Surgery 08/12 - 30 days of Xarelto for postoperative prophylaxis given DVT history - Will need SNF placement Status: Acute (2) DANIEL (obstructive sleep apnea): Problem details: - inconsistent CPAP use at home Status: Acute (3) History of DVT (deep vein thrombosis): Problem details: - 2009, unprovoked, treated with 3 months of Warfarin - will treat with 30 days of Xarelto postoperatively given this history Status: Acute Plan - PT/OT consult for education and assistance. - Social work consult for discharge planning - Prescribed analgesics as needed - DVT prophylaxis: Rivaroxaban, walking, and SCDs - Anticipation is for discharge to SNF once bed is located and if the patient remains medically stable, pain is controlled, and they are safe with mobilization.
--- NOTE | 2024-08-14 11:39 | PC.SOCIAL ---
Addendum entered by Gilda Johnston SHOVEL HANDLE ASSEMBLER 08/14/24 16:01: Received call from Katie at [facility] stating that if [employer] insurance prior auth is not received by 4:00pm today, it will not be received until Saturday and pt can not be admitted with out this. So, as it is currently 4:00pm, pt will not be admitted to SNF today. [facility] will save the bed for admit on Saturday if authorized by [employer]. Called dtr Tamar [phone] and provided her with this information and answered questions. Dtr pleased with plan for discharge to [facility] when authorized. Dtr states family can transport at discharge if this is recommended or they will pay for non emergency ambulance if this is the recommended transportation for pt. trolley worker to follow up on Saturday. Original Note: Discharge planning: Received call back from [facility] Katie, stating they can accept pt pending [employer] prior authorization into a shared room at their facility for short term rehab. They also have a private room if pt prefers that for an additional private pay fee of $72.50/day. Met with pt who is pleased with plan for admit to [facility] rehab if prior authorization from [employer] is obtained. Pt is not interested in a private room. trolley worker updated socorro Betancur at pt's request [phone]. trolley worker to follow up as needed. Awaiting prior authorization by [employer] insurance.
[2024-08-14] MEDS: ONDANSETRON 2 MG/ML inj 4 MG IVP (11:50)
[2024-08-14] MEDS: POTASSIUM BICARB 25 MEQ EFFERVESCENT TAB PO (12:18)
[2024-08-14 13:18] LABS: Troponin I* 0.02 ng/mL (0.01-0.04)
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
--- NOTE | 2024-08-14 19:40 | PC.NURSE ---
shift note: pt having periods of dizziness and nausea during the day. pt unable to sit in recliner for > 30 mins. Pt received prn zofran with relief of nausea. IV patent.
[2024-08-15] VITALS (9 sets, daily range): BP systolic 130–150; BP diastolic 65–85; PULSE 78–94; RESP 16–18; TEMP 36.3–36.8; O2SAT 91–96
[2024-08-15 03:45] LABS: Appearance Urine Clear (Clear); Bilirubin Urine Negative (Negative); Blood Urine Trace-intact (Negative); Color Urine Yellow (Yellow); Glucose Urine Negative (Negative); Ketones Urine Negative (Negative); Leukocyte Esterase Urine Negative (Negative); Nitrite Urine Negative (Negative); Protein Urine Negative (Negative); Urobilinogen Urine 0.2 (0.2-1.0); pH Urine 6.5 (5.0-8.5)
[2024-08-15 04:01] LABS: RBC Urine 0-2 (0-2); WBC Urine 0-2 (0-5)
--- NOTE | 2024-08-15 06:27 | PC.NURSE ---
End of shift [id number]: A&O pleasant and cooperative. VSS. Rating pain in left hip 4/10 overnight. Pt stated this was at a tolerable and declined any PRN pain medication. Dressing to hip c/d/i. Pt reports some dizziness when sitting on side of bed at beginning of shift. Throughout the rest of the night pt denies and dizziness or n/v when up and moving. Ice pack placed to hip. Using call light appropriately.
[2024-08-15] MEDS: ACETAMINOPHEN 325 MG TABLET 650 MG PO (08:58)
[2024-08-15] MEDS: LIDOCAINE 5% PATCH 1 PATCH TRANSDERMA (08:58)
[2024-08-15] MEDS: GABAPENTIN 100 MG CAPSULE PO ×2 (08:58→20:30)
[2024-08-15] MEDS: RIVAROXABAN 10 MG TABLET PO (08:58)
--- NOTE | 2024-08-15 14:07 | PM.IMPN1 ---
Progress Note: A&P Assessment and plan (1) Closed hip fracture: Problem details: - comminuted impacted fracture of the left proximal femur - s/p L hip bipolar hemiarthroplasty with Dr. Martinez of Orthopedic Surgery 08/12 - 30 days of Xarelto for postoperative prophylaxis given DVT history - Will need SNF placement Status: Acute (2) DANIEL (obstructive sleep apnea): Problem details: - inconsistent CPAP use at home Status: Chronic (3) History of DVT (deep vein thrombosis): Problem details: - 2010, unprovoked, treated with 3 months of Warfarin - will treat with 30 days of Xarelto postoperatively given this history Status: Chronic Plan - awaiting SNF placement, reviewed discharge planning's note and we are awaiting prior authorization from [facility]. - I note that her potassium was slightly low yesterday. Will recheck in the morning. Subjective Time Seen by Provider: 10:57 Date Seen: 08/15/24 Interval history: Janie tells me therapy went better today. She denies complaints. Exam Narrative: Exam Narrative: General: No acute distress. Awake, alert, oriented. Cardiovascular: Regular rate and rhythm. No murmurs, gallops, or rubs. Respiratory: Clear to auscultation bilaterally. No wheezes or crackles. Abdomen: Bowel sounds present. Soft, nondistended, nontender. Extremities: No pedal edema. Const: Vital Signs, click to edit/add: Vital Signs - 24 hr 08/14/24 15:00 08/14/24 15:00 08/14/24 15:00 Temperature 98.7 F Pulse Rate [Pulse Oximeter] 97 97 Respiratory Rate 18 18 18 Blood Pressure [Ri ght Arm] 152/65 H Pulse Oximetry 90 90 Oxygen Delivery Me thod Room Air Room Air Oxygen Flow Rate 08/14/24 19:31 08/14/24 20:00 08/14/24 22:44 Temperature 98.8 F 98.7 F Pulse Rate [Pulse Oximeter] 94 95 Respiratory Rate 16 16 Blood Pressure [Ri ght Arm] 117/57 L 134/60 Pulse Oximetry 90 90 91 Oxygen Delivery Me thod Room Air Nasal Cannula Oxygen Flow Rate 1 08/14/24 22:45 08/15/24 03:30 08/15/24 07:00 Temperature 97.4 F L Pulse Rate [Pulse Oximeter] 86 Respiratory Rate 16 18 Blood Pressure [Ri t Arm] 149/66 H Pulse Oximetry 91 91 95 Oxygen Delivery Me thod Nasal Cannula Room Air Room Air Oxygen Flow Rate 1 08/15/24 07:00 Temperature 97.8 F Pulse Rate [Pulse Oximeter] 83 Respiratory Rate 18 Blood Pressure [Ri ght Arm] 148/77 H Pulse Oximetry 93 Oxygen Delivery Me thod Room Air Oxygen Flow Rate Labs Labs: Laboratory Results - last 24 hr 08/14/24 03:20 Urine Color Yellow Urine Appearance Clear Urine pH 6.5 Ur Specific [place] 1.010 Urine Protein Negative Urine Glucose (UA) Negative Urine Ketones Negative Urine Blood Trace-intact A Urine Nitrite Negative Urine Bilirubin Negative Urine Urobilinogen 0.2 Ur Leukocyte Esterase Negative Urine RBC 0-2 Urine WBC 0-2 Ur Squamous Epith Cells None Urine Bacteria None
--- NOTE | 2024-08-15 17:24 | PC.NURSE ---
shift note: vss stable. pt up 1/walker with steady gait. pt showered with OT. drsg to lt hip incision changed. skin around incision intact w/o redness. PP+ bilat. pt denies pain at this time. IV removed intact.
[2024-08-16] VITALS (9 sets, daily range): BP systolic 140–158; BP diastolic 76–80; PULSE 80–88; RESP 16–18; TEMP 36.6–37.1; O2SAT 95–97
--- NOTE | 2024-08-16 06:41 | PC.NURSE ---
End of shift [id number]: A&O pleasant and cooperative. VSS. Placed on 1L of oxygen briefly while sleeping but pt now tolerating room air while sleeping. A1 w/ walker and gait belt. Denies pain, n/v and dizziness/lightheadedness. Using call light appropriately
[2024-08-16 07:27] LABS: Potassium* 3.3 mmol/L (3.6-5.1)
--- NOTE | 2024-08-16 07:34 | PM.IMPN1 ---
Progress Note: A&P Assessment and plan (1) Closed hip fracture: Problem details: - comminuted impacted fracture of the left proximal femur - s/p L hip bipolar hemiarthroplasty with Dr. Martinez of Orthopedic Surgery 08/12 - 30 days of Xarelto for postoperative prophylaxis given DVT history - Will need SNF placement Status: Acute (2) ADNIEL (obstructive sleep apnea): Problem details: - inconsistent CPAP use at home Status: Chronic (3) History of DVT (deep vein thrombosis): Problem details: - 2010, unprovoked, treated with 3 months of Warfarin - will treat with 30 days of Xarelto postoperatively given this history Status: Chronic (4) Hypokalemia: Problem details: Low potassium yesterday and today despite replacement yesterday. Check magnesium level. Give oral K replacement again today. Recheck K in am. Status: Acute Plan - awaiting SNF placement, reviewed discharge planning's note and we are awaiting prior authorization from [facility]. Likely to [facility] tomorrow. Subjective Time Seen by Provider: 07:20 Date Seen: 08/16/24 Interval history: Janie feels stronger today. She notes her appetite is coming back. Exam Narrative: Exam Narrative: General: No acute distress. Awake, alert, oriented. Sitting comfortably in bedside chair. Cardiovascular: Regular rate and rhythm. No murmurs, gallops, or rubs. Respiratory: Clear to auscultation bilaterally. No wheezes or crackles. Abdomen: Bowel sounds present. Soft, nondistended, nontender. Extremities: No pedal edema. Const: Vital Signs, click to edit/add: Vital Signs - 24 hr 08/15/24 11:00 08/15/24 15:00 08/15/24 15:00 Temperature 97.9 F 98.2 F Pulse Rate [Pulse Oximeter] 78 78 Respiratory Rate 18 18 Blood Pressure [Ri ght Arm] 150/74 H 147/85 H Pulse Oximetry 96 94 94 Oxygen Delivery Me thod Room Air Room Air Room Air Oxygen Flow Rate 08/15/24 19:11 08/15/24 20:05 08/15/24 22:14 Temperature 98.3 F Pulse Rate [Pulse Oximeter] 94 88 Respiratory Rate 16 16 Blood Pressure [Ri ght Arm] 130/65 Pulse Oximetry 94 94 91 Oxygen Delivery Me thod Room Air Nasal Cannula Oxygen Flow Rate 1 08/15/24 22:15 08/15/24 23:30 08/16/24 03:00 Temperature Pulse Rate [Pulse Oximeter] Respiratory Rate 16 16 16 Blood Pressure [Ri t Arm] Pulse Oximetry 91 95 Oxygen Delivery Me thod Nasal Cannula Room Air Oxygen Flow Rate 1 08/16/24 05:22 08/16/24 07:00 08/16/24 07:00 Temperature 97.8 F Pulse Rate [Pulse Oximeter] 84 Respiratory Rate 16 16 Blood Pressure [Ri t Arm] 146/77 H Pulse Oximetry 97 97 Oxygen Delivery Me thod Room Air Room Air Oxygen Flow Rate Labs Labs: Laboratory Results - last 24 hr 08/16/24 06:01 Potassium 3.3 L
[2024-08-16 08:25] LABS: Magnesium* 2.2 mg/dL (1.5-2.6)
[2024-08-16] MEDS: LIDOCAINE 5% PATCH 1 PATCH TRANSDERMA (08:53)
[2024-08-16] MEDS: RIVAROXABAN 10 MG TABLET PO (08:54)
[2024-08-16] MEDS: POTASSIUM BICARB 25 MEQ EFFERVESCENT TAB PO ×3 (08:54→14:07)
[2024-08-16] MEDS: GABAPENTIN 100 MG CAPSULE PO ×2 (08:54→20:03)
--- NOTE | 2024-08-16 19:20 | PC.NURSE ---
End of Shift: Patient pleasant and cooperative. Afebrile. Rating pain in left hip 2/10 and denies need for PRN pain medication. Dressing to left hip C/D/I, CMS intact. Up to chair and walking in hallway with SBA, walker and gait belt. Tolerating regular diet with no nausea.
[2024-08-16] MEDS: SENNOSIDES 1 TAB TABLET 2 TAB PO (20:03)
[2024-08-16] MEDS: ACETAMINOPHEN 325 MG TABLET 650 MG PO (20:03)
[2024-08-17 03:00] VITALS: RESP 18
--- NOTE | 2024-08-17 05:11 | PC.NURSE ---
[id number]: Patient pleasant and cooperative. SBA w/walker. Tolerates movement well. Rates pain 3/10 with PRN Tylenol and active ice for relief. Abductor pillow in place during noc. Denies N/V. Eating and voiding.
[2024-08-17 06:35] LABS: Potassium* 3.7 mmol/L (3.6-5.1)
[2024-08-17 07:45] VITALS: BP 143/83; PULSE 95; RESP 18; TEMP 36.6; O2SAT 98
[2024-08-17] MEDS: GABAPENTIN 100 MG CAPSULE PO (09:09)
[2024-08-17] MEDS: RIVAROXABAN 10 MG TABLET PO (09:09)
[2024-08-17] MEDS: LIDOCAINE 5% PATCH 1 PATCH TRANSDERMA (09:09)
[2024-08-17] MEDS: ACETAMINOPHEN 325 MG TABLET 650 MG PO (09:09)
--- NOTE | 2024-08-17 11:38 | PC.SOCIAL ---
Discharge planning: Received call that [facility] has not yet prior authorized the rehab stay. Met with pt and who state pt is no longer interested in a rehab stay as she is soing much better. Her daughter is available to help at home for a few days and other family members are available to support if needed. Pt is pleased with plan for discharge home.
[2024-08-17 12:30] VITALS: BP 137/78; PULSE 87; RESP 18; TEMP 36.4; O2SAT 98
--- NOTE | 2024-08-17 12:32 | PM.DS1 ---
DS: Providers Provider Date Seen: 08/17/24 Date of admission: 08/12/24 07:35 Primary care physician: Valeria Canela CNP Admitting Clinician: Sherry Tillman MD Consults: 08/11/24 19:01 Consult to Occupational Therapy [CONS] Routine Comment: Reason(s) for OT Consult:: Evaluate and Treat Any Restrictions?:: No Restrictions Consult to Physical Therapy [CONS] Routine Comment: Reason(s) for PT Consult:: Evaluate and Treat Any Restrictions?:: No Restrictions Consult to Home Health Specialist [CONS] Routine Comment: Reason for Consult:: Social Service Consult 08/12/24 16:20 Consult to Physical Therapy [CONS] Routine Comment: Reason(s) for PT Consult:: Evaluate and Treat Any Restrictions?:: Wt Bearing as Tolerated Comment: Posterior hip precautions Consult to Home Health Specialist [CONS] Routine Comment: Reason for Consult:: Discharge Planning Needs Attending Physician on discharge: VANIA Ramos[facility]: 08/17/24 DS: Diagnosis Discharge Diagnosis (1) Closed hip fracture: Status: Acute Problem details: - comminuted impacted fracture of the left proximal femur - s/p L hip bipolar hemiarthroplasty with Dr. Martinez of Orthopedic Surgery 08/12 - 30 days of Xarelto for postoperative prophylaxis given DVT history - followed by PT/OT postoperatively, able to return home with support and aide devices given significant improvement, no further need for SNF (2) DANIEL (obstructive sleep apnea): Status: Chronic Problem details: - inconsistent CPAP use at home (3) History of DVT (deep vein thrombosis): Status: Chronic Problem details: - 2009, unprovoked, treated with 3 months of Warfarin - will treat with 30 days of Xarelto postoperatively given this history (4) Hypokalemia: Status: Acute Problem details: Improved to 3.7 following prior to discharge following oral replacement DS: Summary Hospital Course Hospital Course: [age] year old female was admitted to the medical floor for surgical intervention of left hip fracture. Course of care and details as noted above. Postoperatively, followed by PT and OT, able to discharge home with support of family/friends and aide devices, no longer meeting criteria for SNF. Remainder of chronic medical comorbidities were monitored and managed with home medications. Status at Discharge Functional status at discharge: uses cane/walker Overall status at discharge: patient is progressing back to baseline Time Spent with Patient Time attestation: Total time spent providing and/or coordinating discharge services: Time spent: Greater than 30 minutes Exam Narrative: Exam Narrative: PHYSICAL EXAM General: Pleasant, conversant, NAD Cardiovascular: RRR Pulmonary: No dyspnea Neurological: Alert, answering questions appropriately Skin: Warm, dry. Const: Vital Signs, click to edit/add: Vital Signs - 24 hr 08/16/24 15:00 08/16/24 15:00 08/16/24 15:00 Temperature 98.7 F Pulse Rate [Pulse Oximeter] 84 88 Respiratory Rate 18 Blood Pressure [Ri ght Arm] 158/80 H Pulse Oximetry 96 96 Oxygen Delivery Me thod Room Air Room Air 08/16/24 19:41 08/16/24 19:42 08/16/24 23:00 Temperature 98.2 F Pulse Rate [Pulse Oximeter] 80 Respiratory Rate 18 18 Blood Pressure [Ri ght Arm] 143/76 H Pulse Oximetry 95 95 95 Oxygen Delivery Me thod Room Air Room Air 08/16/24 23:00 08/16/24 23:07 08/17/24 03:00 Temperature Pulse Rate [Pulse Oximeter] Respiratory Rate 16 16 18 Blood Pressure [Ri ght Arm] Pulse Oximetry Oxygen Delivery Me thod DS: Data Data Completed and Pending Labs on day of discharge: Labs from last 24 hours 08/17/24 06:03 Potassium 3.7 Imaging Hip x-ray: Attestation: I have reviewed the pertinent imaging results. Radiologist's impression: Findings: Bones: Comminuted impacted fracture of the left proximal femur.. Joint spaces: Moderate degenerative changes of the bilateral hips and SI joints. Soft tissues: Unremarkable. Impression: Comminuted impacted fracture of the left proximal femur. Chest x-ray: Attestation: I have reviewed the pertinent imaging results. Radiologist's impression: FINDINGS: The sensitivity and specificity of the exam are moderately limited by the patient`s body habitus. Mediastinum: The mediastinum is normal in appearance. The heart silhouette is normal in size and morphology. Lung: Both lungs are unremarkable in appearance with small lung volumes. No sign of pleural effusion seen. No pneumothorax is identified. Bone and Soft tissue: Mild dextroscoliosis is noted without change. IMPRESSION: 1. No acute cardiopulmonary disease is seen. Discharge Plan Discharge Disposition: Home, Self-Care Date of Admission: 08/12/24 07:35 Attending Provider on Discharge: Yaneli Farrell Primary Care Provider: Valeria Canela V Condition: Improved Anticipated Discharge Date/Time: 08/17/24 12:29 Discharge Medications: New sennosides-docusate sodium [Stool Softener-Laxative] 8.6-50 mg Tablet 1 tab PO DAILY Qty: 30 0RF lidocaine 5 % Adhesive Patch,Medicated 1 patch transdermal Q24H Qty: 30 0RF gabapentin 100 mg Capsule 100 mg PO BID Qty: 60 0RF oxycodone 5 mg Tablet 5 mg PO Q4H PRN (Reason: Pain) Qty: 20 0RF Xarelto 10 mg Tablet 10 mg PO DAILY Qty: 28 0RF Continued omeprazole 20 mg capsule,delayed release(DR/EC) 20 mg PO DAILY pravastatin 20 mg tablet 20 mg PO HS escitalopram oxalate [Lexapro] 10 mg tablet 10 mg PO DAILY metoprolol succinate 25 mg tablet extended release 24 hr 25 mg PO DAILY Discontinued gabapentin 300 mg capsule 300 mg PO BID Discharge Orders: Discharge Order (Routine); Ordered 08/17/24 Ordered By: Yaneli Farrell Activity Level: Activity as Tolerated, Don't flex hip more than 90 degrees and Use Walker Activity Detail: Wound: ? remove surgical dressing after 1 week. Only remove dressing sooner if integrity is in question. ? No immersing wound in water; showering okay; light scrub with your hand and body soap, rinse, dab dry ? Sutures are under the skin, will dissolve; allow surgical glue to come off naturally; do not scrub the wound or apply ointments/lotions ? Call our office with any redness that streaks, excessive drainage from the wound, or wound gapping. Ice/Elevate: ? Ice as needed for swelling and discomfort (ice pack); elevate extremity frequently above the heart. Motion/Exercise: ? Weight bear as tolerated operative extremity (walker/cane for ambulation assistance as needed) ? Per PT/OT. ? Straight leg raises daily: 1-2 sets of 10 reps - Abductor pillow when sitting or sleeping (6 weeks) Pain Medications: ? Oral narcotic as prescribed. Wean as tolerated. Additional acetaminophen as needed. Blood Clot Prevention (DVT): ? Medication: 30 days xarelto due to history of blood clot right lower extremity. Driving: ? Do not drive while taking narcotic pain medication ? Anticipate 4-6 weeks no driving if operative leg is driving leg Dental: ? No elective dental work for 6 months post-op. If there is an urgent/emergent dental need, contact our office for an antibiotic prescription. Smoking/Alcohol: ? Do not smoke; do no drink alcohol especially when taking postoperative oral narcotic medication Seek Care from you Primary Care Provider if you experience the following issues in the postoperative phase and beyond: ? Bacterial infections such as: pneumonia, bacterial skin infection (cellulitis), UTI, high fever, chills unrelated to the operative body part - call your primary care physician urgently for treatment in hopes to protect your health and the metal implant. Referrals: ? PT, OT per patient preference - evaluate treat total hip arthroplasty protocol, posterior approach (gait training, ROM, ADLs) Vaccines: ? No vaccines until 4-6 weeks postop Follow up: ? PA-C visit in 1 week or once discharged from SNF ? Ortho surgeon follow-up in 6 weeks; repeat radiographs AP pelvis, cross table lateral operative hip If there are any acute concerns regarding your surgery, please call our orthopedic clinic ([phone]) Discharge Diet: Regular Follow Up Appointments: Valeria Canela V [employer] [Primary Care Provider] - (Post hospital follow-up 7-10 days) Forms: [employer] Info Instructions
== END 2024-08-17 16:30 | disposition home or self-care (01) | DRG 522 ==
LOC: ED 18:15 → MEDSURG 18:41
PROVIDERS: Family Medicine; Orthopaedic Surgery Sports Medicine; Physician Assistant; Admitting Provider Family Medicine; Emergency Provider Emergency Medicine Emergency Medical Services; PCP Nurse Practitioner Family; Visit Provider Family Medicine
DX: S72.002A Fracture of unspecified part of neck of left femur, initial encounter for closed fracture (principal); E78.5 Hyperlipidemia, unspecified; I10 Essential (primary) hypertension; G47.33 Obstructive sleep apnea (adult) (pediatric); M54.50 Low back pain, unspecified; K21.9 Gastro-esophageal reflux disease without esophagitis; M19.90 Unspecified osteoarthritis, unspecified site; Z86.718 Personal history of other venous thrombosis and embolism; G89.18 Other acute postprocedural pain; Y93.55 Activity, bike riding; V19.3XXA Pedal cyclist (driver) (passenger) injured in unspecified nontraffic accident, initial encounter; E87.6 Hypokalemia; R09.02 Hypoxemia
CPT/HCPCS: 01230; 36415; 51701; 64450; 71045; 73501; 73502; 76942; 80048; 81001; 81003; 83735; 84132; 84484; 85025; 85610; 93005; 94761; 97110; 97116; 97162; 97166; 97530; 97535; 99100; 99140; 99284; 99285; A9270; C1776; G0378; J0690; J1100; J1170; J2371; J2405; J2704; J2795; J3490; J7030; J7120

== ENCOUNTER 2024-11-09 13:45 | Outpatient (RCR) | payer OTHER, SELFPAY ==
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
== END 2025-03-09 23:59 | disposition home or self-care (01) ==
PROVIDERS: PCP Nurse Practitioner Family; Visit Provider Physician Assistant Surgical
DX: S72.92XA Unspecified fracture of left femur, initial encounter for closed fracture (principal); Z47.89 Encounter for other orthopedic aftercare; Z51.89 Encounter for other specified aftercare
CPT/HCPCS: 97110; 97116; 97162

== ENCOUNTER 2025-09-20 08:15 | Outpatient (RCR) | payer OTHER, SELFPAY | END 2025-09-20 09:20 | disposition home or self-care (01) | PROVIDERS: PCP Nurse Practitioner Family; Visit Provider Nurse Practitioner | DX: M54.59 Other low back pain (principal); Z51.89 Encounter for other specified aftercare | CPT/HCPCS: 97110; 97140; 97162; 97530; 97535 ==